=== PATIENT | female | born 1940 | race Caucasian/White ===

== ENCOUNTER 2020-08-01 11:48 | Emergency (ER) | payer MEDICARE, BC, SELFPAY ==
[2020-08-01 11:55] VITALS: BP 129/40; PULSE 99; RESP 18; TEMP 36.6; O2SAT 98
--- NOTE | 2020-08-01 12:07 | ED.GENADUL_ITS ---
Discharge Plan Disposition Patient Disposition: HOME Condition: Good Discharge Details Clinical Impression: Arthritis of knee, Effusion into joint Primary Care Provider: None,None ED Provider: Adalgisa Guevara Home Meds and New Rx's Prescriptions: Continued metformin 500 mg Tablet 500 mg PO BID RF: 0 Lantus U-100 Insulin 100 unit/mL Solution 20 unit SUBCUT BID RF: 0 lisinopril 20 mg Tablet 20 mg PO DAILY RF: 0 potassium 99 mg Tablet 99 mg PO DAILY RF: 0 pantoprazole 40 mg Tablet,Delayed Release (Dr/Ec) 40 mg PO DAILY RF: 0 aspirin 81 mg Tablet 81 mg PO DAILY RF: 0 pravastatin 20 mg Tablet 20 mg PO QHS RF: 0 hydrochlorothiazide 25 mg Tablet 25 mg PO DAILY RF: 0 insulin lispro [Humalog U-100 Insulin] 100 unit/mL Solution 15 unit SUBCUT TID RF: 0 hydroxychloroquine 200 mg Tablet 200 mg PO DAILY RF: 0 coenzyme Q10 [CoQ-10] 100 mg Capsule 100 mg PO BID RF: 0 omega-3 fatty acids Capsule 1,000 mg PO DAILY RF: 0 Calcium 600 + D(3) 600 mg calcium- 200 unit Capsule 1 cap PO DAILY RF: 0 vitamin A-vitamin D3 5,000-400 unit Capsule PO DAILY RF: 0 cholecalciferol (vitamin D3) [Vitamin D3] 50 mcg (2,000 unit) Tablet 50 mcg PO DAILY RF: 0 Probiotic 3 billion cell Capsule 3,000 mmu cells PO DAILY RF: 0 Trulicity 0.75 mg/0.5 mL Pen Injector 0.75 mg SUBCUT QWEEK RF: 0 Histablock 1,080 mg PO BID RF: 0 Intestinal Sooth & Build RF: 0 Discharge Instructions Instructions: Arthritis (ED) Additional Instructions: Your exam is reassuring here today. I did not see any evidence to suggest an infection. Likely this is from your driving for extended period of time your knee being bent position. As we discussed, knee can be drained but because of your recent injection, we are unable to inject you again with steroids. Please continue with compression as this does sound to be reducing the swelling. Encourage rest, ice, elevation. You may take Tylenol and/or ibuprofen as needed for discomfort. Please follow the directions on the label. Please follow-up with orthopedics when she returns home for reevaluation and discuss continued care. If you develop increased swelling, fever/chills, redness or other new/worsening symptom please seek care urgently once again. Discharge Data Discharge Date/Time-TO BE ENTERED AT DEPARTURE: 08/01/20 12:30 Medical Decision Making Patient is a pleasant 80 year old female presenting today with c/c of left knee pain. She has known OA for which she received steroid injections. She last received on 2 months ago, is scheduled for another in August. Is discussing TKA with her orthopedist. Reports she has increase in her pain and swelling after drivinng [place]. Denies calf pain. No N/T. Denies SOB, CP, fevers/chill. No trauma. On exam, she appears comfortable and nontoxic. She has limited ROM of knee. Small effusion. No erythema or warmth. She does not appear septic. 2+ distal pulses. No deformity noted. No evidence of DVT on exam. She and I discussed that this is likely associated with OA and exacerbation of her pain and arthritic swelling. Discussed xr, she would like ot hold off. She and I discussed aspiration. However, she has noted improvement already with compression with STELLA wrap. We discussed risks/benefits and patient would like ot hold off at this time. She would like to cntinue with NSAID, Tylenol and compression with plan to f/u with her orthopedic surgeon when she returns home. Return precautions discussed. New stella, that fits better, will be sent home with patient. All of her questions and concerns were addressed, she is in agreement with this plan. HPI General Mode of arrival: ambulatory . Date/Time Provider Initiated Documentation: 08/01/20 11:49 . Limitations to Documentation: no limitations . Information obtained by: patient and RN notes reviewed . History of Present Illness 80 year old F presents to the emergency department with the chief complaint of left knee pain, described as moderate and similar to prior episodes (reports hx of OA, states it feels the same), with intensity rated at 7. Quality is described as aching, and is localized to the left and lower extremity. Patient reports no radiation. Patient started experiencing this day(s) and it has been constant. Medication improves symptom(s), and other things that improve symptom(s), (compression) No exacerbating factors reported . Patient notes no other symptoms.; denies fever/chills, rash, shortness of breath and weakness. Patient did receive the following treatments prior to arrival, NSAID Related Data Home Medications Medication Instructions Recorded Confirmed Calcium 600 + D(3) 1 cap PO DAILY 08/01/20 08/01/20 Histablock 1,080 mg PO BID 08/01/20 08/01/20 Intestinal Sooth & Build 08/01/20 Lantus U-100 Insulin 20 unit SUBCUT BID 08/01/20 08/01/20 Probiotic 3,000 mmu cells PO DAILY 08/01/20 08/01/20 Trulicity 0.75 mg SUBCUT QWEEK 08/01/20 08/01/20 aspirin 81 mg PO DAILY 08/01/20 08/01/20 cholecalciferol (vitamin D3) 50 mcg PO DAILY 08/01/20 08/01/20 [Vitamin D3] coenzyme Q10 [CoQ-10] 100 mg PO BID 08/01/20 08/01/20 hydrochlorothiazide 25 mg PO DAILY 08/01/20 08/01/20 hydroxychloroquine 200 mg PO DAILY 08/01/20 08/01/20 insulin lispro [Humalog U-100 15 unit SUBCUT TID 08/01/20 08/01/20 Insulin] lisinopril 20 mg PO DAILY 08/01/20 08/01/20 metformin 500 mg PO BID 08/01/20 08/01/20 omega-3 fatty acids 1,000 mg PO DAILY 08/01/20 08/01/20 pantoprazole 40 mg PO DAILY 08/01/20 08/01/20 potassium 99 mg PO DAILY 08/01/20 08/01/20 pravastatin 20 mg PO QHS 08/01/20 08/01/20 vitamin A-vitamin D3 cap PO DAILY 08/01/20 Allergies Allergy/AdvReac Type Severity Reaction Status Date / Time latex Allergy Other (See Unverified 08/01/20 12:00 Comment) morphine Allergy Nausea Unverified 08/01/20 12:00 Sulfa (Sulfonamide Allergy Hives Unverified 08/01/20 12:00 Antibiotics) tramadol Allergy Nausea Unverified 08/01/20 12:00 clarithromycin [From Biaxin] AdvReac Nausea Unverified 08/01/20 12:00 codeine AdvReac Nausea Unverified 08/01/20 12:00 General Stated Complaint: Orthopedic MERRITT: 3 Review of Systems Constitutional Constitutional: Reports as per HPI, Denies chills, Denies fever(s), Denies headache(s) and Denies weakness ENT Ears, Nose, Mouth, and Throat: Denies headache(s) Cardiovascular Cardiovascular: Reports as per HPI Respiratory Respiratory: Reports as per HPI and Denies cough Musculoskeletal Musculoskeletal: Reports as per HPI and Denies tingling Integumentary/Breasts Skin/Breast: Reports as per HPI, Denies rash and Denies wounds Neurologic Neurologic: Reports as per HPI, Denies headache(s), Denies tingling, Denies paresthesias and Denies weakness [facility] Social History Smoking/Tobacco Use Status: Never Smoking risk assessment performed?: Yes Alcohol Intake: never Substance use type: does not use Exam Const General: cooperative, healthy appearing, comfortable, no acute distress, well developed and well groomed Nutritional Appearance: average body habitus and well nourished Orientation: alert and awake Resp Effort & Inspection: normal respiratory effort, able to speak in complete sentences and no respiratory distress Cardio Rate: regular rate Rhythm: regular rhythm Skin General skin exam: no rashes or lesions noted Lesions: no lesions Rashes: no rashes Trauma: no lacerations or abrasions Neuro General: patient alert and patient awake Cognition: normal cognition Speech: speech normal Gait: normal gait Motor: muscle tone normal throughout Sensory Exam: no sensory deficits noted Extrem Left lower extremity: normal to inspection, normal capillary refill, hip/thigh Details: normal to inspection and normal ROM; no swelling, knee Details: normal to inspection, tenderness (diffuse discomfort, worse over medial joint line), swelling (small joint effusion) and knee ligament exam normal; ROM abnormal (full extension, flexion to 90*), no ecchymosis, no crepitus, no deformity and no unusual warmth, lower leg Details: normal to inspection and no edema; no tenderness and no palpable cords, ankle Details: normal to inspection; no tenderness and no swelling and foot Details: normal capillary refill and vascular exam Details: dorsalis pedis pulse present; abnormal ROM and no edema Psych Appearance: grossly normal and well kempt Mental Status: mental status grossly normal Speech and Movement: speech and movement normal Course Vital Signs Vital signs: Vital Signs Temperature 36.6 C 08/01/20 11:55 Pulse 99 H 08/01/20 11:55 Respiratory Rate 18 08/01/20 11:55 Blood Pressure 129/40 L 08/01/20 11:55 Pulse Oximetry 98 08/01/20 11:55 Temperature 36.6 C 08/01/20 11:55 Temperature Source Skin 08/01/20 11:55 Pulse 99 H 08/01/20 11:55 Respiratory Rate 18 08/01/20 11:55 Blood Pressure 129/40 L 08/01/20 11:55 Blood Pressure Position Sitting 08/01/20 11:55 Pulse Oximetry 98 08/01/20 11:55 Oxygen Delivery Method Room Air 08/01/20 11:55 Oxygen Flow Rate 0 08/01/20 11:55 Pain Level 8 08/01/20 11:55
--- OUTSIDE RECORDS SUMMARY | 2020-08-01 12:15 | XMS_ITS | Encounter Summary ---
:1940 Author Organization [facility] Address One [facility], [address] [place] [address] Care Team Providers Name Role Phone PrasadDonaldo garcia Benjamin VILA Primary Care Provider Reason for Visit Reason Comments Medication Refill Encounter Details Date Type Department Care Team Description 06/27/2020 Refill [facility] Jeanne Gonzalez DO Gastritis without CENTER [address] [facility] bleeding, unspecified [address] [place], [place] chronicity, unspecified [address] [address] gastritis type [place], [place] [phone] [phone] Social History Tobacco Use Types Packs/Day Years Used Date Never Assessed Sex Assigned at Date Recorded Not on file documented as of this encounter Miscellaneous Notes Telephone Encounter - Dave Mcginnis - 06/29/2020 8:11 AM EDT GAUTAM 08/14/19 documented in this encounter Plan of Treatment Not on filedocumented as of this encounter Visit Diagnoses Diagnosis Gastritis without bleeding, unspecified chronicity, unspecified gastritis type documented in this encounter
--- OUTSIDE RECORDS SUMMARY | 2020-08-01 12:15 | XMS_ITS | Encounter Summary ---
:1940 Author Organization [facility] Address One [facility], [address] [place] [address] Care Team Providers Name Role Phone Donaldo Steward DO Primary Care Provider Reason for Visit Reason Comments Follow-up follow up endoscopy Encounter Details Date Type Department Care Team Description 08/14/2019 Telemedicine [facility] [place] Jeanne Gonzalez, [facility] DO bleeding, unspecified [address], [address] [place], [place] [address] type (Primary Dx) [phone] Social History Tobacco Use Types Packs/Day Years Used Date Never Assessed Sex Assigned at Date Recorded Not on file COVID-19 Exposure Response Date Recorded In the last month, have you been in contact with No / Unsure 08/14/2019 3:00 PM EDT someone who was confirmed or suspected to have Coronavirus / COVID-19? documented as of this encounter Progress Notes Jeanne Gonzalez DO - 08/14/2019 3:00 PM EDT Gastroenterology Consult Note Date of Consult: 08/14/2019 Patient's Primary Care Physician: Donaldo Steward DO Physician Requesting Consult: Donaldo Steward DO [address] [facility] [address] [place] [address] Reason for Consultation: gerd/gastritis HPI [facility] - TeleMedicine Note - Introduction Esther Morales is being seen today for a visit via telehealth technology. Esther Morales provided verbal consent to [facility] staff prior to proceeding with this telehealth encounter. This visit was completed using (Choose one): Live Voice The patient's identity was confirmed by Name and Date of . The patient reported the following physical address during the telehealth visit: home. In the event visit is disconnected, the patient telephone contact: listed in Epic Additional persons present during telehealth visit: No Extenuating circumstances for telemedicine visit: COVID19 pandemic Patient verbally consented to participate in a Virtual Check-In visit today and understands that they may or may not be required to share in the cost of this service. All standard copays, coinsurance & deductibles apply unless otherwise specified due to temporary provisions (COVID19 pandemic). Thepatient was told that if at any point they or the provider feel the video visit is in not adequate they can opt for scheduling a face to face visit. Verbal consent for this telehealth visit was obtained after treatment methods and limitations of telehealth were discussed with the patient. Verbal consent was also obtained to disclose the telehealth medical record to their primary care physician. In the event the connection was lost during an audio/video visit, the appointment should resume withphone (audio) only. Technical quality of visit: good. Total duration of TeleMedicine Visit including preparation, patient interaction, counselin (min) Esther Morales is a 79 y.o. female who is being evaluated for gerd, gastritis f/u. She had egd as a cocase with CRS dr. Yang for longstanding gerd, anemia. She had been on pantoprazole 40mg at bedtime daily. She was found to have a colon cancer on colonoscopy for which she will be unergoing surgery. She was also noted to have HH, schatkis ring non obstructing and gastritis. We spoke today about ugi results and her current medication dosing. She says she feels heartburn despite taking once daily ppi (she takes it at night however) Review of Systems Gastrointestinal: Positive for heartburn. Physical Exam: TeleHealth Visit Type: Phone Only: Patient was in no acute distress. Alert, answering questions appropriately. No audible increased work of breathing. Objective Vitals: There is no height or weight on file to calculate BMI. Physical Exam No Known Allergies Current Outpatient Medications: ??? PANTOprazole (PROTONIX) 40 MG EC tablet, Take 1 tablet (40 mg total) by mouth daily., Disp: 90 tablet, Rfl: 3 Recent Labs and Tests CBC CMP INR LIPASE Abdominal Imaging Test within 1 month Histories No past medical history on file. No past surgical history on file. Social History Tobacco Use ??? Smoking status: Not on file Substance Use Topics ??? Alcohol use: Not on file ??? Drug use: Not on file GI Procedural History Assessment & Plan Assessment/Plan 1. Gastritis without bleeding, unspecified chronicity, unspecified gastritis type - PANTOprazole (PROTONIX) 40 MG EC tablet; Take 1 tablet (40 mg total) by mouth daily. Dispense: 90tablet; Refill: 3 She will increase to bid ppi and she was instructed to take it before both breakfast and dinner. Shewill f/u as needed. Orders Placed This Encounter ??? PANTOprazole (PROTONIX) 40 MG EC tablet Sign: Jeanne Gonzalez DO 08/14/2019 3:09 PM documented in this encounter Plan of Treatment Not on filedocumented as of this encounter Visit Diagnoses Diagnosis Gastritis without bleeding, unspecified chronicity, unspecified gastritis type - Primary documented in this encounter
--- OUTSIDE RECORDS SUMMARY | 2020-08-01 12:15 | XMS_ITS | Encounter Summary ---
:1940 Author Organization [facility] Address One [facility], [address] [place] [address] Care Team Providers Name Role Phone SholaDonaldo almendarez Primary Care Provider Encounter Details Date Type Department Care Team Description 08/07/2019 Scanned Document [facility] Provider, [facility] [address] [facility] [address] [place] [address] Social History Tobacco Use Types Packs/Day Years Used Date Never Assessed Sex Assigned at Date Recorded Not on file COVID-19 Exposure Response Date Recorded In the last month, have you been in contact with No / Unsure 08/05/2019 11:44 AM EDT someone who was confirmed or suspected to have Coronavirus / COVID-19? documented as of this encounter Plan of Treatment Not on filedocumented as of this encounter Procedures Procedure Name Priority Date/Time Associated Diagnosis Comme nts PATHOLOGY REPORT 08/07/2019 1:39 PM Resu lts for this EDT procedure are i n the results section. documented in this encounter Results (REPORT) PATHOLOGY REPORT (08/07/2019 1:39 PM EDT) Specimen Narrative Performed At This result has an attachment that is no t available. Ordered by an unspecified provider. documented in this encounter Visit Diagnoses Not on filedocumented in this encounter
--- OUTSIDE RECORDS SUMMARY | 2020-08-01 12:15 | XMS_ITS | Clinical Summary ---
:1940 Author Organization [facility] Address One [facility], [address] [place] [address] Care Team Providers Name Role Phone PrasadDonaldo garcia Benjamin VILA Primary Care Provider Allergies No Known Active Allergies Medications Medication Sig Dispensed Refills Start Date End Date Status PANTOprazole (PROTONIX) TAKE ONE TABLET 90 tablet 3 06/29/2020 Active 40 MG EC BY MOUTH EVERY tabletIndications: DAY Gastritis without bleeding, unspecified chronicity, unspecified gastritis type Encounters Date Type Specialty Care Team Description 06/27/2020 Refill Gastroenterology Jeanne Gonzalez DO Gas tritis without bleeding, unspecified chr onicity, unspecified gas tritis type from Last 3 Months Social History Tobacco Use Types Packs/Day Years Used Date Never Assessed Sex Assigned at Date Recorded Not on file Plan of Treatment Health Maintenance Due Date Last Done Comments Creatinine with GFR 07/09/1949 Foot Exam 07/09/1949 Hemoglobin A1C 07/09/1949 Lipid Panel 07/09/1949 Microalbumin Urine 07/09/1949 Ophthalmology Exam 07/09/1949 COVID-19 Vaccine (1) 1952 Pneumococcal Vaccine Series Age 65+ Low/Medium Risk (1 5 of 2 - PCV-13 (Prevnar)) Influenza Vaccine 09/27/2020 Insurance Payer Benefit Plan / Subscriber ID Effective Dates Phone Addre ss Type Group MEDICARE MEDICARE PART A & [id number] 2004-Present [address] [place] [address] BLUE CROSS BLUE CROSS-[id number] 2019-Present [address] [place] [address] Advance Directives Documents on File Type Date Recorded Patient Lead Systems Developer Explanati on Advance Directive-Scan
--- OUTSIDE RECORDS SUMMARY | 2020-08-01 12:15 | XMS_ITS | Encounter Summary ---
:1940 Author Organization [facility] Address One [facility], [address] [place] [address] Care Team Providers Name Role Phone Donaldo Steward DO Primary Care Provider Encounter Details Date Type Department Care Team Description 08/14/2019 Travel Social History Tobacco Use Types Packs/Day Years [...] filedocumented as of this encounter Visit Diagnoses Not on filedocumented in this encounter
--- OUTSIDE RECORDS SUMMARY | 2020-08-01 12:15 | XMS_ITS | Encounter Summary ---
:1940 Author Organization [facility] Address One [facility], [address] [place] [address] Care Team Providers Name Role Phone Donaldo Steward DO Primary Care Provider Encounter Details Date Type Department Care Team Description 08/13/2019 Telephone [facility] Jeanne Gonzalez, DO [address] [address] [address] [facility] [phone] [place] [address] Social History Tobacco Use Types Packs/Day Years Used Date Never Assessed Sex Assigned at Date Recorded Not on file COVID-19 Exposure Response Date Recorded In the last month, have you been in contact with No / Unsure 08/05/2019 11:44 AM EDT someone who was confirmed or suspected to have Coronavirus / COVID-19? documented as of this encounter Miscellaneous Notes Telephone Encounter - Salvador Lima MA - 08/13/2019 1:43 PM EDT Patient returned call and is aware of 4 om visit on in office. elephone Encounter - Salvador Lima MA - 08/13/2019 11:31 AM EDT Left msg to call back Booked for 08/14 at 4 pm in office elephone Encounter - Salvador Lima MA - 08/13/2019 10:04 AM EDT Would just have to be a phone call as patient does not have cell phone only home # Telephone Encounter - Salvador Lima MA - 08/13/2019 9:31 AM EDT pls advise. elephone Encounter - Ayesha Harvey - 08/13/2019 9:20 AM EDT Pt had procedure last week and would like a cb to go over any results from that procedure. Her best cb number is [phone] signed by Ayesha Harvey at 08/13/2019 9:21 AM EDTdocumented in this encounter Plan of Treatment Not on filedocumented as of this encounter Visit Diagnoses Not on filedocumented in this encounter
--- OUTSIDE RECORDS SUMMARY | 2020-08-01 12:15 | XMS_ITS | Encounter Summary ---
:[address] [facility] Address One [facility], [address] [place] [address] Care Team Providers Name Role Phone oDnaldo Steward DO Primary Care Provider Encounter Details Date Type Department Care Team Description 08/05/2019 Travel Social History Tobacco Use Types Packs/Day [...]
--- OUTSIDE RECORDS SUMMARY | 2020-08-01 12:15 | XMS_ITS | Encounter Summary ---
:1940 Author Organization [facility] Address One [facility], [address] [place] [address] Care Team Providers Name Role Phone Donaldo Steward DO Primary Care Provider Encounter Details Date Type Department Care Team Description 04/22/2019 Scanned Document [facility] Jeanne Gonzalez, DO [address] [address] [place], [place] [phone] [phone] Social History Tobacco Use Types Packs/Day Years Used Date Never Assessed Sex Assigned at Date Recorded Not on file documented as of this encounter Plan of Treatment Not on filedocumented as of this encounter Visit Diagnoses Not on filedocumented in this encounter
--- OUTSIDE RECORDS SUMMARY | 2020-08-01 12:16 | XMS_ITS | Encounter Summary ---
:1940 Author Organization [employer] [facility] Address [address] [place] [address] Care Team Providers Name Role Phone Benjamin Steward Primary Care Provider Reason for Visit Reason Comments Office Visit Encounter Details Date Type Department Care Team Description 11/01/2019 Office Visit Colon and Rectal Hamzah Orourke Colitis with rectal [facility] MD bleeding (Primary Dx) [place] [address] [place] [address] [address] [place] [phone] Social History Tobacco Use Types Packs/Day Years Used Date Former Smoker Cigarettes 6 02/27/1957 - 0 02/27/1961 Smokeless Tobacco: Never Used Alcohol Use Standard Drinks/Week Comments No 0 (1 standard drink = 0.6 oz pure alcoho l) rare Alcohol Habits Answer Date Recorded How often do you have a drink containing alcohol? Never 08/29/2019 How many drinks containing alcohol do you have on a typical Not asked day when you are drinking? How often do you have six or more drinks on one occasion? No t asked Sex Assigned at Date Recorded Female 08/26/2019 11:42 AM EDT Job Start Date Occupation Industry Not on file Not on file Not on file COVID-19 Exposure Response Date Recorded In the last month, have you been in contact with No / Unsure 11/01/2019 10:54 AM EDT someone who was confirmed or suspected to have Coronavirus / COVID-19? documented as of this encounter Last Filed Vital Signs Vital Sign Reading Time Taken Comments Blood Pressure - - Pulse - - Temperature - - Respiratory Rate - - Oxygen Saturation - - Inhaled Oxygen Concentration - - Weight 68 kg (150 lb) 11/01/2019 11:11 AM EDT Height 154.9 cm (5' 1) 11/01/2019 11:11 AM EDT Body Mass Index 28.34 11/01/2019 11:11 AM EDT documented in this encounter Functional Status Functional Status Response Date of Assessment Pt deaf or have serious difficulty hearing? No 09/04/2019 Pt blind or have difficulty seeing, even with glasses? No 09/04/2019 documented as of this encounter Progress Notes Hamzah Orourke MD - 11/01/2019 11:00 AM EDT Chief Complaint: Chief Complaint Patient presents with ??? Office Visit HPI: Patient is here today as a consultation request from Donaldo Steward DO. Patient is being seen for follow-up after recent admission for colitis again at the left side of the colon. At that time she remembers not drinking a significant amount of water again and having slightly small amount of darker urine. She had no change to medications. She had no previous bouts of nausea vomiting or severe diarrhea leading up to the attack. She has mild abdominal pain also small amount of mucus and blood in the stool. This is now completely resolved. She is back to having daily or twice daily bowel movements with no blood in the stool or darkness. There is no further mucus. She is having no cramping abdo marcelina pain currently. She feels otherwise well. She is due to see gastroenterology as well for another opinion regarding her episodes of colitis.. Past Medical History: Diagnosis Date ??? Acid reflux ??? Acute myocardial infarction (HCC) ??? Adenomatous polyp of colon ??? Arthritis ??? Cataract ??? Colon cancer (HCC) ??? Diabetes mellitus (HCC) ??? Diabetes mellitus, type II (HCC) ??? Heart murmur ??? Hypercholesteremia ??? Hypertension ??? Spinal stenosis ??? Ulcerative colitis (HCC) Past Surgical History: Procedure Laterality Date ??? BACK SURGERY 2012 ??? CATARACT EXTRACTION, BILATERAL 2003 ??? COLONOSCOPY ??? COLONOSCOPY N/A 09/04/2019 Procedure: C02 COLONOSCOPY WITH TATOO; Surgeon: Hamzah Orourke MD; Location: [facility] MAIN OPERATING ROOM; Service: Colorectal; Laterality: N/A; ??? CORONARY ANGIOPLASTY WITH STENT PLACEMENT 2003 ??? DILATION AND CURETTAGE OF UTERUS ??? HYSTERECTOMY 1980s Heavy periods. ??? LAPAROSCOPIC RIGHT COLON RESECTION N/A 09/04/2019 Procedure: RIGHT LAPAROSCOPIC HAND ASSISTED HEMICOLECTOMY, lysis of adhesions; Surgeon: Hamzah Orourke MD; Location: [facility] MAIN OPERATING ROOM; Service: Colorectal; Laterality: N/A; ??? UPPER GASTROINTESTINAL ENDOSCOPY ??? WISDOM TOOTH EXTRACTION 2016 x1 Current Outpatient Medications Medication Sig Dispense Refill ??? amoxicillin-clavulanate (AUGMENTIN) 875-125 MG per tablet Take 1 tablet by mouth 2 (two) times aday. 8 tablet 0 ??? aspirin EC 81 MG tablet Take 81 mg by mouth daily. ??? Calcium Carb-Cholecalciferol (CALCIUM+D3 PO) Take by mouth. ??? Cholecalciferol (VITAMIN D-3 PO) 2,000 Units daily. Vitamin D3 TABS Refills: 0 Active ??? Coenzyme Q10 (COQ10 PO) Take by mouth 2 (two) times a day. ??? HUMALOG KWIKPEN 100 UNIT/ML injection 15 Units 3 (three) times a day. ??? hydroCHLOROthiazide (HYDRODIURIL) tablet 25 mg Take 25 mg by mouth daily. ??? hydroxychloroquine (PLAQUENIL) 200 MG tablet Take 1 tablet (200 mg total) by mouth every night at bedtime as needed. 180 tablet 2 ??? LANTUS SOLOSTAR 100 UNIT/ML injection INJECT 25 UNITS UNDER THE SKIN AT BEDTIME ??? lisinopril (PRINIVIL,ZESTRIL) tablet 20 mg ??? metFORMIN (GLUCOPHAGE-XR) ER 24 hr tablet 500 mg 2 (two) times a day. ??? Multiple Minerals-Vitamins (DOLOMITE PLUS VITAMINS A AND D PO) Take by mouth daily. ??? [place]-3 Fatty Acids (OMEGA 3 PO) Take by mouth. ??? oxyCODONE (ROXICODONE) 5 MG immediate release tablet Take 1 tablet (5 mg total) by mouth every 6(six) hours as needed. 15 tablet 0 ??? pantoprazole (PROTONIX) 40 MG tablet 2 (two) times a day. ??? Potassium 99 MG TABS Take by mouth daily. ??? pravastatin (PRAVACHOL) tablet 20 mg every night at bedtime. ??? Probiotic Product (PROBIOTIC DAILY PO) Take by mouth daily. ??? TRULICITY 0.75 MG/0.5ML SOPN INJECT ONCE A WEEK 1 ??? UNABLE TO FIND 2 (two) times a day. HISTA BLOCK: 2 TABS BID ??? UNABLE TO FIND 2 (two) times a day. INTESTINAL SMOOTH AND BUILD: 2 TABS BID ??? metoclopramide (REGLAN) tablet 5 mg Take 1 tablet (5 mg total) by mouth 2 (two) times a day before breakfast and dinner. 60 tablet 2 No current facility-administered medications for this visit. Patient Active Problem List Diagnosis SNOMED CT(R) Date Noted ??? Colon cancer (HCC) MALIGNANT TUMOR OF COLON 09/04/2019 ??? Chronic pain of both shoulders SHOULDER PAIN 11/27/2018 ??? Iliotibial band syndrome of right side ILIOTIBIAL BAND FRICTION SYNDROME OF RIGHT KNEE 10/19/2018 ??? Other osteoporosis without current pathological fracture OSTEOPOROSIS 05/24/2018 ??? Breast tenderness in female BREAST TENDERNESS 04/06/2018 ??? Ischemic colitis (HCC) ISCHEMIC COLITIS 05/19/2016 ??? 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 Heart disease Mother ??? Diabetes Father ??? Colon cancer Brother 70 ??? No Sig Med Hx Sister ??? Cancer Brother lung ??? No Sig Med Hx Brother ??? No Sig Med Hx Sister ??? Breast cancer Neg Hx ??? Ovarian cancer Neg Hx ??? Uterine cancer Neg Hx Social History Socioeconomic History ??? Marital status: Spouse name: Not on file ??? Number of children: Not on file ??? Years of education: Not on file ??? Highest education level: Not on file Occupational History ??? Not on file Social Needs ??? Financial resource strain: Not on file ??? Food insecurity: Worry: Not on file Inability: Not on file ??? Transportation needs: Medical: Not on file Non-medical: Not on file Tobacco Use ??? Smoking status: Former Smoker Years: 6.00 Types: Cigarettes Start date: 02/27/1957 Last attempt to quit: 02/27/1961 Years since quittin.7 ??? Smokeless tobacco: Never Used Substance and Sexual Activity ??? Alcohol use: No Frequency: Never Comment: rare ??? Drug use: No ??? Sexual activity: No control/protection: Surgical Comment: passed 3y ago. HYST 1979. Lifestyle ??? Physical activity: Days per week: Not on file Minutes per session: Not on file ??? Stress: Not on file Relationships ??? Social connections: Talks on phone: Not on file Gets together: Not on file Attends moravian service: Not on file Active member of club or organization: Not on file Attends meetings of clubs or organizations: Not on file Relationship status: Not on file ??? Intimate partner violence: Fear of current or ex partner: Not on file Emotionally abused: Not on file Physically abused: Not on file Forced sexual activity: Not on file Other Topics Concern ??? Not on file Social History Narrative ??? Not on file Allergies Allergen Reactions ??? Acetazolamide Other (See Comments) Dry mouth ??? Clarithromycin ??? Codeine Nausea And Vomiting ??? Morphine ??? Morphine And Related Nausea And Vomiting ??? Sulfa Antibiotics ??? Sulphadimidine [Sulfamethazine] Hives ??? Tramadol Nausea And Vomiting ??? Latex Rash Review of Systems A focused ROS was completed and was negative unless otherwise noted above. Vital Signs: Vitals: 11/01/19 1111 Weight: 68 kg (150 lb) Height: 5' 1 (1.549 m) Body mass index is 28.34 kg/m??. Body surface area is 1.71 meters squared. Vitals reviewed. Constitutional: She is well-developed and well-nourished Abdomen: Normal appearance. Soft. There is no tenderness. Well-healed incisions no palpable mass no guarding or rebound no hernia. Assessment: ICD-10-CM SNOMED CT(R) 1. Colitis with rectal bleeding K52.9 COLITIS K62.5 A total of 22 minutes was spent with the patient today with more than 50% of the time on counseling / education and coordination of care. Plan: Patient continues to have repeat bouts of colitis. This is been worked up in the past with previousstool studies which have been negative a colonoscopy which revealed an incidental polyp containing cancer which subsequently led to right hemicolectomy performed by me and the patient has done well butunfortunately has recurrence at the splenic flexure and descending colon area of colitis. Based on her constellation of symptoms and history this is likely due to ischemic colitis again. Recommended continued aggressive hydration if possible and she can follow-up with GI regarding further work-up but I explained that I am unclear of the exact source for cause for continued colitis as colonoscopy was otherwise unremarkable as well. She will follow-up again with any recurrent abdominal pain nausea vomiting sweats chills or fevers or rectal bleeding. Encouraged follow-up with GI as well regarding a second opinion. Hamzah Orourke MD documented in this encounter Plan of Treatment Not on filedocumented as of this encounter Visit Diagnoses Diagnosis Colitis with rectal bleeding - Primary documented in this encounter Care Teams Braille Teacher Relationship Specialty Start Date End Date Donaldo Steward DO PCP - General Family Medicine 05/17/[address] [place] [id number] documented as of this encounter
--- OUTSIDE RECORDS SUMMARY | 2020-08-01 12:16 | XMS_ITS | Encounter Summary ---
:1940 Author Organization [employer] [facility] Address [address] [place] [address] Care Team Providers Name Role Phone Benjamin Steward DO Primary Care Provider Encounter Details Date Type Department Care Team Description 04/03/2020 Travel Social History Tobacco Use Types Packs/Day [...] been in contact with No / Unsure 04/03/2020 9:49 AM EST someone who was confirmed or suspected to have Coronavirus / COVID-19? documented as of this encounter Functional Status Functional Status Response Date of Assessment Pt deaf or have serious difficulty hearing? No 09/04/2019 Pt blind or have difficulty seeing, even with glasses? No 09/04/2019 documented as of this encounter Plan of Treatment Not on filedocumented as of this encounter Visit Diagnoses Not on filedocumented in this encounter Care Teams Instructor Product Inspection Relationship Specialty Start Date End Date Donaldo Steward DO PCP - General Family Medicine 05/17/[address] [place] [address] [address] [place] [address] documented as of this encounter
--- OUTSIDE RECORDS SUMMARY | 2020-08-01 12:16 | XMS_ITS | Encounter Summary ---
:1940 Author Organization [facility] Address [address] [place] [address] Care Team Providers Name Role Phone SholaBenjamin almendarez Primary Care Provider Reason for Visit Auth/Cert Inpatient Observation or Outpatient Surgery Specialty Diagnoses / Procedures Referred By Contact Refer red To Contact Diagnoses Colon cancer (HCC) Colon cancer (HCC) [C18.9] [facility] Main Or 3-1 Procedures TX COLONOSCOPY FLX DX W/COLLJ SPEC WHEN PFRMD TX LAP,SURG,COLECTOMY,W/REMVL TERM ILEUM C02 COLONOSCOPY WITH TATOO RIGHT LAPAROSCOPIC HAND ASSISTED HEMICOLECTOMY [address] [place] [address] Referral ID Status Reason Start Date Expiration Date Visits Requ ested Visits Authorized [id number] 1 1 Encounter Details Date Type Department Care Team Description 09/04/2019 Anesthesia Event SF OR Main Surgery Temitope Gee MD [address] [place] [address] [place] [address] [place] [address] Bibiana Austin MD [address] [place] [address] [place] [address] [place] [address] Anesthesia Record Procedure Summary Procedure Name Responsible Anesthesia Start Anesthesia Stop Anesthesiologist Time Time C02 COLONOSCOPY WITH Temitope Gee MD 07/08/20 0823 07/0 10/16 1431 TATOO (N/A Anus) Events Date Time Event Comment 09/04/2019 0706 0823 An Start 0823 An Start Data Patient assessed in OR Patient information reviewed, plan r emains the same. First set of vitals are pr einduction. 0824 Vital Signs Assessment 0831 An Induction 0835 An Intubation 0841 Quick Note Time out 0845 Quick Note Baseline clearsi te values: Co 4.4 Sv 52 Svr 1415 Svv 8 0850 Block Start 0856 Block Stop 0857 Anesthesia Ready 0858 Quick Note Colonoscopy star t 0931 Quick Note Colonoscopy done 0959 Quick Note Surgical incisio n 1005 Quick Note Clearsite not fu nctioning 1018 Quick Note Istat venous gl ucose 193 H/h 29/9.9 Ica 1.06 Na 139 K 3.1 1114 Quick Note Reverse t-chelsey p er surgeon's request, verified with OR staff th at pt is strapped in. 1150 Quick Note Surgeon requesti ng complete neuromuscular relaxation 1359 An Emergence 1405 An Extubation 1413 an stop data 1430 Handoff I reviewed the p atient's vital signs with the receiving nurse and completed my report and handoff. 1431 An Stop Name Total lidocaine 20mg/ml (5 ml syringe) 120 mg propofol (DIPRIVAN) (bolus) 200mg/20mL 150 mg rocuronium (ZEMURON) IV syringe 50 mg/5 mL SYRINGE 120 mg dexamethasone (DECADRON) injection 4 mg/mL 4 mg ondansetron 2 mg/mL 4 mg phenylephrine (BRISA-SYNEPHRINE) 400 mcg/10 mL NS syring e (40 mcg/mL) 160 mcg ePHEDrine 50mg/ml 5 mg sugammadex sodium (BRIDion) 200 mg/2 ml 200 mg orphenadrine (NORFLEX) 30 mg/ml 30 mg dexmedetomidine (PRECEDEX) IV infusion 400 mcg/100 mL in NS 121.97 mcg esmolol (BREVIBLOC) bolus 50 mg cefTRIAXone (ROCEPHIN) 1 g 2 g metroNIDAZOLE (FLAGYL) IVPB 500 mg (premix) 500 mg lactated ringers infusion 1,400 mL Agents Name O2 Air Sevoflurane Blood No blood administrations on file. Lines, Drains, and Airways Type Details Placement Removal Incision 09/04/19; 1355; 09/04/19 1355 by Abdomen; Anterior; Whit Leonard RN Superior Incision 09/04/19; 1355; 09/04/19 1355 by Abdomen; Anterior; Whit Leonard RN inferior Incision 09/04/19; 1355; 09/04/19 1355 by Abdomen; Right; Whit Leonard RN superior Incision 09/04/19; 1355; 09/04/19 1355 by Abdomen; Right; Whit Leonard RN inferior Peripheral IV 09/04/19; 0715; Start; 09/04/19 0715 by 09/07/19 1340 by 20 G; Left; Rosemary, Alina Adams RN Aligat a, Renee M, RN Forearm; Chloraprep; None; Transparent; Tolerated well ETT 09/04/19; 0835; 7; 09/04/19 0835 by 09/04/19 140 5 by Cuffed; Single Lumen; Cleo Daniels RN Donnell , Arleth R, 1; Easy; Yes; Mac 3; SENIOR ASSISTANT MANAGER II; Cricoid Pressure; No; No; No Peripheral IV 09/04/19; 0838; 18 G; 09/04/19 0838 by 09/07/19 1340 by Left; Forearm; Cleo Daniels RN Aligata, Rene e M, RN Chlorhexidine; None Urethral Catheter 09/04/19; 0910; 09/04/19 0910 by 09/05/19 1039 by Indwelling; 16 Fr.; Whit Leonard RN Graae, Celine, RN Clear; Yellow; Per order documented in this encounter Social History Tobacco Use Types Packs/Day Years [...] file Not on file Not on file documented as of this encounter OR Notes Anesthesia Postprocedure Evaluation - Bibiana Austin MD - 09/04/2019 5:06 PM EDT Post anesthetic care is complete. The patient may be released per ASPAN standards. No apparent anesthetic complications are noted. As a part of normal post anesthetic care the following were addressed: respiratory and cardiac function, mental status, body temperature, pain, nausea and vomiting, hydration. Her height is 5' 1.5 (1.562 m) and weight is 72.6 kg (160 lb). Her oral temperature is 36.7 ??C. Her blood pressure is 125/68 and her pulse is 71. Her respiration is 14 and oxygen saturation is 94%. nesthesia Procedure Notes - Syd Gautam DO - 09/04/2019 9:02 AM EDTAssociated Order(s): TAP Block PROCEDURE NAME: TAP Block Delivery method: single shot Patient Location: OR Start time: 09/04/2019 8:42 AM End time: 09/04/2019 8:57 AM Reason for block: at surgeon's request, pain management and post-operative pain/analgesia Level of consciousness: sedated with meaningful contact Staffing: Anesthesiologist: Hiram De La Fuente MD Resident: Syd Gautam DO Performed by: resident/PATTERN VAULT CLERK Time out: Correct patient: correct patient Correct site or side: site and side verified Correct procedure: correct procedure Correct patient position: patient position confirmed Patient position: supine Prep: chlorhexidine Technique: ultrasound guided and ultrasound printed/placed in chart Needle and Peripheral Catheter: Needle type: short-bevel Needle gauge: 22 G Needle length: 3.5 in Injectate Dose 1 Route: Saphenous Medications 1: bupivacaine 0.25% With/without epi 1: with epinephrine Injectate 1 total: 30 Injectate Dose 2 Route: Sciatic. Medications 2: bupivacaine 0.25% With/without epi 2: with epinephrine Injectate 2 total: 30 Narrative: 3 no blood aspirated no pain on injection test dose negative Resistance on injection: Normal Events: none, easy, well tolerated Success: full eval pending nesthesia Preprocedure Evaluation - Jimena Montano MD - 09/03/2019 5:49 PM EDT History: This patient is a 79 y.o. year-old female who presents for Procedure(s): C02 COLONOSCOPY WITH TATOO RIGHT LAPAROSCOPIC HAND ASSISTED HEMICOLECTOMY with a preliminary surgical diagnosis of Colon cancer(HCC) [C18.9]. History Patient Active Problem List Diagnosis SNOMED CT(R) ??? 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 Ischemic colitis (HCC) ISCHEMIC COLITIS ??? Breast tenderness in female BREAST TENDERNESS ??? Other osteoporosis without current pathological fracture OSTEOPOROSIS ??? 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 Chronic pain of both shoulders SHOULDER PAIN Past Medical History: Diagnosis Date ??? Acid [...] BACK SURGERY 2012 ??? CATARACT EXTRACTION, BILATERAL 2004 ??? COLONOSCOPY ??? CORONARY ANGIOPLASTY WITH STENT PLACEMENT 2003 ??? DILATION AND CURETTAGE OF UTERUS ??? HYSTERECTOMY 1980s Heavy periods. ??? UPPER GASTROINTESTINAL ENDOSCOPY ??? WISDOM TOOTH EXTRACTION 2016 x1 Social History Substance and Sexual Activity Alcohol Use No ??? Frequency: Never Comment: rare Social History Tobacco Use Smoking Status Former Smoker ??? Years: 6.00 ??? Types: Cigarettes ??? Start date: 02/27/1957 ??? Last attempt to quit: 02/27/1961 ??? Years since quittin.5 Smokeless Tobacco Never Used Allergies Allergen Reactions ??? Acetazolamide Other (See Comments) Dry mouth ??? Clarithromycin ??? Codeine Nausea And Vomiting ??? Morphine ??? Morphine And Related Nausea And Vomiting ??? Sulfa Antibiotics ??? Sulphadimidine [Sulfamethazine] Hives ??? Tramadol Nausea And Vomiting ??? Latex Rash History: Anesthesia ROS/Medical History History of Anesthetic Complications: No anesthesia complications history and 2004 stent. Stable since. Followed by Dr Anton Cardiovascular: Cardiovascular: EKG reviewed. Echocardiogram Reviewed: normal EF (+) hypertension. CAD, hyperlipidemia past [place], cardiac stents (diagonal 2003). Exercise tolerance: unable to assess Stress test 20 nl Pulmonary: Pulmonary : (+) sleep apnea: negative pulmonary ROS Neurological/Psychological: Neuro/Psych: negative neuro/psych ROS GI/Hepatic/Renal: GI/Hepatic/Renal: (+) GERD: PUD Endocrine/Other: Endocrine/other: (+) diabetes arthritis Anesthesia Physical Exam Airway Mallampati: II TM distance: >3 FB Neck ROM: Full Sleep apnea Cardiovascular Rhythm: regular Rate: Normal Dental Dental findings: dentition intact Pulmonary clear to auscultation Physical Exam Other Findings Anesthesia Plan Patient has an ASA score of 3. Anesthesia Plan Anesthesia Plan: general and TAP Informed Consent Anesthetic plan and risks were discussed with patient. Anesthesia Plan Other Findings 2 wide bore IV documented in this encounter Miscellaneous Notes Post-anesthetic Transfer of Care - Arleth Taylor APRN - 09/04/2019 2:30 PM EDT Patient: Esther Morales Procedure(s): C02 COLONOSCOPY WITH TATOO RIGHT LAPAROSCOPIC HAND ASSISTED HEMICOLECTOMY, lysis of adhesions Anesthesia type: General, Regional Patient location: PACU Post op vital signs: stable Level of consciousness: sedated and unresponsive Post-anesthesia pain: adequate analgesia Airway patency: patent Respiratory: unassisted, face mask, oral airway Cardiovascular: stable and blood pressure at baseline Hydration: euvolemic Nausea and/or vomiting addressed. Anesthetic complications: no documented in this encounter Plan of Treatment Not on filedocumented as of this encounter Procedures Procedure Name Priority Date/Time Associated Diagnosis Comme nts TAP BLOCK Routine 09/04/2019 9:02 AM Results for this EDT procedure are i n the results section . documented in this encounter Results TAP Block (09/04/2019 9:02 AM EDT) Narrative Syd Gautam DO - 09/04/2019 9:02 AM EDT Syd Gautam DO ? 09/04/2019 ??9:04 AM PROCEDURE NAME: ?? TAP Block Delivery method: single shot Patient Location: OR Start time: 09/04/2019 8:42 AM End time: 09/04/2019 8:57 AM Reason for block: at surgeon's request, pain management and post-operative pain/analgesia Level of consciousness: sedated with halina ningful contact Staffing: Anesthesiologist: Hiram De La Fuente MD Resident: Syd Guatam DO Performed by: resident/PATTERN VAULT CLERK Time out: Correct patient: correct patient Correct site or side: site and side veri fied Correct procedure: correct procedure Correct patient position: patient positi on confirmed Patient position: supine Prep: chlorhexidine Technique: ultrasound guided and ultraso und printed/placed in chart Needle and Peripheral Catheter: Needle type: short-bevel Needle gauge: 22 G Needle length: 3.5 in Injectate Dose 1 Route: Saphenous Medications 1: bupivacaine 0.25% With/without epi 1: with epinephrine Injectate 1 total: 30 Injectate Dose 2 Route: Sciatic. Medications 2: bupivacaine 0.25% With/without epi 2: with epinephrine Injectate 2 total: 30 Narrative: 3 no blood aspirated no pain on injection test dose negative Resistance on injection: Normal Events: none, easy, well tolerated Success: full eval pending Procedure Note Syd Gautam DO - 09/04/2019 9:02 AM EDT PROCEDURE NAME: TAP Block Delivery method: single shot Patient Location: OR Start time: 09/04/2019 8:42 AM End time: 09/04/2019 8:57 AM Reason for block: at surgeon's request, pain management and post-operative pain/analgesia Level of consciousness: sedated with halina ningful contact Staffing: Anesthesiologist: Hiram De La Fuente MD Resident: Syd Gautam DO Performed by: resident/PATTERN VAULT CLERK Time out: Correct patient: correct patient Correct site or side: site and side veri fied Correct procedure: correct procedure Correct patient position: patient positi on confirmed Patient position: supine Prep: chlorhexidine Technique: ultrasound guided and ultraso und printed/placed in chart Needle and Peripheral Catheter: Needle type: short-bevel Needle gauge: 22 G Needle length: 3.5 in Injectate Dose 1 Route: Saphenous Medications 1: bupivacaine 0.25% With/without epi 1: with epinephrine Injectate 1 total: 30 Injectate Dose 2 Route: Sciatic. Medications 2: bupivacaine 0.25% With/without epi 2: with epinephrine Injectate 2 total: 30 Narrative: 3 no blood aspirated no pain on injection test dose negative Resistance on injection: Normal Events: none, easy, well tolerated Success: full eval pending documented in this encounter Visit Diagnoses Not on filedocumented in this encounter Administered Medications Inactive Administered Medications - up to 3 most recent administrations Medication Order MAR Action Action Date Dose Rate Site cefTRIAXone (ROCEPHIN) injection Given 09/04/2019 9:53 AM EDT 2 g Intravenous, As needed, Starting on Mon09/04/19 at 0953, Anesthesia Intra-op dexamethasone (DECADRON) injection Given 09/04/2019 8:52 AM EDT 4 mg As needed, Starting on Mon09/04/19 at 0852, Anesthesia Intra-op dexmedetomidine Rate/Dose Change 09/04/2019 8:49 0.3 mcg/kg/hr 5.4 m L/hr (PRECEDEX) IV infusion AM EDT 400 mcg/100 mL in NS Intravenous, Continuous PRN, Starting on Mon09/04/19 at 0825, Anesthesia Intra-op New Bag 09/04/2019 8:25 AM EDT 0.6 mcg/kg/hr 10.9 mL/hr ePHEDrine injection Given 09/04/2019 11:18 AM EDT 5 mg Intravenous, As needed, Starting on Mon09/04/19 at 1118, Anesthesia Intra-op Esmolol HCl (BREVIBLOC) injection Given 09/04/2019 8:35 AM EDT 20 mg Intravenous, As needed, Starting on Mon09/04/19 at 0833, Anesthesia Intra-op Given 09/04/2019 8:33 AM EDT 30 mg lactated ringers infusion New Bag 09/04/2019 12:01 PM EDT Intravenous, Continuous PRN, Starting on Mon09/04/19 at 0823, Anesthesia Intra-op New Bag 09/04/2019 8:23 AM EDT lidocaine (Cardiac) (XYLOCAINE) 100 MG/5ML Given 09/04/2019 1:5 4 PM EDT 60 mg injection Intravenous, As needed, Starting on Mon09/04/19 at 0832, Anesthesia Intra-op Given 09/04/2019 8:32 AM EDT 60 mg metroNIDAZOLE (FLAGYL) IVPB Given 09/04/2019 9:54 AM EDT 500 mg Administer over 60 Minutes, As needed, Starting on Mon09/04/19 at 0954, Anesthesia Intra-op ondansetron (ZOFRAN) injection Given 09/04/2019 1:11 PM EDT 4 mg Intravenous, As needed, Starting on Mon09/04/19 at 1311, Anesthesia Intra-op orphenadrine (NORFLEX) injection Given 09/04/2019 10:59 AM EDT 30 mg Intravenous, As needed, Starting on Mon09/04/19 at 1059, Anesthesia Intra-op phenylephrine (BRISA-SYNEPHRINE) 0.4 mg/10 mL Given 09/2019 10:41 AM EDT 40 mcg syringe Intravenous, As needed, Starting on Mon09/04/19 at 0857, Anesthesia Intra-op Given 09/04/2019 10:37 AM EDT 40 mcg Given 09/04/2019 9:52 AM EDT 40 mcg propofol (DIPRIVAN) injection Given 09/04/2019 8:34 AM EDT 50 mg Intravenous, As needed, Starting on Mon09/04/19 at 0832, Anesthesia Intra-op Given 09/04/2019 8:32 AM EDT 100 mg rocuronium (ZEMURON) IV syringe Given 09/04/2019 1:26 PM EDT 20 mg Intravenous, As needed, Starting on Mon09/04/19 at 0833, Anesthesia Intra-op Given 09/04/2019 11:50 AM EDT 20 mg Given 09/04/2019 11:45 AM EDT 10 mg Sugammadex Sodium (BRIDION) injection Given 09/04/2019 1:54 PM EDT 200 mg Intravenous, As needed, Starting on Mon09/04/19 at 1354, Anesthesia Intra-op documented in this encounter Care Teams Human Relations Teacher Relationship Specialty Start Date End Date Donaldo Steward DO PCP - General Family Medicine 05/17/[address] [place] [address] [address] [place] [address] documented as of this encounter
--- OUTSIDE RECORDS SUMMARY | 2020-08-01 12:16 | XMS_ITS | Encounter Summary ---
:1940 Author Organization [facility] Address [address] [place] [address] Care Team Providers Name Role Phone SholaBenjamin almendarez Primary Care Provider Reason for Visit Auth/Cert Inpatient Observation or Outpatient Surgery Specialty Diagnoses / Procedures Referred By Contact Refer red To Contact Diagnoses Colon cancer (HCC) Colon cancer (HCC) [C18.9] [facility] Main Or 3-1 Procedures MT COLONOSCOPY FLX DX W/COLLJ SPEC WHEN PFRMD MT LAP,SURG,COLECTOMY,W/REMVL TERM ILEUM C02 COLONOSCOPY WITH TATOO RIGHT LAPAROSCOPIC HAND ASSISTED HEMICOLECTOMY [address] [place] [address] Referral ID Status Reason Start Date Expiration Date Visits Requ ested Visits Authorized [id number] 1 1 Encounter Details Date Type Department Care Team Description 09/04/2019 Surgery [facility] OR Main Surgery Hamzah Orourke, C02 COLONOSCOPY WITH [address] [place] [address] [phone] [place] [place], [place] [address] 05 (Wo rk) Surgery Details Date/Time Status Location OR Service Patient Case Class Case Tr auma Class Type Case? 09/04/19 8:15 Posted [facility] MAIN Main OR Colorectal Surgery Elective AM OPERATING 12: Admit ROOM Robot Panel 1 Procedure LRB Anes Op Region Wound Class Commen ts C02 COLONOSCOPY WITH TATOO N/A General Anus Clean Con taminated RIGHT LAPAROSCOPIC HAND ASSISTED N/A General Abdomen Lele an Contaminated HEMICOLECTOMY, lysis of adhesions Surgeon Surgeon Role Service Panel Hamzah Orourke MD Primary Colorectal 1 Special Needs NEED ENDO NURSELITHOTOMYGENERAL AND TAP Social History Tobacco Use Types Packs/Day Years [...] on file documented as of this encounter Last Filed Vital Signs Vital Sign Reading Time Taken Comments Blood Pressure 173/77 09/04/2019 7:15 AM EDT Pulse 79 09/04/2019 7:15 AM EDT Temperature 37.1 ??C (98.7 ??F) 09/04/2019 7:15 AM EDT Respiratory Rate 17 09/04/2019 7:15 AM EDT Oxygen Saturation 97% 09/04/2019 7:15 AM EDT Inhaled Oxygen Concentration - - Weight 72.6 kg (160 lb) 09/04/2019 7:15 AM EDT Height 156.2 cm (5' 1.5) 09/04/2019 7:15 AM EDT Body Mass Index 29.74 09/04/2019 7:15 AM EDT documented in this encounter Functional Status Functional Status Response Date of Assessment Pt deaf or have serious difficulty hearing? No 09/04/2019 Pt blind or have difficulty seeing, even with glasses? No 09/04/2019 documented as of this encounter Discharge Summaries Sid Fatima PA-C - 09/07/2019 11:38 AM EDT DISCHARGE SUMMARY Date of Admission: 09/04/2019 Length of Stay: 3 Admission Diagnosis: Colon cancer (HCC) [C18.9] Discharge Diagnosis: Same Procedures: Colonoscopy, laparoscopic hand-assisted right hemicolectomy, and lysis of adhesions (09/03, Dr. Orourke) TAP block Consults: AIMS History of Present Illness: As copied forward from operative note by Dr. Orourke: Patient is an 79-year-old female, who was undergoing a colonoscopy after findings of ischemic colitis. She had a very difficult colonoscopy in order to reach the ileocecal valve. This was due to angulation and fixationof the sigmoid and descending colon, polyp was removed. 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 This area was not tattooed, as it appeared to be a normal polyp. Because of these findings, it was discussed with the patient and the family of partial hemicolectomy involving this area to ensure complete removal of the cancer and to ensure no spread to the lymph nodes. Other options including doing nothing, a repeat colonoscopy withattempt to removal of remaining polyps were discussed; however, I explained this will be against thenormal standard of care for cancer in a continuous spread to the lymph nodes if this was pursued. Many risks of the procedure were highlighted to the patient including bleeding, infection, heart attack, stroke, blood clots, pneumonia, pulmonary embolism, , injury to other structures, colon, small bowel, ureter, spleen; need for further surgical therapy, prolonged intubation, recurrence of cancer, no findings of carcinoma on final pathology, as there is a chance that all of the cancer was stillremoved with the polypectomy; amongst other risks up until including , anastomotic leak, need for return to the operating room for an ostomy. The patient and family desired surgical therapy. Please see office notes for full details. Past medical history : Past Medical History: Diagnosis Date ??? Acid reflux ??? Acute myocardial infarction (HCC) ??? Adenomatous polyp of colon ??? Arthritis ??? Cataract ??? Colon cancer (HCC) ??? Diabetes mellitus (HCC) ??? Diabetes mellitus, type II (HCC) ??? Heart murmur ??? Hypercholesteremia ??? Hypertension ??? Spinal stenosis ??? Ulcerative colitis (HCC) Past surgical history: Past Surgical History: Procedure Laterality Date ??? BACK SURGERY 2012 ??? CATARACT EXTRACTION, BILATERAL 2003 ??? COLONOSCOPY ??? COLONOSCOPY N/A 09/04/2019 Procedure: C02 COLONOSCOPY WITH TATOO; Surgeon: Hamzah Orourke MD; Location: [facility] MAIN OPERATING ROOM; Service: Colorectal; Laterality: N/A; ??? CORONARY ANGIOPLASTY WITH STENT PLACEMENT 2003 ??? DILATION AND CURETTAGE OF UTERUS ??? HYSTERECTOMY 1980s Heavy periods. ??? LAPAROSCOPIC RIGHT COLON RESECTION N/A 09/04/2019 Procedure: RIGHT LAPAROSCOPIC HAND ASSISTED HEMICOLECTOMY, lysis of adhesions; Surgeon: Hamzah Orourke MD; Location: [facility] MAIN OPERATING ROOM; Service: Colorectal; Laterality: N/A; ??? UPPER GASTROINTESTINAL ENDOSCOPY ??? WISDOM TOOTH EXTRACTION 2016 x1 Medication History: Medications Prior to Admission Medication Sig Dispense Refill Last Dose ??? aspirin EC 81 MG tablet Take 81 mg by mouth daily. Past Week at Unknown time ??? Calcium Carb-Cholecalciferol (CALCIUM+D3 PO) Take by mouth. Past Week at Unknown time ??? Cholecalciferol (VITAMIN D-3 PO) 2,000 Units daily. Vitamin D3 TABS Refills: 0 Active Past Week at Unknown time ??? Coenzyme Q10 (COQ10 PO) Take by mouth 2 (two) times a day. Past Week at Unknown time ??? HUMALOG KWIKPEN 100 UNIT/ML injection 15 Units 3 (three) times a day. 09/03/2019 at Unknown time ??? hydroCHLOROthiazide (HYDRODIURIL) tablet 25 mg Take 25 mg by mouth daily. Taking ??? hydroxychloroquine (PLAQUENIL) 200 MG tablet Take 1 tablet (200 mg total) by mouth every night at bedtime as needed. 180 tablet 2 Taking ??? LANTUS SOLOSTAR 100 UNIT/ML injection INJECT 25 UNITS UNDER THE SKIN AT BEDTIME 09/04/2019 at 0530 ??? lisinopril (PRINIVIL,ZESTRIL) tablet 20 mg 09/03/2019 at 0900 ??? metFORMIN (GLUCOPHAGE-XR) ER 24 hr tablet 500 mg 2 (two) times a day. 09/03/2019 at 1800 ??? metroNIDAZOLE (FLAGYL) 500 MG tablet Take 1 tablet (500 mg total) by mouth See admin instructions. Take 1 tab PO at 1pm, 2pm and 8pm on day prior to surgery 3 tablet 0 09/03/2019 at 2000 ??? Multiple Minerals-Vitamins (DOLOMITE PLUS VITAMINS A AND D PO) Take by mouth daily. Past Week at Unknown time ??? neomycin (MYCIFRADIN) 500 MG tablet Take 1 tablet (500 mg total) by mouth See admin instructions. Take 2 tabs PO at 1pm, 2pm and 8pm on day prior to surgery 6 tablet 0 09/03/2019 at 2000 ??? [place]-3 Fatty Acids (OMEGA 3 PO) Take by mouth. Past Week at Unknown time ??? pantoprazole (PROTONIX) 40 MG tablet 2 (two) times a day. 09/04/2019 at 0530 ??? Potassium 99 MG TABS Take by mouth daily. 09/03/2019 at 0900 ??? pravastatin (PRAVACHOL) tablet 20 mg every night at bedtime. 09/03/2019 at 1600 ??? Probiotic Product (PROBIOTIC DAILY PO) Take by mouth daily. 09/03/2019 at 2100 ??? TRULICITY 0.75 MG/0.5ML SOPN INJECT ONCE A WEEK 1 Taking ??? UNABLE TO FIND 2 (two) times a day. HISTA BLOCK: 2 TABS BID 08/29/2019 at Unknown time ??? UNABLE TO FIND 2 (two) times a day. INTESTINAL SMOOTH AND BUILD: 2 TABS BID 08/29/2019 at Unknown time Allergies: Allergies Allergen Reactions ??? Acetazolamide Other (See Comments) Dry mouth ??? Clarithromycin ??? Codeine Nausea And Vomiting ??? Morphine ??? Morphine And Related Nausea And Vomiting ??? Sulfa Antibiotics ??? Sulphadimidine [Sulfamethazine] Hives ??? Tramadol Nausea And Vomiting ??? Latex Rash Social history: Social History Socioeconomic History ??? Marital status: [...] Last attempt to quit: 02/27/1961 Years since quittin.5 ??? Smokeless tobacco: Never Used Substance and [...] file Gets together: Not on file Attends islam service: Not on file Active member of [...] Social History Narrative ??? Not on file Family history: Family History Problem Relation Age of Onset ??? Heart disease Mother ??? Diabetes Father ??? Colon cancer Brother 70 ??? No Sig Med Hx Sister ??? Cancer Brother lung ??? No Sig Med Hx Brother ??? No Sig Med Hx Sister ??? Breast cancer Neg Hx ??? Ovarian cancer Neg Hx ??? Uterine cancer Neg Hx Imaging: No results found. Hospital Course: Patient presented to [facility] on 7/8 for the elective procedures as stated above. She tolerated them well and there were no immediate complications noted. She was extubated and transferred to the PACU and then to the surgical floor in stable condition. She was on ERAS protocol. She was given a clear liquid diet that evening. On POD#1 she was advanced to a regular diet. Her labs were checked and electrolytes were repleted as needed. Her villarreal was removed and she voided spontaneously. Her pain was well-controlled on oral medications. She was evaluated by PT and OT who recommended home with services. She was was seen by [facility] for assistance with management of medical co-morbidities. She developed a low grade temperature on POD 1 which resolved on its own and she showed no signs of infection. The following day she remained afebrile and she began to have bowel function. On 09/06 she was deemed safe and appropriate for discharge to home. Her pain was well-controlled, she had return of bowel function, she was tolerating a regular diet, she was out of bed without issue, and she was voiding appropriately. All questions were answered and instructions were provided. Problem List: Patient Active Problem List Diagnosis SNOMED CT(R) ??? 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 Ischemic colitis (HCC) ISCHEMIC COLITIS ??? Breast tenderness in female BREAST TENDERNESS ??? Other osteoporosis without current pathological fracture OSTEOPOROSIS ??? 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 Chronic pain of both shoulders SHOULDER PAIN ??? Colon cancer (HCC) MALIGNANT TUMOR OF COLON Discharge Medications: Medication List START taking these medications enoxaparin 40 MG/0.4ML Soln Commonly known as: LOVENOX Inject 0.4 mL (40 mg total) under the skin daily for 27 days. Start taking on: 09/08/2019 oxyCODONE 5 MG immediate release tablet Commonly known as: ROXICODONE Take 1 tablet (5 mg total) by mouth every 4 (four) hours as needed. CONTINUE taking these medications aspirin EC 81 MG tablet CALCIUM+D3 PO COQ10 PO DOLOMITE PLUS VITAMINS A AND D PO HumaLOG KWIKPEN 100 UNIT/ML Sopn Generic drug: Insulin Lispro (1 Unit Dial) hydroCHLOROthiazide 25 MG tablet Commonly known as: HYDRODIURIL hydroxychloroquine 200 MG tablet Commonly known as: PLAQUENIL Take 1 tablet (200 mg total) by mouth every night at bedtime as needed. LANTUS SOLOSTAR 100 UNIT/ML injection Generic drug: insulin glargine lisinopril 20 MG tablet Commonly known as: PRINIVIL,ZESTRIL metFORMIN 500 MG ER 24 hr tablet Commonly known as: GLUCOPHATE-XR OMEGA 3 PO pantoprazole 40 MG tablet Commonly known as: PROTONIX Potassium 99 MG Tabs pravastatin 20 MG tablet Commonly known as: PRAVACHOL PROBIOTIC DAILY PO TRULICITY 0.75 MG/0.5ML Sopn Generic drug: Dulaglutide UNABLE TO FIND UNABLE TO FIND VITAMIN D-3 PO STOP taking these medications metroNIDAZOLE 500 MG tablet Commonly known as: FLAGYL neomycin 500 MG tablet Commonly known as: MYCIFRADIN Where to Get Your Medications These medications were sent to [id number] [place], [place] - [address] [facility] [address] [facility] [id number] ?? enoxaparin 40 MG/0.4ML Soln ?? oxyCODONE 5 MG immediate release tablet Discharge Plan: Patient will be discharged to home with rx for pain medication Lovenox for 30 days from date of surgery Patient will follow up with Dr. Orourke in 7-10 days. Patient will follow up with PCP in 2-4 weeks. This DC took less than 30 minutes to prepare. This Summary was prepared by: Nilam Mckeon PA-C And updated on the day of DC by: documented in this encounter Discharge Instructions Nilam Cuellar PA-C - 09/05/2019 [facility] [phone] [place] [address] [address], [address] MD Nasreen NICOLE MD Steven Brown, MD ROBERT LEWIS, MD DANIEL MULLINS, MD ANDREW RAISSIS, MD RACHEL SCOTT, DO [email or web address] What to Expect (in the uncomplicated surgical recovery) The average stay in the hospital is four to seven days after surgery. At the time of discharge, onecan expect to be in pain and require medication to control it. One will be eating, but small amounts. Weight loss of ten pounds is the average. One should be walking, but slowly. For the first weekat home, one should not be alone for extended periods. Need for extra nursing services or rehabilitation stays are usually determined at the time of discharge through social media content specialist at the hospital. Pain Medication The pain medication should be taken as directed on the prescription bottle. Pain medication should only be taken as needed unless otherwise directed. Pain medication in pill form may take up to 40 minutes to start working after they are swallowed. One should not wait until the pain is at a maximum before taking pain medications. Many pain medications may contain Tylenol (acetaminophen). Additional Tylenol should not be taken.Motrin/Ibuprofen may be taken at doses up to 600 mg every eight hours as needed with food. This medication can be used with the prescription pain medication or instead of it. Most narcotic pain medications cannot be called in to the pharmacy. Watch the number of pills that you have and call us well before (2-3 days) you are due to run out. We give out the appropriate prescriptions at the time of discharge from the hospital. Diet The usual diet at discharge is a regular diet. For the first two weeks after surgery until bowel swelling resolves you may not feel up to eating large meals. Frequent small meals are better tolerated than large ones. It is important to drink enough fluids to keep one???s self hydrated. Be advised that any foods that made you gassy or uncomfortable before surgery may bother you even more until you are fully healed. Trust your gut. Wound Care The wounds usually require little care. It is all right to shower once you are home. The wound may be covered or left uncovered during the shower. The water should just run on the incision gently. Gentle wiping with soap is all that is recommended. Dab dry afterward. If the wound has some drainage, a dry dressing can be applied to protect your clothes. No ointments or lotions should be put on the healing incision unless otherwise instructed. Baths or swimming are usually not allowed for about 3-4 weeks from surgery. Bowel Regimen It is often difficult to move your bowels after abdominal surgery. Pain and narcotic pain medications are constipating. Abdominal surgery with or without resection can alter bowel function and predictability. Colace (sodium docuate) can be taken to keep the stools soft. It may be taken two to three times perday. It must be taken with 6-8 glasses of liquid throughout the day. Fiber supplements are avoided for the first two weeks until any bowel swelling has resolved. Gentle stimulant laxatives (milk of magnesia, dulcolax, senna) may be required but should be used only if directed by the physician. Activity and Driving No driving or working until you are off of narcotic pain medication and moving comfortably without pain medication. This is usually 3-4 weeks after surgery. The average time out of work for abdominal surgery is six weeks. You may return to work when you feel you are able. Patients are usually tired, weak and easily fatigued for at least six weeks. Naps are required. Avoid sleeping so much during the day that you have more difficulty sleeping at night. Night time sleep is often interrupted and difficult for the first few weeks. Walking is encouraged. Going outdoors is fine, as long as one does not slip or fall. Stairs are fine as long as one goes slowly and does not do them more than a few times per day. One should avoid lifting more than 10-15 pounds (a gallon of milk) for six weeks. This is done to allow full healing at the muscle level and to decrease the chance of forming a hernia. Likewise, one should avoid straining, stretching, pulling, or other strenuous exercise for six weeks. Avoid sexual activity for six weeks for the same reasons. Coughing and deep breathing are still encouraged to help prevent pneumonia. Travel is often discouraged for six weeks from surgery. Notify Your Doctor Notify our office if you develop fever (>101 degrees F), swelling, or increasing pain. These can be signs of rare infection or drainage from the incision. Notify our office if you are not able to move your bowels within 2-3 days of getting home. Notify usif you stop passing gas, if your abdomen becomes more distended, if you develop nausea or vomiting, or if you are unable to eat or drink enough to hydrate yourself. Notify our office if you start passing blood. It is normal to pass small clots or streaks of blood.Spotting on the paper is also expected. If you have bloody bowel movements, do not hesitate to call. Follow-Up Please call our office to schedule a follow-up appointment: [place]: [phone] [place]: [phone] [place]: [phone] documented in this encounter Medications at Time of Discharge Medication Sig Dispensed Refills Start Date End Date aspirin EC 81 MG tablet Take 81 mg by 0 mouth daily. Calcium Take by mouth. 0 Carb-Cholecalciferol (CALCIUM+D3 PO) Cholecalciferol (VITAMIN 2,000 Units 0 D-3 PO) daily. Vitamin D3 TABS Refills: 0 Active Coenzyme Q10 (COQ10 PO) Take by mouth 2 0 (two) times a day. HUMALOG KWIKPEN 100 UNIT/ML 15 Units 3 0 06/19/19 16 injection (three) times a day. hydroCHLOROthiazide Take 25 mg by 0 (HYDRODIURIL) tablet 25 mg mouth daily. LANTUS SOLOSTAR 100 UNIT/ML INJECT 25 UNITS 0 12/2019 injection UNDER THE SKIN AT BEDTIME lisinopril 0 06/01/2015 (PRINIVIL,ZESTRIL) tablet 20 mg metFORMIN (GLUCOPHAGE-XR) 2 (two) times a 0 04/01 ER 24 hr tablet 500 mg day. Multiple Minerals-Vitamins Take by mouth 0 (DOLOMITE PLUS VITAMINS A daily. AND D PO) [place]-3 Fatty Acids (OMEGA Take by mouth. 0 3 PO) pantoprazole (PROTONIX) 40 2 (two) times a 0 10/28 MG tablet day. Potassium 99 MG TABS Take by mouth 0 daily. pravastatin (PRAVACHOL) every night at 0 04/17/19 16 tablet 20 mg bedtime. Probiotic Product Take by mouth 0 (PROBIOTIC DAILY PO) daily. UNABLE TO FIND 2 (two) times a 0 day. HISTA BLOCK: 2 TABS BID UNABLE TO FIND 2 (two) times a 0 day. INTESTINAL SMOOTH AND BUILD: 2 TABS BID hydroxychloroquine Take 1 tablet 180 tablet 2 06/21/2019 (PLAQUENIL) 200 MG tablet (200 mg total) by mouth every night at bedtime as needed. TRULICITY 0.75 MG/0.5ML INJECT ONCE A 1 9 12/20/2019 SOPN WEEK documented as of this encounter Progress Notes Norma Claire RN - 09/07/2019 1:53 PM EDT Pt was discharged home with services. AVS was reviewed and pt had no questions. Pt intends to follow up with providers. IV was discontinued. Pt was transported via wheelchair to private car. Norma Claire RN Mojgan Yee EDT - 09/07/2019 12:33 PM EDT Patient was sitting out of bed appears to be in good spirit. Pt stated that she had breakfast and walk to the bathroom by herself and that makes her happy. Paint Mixer Machine provided a listening presence and prayed a silent prayer for pt who expressed gratitude for visit. Yessenia Grier MD - 09/07/2019 11:53 AM EDT Images from the original note were not included. I have reviewed the PA/resident documentation and I have discussed this patient's care with the team(including PA and/or resident staff). I have personally seen and examined the patient at the bedsidetoday. I agree with the physical exam with the following exceptions/additions: ?? Pt reports passing gas and stool Denies nausea/vomiting Denies chest pain/shortness of breath Voiding without issue CRP subthreshold REports good knowledge of home insulin regimen Alert and oriented x 3 Non-toxic appearing Abdomen soft; wound c/d/i - no significant distension Calves soft ?? I agree with the diagnosis of: ?? POD#3 s/p ?? We will proceed with the plan of: ?? DC today Reviewed monitoring her blood sugar at home Reviewed signs and symptoms to monitor at home She feels comfortable with lovenox I called and d/w son and daughter that she is ready to dc today Son will be in today to go over dc instructions with nursing - nursing updated about this as well ?? Yessenia Young MD, FACS [facility] C: [phone] O: [phone] Aleja Villegas PA-C - 09/07/2019 10:36 AM EDT AIMS Progress Note Length of Stay: 3 Active Hospital Problems Diagnosis ??? Colon cancer (HCC) SUBJECTIVE: Doing well today, asking when she can go home. Had a bowel movement last night. No abdominal pain currently. Appetite is just okay. Constitutional: feels well CVS: denies chest pain, shortness of breath, edema RS: Denies cough, no sputum production GI: No nausea or vomiting, appetite is fair Neuro: Denies any headache, no dizziness Skin: No rashes OBJECTIVE: Vitals: I&O Last 24 hours: Vitals: 09/07/19 0700 BP: 147/71 Pulse: 76 Resp: 25 Temp: 98 ??F (36.7 ??C) TempSrc: Oral SpO2: 92% Weight: Height: Intake/Output Summary (Last 24 hours) at 09/07/2019 1036 Last data filed at 09/06/2019 1644 Gross per 24 hour Intake ??? Output 500 ml Net -500 ml Physical Exam: Gen : Appears comfortable and alert. Sitting up in chair. HEENT : No carotid bruits. No thyromegaly. JVP not elevated CVS : Regular rhythm. Normal S1 S2. No murmurs. No gallop. Resp : Normal air entry. No dullness. No crackles or wheeze. Abdo : Soft. Minimal appropriate barbara-incisional tenderness. No obvious masses. Skin : No rashes. No edema. Vasc : Warm peripheries. Normal pulses in extremities. Neuro : Normal mentation. No focal abnormalities. Ext: No deformity, normal range of motion Labs: Lab Results Component Value Date CREATININE 0.9 09/07/2019 CREATININE 0.8 09/06/2019 BUN 13 09/07/2019 BUN 12 09/06/2019 NA 137 09/07/2019 NA 139 09/06/2019 K 3.8 09/07/2019 K 3.7 09/06/2019 CL 104 09/07/2019 CL 107 09/06/2019 CO2 26 09/07/2019 CO2 25 09/06/2019 GLUCRANDOM 134 09/07/2019 GLUCRANDOM 145 09/06/2019 PHOS 3.1 09/05/2019 CALCIUM 8.3 (L) 09/07/2019 EGFR >60.0 09/07/2019 Lab Results Component Value Date HEMOGLOBIN 10.5 (L) 09/07/2019 HEMOGLOBIN 10.7 (L) 09/05/2019 HEMATOCRIT 31.2 (L) 09/07/2019 WBC 5.1 09/07/2019 PLTCOUNT 186 09/07/2019 No results found for: PTH, IRON, SATURATION MEDS: Scheduled Meds: ??? acetaminophen 650 mg Oral Q6H ??? alvimopan 12 mg Oral 2 times per day ??? aspirin EC 81 mg Oral Daily ??? enoxaparin 40 mg Subcutaneous Daily ??? hydroCHLOROthiazide 25 mg Oral Daily ??? insulin glargine 25 Units Subcutaneous QHS ??? insulin lispro 1-6 Units Subcutaneous TID AC ??? insulin lispro 15 Units Subcutaneous TID with meals ??? lisinopril 20 mg Oral Daily ??? pantoprazole 40 mg Oral BID ??? pravastatin 20 mg Oral QPM Continuous Infusions: PRN Meds:.dextrose OR dextrose OR dextrose OR dextrose OR glucagon (human recombinant), dimenhyDRINATE, oxyCODONE, oxyCODONE, prochlorperazine Imaging: No new tests ordered. ASSESSMENT / PLAN: Assessment: This is a pleasant 79-year-old female with a past medical history of type 2 diabetes on insulin, CAD, HI, hypertension, hyperlipidemia, GERD, gout, ulcerative colitis not on immunosuppressive therapy, who was found to have am adenocarcinoma on colonoscopy and is now status post planned right hemicolectomy on 09/03. She is doing well post-op. ?? Problem List / Recommendations: Fever: Febrile to 101 on the evening of 09/04, not associated with any specific symptoms, no fever since then. Would hold off on work-up for now but will re- evaluate if any new symptoms or fevers develop. ?? S/P s/p LHA right hemicolectomy and SOLO on 09/03 due to adenocarcinoma: Management per surgical team. Appears to be doing well post-op. Has had return of bowel function. ?? Hypomagnesemia: Can be expected in the post-op setting. This has resolved with replacement. ?? Type 2 Diabetes Mellitus with long-term use of insulin: Continue with her home dose of Lantus 25 units and [id number] units with meals, sugars appear well controlled. She can resume her Metformin and Tresiba at discharge unless PO intake is poor, discussed with patient. ?? History of ulcerative colitis: No active symptoms, denies bloody BMs prior to admission, not on any chronic medical therapy. ?? CAD with history of HI s/p stenting, Hypertension, Hyperlipidemia: No anginal symptoms. Continue aspirin and statin. Continue her home medications lisinopril and HCTZ. ?? GERD: Continue PPI ?? Patient is on hydroxychloroquine as an outpatient for leg cramping which I confirmed with her instrument/control technician's office in [place] (Dr. Huggins), Okay to continue holding this medication for now. She can follow up with her PCP about this. ?? Discussed with Dr. Kiser. Aleja Tirado PA-C Available on [place] Text 8a-4p [facility] Consult Service 11:20 AM 09/07/2019 Associated attestation - Breana Carrero MD - 09/07/2019 3:25 PM EDT I have examined the patient and reviewed the history, physical, assessment and plan, and I am in agreement.. We have discussed the patient's management and plan. A[facility]S ATTENDING ATTESSTATION Patient seen and examined personally. Chart, labs, vitals, investigations, reviewed personally, discussedon date of service. Agree with documentation above. Hamzah Orourke MD - 09/07/2019 9:18 AM EDT Patient seen last night at 530 pm Doing well No nausea Eating well-about 50% Did stairs Passing gas and had small bowel movement No fever Feels strong Abdomen: Incisions clean/dry/intact, appropriate tenderness incision sites nondistended Regular diet Ambulate Likely discharge tomorrow Aleja Villegas PA-C - 09/06/2019 12:27 PM EDT AIMS Progress Note Length of Stay: 2 Active Hospital Problems Diagnosis ??? Colon cancer (HCC) SUBJECTIVE: Had a fever last night but denies any associated symptoms. Overall feels very well today. Constitutional: feels well CVS: denies chest pain, shortness of breath, edema RS: Denies cough, no sputum production GI: No nausea or vomiting, appetite is fair Neuro: Denies any headache, no dizziness Skin: No rashes OBJECTIVE: Vitals: I&O Last 24 hours: Vitals: 09/06/19 1210 BP: 118/89 Pulse: 87 Resp: 20 Temp: 98.4 ??F (36.9 ??C) TempSrc: Oral SpO2: 95% Weight: Height: Intake/Output Summary (Last 24 hours) at 09/06/2019 1227 Last data filed at 09/06/2019 0817 Gross per 24 hour Intake 420 ml Output 1600 ml Net -1180 ml Physical Exam: Gen : Appears comfortable and alert. Sitting up in chair. HEENT : No carotid bruits. No thyromegaly. JVP not elevated CVS : Regular rhythm. Normal S1 S2. No murmurs. No gallop. Resp : Normal air entry. No dullness. No crackles or wheeze. Abdo : Soft. Minimal appropriate barbara-incisional tenderness. No obvious masses. Skin : No rashes. No edema. Vasc : Warm peripheries. Normal pulses in extremities. Neuro : Normal mentation. No focal abnormalities. Ext: No deformity, normal range of motion Labs: Lab Results Component Value Date CREATININE 0.8 09/06/2019 CREATININE 1.0 09/04/2019 BUN 12 09/06/2019 BUN 16 09/04/2019 NA 139 09/06/2019 NA 137 09/04/2019 K 3.7 09/06/2019 K 3.8 09/04/2019 CL 107 09/06/2019 CL 100 09/04/2019 CO2 25 09/06/2019 CO2 24 09/04/2019 GLUCRANDOM 145 09/06/2019 PHOS 3.1 09/05/2019 CALCIUM 8.3 (L) 09/06/2019 EGFR >60.0 09/06/2019 Lab Results Component Value Date HEMOGLOBIN 10.7 (L) 09/05/2019 HEMATOCRIT 31.7 (L) 09/05/2019 WBC 5.9 09/05/2019 PLTCOUNT 181 09/05/2019 No results found for: PTH, IRON, SATURATION MEDS: Scheduled Meds: ??? acetaminophen 650 mg Oral Q6H ??? alvimopan 12 mg Oral 2 times per day ??? aspirin EC 81 mg Oral Daily ??? enoxaparin 40 mg Subcutaneous Daily ??? gabapentin 200 mg Oral TID ??? hydroCHLOROthiazide 25 mg Oral Daily ??? insulin glargine 25 Units Subcutaneous QHS ??? insulin lispro 1-6 Units Subcutaneous TID AC ??? insulin lispro 7 Units Subcutaneous TID with meals ??? lisinopril 20 mg Oral Daily ??? pantoprazole 40 mg Oral BID ??? pravastatin 20 mg Oral QPM Continuous Infusions: PRN Meds:.dextrose OR dextrose OR dextrose OR dextrose OR glucagon (human recombinant), dimenhyDRINATE, ondansetron, oxyCODONE, oxyCODONE, prochlorperazine Imaging: No new tests ordered. ASSESSMENT / PLAN: Assessment: This is a pleasant 79-year-old female with a past medical history of type 2 diabetes on insulin, CAD, HI, hypertension, hyperlipidemia, GERD, gout, ulcerative colitis not on immunosuppressive therapy, who was found to have am adenocarcinoma on colonoscopy and is now status post planned right hemicolectomy on 09/03. She is doing well post-op. ?? Problem List / Recommendations: Fever: Febrile to 101 last night, not associated with any specific symptoms, would hold off on work-up for now but will re-evaluate if any new symptoms or fevers develop. ?? S/P s/p LHA right hemicolectomy and SOLO on 09/03 due to adenocarcinoma: Management per surgical team. Appears to be doing well post-op. Ambulation encouraged to encourage return of bowel function, passing gas but no BM. ?? Hypomagnesemia: Can be expected in the post-op setting. This has resolved with replacement. ?? Type 2 Diabetes Mellitus with long-term use of insulin: Check hemoglobin A1C with morning labs. Continue with her home dose of Lantus 25 units. Her PO intake has improved so would increase her lispro back to her home dose of 15 units with meals. She can resume her Metformin and Tresiba at discharge. ?? History of ulcerative colitis: No active symptoms, denies bloody BMs prior to admission, not on any chronic medical therapy. ?? CAD with history of HI s/p stenting, Hypertension, Hyperlipidemia: No anginal symptoms. Continue aspirin and statin. BP variable, 110s-170s, likely elevated in the setting of pain. Continue her home medications lisinopril and HCTZ. ?? GERD: Continue PPI ?? Patient is on hydroxychloroquine as an outpatient for leg cramping which I confirmed with her instrument/control technician's office in [place] (Dr. Huggins), Okay to continue holding this medication for now. She can follow up with her PCP about this. ?? Discussed with Dr. Carranza. Aleja Tirado PA-C Available on [place] Text 8a-4p AIMS Consult Service 12:27 PM 09/06/2019 Associated attestation - Ingrid aCrranza MD - 09/06/2019 10:22 PM EDT I have examined the patient and reviewed the history, physical, assessment and plan, and I am in agreement. With DELGADO Moe Pt is doing very well today No specific complaints Tolerating po Can resume meds as outlined above.. We have discussed the patient's management and plan. Ingrid Carranza M.D [employer] Service Advisor physician [facility] Hospitalist Service Amrit West MD - 09/06/2019 12:09 PM EDT Colorectal Surgery Attending Note The patient was seen and examined at the bedside today with the surgical PA. The patient's care was discussed and reviewed with the resident and/or PA team. I agree with the physical exam findings, assessment, and plan. Doing well. IS, 1250 ml. Low grade fever. Exam: Sitting in chair. Feels fine. Ate today. A/P: Await return of bowel function. Continue IS. Monitor for new fevers. Amrit West MD [facility] Amrit Emery DO - 09/06/2019 7:37 AM EDT COLORECTAL SURGERY PROGRESS NOTE SUBJECTIVE: No acute events overnight. Temperature to 101 last evening. Is not yet passing flatus or having BMs.States she has some abdominal soreness, mainly in the RUQ. Is using her IS and voiding spontaneously. Slept well overnight. OBJECTIVE: BP 136/68 (BP Location: Right arm, Patient Position: Lying) Pulse 90 Temp 97.9 ??F (36.6 ??C) (Oral) Resp 20 Ht 5' 1.5 (1.562 m) Wt 72.6 kg (160 lb) LMP 02/27/1979 (Approximate) SpO2 96% BMI 29.74 kg/m?? I&Os: UO: I/O last 3 completed shifts: In: 420 [P.O.:420] Out: 1000 [Urine:1000] No intake/output data recorded. Diet: Orders Placed This Encounter Procedures ??? Regular Diet Patient on Nutrition Management Protocol? Yes; Assist Standing Status: Standing Number of Occurrences: 1 Order Specific Question: Patient on Nutrition Management Protocol? Answer: Yes Order Specific Question: Patient's ability to participate in At Your Request (AYR) Room Service: Answer: Assist IVF: LABS: Lab Results Component Value Date WBC 5.9 09/05/2019 RBC 3.35 (L) 09/05/2019 HEMATOCRIT 31.7 (L) 09/05/2019 HEMOGLOBIN 10.7 (L) 09/05/2019 MCV 94.4 09/05/2019 MCH 32.0 09/05/2019 MCHC 33.9 09/05/2019 RDW 13.4 09/05/2019 PLTCOUNT 181 09/05/2019 MPV 9.0 09/05/2019 NEUTROPHILS 73.6 09/05/2019 LYMPHOCYTES 14.2 (L) 09/05/2019 EOSINOPHILS 0.1 09/05/2019 BASOPHILS 0.3 09/05/2019 NEUTROPHABSO 4.4 09/05/2019 LYMPHOCYABSO 0.8 (L) 09/05/2019 MONOCYTABSOL 0.7 09/05/2019 EOSINOPHIABS 0.0 09/05/2019 BASOPHILSABS 0.0 09/05/2019 Lab Results Component Value Date BUN 16 09/04/2019 CALCIUM 8.5 09/04/2019 CO2 24 09/04/2019 CL 100 09/04/2019 CREATININE 1.0 09/04/2019 K 3.8 09/04/2019 NA 137 09/04/2019 EXAMINATION: General: No acute distress Resp: Normal respirations Cards: Regular rate and rhythm Abdo: Soft, minimally tender, non-distended, incisions c/d/i without with glue in place. Barbara-incisional ecchymosis present, improving. ASSESSMENT/PLAN: This is a 79 y.o. female who is POD 2 s/p right lap hand assisted hemicolectomy. - Continue on ERAS pathway -Diet: regular -Await return of bowel function - OOB/IS as tolerated -F/u AM labs -- Ac Emery, DO General Surgery, PGY-2 Team Pager: Colorectal Surgery Hamzah Orourke MD - 09/05/2019 10:22 PM EDT Patient seen and examined No nausea, no vomiting [place] like she did pass some flatus Mild bloating Ambulated with physical therapy Did not feel fever but noted temp 101 Abdomen: Incisions clean/dry/intact, no erythema, mild appropriate tenderness to palpation, no guarding --cbc --regular diet --eras --if continued fever will undergo urinalysis, chest xray, further fever workup. Federico White PT - 09/05/2019 10:55 AM EDT PHYSICAL THERAPY EVALUATION [address] [address] Past Medical History: Diagnosis Date ??? Acid [...] WITH TATOO; Surgeon: Hamzah Orourke MD; Location: [facility] MAIN OPERATING ROOM; Service: Colorectal; Laterality: N/A; ??? CORONARY ANGIOPLASTY WITH STENT PLACEMENT 2003 ??? DILATION AND CURETTAGE OF UTERUS ??? HYSTERECTOMY 1980s Heavy periods. ??? LAPAROSCOPIC RIGHT COLON RESECTION N/A 09/04/2019 Procedure: RIGHT LAPAROSCOPIC HAND ASSISTED HEMICOLECTOMY, lysis of adhesions; Surgeon: Hamzah Orourke MD; Location: [facility] MAIN OPERATING ROOM; Service: Colorectal; Laterality: N/A; ??? UPPER GASTROINTESTINAL ENDOSCOPY ??? WISDOM TOOTH EXTRACTION 2016 x1 09/05/19 1055 Summary and Impressions PT Impressions INITIAL PT EVALUATION: Adm with Colon CA. POD 2 s/p right lap hand assisted hemicolectomy. Pt presents with increased abdominal pain & mild functional impairments (see assessment below). Today, pt amb 250' with RW and CGA. Pt refused to try stairs this date due to feeling anxious. Anticipate d/c as per interdisciplinary team. Con't with skilled PT & rw amb with nsg during hosp stay. Assessment Decreased activity tolerance;Decreased ambulation;Decreased stair management;Decreased balance;Decreased mobility;Decreased endurance;Decreased transfers;Decrease coordination;Decreased cognition Prognosis Good AM PAC Basic Mobility 18 BC Plan Treatment/Interventions Functional transfer training;Gait training;Bed mobility training;Stair training;LE strengthening/ROM;Neuromuscular Re- education;Patient/family training;Equipment eval/education;Compensatory technique education;Continued evaluation;Endurance training PT Frequency 5x/wk In House Mobility/Safety Recommendations Slipper Socks/shoes;Chair alarm;Bed alarm;OOB for all meals;Safe to ambulate with nursing and assistive device PT Last Visit PT Received On 09/05/19 Patient seen- type of documentation: Evaluation Additional Individuals Present for Session Surgical mask, gloves Patient/Family History Referring Diagnosis Colon CA History of Present Illness Reported 79 y/o adm 09/03 for planned CO2 colonoscopy with tattoo placement, laparoscopic lysis of adhesion converted to hand-assist, right hemicolectomy. Precautions LUE Weight Bearing Status Full RUE Weight Bearing Status Full LLE Weight Bearing Status Full RLE Weight Bearing Status Full Safety Devices Applied at End of Therapy Call Guerrero;Chair Alarm;Chair locked Other Precautions LDA's;Telemetry/Monitors Patient Understanding of Precautions Good Home Living Additional Comments Pt lives alone in a single level home with 4 MARCOS and B rails. Prior Function Comments Pt amb independently in the community with no AD and still drives. Pain Assessment Pain Assessment 0-10 0-10 Verbal Pain Scale Verbal Pain Score 7 Acceptable to Patient No Patient's Stated Pain Goal No pain Pain Type Surgical pain Pain Intervention(s) Repositioned Sensation Light Touch No apparent deficits Localization No apparent deficits RLE Assessment RLE Assessment WFL LLE Assessment LLE Assessment WFL Bed Mobility Supine to Sit Minimal Assist (VIA log roll) Cueing Required Cueing for hand placement;Cueing for sequencing;Cueing for equipment provided;VerbalCueing;Tactile Cueing Transfers Transfer Equipment Used Rolling walker Sit to Stand Minimal Assist Stand to Sit Contact Guard Bed to Chair Contact Guard Cueing required Cueing for hand placement;Cueing for sequencing;Cueing for equipment provided;Tactile Cueing;Verbal Cueing Functional Mobility Gait Assistance Contact Guard Assist Gait Pattern Decreased Inna;Decreased Step Length Gait Pattern Comments slow steady gait with RW. Pt had forward flexed posture due to abdominal pain. Distance Ambulated (in feet) 250 Assistive Device Walker, front-wheeled Coordination/Posture Postural Assessment Forward head Lower Extremity: Gross Motor WFL Head and Neck Control: Gross Motor WFL Trunk Control: Gross Motor WFL Balance Sitting - Static Good;Supported Sitting - Dynamic Good;Supported Standing - Static Good;Supported Standing - Dynamic Fair;Good;Supported Cognition Arousal/Alertness WFL Orientation Level Alert & Oriented X 4 Perception Inattention/Neglect Appears intact Initiation Appears intact Motor Planning Appears intact Perseveration Not present Left Right Discrimination Normal Body Awareness Normal Observed Behaviors Social Interaction Anxious;Pleasant;Cooperative Therapy Interventions Provided Other (comment) Pt & RN consented to eval. Educ pt re: PT POC & recs - pt in agreement. Left pt in NAD, lines intact, CB in reach. Updated RN after eval. CURRENT GOALS: 1. Supine to/from sit indep. 09/05/2019, Federico White, PT 2. Sit to/from stand with mod indep using LRAD. 09/05/2019, Federico White PT 3. Amb 400' with mod indep using LRAD. 09/05/2019, Federico White, PT 4. Up/down 4 stairs with mod indep using one rail, +/- cane. 09/05/2019, Federico White PT PREVIOUS GOALS: Federico White PT Flower Tanner, OT - 09/05/2019 9:36 AM EDT OCCUPATIONAL THERAPY INITIAL EVALUATION [facility] [address] [place] [address] Past Medical History: Diagnosis Date ??? Acid [...] WITH TATOO; Surgeon: Hamzah Orourke MD; Location: [facility] MAIN OPERATING ROOM; Service: Colorectal; Laterality: N/A; ??? CORONARY ANGIOPLASTY WITH STENT PLACEMENT 2003 ??? DILATION AND CURETTAGE OF UTERUS ??? HYSTERECTOMY 1980s Heavy periods. ??? LAPAROSCOPIC RIGHT COLON RESECTION N/A 09/04/2019 Procedure: RIGHT LAPAROSCOPIC HAND ASSISTED HEMICOLECTOMY, lysis of adhesions; Surgeon: Hamzah Orourke MD; Location: [facility] MAIN OPERATING ROOM; Service: Colorectal; Laterality: N/A; ??? UPPER GASTROINTESTINAL ENDOSCOPY ??? WISDOM TOOTH EXTRACTION 2016 x1 09/05/19 0936 Summary and Impressions OT Impressions 09/05/19: OT Evaluation: 79 yo female adm 09/03 s/p C02 COLONOSCOPY WITH TATOO, RIGHT LAPAROSCOPIC HAND ASSISTED HEMICOLECTOMY, lysis of adhesions 2/2 colon ca POD#1 Patient assisted tothe EOB with Min A >R HOB 45, stood and transferred to the bedside chair with CG/Min A. Patient washing up and grooming UB with set up only. VSS. OT to continue to follow patient 5x wk Flower Drown MS, OTR/L OT Assessment Decreased activity tolerance;Decreased ADL Status;Decreased balance;Decreased functional transfers;Decreased functional mobility Assessment Comments Reported cherelle CENTENO tele BP 136/71 (93) HR 85 after transfer out of the bed Prognosis Good Therapy Diagnosis colon CA AM PAC Daily Activity 16BC OT Plan OT Treatment/Interventions Bed Mobility;ADL retraining;Safety training;Therapeutic Activity OT Frequency 5x/wk In House Mobility/Safety Recommendations Slipper Socks/shoes;OOB for all meals Discharge Equipment Recommended No Equipment needed OT Last Visit OT Received On 09/05/19 Patient seen- type of documentation: Evaluation Additional Individuals Present for Session surgical mask, gloves Patient/Family History History of Present Illness Reported 79 yo female adm 09/03 Now s/p C02 COLONOSCOPY WITH TATOO, RIGHT LAPAROSCOPIC HAND ASSISTED HEMICOLECTOMY, lysis of adhesions 2/2 colon ca Social History Reported supportive children living nearby Precautions LUE Weight Bearing Status Full RUE Weight Bearing Status Full LLE Weight Bearing Status Full RLE Weight Bearing Status Full Safety Devices Applied at End of Therapy Call Guerrero;Chair locked Other Precautions LDA's;Telemetry/Monitors Patient Understanding of Precautions Good Comments avoid bending and twisting Home Living Type of Home House Home Layout One level Bathroom Shower/Tub Tub/shower unit Bathroom Toilet Raised Bathroom Equipment Shower chair;Commode;Toilet raiser;Grab bars in shower Home Equipment Waiter/Waitress Buffet;Sock aid;Long-handled shoehorn;Hospital bed Prior Function Lives With Alone Receives Help From Family;Friend(s) Bed Mobility Modified [place] Toilet/Commode Transfers Independent Tub/Shower Transfers Modified [place] Household Ambulation Assistive Device None ADL Assistance Independent Homemaking Assistance Independent Glasses/Contacts Glasses;Currently at hospital;Wears all the time Baseline Communication Fully independent Hearing WFL Miscellaneous Function Driving Independently ADL Grooming Grooming- Where Assessed Chair Grooming Deficit Wash/dry face;Wash/dry hands Grooming Assistance Supervision ADL Bathing Bathing- Where Assessed Chair Bathing Deficit Abdomen;Left arm;Right arm;Chest Bathing Assistance Supervision ADL LE Dressing LE Dressing Assistance Maximal Pain Assessment Pain Assessment 0-10 0-10 Verbal Pain Scale Verbal Pain Score 7 Acceptable to Patient No Patient's Stated Pain Goal No pain Pain Type Surgical pain Pain Location Abdomen Pain Descriptors Burning;Aching Pain Frequency Constant/Continuous RUE Assessment RUE Assessment WFL LUE Assessment LUE Assessment WFL Bed Mobility Rolling Head of bed raised;Min assist to right (direction) Cueing Required Cueing for sequencing;Cueing for hand placement;Cueing for safety Transfers Transfer Equipment Used Rolling walker Sit to Stand Minimal Assist;Contact Guard Stand to Sit Contact Guard Bed to Chair Contact Guard;Minimal Assist Balance Sitting - Static Good Standing - Static Good;Supported Vision-Basic Assessment Current Vision Wears glasses all the time Cognitive Arousal/Alertness WFL Orientation Level Oriented X4 Functional Memory Short Term Recall Recall Daily Events WFL Command Following Follows all commands appropriately Perception Motor Planning Appears intact Mental Function / Holistic Reasoning Safety/Judgement WFL Observed Behaviors Social Interaction Anxious;Cooperative Therapy Interventions Provided Therapeutic Activities to Improve Function transferred out of the bed with Min A/CG Self Care/Home Management Patient has a hip kit at home 2/2 previous back issues and is familiar with its' use Cognitive Skills intact Other (comment) Cont 5x wk Current goals (established on evaluation 09/05/2019 by Flower Tanner OT) Patient will perform functional transfers for ADLs with modified independence - 09/05/2019, Flower Tanner OT Patient will perform UB ADLs with modified independence. - 09/05/2019, Flower Tanner OT Patient will perform LB ADLs with modified independence - 09/05/2019, Flower Tanner OT Patient will ambulate to bathroom with modified independence - 09/05/2019, Flower Tanner OT Patient will toilet self with modified independence - 09/05/2019, MATTHEW Regan OT Vickie Nguyễn DO - 09/05/2019 8:08 AM EDT I have reviewed the PA/resident documentation and I have discussed this patient's care with the team. I have personally seen and examined the patient. I agree with the physical exam with the following exceptions/additions: Patient and seen examined. Doing well - no complaints this AM. Denies fevers, chills, SOB, CP, nausea or vomiting. Afebrile, VSS General - NAD Abdomen - soft ND with incisional tenderness only. All incisions clean with some ecchymosis. I agree with the diagnosis of: POD#1 s/p LHA right hemicolectomy and SOLO We will proceed with the plan of: MARK Weber DO [facility] (c) [phone] Amrit Mcfarland DO - 09/05/2019 7:14 AM EDT COLORECTAL SURGERY PROGRESS NOTE SUBJECTIVE: No acute events overnight. States she passed some flatus overnight. Denies nausea, vomiting, worsening abdominal pain. Slept well. Has not yet ambulated much. OBJECTIVE: BP 111/59 (BP Location: Right arm, Patient Position: Lying) Pulse 79 Temp 98.6 ??F (37 ??C) (Oral) Resp 19 Ht 5' 1.5 (1.562 m) Wt 72.6 kg (160 lb) LMP 02/27/1979 (Approximate) SpO2 96% BMI 29.74 kg/m?? I&Os: UO: I/O last 3 completed shifts: In: 1950 [I.V.:1950] Out: 782 [Urine:747; Blood:35] No intake/output data recorded. Diet: Orders Placed This Encounter Procedures ??? Regular Diet Patient on Nutrition Management Protocol? Yes; Assist Standing Status: Standing Number of Occurrences: 1 Order Specific Question: Patient on Nutrition Management Protocol? Answer: Yes Order Specific Question: Patient's ability to participate in At Your Request (AYR) Room Service: Answer: Assist IVF: LABS: No results found for: WBC, RBC, HEMATOCRIT, HEMOGLOBIN, MCV, MCH, MCHC, RDW, PLTCOUNT, MPV, NEUTROPHILS, LYMPHOCYTES, MONOCYTES, EOSINOPHILS, BASOPHILS, NEUTROPHABSO, LYMPHOCYABSO, MONOCYTABSOL, EOSINOPHIABS, BASOPHILSABS, HCT, HGB Lab Results Component Value Date BUN 16 09/04/2019 CALCIUM 8.5 09/04/2019 CO2 24 09/04/2019 CL 100 09/04/2019 CREATININE 1.0 09/04/2019 K 3.8 09/04/2019 NA 137 09/04/2019 EXAMINATION: General: No acute distress Resp: Normal respirations Cards: Regular rate and rhythm Abdo: Soft, minimally tender, non-distended, incisions c/d/i without with glue in place. Barbara-incisional ecchymosis present. ASSESSMENT/PLAN: This is a 79 y.o. female who is POD 1 s/p right lap hand assisted hemicolectomy. - Continue on ERAS pathway -Diet: regular - [place] out - OOB/IS as tolerated -F/u AM labs -- Ac Emery DO General Surgery, PGY-2 Team Pager: Colorectal Surgery Amrit Delarosa RN - 09/05/2019 5:48 AM EDT S/p surgical condition good . Pian well managed with dilaudid and tylenol . Surgical sites clean anddry . VSS. No acute changes Corazon Parker RN - 09/04/2019 6:59 PM EDT Late charting due to patient care. Patient admitted to [facility] from PACU in stable condition. Patient oriented to room and call guerrero. Skin check completed by this nurse and TF, see flowsheet. Patient placed on tele. Patient alert and oriented x4. Call guerrero in reach, bed in low and locked position. [facility] Corazon Olsen RN Cayla Carrizales PA-C - 09/04/2019 6:35 PM EDT Colorectal Surgery Post Op Check Procedure: Colonoscopy, lap hand assisted right hemicolectomy, lysis of adhesions S: Patient seen on the floor s/p the above procedure. Her daughter is in the room visiting. She admits to mild incisional pain. She has been taking Oxycodone with relief. She has taken a few sips of clears without nausea and vomiting. Admits to decreased appetite. No bowel function yet. Has not ambulated or been out of bed. O: BP 128/74 (BP Location: Right arm, Patient Position: Lying) Pulse 78 Temp 97.7 ??F (36.5 ??C) (Oral) Resp 17 Ht 5' 1.5 (1.562 m) Wt 72.6 kg (160 lb) LMP 02/27/1979 (Approximate) SpO2 96% BMI 29.74 kg/m?? Intake: Clear liquid diet Output: Urine: 147 / 200 / NR EBL: 35 General: resting comfortably, in no acute distress, alert and oriented Lungs: breathing is unlabored Abdomen: obese, soft, non-distended, appropriately tender to palpation at the incision sites, incisions are clean, dry, and intact, scattered bruising throughout her abdomen. Villarreal in place with 15 cc clear yellow urine in bag A/P: 79 y.o. female POD #0 s/p colonoscopy, LHA right hemicolectomy, and lysis of adhesions for colon cancer. She is hemodynamically stable and doing well in the early postop period. -Clear liquid diet as tolerated -Continue LR @ 50 -Monitor urine output -Pain control regimen PRN -Appropriate home meds resumed, aspirin to start tomorrow morning -Labs tomorrow AM -AIMS consult -Heparin SC for VTE prophylaxis for hypercoagulability secondary to postop state Cayla Trujillo PA-C Colorectal Surgery [phone] (pager) documented in this encounter H&P Notes Hamzah Orourke MD - 09/04/2019 8:17 AM EDT Patient seen and examined Agree with previous history and physical with no changes Will proceed with hand assisted hemicolectomy, possible co2 colonoscopy. A thorough discussion was had with the patient regarding the risks and benefits of the procedure including but not limited to: bleeding which could require a transfusion in 2% of cases; infections including superficial wound or deeper infections of the urinary tract, lungs or other body parts; anastomotic complications such as leak, bleeding or stricture with a potential need for a colostomy or ileostomy for management; injury to surrounding structures including nerves, blood vessels, ureters, bladder, spleen, bowel or other abdominal organs potentially requiring repair or removal and the possibility that lesions or injuries may not be noticed during the procedure; urinary dysfunction; sexual dysfunction; wound complications including hernia; a inability to complete laparoscopically requiring conversion to an open operation; DVT and PE; medical complications such as heart attack and stroke; and related to the procedure or complications related to the procedure, amongst others. Alternatives to the procedure were also reviewed. Office based informed consent was signed today. A thorough discussion was had with the patient regarding the risks and benefits of the procedure including but not limited to: perforation which could require surgery, bleeding which could require another procedure or blood transfusion, missed lesions, reaction to preparation medications or sedatives used during the procedure. Alternatives were reviewed. Office based informed consent was signed today. documented in this encounter Consult Notes Aleja Tirado PA-C - 09/05/2019 9:54 AM EDTAssociated Order(s): CONSULT: HOSPITALISTS, AIMS General Consult Note Consult: Hospitalists, AIMS Consult performed by: Aleja Tirado PA-C Consult ordered by: Nilam Mckeon PA-C Requested by: Dr. Orourke Admitting MD: Hamzah Orourke MD PCP: Donaldo Steward DO Code Status: Full Code History of Present Illness: Patient is a 79 y.o. female with a past medical history of type 2 diabetes on insulin, CAD, HI, hypertension, hyperlipidemia, GERD, gout, ulcerative colitis not on immunosuppressive therapy, who was found to have am adenocarcinoma on colonoscopy and is now status post planned right hemicolectomy on 09/03. AIMS has been consulted for management of the aforementioned medical problems. Patient's chart reviewed. Patient's past medical history and medications reviewed with her. Prior to patient's admission she denies any significant bowel symptoms, she was not having any diarrhea or bloody bowel movements. This adenocarcinoma was found on a routine colonoscopy and she was admitted for planned surgery for resection of this malignancy. She states that she is on hydroxychloroquine for leg cramping, she is not aware of any definitive diagnosis such as rheumatoid arthritis, she believes that she does not this. I attempted to clarify this with her instrument/control technician but was unable to speak directly to anyone in the office. From a cardiopulmonary standpoint she was doing well prior to admission and currently, no chest pain, orthopnea, dyspnea, dyspnea on exertion, cough. She has been passing gas but no BM yet. She has been out of bed to a chair, and will be walking withPT today. She does currently have some abdominal cramping, described as gas pain, mostly in her upper abdomen. Otherwise she mostly has incisional pain with movement but this is tolerable. Past Medical History: Past Surgical History: Past Medical History: Diagnosis Date ??? Acid [...] WITH TATOO; Surgeon: Hamzah Orourke MD; Location: [facility] MAIN OPERATING ROOM; Service: Colorectal; Laterality: N/A; ??? CORONARY ANGIOPLASTY WITH STENT PLACEMENT 2003 ??? DILATION AND CURETTAGE OF UTERUS ??? HYSTERECTOMY 1980s Heavy periods. ??? LAPAROSCOPIC RIGHT COLON RESECTION N/A 09/04/2019 Procedure: RIGHT LAPAROSCOPIC HAND ASSISTED HEMICOLECTOMY, lysis of adhesions; Surgeon: Hamzah Orourke MD; Location: [facility] MAIN OPERATING ROOM; Service: Colorectal; Laterality: N/A; ??? UPPER GASTROINTESTINAL ENDOSCOPY ??? WISDOM TOOTH EXTRACTION 2016 x1 Family / Social History: Family History Problem Relation Age of Onset [...] Last attempt to quit: 02/27/1961 Years since quittin.5 ??? Smokeless tobacco: Never Used Substance and [...] file Gets together: Not on file Attends islam service: Not on file Active member of [...] Social History Narrative ??? Not on file Allergies: Allergies Allergen Reactions ??? Acetazolamide Other (See Comments) Dry mouth ??? Clarithromycin ??? Codeine Nausea And Vomiting ??? Morphine ??? Morphine And Related Nausea And Vomiting ??? Sulfa Antibiotics ??? Sulphadimidine [Sulfamethazine] Hives ??? Tramadol Nausea And Vomiting ??? Latex Rash Scheduled Medications: ??? acetaminophen 650 mg Oral Q6H ??? alvimopan 12 mg Oral 2 times per day ??? aspirin EC 81 mg Oral Daily ??? gabapentin 200 mg Oral TID ??? heparin (porcine) 5,000 Units Subcutaneous Q8H MARJORIE ??? hydroCHLOROthiazide 25 mg Oral Daily ??? insulin glargine 25 Units Subcutaneous QHS ??? insulin lispro 1-6 Units Subcutaneous TID AC ??? insulin lispro 15 Units Subcutaneous TID with meals ??? lisinopril 20 mg Oral Daily ??? magnesium sulfate 1g/100 mL D5W premix IVPB 1 g Intravenous Q2H ??? pantoprazole 40 mg Oral BID ??? pravastatin 20 mg Oral QPM Review of Systems: Review of Systems Constitutional: Negative for appetite change, chills, fatigue, fever and unexpected weight change. HENT: Negative for congestion and trouble swallowing. Eyes: Negative for photophobia and visual disturbance. Respiratory: Negative for cough, chest tightness and shortness of breath. Cardiovascular: Negative for chest pain, palpitations and leg swelling. Gastrointestinal: Positive for abdominal pain. Negative for diarrhea, nausea and vomiting. Endocrine: Negative for polydipsia, polyphagia and polyuria. Musculoskeletal: Positive for arthralgias. Negative for gait problem and joint swelling. Skin: Positive for wound (surgical incisions). Negative for color change and rash. Neurological: Negative for dizziness, syncope, weakness, light-headedness and numbness. Hematological: Negative for adenopathy. Does not bruise/bleed easily. Psychiatric/Behavioral: Negative for confusion and sleep disturbance. Vitals: Vitals: 09/05/19 0739 BP: 130/66 Pulse: 70 Resp: 16 Temp: 97.9 ??F (36.6 ??C) TempSrc: Oral SpO2: 96% Weight: Height: Physical Exam: Physical Exam Constitutional: She is oriented to person, place, and time. She appears well- developed and well-nourished. She is cooperative. No distress. HENT: Head: Normocephalic and atraumatic. Head is without abrasion. Right Ear: External ear normal. No drainage. Left Ear: External ear normal. No drainage. Nose: Nose normal. No mucosal edema, rhinorrhea or sinus tenderness. No epistaxis. Right sinus exhibits no maxillary sinus tenderness and no frontal sinus tenderness. Left sinus exhibits no maxillary sinus tenderness and no frontal sinus tenderness. Mouth/Throat: Uvula is midline, oropharynx is clear and moist and mucous membranes are normal. Eyes: Conjunctivae, EOM and lids are normal. Pupils are equal, round, and reactive to light. No scleral icterus. Neck: Trachea normal, normal range of motion, full passive range of motion without pain and phonation normal. Neck supple. No JVD present. No neck rigidity. Cardiovascular: Normal rate, regular rhythm, normal heart sounds and normal pulses. No murmur heard. No peripheral edema. Pulmonary/Chest: Effort normal and breath sounds normal. No accessory muscle usage. No respiratory distress. Abdominal: Soft. Bowel sounds are normal. She exhibits no distension and no mass. There is tenderness (minimal barbara-incisional). There is no rigidity, no rebound and no guarding. Surgical incisions appear to be healing normally. Scattered ecchymosis Musculoskeletal: Normal range of motion. Lymphadenopathy: She has no cervical adenopathy. Neurological: She is alert and oriented to person, place, and time. She has normal strength. No cranial nerve deficit or sensory deficit. Skin: Skin is warm, dry and intact. No rash noted. She is not diaphoretic. Psychiatric: She has a normal mood and affect. Her speech is normal and behavior is normal. Cognition and memory are normal. Nursing note and vitals reviewed. Labs: Lab Results Component Value Date NA 137 09/04/2019 K 3.8 09/04/2019 BUN 16 09/04/2019 CREATININE 1.0 09/04/2019 CL 100 09/04/2019 WBC 5.9 09/05/2019 HEMATOCRIT 31.7 (L) 09/05/2019 HEMOGLOBIN 10.7 (L) 09/05/2019 PLTCOUNT 181 09/05/2019 MG 1.3 (L) 09/05/2019 PHOS 3.1 09/05/2019 CALCIUM 8.5 09/04/2019 Imaging: No clinically significant issues. Other Studies: N/A Problem List: Active Hospital Problems Diagnosis ??? Colon cancer (HCC) Impression: Assessment: This is a pleasant 79-year-old female with a past medical history of type 2 diabetes on insulin, CAD, HI, hypertension, hyperlipidemia, GERD, gout, ulcerative colitis not on immunosuppressive therapy, who was found to have am adenocarcinoma on colonoscopy and is now status post planned right hemicolectomy on 09/03. She is doing well post-op. Problem List / Recommendations: S/P s/p LHA right hemicolectomy and SOLO on 09/03 due to adenocarcinoma: Management per surgical team. Appears to be doing well post-op. Ambulation encouraged to encourage return of bowel function, passing gas but no BM. Hypomagnesemia: Can be expected in the post-op setting. This has been replaced appropriately. Type 2 Diabetes Mellitus with long-term use of insulin: Check hemoglobin A1C with morning labs. She was resumed on her Lantus last night with reduction in finger stick glucose today. Until PO intake had returned to normal would reduce her mealtime lispro to 7 units AC and continue low dose correctional scale. She can resume her Metformin and Tresiba at discharge. History of ulcerative colitis: No active symptoms, denies bloody BMs prior to admission, not on any chronic medical therapy. CAD with history of HI s/p stenting, Hypertension, Hyperlipidemia: No anginal symptoms. Continue aspirin and statin. BP variable, 100s-170s, likely elevated in the setting of pain. Continue her home medications lisinopril and HCTZ. Would stop IV fluids as she is tolerating PO. GERD: Continue PPI Patient is on hydroxychloroquine as an outpatient for unclear reasons. Patient states that this is for leg cramping . She sees a instrument/control technician in [place] Dr. Huggins, I attempted to call him today to determine reason for this medication but was unable to speak to any staff in the office. I will call again tomorrow. Okay to continue holding this medication for now. Would remove Villarreal as patient is able to ambulate. Discussed with Dr. Carranza. WILLIE JrarettC Available on [employer] Text 8a-4p AIMS Consult Service 09/05/2019 1:50 PM Associated attestation - Ingrid Carranza MD - 09/05/2019 9:53 PM EDT I have examined the patient and reviewed the history, physical, assessment and plan, and I am in agreement.with DELGADO Moe. Pt is doing well except for mild abdominal discomfort She is otherwise stable from the post op setting. She has no leg cramps, hold hydroxychloroquine for now Sugars are stable on current dose of lantus which can continue.' We have discussed the patient's management and plan. Thank you for consulting us in the care of this patient. Please do not hesitate to contact me with any questions or concerns. Ingrid Carranza M.D, [facility] AIMS strategic planning consultant physician documented in this encounter Nursing Notes Whit Leonard RN - 09/04/2019 11:59 AM EDT Unable to assess skin at this time, procedure still in progress. Pt placed in reverse trendelenburg.Will assess skin when procedure over. Whit Leonard RN documented in this encounter OR Notes Brief Op Note - Nilam Mckeon PA-C - 09/04/2019 2:47 PM EDT C02 COLONOSCOPY WITH TATOO, RIGHT LAPAROSCOPIC HAND ASSISTED HEMICOLECTOMY, lysis of adhesions Procedure Note Patient Name: Esther Pulido Date of Performed Surgery: 09/04/2019 Scheduled Surgery Time: 814 Preoperative Diagnosis: Colon cancer (HCC) [C18.9] Postoperative Diagnosis: Post-Op Diagnosis Codes: * Colon cancer (HCC) [C18.9] Procedure(s): Procedure(s) (LRB): C02 COLONOSCOPY WITH TATOO (N/A) RIGHT LAPAROSCOPIC HAND ASSISTED HEMICOLECTOMY, lysis of adhesions (N/A) Anesthesia Type: Regional, General Surgeon(s): Surgeon(s): Hamzah Orourke MD Animal Geneticist(s): Physician Animal Geneticist: Nilam Mckeon PA-C Wound Class: Clean Contaminated Estimated Blood Loss: 35 mL Specimens: ID Type Source Tests Collected by Time A : Right Colon Tissue Tissue (specify) SURGICAL PATHOLOGY Hamzah Orourke MD 09/04/2019 1256 Implants: * No implants in log * Intentionally Retained Items Active Intentionally Retained Items None Drains: Patient Lines/Drains/Airways Status Active Drain / Nasogastric/Orogastric Tube / Urethral Catheter Name: Placement date: Placement time: Site: Days: Urethral Catheter Indwelling 16 Fr. 09/04/19 0910 Indwelling less than 1 Findings: Intra-abdominal adhesions. As seen in operative note. Complications: none Disposition of Patient:: Stable to PACU Operative Report to be Dictated by: Dr. Sharad Mckeon Date: 09/04/2019 Time: 2:47 PM p Note - Hamzah Orourke MD - 09/04/2019 12:00 AM EDT Date of Procedure/Exam: 09/04/2019 PREOPERATIVE DIAGNOSIS: Cancerous tubulovillous adenoma with adenocarcinoma. POSTOPERATIVE DIAGNOSIS: Cancerous tubulovillous adenoma with adenocarcinoma. PROCEDURE: CO2 colonoscopy with tattoo placement, laparoscopic lysis of adhesion converted to hand-assist, right hemicolectomy. ANESTHESIA TYPE: General with TAP block. PRIMARY SURGEON: Hamzah Orourke M.D. SAND HAULER: DELGADO. WOUND CLASSIFICATION: Clean contaminated. ESTIMATED BLOOD LOSS: 30 mL. SPECIMENS: Right colon. IMPLANTS: None. INTENTIONALLY RETAINED ITEMS: None. DRAINS: An 18-[place] Villarreal catheter. FINDINGS: Patient had an extensive scar tissue involving omentum and some small bowel. There was also significant scar tissue involving the omentum and multiple portions of the ascending colon and transverse colon. COMPLICATIONS: None. DISPOSITION OF PATIENT: Stable to PACU, then to floor. PREOPERATIVE INDICATIONS: Patient is an 79-year-old female, who was undergoing a colonoscopy after findings of ischemic colitis. She had a very difficult colonoscopy in order to reach the ileocecal valve. This was due to angulation and fixation of the sigmoid and descending colon, a polyp was removed likely in close proximity to the cecum. 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 This area was not tattooed, as it appeared to be a normal precancerous polyp. Because of these findings, it was discussed with the patient and the family of partial hemicolectomy involving this area to ensure complete removal of the cancer and to ensure no spread to the lymphnodes. Other options including doing nothing, a repeat colonoscopy with attempt to removal of remaining polyps were discussed; however, I explained this will be against the normal standard of care forcancer as it may continue to spread to the lymph nodes if this was pursued. Many risks of the procedure were highlighted to the patient including bleeding, infection, heart attack, stroke, blood clots, pneumonia, pulmonary embolism, , injury to other structures, colon, small bowel, ureter, spleen; need for further surgical therapy, prolonged intubation, recurrence of cancer, no findings of carcinoma on final pathology, as there is a chance that all of the cancer was still removed with the polypectomy; amongst other risks up until including , anastomotic leak, need for return to the operating room for an ostomy. The patient and family desired surgical therapy. Please see office notes for full details. DESCRIPTION OF PROCEDURE: Patient was seen in the preoperative area, all further questions were answered. She was marked for surgery, surgeon, date and time via her abdomen. Venodynes were in place. She received 2 g of Rocephin and 500 mg of Flagyl within 30 minutes of the incision time. Heparin 5000 units subcutaneous wasgiven within 30 minutes of the incision time as well. Patient was brought to the operating room theater. General endotracheal intubation was pursued. After this was done, a TAP block was performed.Villarreal catheter was then inserted. Left arm was tucked. Patient was then placed in frog leg position for a CO2 colonoscopy. The pediatric colonoscope was then brought to the field. Using only water i nsufflation, we were able to get to 20 or 30 cm where there was acute angulation and multiple diverticulum noted. Using some slight abdominal pressure as well and torquing the scope pulling back, we were able to reach beyond this point after approximately 15 to 20 minutes of effort with no pushing orpressure of the colonscope. After this, we were able to slowly and steadily make our way all the way to the ileocecal valve. Directly next to the ileocecal valve, there was an area of puckering of what appeared to be previously removed polyp, it was slightly ulcerated. This appeared to be similar to the previous findings on the last colonoscopy. This area was tattooed. This did appear to be in the ascending colon. Again, minimal CO2 was used. We were able to remove the CO2 colonoscope. Excess water and CO2 were removed. The patient's abdomen was then prepped and draped in normal sterile fashion after she was placed in lithotomy position with left arm tucked. We ensured there was no unduetension on her pressure points. A #15 blade scalpel was then used to make an incision of about 2 cmabout 4 cm below the xiphoid space. This was done with a #15 blade scalpel. Subcutaneous tissue was divided with electrocautery. Two S retractors were used to expose the anterior rectus fascia. Theanterior rectus fascia was grasped with 2 Kochers and then divided in the midline with a #15 blade scalpel. Two S retractors were used to expose the peritoneal layer, which was further elevated with 2Schnidts and divided with a #15 blade scalpel. It seems like we were very close to the falciform ligament. S retractor was placed. We were able to find some scar tissue and I did identify a clear path of entry into the abdomen. The 12 mm balloon Jasen port was then inserted and placed. We then achieved pneumoperitoneum on low flow. Patient tolerated this well. This switched to high flow. Immediately, we found omentum adherent all across the abdominal wall all the way into the pelvis. Therewere adhesions extending all the way down to the lateral sidewall as well. These appeared to be allomentum. There was an area clear of scar tissue in the right lower quadrant and therefore, 2 laparoscopic ports were placed to attempt to remove the scar tissue from the midline laparoscopically for placement of the hand port. There was also omentum adherent to the abdominal wall in the midline fromthe patient's previous hysterectomy; however, the omental adhesion was extended well up into the upper abdomen and also adherent to the lateral sidewall. There was omentum attached to the abdominal wall over the previous infraumbilical hysterectomy incision. Under direct visualization, two 5 mm ports were placed in the right mid and lower abdomen. Using laparoscopic Javy and laparoscopic scissors, we were able to find a clear area between the omental adhesions to the abdominal wall. These were taken down sharply. We also used gentle sweeping action. There was no actual small bowel tethered to this area. We were found that the adhesions were extended up to the left upper quadrant as well, omental adhesions all the way adherent to the lateral abdominal wall. Eventually, the adhesions were able to be taken down off the midline, so hand port could be placed. We have to ensure that therewould be enough room for a hand port. We made an incision with a #15 blade scalpel in the supraumbilical and going to the right of the umbilicus and extending down approximately 2 cm below the umbilicus in the midline. This was carried down with electrocautery to the anterior rectus fascia. The anterior rectus fascia was divided with pneumoperitoneum, peritoneum was also divided directly in the midline. The hand was then placed intraabdominally to protect the abdominal viscera. We were able to take down some continued omental adhesions that were extending out laterally for placement of the hand port under direct visualization. There was a very small amount of bleeding from the edge of the omentum, which was controlled with electrocautery. We were now able to place our hand port. The patient's cecum was actually located in the right upper quadrant. There were extensive omental adhesions b etween the omentum and the falciform ligament. We began the procedure by identifying the stomach. We ensured the NG tube was in correct position, which it was. There were some additional omental adhesions taken off the abdominal wall. We are now able to find some mobility of the omentum. The omentum was tethering from the transverse colon to the cecum all the way down to the right lower quadrantinto the pelvis. The omentum was divided off the right lower quadrant from the abdominal wall, ensuring there was good blood supply. There were also omental adhesions between the ascending colon and transverse colon causing slight kinking. This was taken down with the blunt tip LigaSure device in the clear correct plane. We are now able to divide the omental attachments from the transverse colon. We were able to enter the lesser sac towards the stomach. We now were able to continue to lyse theadhesions and identify the duodenum. We are well away from the duodenum in this process and continued to divide the attachments toward the ascending colon. We identified Gerota's fascia. We were able to dissect the attachments well away from Gerota's fascia. We were also able to identify the ileocecal valve and terminal ileum. We continued to mobilize this completely. We were able to eventuallyidentify the right branch of the middle colic vessels. We were able to elevate the bare area with the LigaSure device near the duodenum and the right branch of the middle colic vessels. This was thenskeletonized and divided with 3 firings both proximal of LigaSure device and 2 distal and divided inbetween the LigaSure device, taking care we were well away from the duodenum. We continued to open u p the mesentery all the way up to the ileocolic pedicle. The ileocolic pedicle was identified and divided with multiple firings of LigaSure device, 3 in the proximal end and 2 distal on the end and divided between. We now found we had appropriate mobility of the colon. We then extracorporealized the specimen. We ensured we were in correct orientation. We had to divide some of the adhesions between the small bowel and the sidewall laparoscopically prior to removal. We then examined the small bowel and ran the entire small bowel to ensure there was no injury and there was not. The transverse colon was still kinked upon itself with the omental attachments to the ascending colon. This was divided further with the LigaSure device and electrocautery. We now found our cut edge of the divided edge of the mesentery of the colon and the small bowel edge. Prior with the omental adhesions, we spent at least 1 hour of lysing the adhesions laparoscopically. We then created a window between the small bowel and its mesentery more than 5 cm proximal to the ileocecal valve at the cut edge of the mesentery where there was still remaining palpable pulse that would supply the small bowel from the anastomosis. Anastomotic tray was employed. Blue towels were placed around the hand port. LUIS 75-mm stapler was then placed through this window, held for 30 seconds of compression and then fired. An Allis clamp was placed in the antimesenteric corner for the anastomosis. We then turned our attention tothe transverse colon. There was an area where there was a palpable pulse from the middle colic was identified at the end of the divided mesentery. We then created a window between the colon and its mesentery at this location. There was extensive amount of fat around the colon and omentum wrapped around the colon, which was taken down with electrocautery. Once we created a window, we were able to insert the LUIS 75-mm stapler blue load, was held for 30 seconds of compression in an antimesenteric fashion and the mesentery of the colon was divided. We then removed the specimen and oriented the small bowel and ensured it was not twisted along with the transverse colon. The antimesenteric corner was held with Allis clamps and curved Isaac was used to open the antimesenteric border and in each end of the LUIS 75-mm stapler blue load cartridge was then inserted, placed completely antimesenteric, held for 30 seconds of compression and then fired. We then examined the anastomosis and found it was intact and completely antimesenteric with no active bleeding. We then staggered the LUIS 75 staple lineand closed the common enterotomy defect with multiple Allis clamps, 4 were placed below the divided serosal edge and TA 60 stapler was then employed and placed below the divided serosal edge, held for 30 seconds of compression and then fired. A curved Isaac scissor was then used to divide the staple line. We then examined the anastomosis. It was open for more than 2 fingerbreadths across the LUIS sta ple line common channel. There was no significant active bleeding. A 3-0 Vicryl suture was then placed in the proximal edge of the anastomosis with a crotch stitch through the serosa to take tension off the anastomosis. This was then palpated under warm water bath with tension across each staple line and we found no bubbling as a rudimentary leak test. 0 Vicryl was then placed over this. We thenexamined the small bowel again and ran the small bowel and found no injury again. We then went backlaparoscopically and examined to ensure there was no bleeding. There was a small amount of bleedingfrom an omental attachment of the left lateral abdominal wall in the right lower quadrant, which wascontrolled with electrocautery. We also examined the divided mesentery of the ileocolic pedicle, divided right branch of the middle colic, and there was no bleeding. We then irrigated the abdominal cavity with a liter of normal saline. Excess CO2 was removed. We then closed the Jasen port with 0 Vicryl suture on a UR-6 closing the fascia, it was palpated from above and below through the hand port and found to be completely intact. The hand port incision was then closed with two #1 PDS suturesto close the fascia. The subcutaneous tissue was irrigated, 4-0 Monocryl sutures were then used to close the hand port incision, the Jasen port incision and two 5-mm ports followed by Dermabond. Patient tolerated the procedure well, was extubated and brought to the PACU in stable condition. All sponge counts and instrument counts were correct times 2. Hamzah Orourke M.D. ATTENDING: HAMZAH OROURKE A: 09/04/2019 D: TREMAINE/PAGE: [id number] / DID: [id number] CSN: [id number] TT: 09/04/2019 23:24:38 / vn Dictator: Hamzah Orourke M.D. documented in this encounter Miscellaneous Notes Plan of Care - Corazon Olsen RN - 09/06/2019 4:51 PM EDT Problem: Acute Pain: Goal: Pain level will decrease Outcome: Progressing Patient medicated per MAR with good result. Patient educated to notify nurse of pain. WCTM Problem: Risk to Fall: Goal: Will remain free from falls Outcome: Progressing Patient remains free from falls. Call guerrero in reach, bed in low and locked position. WCTM Problem: Infection Risk: Goal: Will remain free from infection Outcome: Progressing Patient remains free from infection. Afebrile. WCTM Problem: Progressive Mobility Impairment: Goal: Patient will engage in activities of daily living with identified levels of assist to promote pre-hospital level of independence Current goals (established on evaluation 09/05/2019 by Flower Tanner OT) Patient will perform functional transfers for ADLs with modified independence - 09/05/2019, Flower Tanner OT Patient will perform UB ADLs with modified independence. - 09/05/2019, Flower Tanner OT Patient will perform LB ADLs with modified independence - 09/05/2019, Flower Tanner OT Patient will ambulate to bathroom with modified independence - 09/05/2019, Flower Tanner OT Patient will toilet self with modified independence - 09/05/2019, Flower Tanner OT Outcome: Progressing Patient standby assist OOB. WCTM lan of Care - Federico White PT - 09/06/2019 1:38 PM EDT Problem: Physical Mobility Impairment: Goal: Ability to ambulate will improve CURRENT GOALS: 1. Supine to/from sit indep. 09/05/2019, Federico White, PT 2. Sit to/from stand with mod indep using LRAD. 09/05/2019, Federico White, PT 3. Amb 400' with mod indep using LRAD. 09/05/2019, Federico White, PT 4. Up/down 4 stairs with mod indep using one rail, +/- cane. 09/05/2019, Federico White, PT PREVIOUS GOALS: Outcome: Resolved Date Met: 09/06/19 09/06/19 4411 Summary and Impressions PT Impressions DAILY PT NOTE: Pt was seen for treatment. POD 3 s/p right lap hand assisted hemicolectomy. Pt demonstrates steady gait with RW & navigated stairs without loss of balance. Anticipate d/c as per interdisciplinary team. No further skilled acute care PT needs identified. Rec pt amb in humphries with RW & nsg during hosp stay. Assessment Comments Reported Pt denied any dizziness during mobiity. Prognosis Good AM PAC Basic Mobility 23 BC Plan Treatment/Interventions Functional transfer training;Gait training;Bed mobility training;Stair training;LE strengthening/ROM;Neuromuscular Re- education;Patient/family training;Equipment eval/education;Compensatory technique education;Continued evaluation;Endurance training Progress Goals Met In House Mobility/Safety Recommendations Slipper Socks/shoes;Chair alarm;Bed alarm;OOB for all meals;Safe to ambulate with nursing and assistive device PT Last Visit PT Received On 09/06/19 Patient seen- type of documentation: Daily Note Additional Individuals Present for Session Surgical mask, gloves Patient/Family History Referring Diagnosis colon CA Precautions LUE Weight Bearing Status Full RUE Weight Bearing Status Full LLE Weight Bearing Status Full RLE Weight Bearing Status Full Safety Devices Applied at End of Therapy Call Guerrero;Bed Alarm;Bed at lowest position Other Precautions Telemetry/Monitors Patient Understanding of Precautions Excellent Pain Assessment Pain Assessment No/denies pain Bed Mobility Sit to Supine Independent Transfers Transfer Equipment Used Rolling walker Sit to Stand Modified [place] Stand to Sit Modified [place] Functional Mobility Gait Assistance Modified [place] Gait Pattern Decreased Inna Gait Pattern Comments Slow steady gait Distance Ambulated (in feet) 400 Assistive Device Walker, front-wheeled Number of Stairs (3) Stair Management Assistance Modified [place] Stair Management Technique Two rails;Backwards;Alternating pattern Coordination/Posture Lower Extremity: Gross Motor WFL Head and Neck Control: Gross Motor WFL Trunk Control: Gross Motor WFL Balance Sitting - Static Good Sitting - Dynamic Good Standing - Static Good;Supported Standing - Dynamic Good;Supported Cognition Arousal/Alertness WFL Perception Inattention/Neglect Appears intact Initiation Appears intact Motor Planning Appears intact Perseveration Not present Left Right Discrimination Normal Body Awareness Normal Observed Behaviors Social Interaction Anxious;Pleasant Therapy Interventions Provided Therapeutic Activities to Improve Function Bed mobility & transfer training as above Gait Training As above Other (comment) Chart reviewed. Pt & RN consented to tx. Reviewed PT d/c plan - pt in agreement. Left pt , in NAD, CB in hand. Updated RN after tx. Federico White, PT lan of Radha Jimenez RN - 09/06/2019 6:01 AM EDT Problem: Acute Pain: Goal: Pain level will decrease Outcome: Not Progressing C/o abdominal pain, on scheduled tylenol. Patient slept most of the night. Will continue to monitor. Problem: Risk to Fall: Goal: Will remain free from falls Outcome: Progressing Safety maintained. Assist of one with a walker when OOB. Call guerrero within reach. Problem: Infection Risk: Goal: Will remain free from infection Outcome: Progressing Temp trending down, now 97.9. VSS. Surgical incisions CDI x 4. Will continue to monitor. lan of Corazon Knox RN - 09/05/2019 6:52 PM EDT Problem: Acute Pain: Goal: Pain level will decrease Outcome: Progressing Patient medicated per MAR with good result. Patient educated to notify nurse of pain. WCTM Problem: Risk to Fall: Goal: Will remain free from falls Outcome: Progressing Patient remains free from falls. Call guerrero in reach bed in low and locked position. Standby assist OOB with walker Problem: Infection Risk: Goal: Will remain free from infection Outcome: Progressing Patient remains free from s/s of infection. Afebrile. WCTM Problem: Physical Mobility Impairment: Goal: Ability to ambulate will improve CURRENT GOALS: 1. Supine to/from sit indep. 09/05/2019, Federico White, PT 2. Sit to/from stand with mod indep using LRAD. 09/05/2019, Federico White, PT 3. Amb 400' with mod indep using LRAD. 09/05/2019, Federico White, PT 4. Up/down 4 stairs with mod indep using one rail, +/- cane. 09/05/2019, Federico White, PT PREVIOUS GOALS: Outcome: Progressing Patient standby assist OOB with walker re- Procedure Instructions - Kira Romero RN - 08/29/2019 11:43 AM EDT Current Medications - Follow these instructions in preparation for your surgery Medication Sig Extra Info ??? aspirin EC 81 MG tablet Take 81 mg by mouth daily. Do NOT take day of surgery ??? Calcium Carb-Cholecalciferol (CALCIUM+D3 PO) Take by mouth. Do NOT take day of surgery ??? Cholecalciferol (VITAMIN D-3 PO) 2,000 Units daily. Vitamin D3 TABS Refills: 0 Active Do NOT take day of surgery ??? Coenzyme Q10 (COQ10 PO) Take by mouth 2 (two) times a day. Do NOT take day of surgery ??? HUMALOG KWIKPEN 100 UNIT/ML injection 15 Units 3 (three) times a day. Do NOT take day of surgery ??? hydroCHLOROthiazide (HYDRODIURIL) tablet 25 mg Take 25 mg by mouth daily. Do NOT take day of surgery ??? hydroxychloroquine (PLAQUENIL) 200 MG tablet Take 1 tablet (200 mg total) by mouth every night at bedtime as needed. Do NOT take day of surgery ??? LANTUS SOLOSTAR 100 UNIT/ML injection INJECT 25 UNITS UNDER THE SKIN AT BEDTIME Take 1/2 dose the evening prior to surgery ??? lisinopril (PRINIVIL,ZESTRIL) tablet 20 mg Do NOT take day of surgery ??? metFORMIN (GLUCOPHAGE-XR) ER 24 hr tablet 500 mg 2 (two) times a day. Do NOT take day of surgery ??? Multiple Minerals-Vitamins (DOLOMITE PLUS VITAMINS A AND D PO) Take by mouth daily. Do NOT take day of surgery ??? [place]-3 Fatty Acids (OMEGA 3 PO) Take by mouth. Do NOT take day of surgery ??? pantoprazole (PROTONIX) 40 MG tablet 2 (two) times a day. Take day of procedure/surgery as directed with a sip of water ??? Potassium 99 MG TABS Take by mouth daily. Do NOT take day of surgery ??? pravastatin (PRAVACHOL) tablet 20 mg every night at bedtime. Do NOT take day of surgery ??? Probiotic Product (PROBIOTIC DAILY PO) Take by mouth daily. Do NOT take day of surgery ??? TRULICITY 0.75 MG/0.5ML SOPN INJECT ONCE A WEEK Do NOT take day of surgery ??? UNABLE TO FIND 2 (two) times a day. HISTA BLOCK: 2 TABS BID Do NOT take day of surgery ??? UNABLE TO FIND 2 (two) times a day. INTESTINAL SMOOTH AND BUILD: 2 TABS BID Do NOT take day of surgery documented in this encounter Plan of Treatment Not on filedocumented as of this encounter Procedures Procedure Name Priority Date/Time Associated Comments Diagnosis CBC WITHOUT DIFFERENTIAL Routine 09/07/2019 8:15 Results for this AM EDT procedure are i n the results section. BASIC METABOLIC Routine 09/07/2019 8:15 Results for this PANEL-RANDOM AM EDT procedure are i n the results section. MAGNESIUM Routine 09/07/2019 8:15 Results for this AM EDT procedure are i n the results section. C-REACTIVE PROTEIN Routine 09/07/2019 8:15 Resul ts for this AM EDT procedure are i n the results section. GLUCOSE, POCT Routine 09/07/2019 8:13 Results fo r this AM EDT procedure are i n the results section. GLUCOSE, POCT Routine 09/06/2019 9:04 Results fo r this PM EDT procedure are i n the results section. GLUCOSE, POCT Routine 09/06/2019 5:52 Results fo r this PM EDT procedure are i n the results section. GLUCOSE, POCT Routine 09/06/2019 12:02 Results fo r this PM EDT procedure are i n the results section. GLUCOSE, POCT Routine 09/06/2019 7:48 Results fo r this AM EDT procedure are i n the results section. BASIC METABOLIC Routine 09/06/2019 7:36 Results for this PANEL-RANDOM AM EDT procedure are i n the results section. MAGNESIUM Routine 09/06/2019 7:36 Results for this AM EDT procedure are i n the results section. GLYCOHEMOGLOBIN A1C Routine 09/06/2019 7:35 Resu lts for this AM EDT procedure are i n the results section. GLUCOSE, POCT Routine 09/05/2019 11:23 Results fo r this PM EDT procedure are i n the results section. GLUCOSE, POCT Routine 09/05/2019 4:06 Results fo r this PM EDT procedure are i n the results section. GLUCOSE, POCT Routine 09/05/2019 12:04 Results fo r this PM EDT procedure are i n the results section. GLUCOSE, POCT Routine 09/05/2019 7:42 Results fo r this AM EDT procedure are i n the results section. CBC W/AUTO DIFFERENTIAL Routine 09/05/2019 7:35 Results for this AM EDT procedure are i n the results section. MAGNESIUM Routine 09/05/2019 7:35 Results for this AM EDT procedure are i n the results section. PHOSPHORUS Routine 09/05/2019 7:35 Results for this AM EDT procedure are i n the results section. GLUCOSE, POCT Routine 09/04/2019 9:39 Results fo r this PM EDT procedure are i n the results section. BASIC METABOLIC Routine 09/04/2019 7:59 Results for this PANEL-FASTING PM EDT procedure are in the results section. GLUCOSE, POCT Routine 09/04/2019 4:59 Results fo r this PM EDT procedure are i n the results section. GLUCOSE, POCT Routine 09/04/2019 2:24 Results fo r this PM EDT procedure are i n the results section. SURGICAL PATHOLOGY Routine 09/04/2019 12:56 Colon cancer (HCC) Results for this PM EDT procedure are i n the results section. ABG/CHEM/H&H (ISTAT) Routine 09/04/2019 10:17 Res ults for this AM EDT procedure are i n the results section. LAPAROSCOPY RESECTION 09/04/2019 8:09 Colon cancer (H CC) COLON RIGHT HAND AM EDT ASSISTED Special Needs NEED ENDO NURSELITHOTOMYGENE RAL AND TAP COLONOSCOPY 09/04/2019 8:09 AM EDT Colon cancer (HCC ) Special Needs NEED ENDO NURSELITHOTOMYGENE RAL AND TAP GASTROINTESTINAL PROVATION 09/04/2019 7:52 AM EDT GLUCOSE, POCT Routine 09/04/2019 7:38 AM EDT Res ults for this procedure are i n the results section . ABO/RH RECHECK (PATIENT) Routine 09/04/2019 7:20 AM EDT Results for this procedure are i n the results section . TYPE AND SCREEN Routine 09/04/2019 7:15 AM EDT R esults for this procedure are i n the results section . documented in this encounter Results C-Reactive Protein (09/07/2019 8:15 AM EDT) [facility] C Reactive 14.6 (H) <0.9 mg/dL COLLABORATIVE Protein Comment: LABORATORY SERVICES [place] [address] Jonathon Valle Jr, MD Director CLIA [id number] ??CL 0623 Specimen Performing Organization Address [facility] Phon e Number [facility] [address] [place] [address] SERVICES (CLIA #[id number]) (CL-0623) CBC Without Differential (09/07/2019 8:15 AM EDT) [facility] WBC 5.1 4.0 - 10.5 COLLABORATIVE K/uL LABORATORY SERVICES RBC 3.24 (L) 4.2 - 5.4 M/uL [facility] LABORATORY SERVICES Hemoglobin 10.5 (L) 12.5 - 16.0 COLLABORATIVE g/dL LABORATORY SERVICES Hematocrit 31.2 (L) 37 - 47 % [facility] LABORATORY SERVICES MCV 96.3 78 - 100 fL [facility] LAB[facility]ATORY SERVICES MCH 32.4 25 - 33 pg [facility] LABORATORY SERVICES MCHC 33.6 32 - 36 g/dL [facility] LABORATORY SERVICES RDW 13.7 12.1 - 16.2 % [facility] LABORAT[facility] SERVICES Platelets 186 150 - 450 K/uL [facility] LABORATORY SERVICES MPV 8.5 7.4 - 11.4 fL COLLABORATIVE Comment: LABORATORY SERVICES [place] [address] Jonathon Valle Jr, MD Director CLIA [id number] ??CL 0623 Specimen Performing Organization Address [facility] Phon e Number [facility] [address] [place] [address] SERVICES (CLIA #[id number]) (CL-0623) Magnesium (09/07/2019 8:15 AM EDT) [facility] Magnesium 1.9 1.7 - 2.8 COLLABORATIVE Comment: mg/dL LABORATORY SERVICES Performed at [address] [address] Jonathon Valle Jr, MD Director CLIA [id number] ??CL 0623 Specimen Performing Organization Address [facility] Phon e Number [facility] [address] [place] [phone] SERVICES (CLIA #[id number]) (CL-0623) Basic Metabolic Panel-Random (09/07/2019 8:15 AM EDT) BUN 13 7 - 17 mg/dL [facility] LABORATORY SERVICES Creatinine, Blood 0.9 0.5 - 1.0 COLLABORATIVE mg/dL LABORATORY SERVICES Glomerular >60.0Comment: MDRD >60.0 COLLABORATIVE Filtration Rate, in mL/min/1.73 sq LABORATORY SERVICES Estimated meters. For Americans, multiply by 1.21. Sodium 137 135 - 145 COLLABORATIVE mmol/L LABORATORY SERVICES Potassium 3.8 3.5 - 5.1 COLLABORATIVE mmol/L LABORATORY SERVICES Chloride 104 98 - 107 COLLABORATIVE mmol/L LABORATORY SERVICES Carbon dioxide 26 24 - 32 COLLABORATIVE mmol/L LABORATORY SERVICES Glucose, Random 134 70 - 199 COLLABORATIVE mg/dL LABORATORY SERVICES Calcium 8.3 (L) 8.4 - 10.2 COLLABORATIVE Comment: mg/dL LABORATORY SERVICES Performed at [address] [address] Jonathon Valle Jr, MD Director CLIA [id number] ??CL 0623 Specimen Performing Organization Address [facility] Phon e Number [facility] [address] [place] [address] SERVICES (CLIA #[id number]) (CL-0623) Glucose, Poct (09/07/2019 8:13 AM EDT) Glucose, POCT 137Comment: 70 - 199 COLLABORATIVE Fasting Reference mg/dL LABORATORY SERVICES Range: 70-99 mg/dL Specimen Performing Organization Address City/[facility] Phon e Number [facility] [address] [place] [address] SERVICES (CLIA #[id number]) (CL-0623) Glucose, Poct (09/06/2019 9:04 PM EDT) Glucose, POCT 188Comment: 70 - 199 COLLABORATIVE Fasting Reference mg/dL LABORATORY SERVICES Range: 70-99 mg/dL Specimen Performing Organization Address [facility] Phon e Number [facility] [address] [place] [phone] SERVICES (CLIA #[id number]) (CL-0623) Glucose, Poct (09/06/2019 5:52 PM EDT) Glucose, POCT 134Comment: 70 - 199 COLLABORATIVE Fasting Reference mg/dL LABORATORY SERVICES Range: 70-99 mg/dL Specimen Performing Organization Address [facility] Phon e Number [facility] [address] [place] [phone] SERVICES (CLIA #[id number]) (CL-0623) Glucose, Poct (09/06/2019 12:02 PM EDT) Glucose, POCT 192Comment: 70 - 199 COLLABORATIVE Fasting Reference mg/dL LABORATORY SERVICES Range: 70-99 mg/dL Specimen Performing Organization Address [facility] Phon e Number [facility] [address] [place] [phone] SERVICES (CLIA #[id number]) (CL-0623) Glucose, Poct (09/06/2019 7:48 AM EDT) Glucose, POCT 142Comment: 70 - 199 COLLABORATIVE Fasting Reference mg/dL LABORATORY SERVICES Range: 70-99 mg/dL Specimen Performing Organization Address [facility] e Number [facility] [address] [place] [phone] SERVICES (CLIA #[id number]) (CL-0623) Basic Metabolic Panel-Random (09/06/2019 7:36 AM EDT) BUN 12 7 - 17 mg/dL [facility] LABORATORY SERVICES Creatinine, Blood 0.8 0.5 - 1.0 COLLABORATIVE mg/dL LABORATORY SERVICES Glomerular >60.0Comment: MDRD >60.0 COLLABORATIVE Filtration Rate, in mL/min/1.73 sq LABORATORY SERVICES Estimated meters. For Americans, multiply by 1.21. Sodium 139 135 - 145 COLLABORATIVE mmol/L LABORATORY SERVICES Potassium 3.7 3.5 - 5.1 COLLABORATIVE mmol/L LABORATORY SERVICES Chloride 107 98 - 107 COLLABORATIVE mmol/L LABORATORY SERVICES Carbon dioxide 25 24 - 32 COLLABORATIVE mmol/L LABORATORY SERVICES Glucose, Random 145 70 - 199 COLLABORATIVE mg/dL LABORATORY SERVICES Calcium 8.3 (L) 8.4 - 10.2 COLLABORATIVE Comment: mg/dL LABORATORY SERVICES Performed at [address] [address] Jonathon Valle Jr, MD Director KAREN [id number] ??CL 0623 Specimen Performing Organization Address [facility] Phon e Number [facility] [address] [place] [address] SERVICES (CLIA #[id number]) (CL-0623) Magnesium (09/06/2019 7:36 AM EDT) Magnesium 1.9 1.7 - 2.8 COLLABORATIVE Comment: mg/dL LABORATORY SERVICES Performed at [address] [address] Jonathon Valle Jr, MD Director KAREN [id number] ??CL 0623 Specimen Performing Organization Address [facility] Phon e Number [facility] [address] [place] [address] SERVICES (CLIA #[id number]) (CL-0623) Glycohemoglobin A1C (09/06/2019 7:35 AM EDT) Hemoglobin A1C 6.5 (H) <5.7 % COLLABORATIVE Comment: LABORATORY SERVICES <<NOTE>> The [place] [employer] guidelines indicate that an individual is at increased risk for diabetes when Hemo globin A1C levels are 5.7-6.4% or fasting glucose is 100-125 mg/d L, and considered diabetic when Hemoglobin A1C is greater vivien n or equal to 6.5% or fasting glucose is greater than or equal to 12 6 mg/dL. Performed at [address] [address] Jonathon Valle Jr, MD Director NICKIA [id number] ??CL 0623 Specimen Performing Organization Address [facility] Phon e Number [facility] [address] [place] [address] SERVICES (CLIA #[id number]) (CL-0623) Glucose, Poct (09/05/2019 11:23 PM EDT) Glucose, POCT 168Comment: 70 - 199 [facility] Fasting Reference mg/dL LABORATORY SERVICES Range: 70-99 mg/dL Specimen Performing Organization Address City/[facility]/ZIP [facility] Phon e Number [facility] [address] [place] [phone] SERVICES (CLIA #[id number]) (CL-0623) Glucose, Poct (09/05/2019 4:06 PM EDT) Glucose, POCT 145Comment: 70 - 199 [facility] Fasting Reference mg/dL LABORATORY SERVICES Range: 70-99 mg/dL Specimen Performing Organization Address [facility] Phon e Number [facility] [address] [place] [address] SERVICES (CLIA #[id number]) (CL-0623) Glucose, Poct (09/05/2019 12:04 PM EDT) Glucose, POCT 154Comment: 70 - 199 [facility] Fasting Reference mg/dL LABORATORY SERVICES Range: 70-99 mg/dL Specimen Performing Organization Address [facility] Phon e Number [facility] [address] [place] [address] SERVICES (CLIA #[id number]) (CL-0623) Glucose, Poct (09/05/2019 7:42 AM EDT) Glucose, POCT 108Comment: 70 - 199 [facility] Fasting Reference mg/dL LABORATORY SERVICES Range: 70-99 mg/dL Specimen Performing Organization Address City/[facility] Phon e Number [facility] [address] [place] [phone] SERVICES (CLIA #[id number]) (CL-0623) Phosphorus (09/05/2019 7:35 AM EDT) Phosphorus 3.1 2.5 - 4.5 [facility] Comment: mg/dL LABORATORY SERVICES Performed at [address] [address] Jonathon Valle Jr, MD Director CLIA [id number] ??CL 0623 Specimen Performing Organization Address City/State/ZIP Code Phon e Number [facility] [address] [place] [address] SERVICES (CLIA #[id number]) (CL-0623) Magnesium (09/05/2019 7:35 AM EDT) Pathologist [facility] Magnesium 1.3 (L) 1.7 - 2.8 [facility] Comment: mg/dL LABORATORY SERVICES Performed at [facility] [address] [place] [address] Jonathon Valle Jr, MD Director [facility] [id number] ??CL 0623 Specimen Performing Organization Address [facility] Phon e Number [facility] [address] [place] [address] SERVICES (CLIA #[id number]) (CL-0623) CBC W/Auto Differential (09/05/2019 7:35 AM EDT) [facility] WBC 5.9 4.0 - 10.5 [facility] K/uL LABORATORY SERVICES RBC 3.35 (L) 4.2 - 5.4 [facility] M/uL LABORATORY SERVICES Hemoglobin 10.7 (L) 12.5 - 16.0 [facility] g/dL LABORATORY SERVICES Hematocrit 31.7 (L) 37 - 47 % [facility] MCV 94.4 78 - 100 fL [facility] MCH 32.0 25 - 33 pg [facility] MCHC 33.9 32 - 36 g/dL [facility] RDW 13.4 12.1 - 16.2 [facility] % LABORATORY SERVICES Platelets 181 150 - 450 [facility] K/uL LABORATORY SERVICES MPV 9.0 7.4 - 11.4 [facility] fL LABORATORY SERVICES Differential Type AUTOMATED [facility] Neutrophils 73.6 44 - 74 % [facility] Lymphocytes 14.2 (L) 20 - 48 % [facility] Monocytes 11.8 2 - 12 % [facility] Eosinophils 0.1 0 - 6 % [facility] Basophils 0.3 0 - 2 % [facility] SERVICES Neutrophils, 4.4 1.8 - 7.8 [facility] Absolute K/uL LABORATORY SERVICES Lymphocytes 0.8 (L) 1.0 - 3.2 [facility] Absolute K/uL LABORATORY SERVICES Monocytes Absolute 0.7 0.0 - 0.8 [facility] K/uL LABORATORY SERVICES Eosinophils, 0.0 0.0 - 0.5 [facility] Absolute K/uL LABORATORY SERVICES Basophils Absolute 0.0 0.0 - 0.2 [facility]ATIVE Comment: K/uL LABORATORY SERVICES Performed at [facility] [address] [place] [address] Jonathon Valle Jr, MD Director CLIA [id number] ??CL 0623 Specimen Performing Organization Address [facility] Phon e Number [facility] [address] [place] [address] SERVICES (CLIA #[id number]) (CL-0623) Glucose, Poct (09/04/2019 9:39 PM EDT) [facility] Glucose, POCT 207 (H)Comment: 70 - 199 [facility] Fasting Reference mg/dL LABORATORY SERVICES Range: 70-99 mg/dL Specimen Performing Organization Address [facility] Phon e Number [facility] [address] [place] [phone] SERVICES (CLIA #[id number]) (CL-0623) Basic Metabolic Panel-Fasting (09/04/2019 7:59 PM EDT) [facility] BUN 16 7 - 17 mg/dL [facility] Creatinine, Blood 1.0 0.5 - 1.0 [facility] mg/dL LABORATORY SERVICES Glomerular 53.4 (L)Comment: >60.0 [facility] Filtration Rate, MDRD in LABORATORY SERVICES Estimated mL/min/1.73 sq meters. For Americans, multiply by 1.21. Sodium 137 135 - 145 [facility] mmol/L LABORATORY SERVICES Potassium 3.8 3.5 - 5.1 [facility] mmol/L LABORATORY SERVICES Chloride 100 98 - 107 [facility] mmol/L LABORATORY SERVICES Carbon dioxide 24 24 - 32 [facility] mmol/L LABORATORY SERVICES Glucose, Fasting 230 (H) 70 - 99 [facility] mg/dL LABORATORY SERVICES Calcium 8.5 8.4 - 10.2 [facility]ATIVE Comment: mg/dL LABORATORY SERVICES Performed at [address] [address] Jonathon Valle Jr, MD Director NICKIA [id number] ??CL 0623 Specimen Performing Organization Address [facility] Phon e Number [facility] [address] [place] [phone] SERVICES (CLIA #[id number]) (CL-0623) Glucose, Poct (09/04/2019 4:59 PM EDT) Glucose, POCT 234 (H)Comment: 70 - 199 [facility] Fasting Reference mg/dL LABORATORY SERVICES Range: 70-99 mg/dL Specimen Performing Organization Address City/[facility] Phon e Number [facility] [address] [place] [address] SERVICES (CLIA #[id number]) (CL-0623) Glucose, Poct (09/04/2019 2:24 PM EDT) Glucose, POCT 236 (H)Comment: 70 - 199 [facility] Fasting Reference mg/dL LABORATORY SERVICES Range: 70-99 mg/dL Specimen Performing Organization Address 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 Unremarkable appendix and terminal ileum. Small separate tubular adenoma. Sixteen lymph nodes are negative for malignancy (0/16) . Resection margin are negative for malignancy or dyspla aashish. Details seen synoptic form below. NOTE: ??There is a focus yumiko wing cribriform formation with mild cytologic atypia and adenomatous changes, consistent with focal high gr inez dysplasia/intramucosal carcinoma, based on which the lesion is staged as pTis. The focus of intramucosal adenocarcinoma is 0.3 cm in greatest dimension in a sessile serrated adenoma (1.2 cm). No submucosal invas ion is seen. Selected slides of this case have been reviewed at the Departmental Consensus Conference on 09/06/2019. CAP Synoptic Tumor Template - Colon and Rectum 1. ??Specimen: Right colon, terminal ileum, appendix ? 2. ??Procedure: Resection ? 3. ??Tumor Site: Right colon ? - Tumor Location (note: below applicable only to rectal primaries): NA ? 4. ??Tumor Size: Intramucosal carcinoma, 0.3 cm ? 5. ??Macroscopic Tumor Perforation: Not identified ? 6. ??Macroscopic Intactness of Mesorectum: N/A ? 7. ??Histologic Type: Intramucosal carcinoma/in-situ c arcinoma/high grade dysplasia ? 8. ??Histologic Grade: N/A ? 9. ??Microscopic Tumor Extension: N/A ?? 10. Margins: ?? - Proximal Margin: 7.5 cm ?? - Distal Margin: ?8.5 cm ? - Mesenteric margin: 6.9 cm ? - Other Margins: N/A 11. Status of Non-invasive Tumor at Margins: No dyspla aashish ? 12. Treatment Effect: No known treatment history ? 13. Lymph-Vascular Invasion: Not identified ? 14. Perineural Invasion: N/A ? 15. Tumor Deposits (discontinuous extramural extension ): ??N/A ? 16. Tumor budding: N/A 17. Lymph nodes involved: 0/16 ?? 18. Type of Polyp in Which Invasive Carcinoma Arose: T ubular adenoma 19. Additional pathologic findings: Separate small tub ular adenoma 20. Ancillary studies: See previous biopsy (outside SF H) 21: Best tumor block for future studies: 1D AJCC 8th Ed. at least Anatomic Stage: ??pTis, pN0 Source: 1: Colon resection for tumor Macroscopic Description 1. ??Specimen: Segment of terminal ileum, right colon and separate detached fragment of possible omentum. 2. ??Procedure: Right hemicolectomy. 3. ??Received: In formalin labeled right colon. 4. ??Orientation/Margin designation: The specimen can be oriented by the terminal ileum. 5. ??Specimen inking: The specimen is in ked as follows: Black proximal margin, blue distal margin, green radial ?margin. 6. ??Completeness of mesorectal envelope: Not applicab le. 7. ??Measurement of attached mesentery/mesocolon/perir ectal tissue: The mesocolon measures up to 7cm ?maximally. 8. ??Measurements of bowel: The terminal ileum measure s 2.5cm in length and 2.2cm in maximal diameter. The ?cecum with attached ap pendix and proximal ascending colon [id number] in length with a diameter that ?ranges from 4.2cm at t he cecum to 3.7cm at the distal margin of resection. 9. ??Serosal findings: The serosa is mendoza-hilliard with min imal fibrous adhesions and there is an area of black tattoo dye ?in the area of the distal cecum. 10: ??Gross perforation: No ?11. ??Mucosal findings : Contiguous with the area of tattoo dye there is a 1.2 x 0.8 x 0.7cm lobulated mendoza granular polypoid mass . The colonic mucosa shows two additional small sessile polyps measur ing 0.1 and 0.3cm in greatest dimension which are located in the cecal pouch a nd distal cecum, 4cm proximal and 3.4cm distal to the main lesion, former and latter , respectively. The remaining small bowel and colonic mucosa is mendoza, fine and granular with the usual folds. The luminal circumference of the small ligia wel measures 2.5cm and its wall measures 0.6cm in thickness. The luminal circ umference of the colon measures 8.5cm at the cecum and 6.5cm at the distal margin of resection and its wall averages 0.6cm in thickness. 12. ??Distance of mucosal lesion/mass to margins: The polypoid mass is located 7.5cm from the proximal margin of resection, 8.5cm fro m the distal margin of resection and 6.9cm from the radial margin. 13. ??Additional findings: The appendix measures 3.2cm in length and 0.4cm in maximal diameter. On sectioning it ?displays a pin-point ??lumen and wall kaushik uring 0.2cm maximally. In the mesoappendix, there is a 0.2cm ?in diameter possible mendoza-yellow cystic structure (cassette 1J). ??The additional fragment of fine lobular ? adipose tissue which is grossly consistent with omentum measures 17 x 8.5 x 1.3cm. On sectioning it is homogeneous without m asses or nodules. ?? 14. ??Lymph node(s): Within the mesocolonic adipose tissue, there are multiple, mendoza-hilliard lymph nodes ranging from 0.1cm to 0.6cm in gr eatest dimension. 15: ??Information Systems Supervisor blocks submitted in 21 cassettes labeled 1A-1U as follows: ?? 1A: Proximal margin, perpendicular sections, two p ieces. ?? 1B: Distal margin, perpendicular sections, two pie john. ?? 1C: Radial margin, en face, one piece. ?? 1D-1H: Lesion including area of adjacent tattoo, entirely submitted, serosa inked red, multiple pieces per ? cassette. ?? 1I: Colon, additional sessile polyps, two pieces. ?? 1J: Appendix tip bivalve d, cross sectioned and possible cystic structure in the mesoappendix, multiple pieces. ?? 1K-1L: Finely lobulated adipose tiss ue within container grossly consistent with omentum, two pieces per ? cassette. ?? 1M: Seven probable whole lymph nodes, seven pieces . ?? 1N: Probable lymph nodes. ?? 1O: Probable lymph nodes. ?? 1P: Probable lymph nodes. ?? 1Q: Probable lymph nodes. ?? 1R: Probable lymph nodes. ?? 1S: Probable lymph nodes. ?? 1T-1U: Information Systems Supervisor mesocolonic ad ipose tissue, two pieces per cassette. ?? GE:dja 09/06/19 Electronically Signed Out Rita Roland MD Test Performed by: [address] ??[id number] Jonathon Valle Jr., M.D., ASTER, Director Specimen Tissue - Tissue (specify) Performing Organization Address City/State/ZIP Code Phon e Number [facility] [address] [place] [phone] SERVICES (CLIA #[id number]) (CL-4976) ABG/CHEM/H&H (ISTAT) (09/04/2019 10:17 AM EDT) Sodium (ISTAT) 139 135 - 145 [facility] mEq/L LABORATORY SERVICES Potassium (ISTAT) 3.1 (L) 3.5 - 5.1 [facility] mEq/L LABORATORY SERVICES Ionized Calcium 1.06 (L) 1.19 - 1.35 [facility] (ISTAT) mmol/L LABORATORY SERVICES Glucose, [place] 193 70 - 199 [facility] (ISTAT) mg/dL LABORATORY SERVICES Hemoglobin (ISTAT) 9.9 (L) 12.5 - 16.0 [facility] g/dL LABORATORY SERVICES Hematocrit (ISTAT) 29.0 (L) 37 - 47 % [facility] HCO3 (ISTAT) 20.7 (L) 22.0 - 26.0 [facility] mmol/L LABORATORY SERVICES Base Deficit 3 (H) 0 - 2 mmol/L [facility] (ISTAT) LABORATORY SERVICES O2 Saturation 94 (L) 95 - 98 % [facility] (ISTAT) LABORATORY SERVICES %FIO2 (ISTAT) 50 % [facility] ABG Site (ISTAT) VENOUS [facility] Corrected Temp 95.0 F [facility]LLAB[facility]ATIVE (ISTAT) Comment: LABORATORY SERVICES <<NOTE>> THE FOLLOWING RESULTS ARE CORRECTED TO THE PATIENT TEM PERATURE: Corrected pH 7.516 (H) 7.350 - [facility]LL[facility]ORATIVE (ISTAT) 7.450 LABORATORY SERVICES Corrected pCO2 25.2 (L) 35.0 - 45.0 [facility] (ISTAT) mmHg LABORATORY SERVICES Corrected pO2 56 (L) 80 - 105 [facility] (ISTAT) mmHg LABORATORY SERVICES Remark (ISTAT) ISTAT [facility] LAB[facility] SERVICES Specimen Performing Organization Address City/[facility] Phon e Number [facility] [address] [place] [address] SERVICES (CLIA #[id number]) (CL-0623) Glucose, Poct (09/04/2019 7:38 AM EDT) Glucose, POCT 238 (H)Comment: 70 - 199 [facility] Fasting Reference mg/dL LABORATORY SERVICES Range: 70-99 mg/dL Specimen Performing Organization Address [facility] Phon e Number [facility] [address] [place] [address] SERVICES (CLIA #[id number]) (CL-0623) ABO/Rh Recheck (Patient) (09/04/2019 7:20 AM EDT) ABO/Rh Recheck [facility] (Patient) LABORATORY SERVICES ABO/Rh B POSITIVE [facility] Bb Comment Chart Testing performed COLLABORATIVE at [facility], [address] [place] [address], Jonathon Valle Jr., MD Director, KAREN [id number] Specimen Performing Organization Address City/[facility] Phon e Number [facility] [address] [place] [address] SERVICES (CLIA #[id number]) (CL-0623) Type and screen (09/04/2019 7:15 AM EDT) Type And Screen [facility] SERVICES ABO/Rh B POSITIVE [facility] SERVICES Antibody Screen NEGATIVE [facility] SERVICES Bb Comment Chart Testing performed COLLABORATIVE at [facility], [address] [place] [address], Jonathon Valle Jr., MD Director, CLIA [id number] No history of previous ABO/Rh. Pt needs a repeat ABO/Rh spec drawn, prior to transfusion. Specimen Blood - Blood Performing Organization Address [facility] Phon e Number [facility] [address] [place] [address] SERVICES (CLIA #[id number]) (CL-0623) documented in this encounter Visit Diagnoses Diagnosis Malignant neoplasm of ascending colon (H CC) - Primary Malignant neoplasm of ascending colon Colon cancer (HCC) Malignant neoplasm of colon, unspecified site Colon cancer (HCC) Malignant neoplasm of colon, unspecified site documented in this encounter Admitting Diagnoses Diagnosis Colon cancer (HCC) Malignant neoplasm of colon, unspecified site documented in this encounter Administered Medications Inactive Administered Medications - up to 3 most recent administrations Medication Order MAR Action Action Date Dose Rate Site acetaminophen (TYLENOL) tablet Given 09/07/2019 10:44 AM EDT 650 mg 650 mg 650 mg, Oral, Every 6 hours, First dose on Mon09/04/19 at 1730 Given 09/07/2019 6:14 AM EDT 650 mg Given 09/07/2019 12:27 AM EDT 650 mg aspirin EC tablet 81 mg Given 09/07/2019 10:44 AM EDT 81 mg 81 mg, Oral, Daily, First dose on [place] 09/05/19 at 0900 Given 09/06/2019 8:09 AM EDT 81 mg Given 09/05/2019 8:28 AM EDT 81 mg dextrose (D10W) 10% bolus 125 mL 125 mL, Intravenous, Administer over 10 Minutes, at 750 mL/hr, As needed, low blood sugar, Starting on Mon09/04/19 at 1457, H ypoglycemia defined as FSG<70mg/dl. Use for responsive patients WITH IV access AND unable to tolerate PO Contact the provider Re-check FSG in 15 minutes and Follow hypoglycemia protocol --Nursing: Add and document on Hypoglycemia Flowsheet dextrose (D10W) 10% bolus 250 mL 250 mL, Intravenous, Administer over 10 Minutes, at 1, 500 mL/hr, As needed, low blood sugar, Starting on Mon09/04/19 at 1 457, Hypoglycemia defined as FSG<70mg/dl. Use for UNresponsive patients WITH IV a ccess Contact the provider Re-check FSG in 15 minutes and Follow hypoglycemia protocol --Nursing: Add and document on Hypoglycemia Flowsheet dextrose 50 % injection 25 mL, Intravenous, As needed, low blood sugar, Starti ng on Mon09/04/19 at 1457, Hypoglycemia defined as FSG<70mg/dl. Use for responsive patients WITH IV access AND unable to tolerate PO Contact the provider Re-chec k FSG in 15 minutes and Follow hypoglycemia protocol --Nursing: Add and document on Hypoglycemia Flowsheet dextrose 50 % injection 50 mL, Intravenous, As needed, low blood sugar, Starti ng on Mon09/04/19 at 1457, Hypoglycemia defined as FSG<70mg/dl. Use for UNresponsive patients WITH IV access Contact the provider Re-check FSG in 15 minutes and Follow hypoglycemia protocol --Nursing: Add and document on Hypoglycemia Flowsheet enoxaparin (LOVENOX) syringe 40 mg Given 09/07/2019 10:43 AM EDT 40 mg 40 mg, Subcutaneous, Every 24 hours scheduled (Daily), First dose on Mon09/06/19 at 0900, Administer in abdomen (at least 2 inches from navel) Given 09/06/2019 8:10 AM EDT 40 mg glucagon (human recombinant) injection 1 mg 1 mg, Intramuscular, As needed, low bloo d sugar, Starting on Mon09/04/19 at 1457, Hypoglycemia defined as FSG<70mg/dl. Use for patients WITHOUT IV access AND unable to tolerate PO Contact the provid er Re-check FSG in 15 minutes and Follow hypoglycemia protocol --Nursing: Add and document on H ypoglycemia Flowsheet Reconstitute with 1 mL sterile water for injection or normal saline. hydroCHLOROthiazide (HYDRODIURIL) tablet 25 Given 09/07/2019 10:44 AM EDT 25 mg mg 25 mg, Oral, Daily, First dose on Mon09/05/19 at 0930, Hold for systolic less than 110 Given 09/06/2019 8:08 AM EDT 25 mg insulin glargine (LANTUS) injection 25 Given 09/06/2019 9:43 PM EDT 25 Units Units 25 Units, Subcutaneous, Every Night at Bedtime, First dose on Mon09/04/19 at 2200 Given 09/05/2019 9:33 PM EDT 25 Units Given 09/04/2019 10:33 PM EDT 25 Units insulin lispro (HumaLOG) injection 1-6 U nits Given 09/06/2019 2 Units 1-6 Units, Subcutaneous, 3 times daily before meals, 12:19 PM EDT First dose on Mon09/04/19 at 1630, LOW CORRECTIONAL DOSE (Elderly or insulin sensitive patient or insulin TDD is less than 43 units ) Blood Glucose Dose in Units BG 140-179 Give 1 unit BG 180-219 Give 2 units BG 220-259 Give 3 units BG 260-299 Give 4 units BG 300-339 Give 5 units BG Greater than 340 Give 6 units and call MD Given 09/06/2019 8:07 AM EDT 1 Units Given 09/05/2019 5:02 PM EDT 1 Units insulin lispro (HumaLOG) injection 15 Un its 15 Units, Subcutaneous, 3 times daily with meals, Firs t dose (after last modification) on Mon09/06/19 at 1700 lisinopril (PRINIVIL,ZESTRIL) tablet 20 mg Given 09/07/2019 10:44 AM EDT 20 mg 20 mg, Oral, Daily, First dose on Mon09/05/19 at 0930, Hold for systolic less than 110 Given 09/06/2019 8:09 AM EDT 20 mg Given 09/05/2019 10:28 AM EDT 20 mg oxyCODONE (ROXICODONE) 5 MG immediate release Given 10:43 AM EDT 10 mg tablet 10 mg 10 mg, Oral, Every 4 hours PRN, severe pain (7-10), Starting on Mon09/04/19 at 1728 Given 09/07/2019 12:27 AM EDT 10 mg Given 09/06/2019 8:24 PM EDT 10 mg oxyCODONE (ROXICODONE) 5 MG immediate release Given 2:38 PM EDT 5 mg tablet 5 mg 5 mg, Oral, Every 4 hours PRN, moderate pain (4-6), Starting on Mon09/04/19 at 1728 Given 09/04/2019 6:15 PM EDT 5 mg pantoprazole (PROTONIX) 40 MG EC tablet 40 mg Given 09/07/2019 10:45 AM EDT 40 mg 40 mg, Oral, 2 times daily, First dose on Mon09/04/19 at 1800, Please select an indication: GERD, Is this a home medication or a new start? Home Medication Given 09/06/2019 6:04 PM EDT 40 mg Given 09/06/2019 8:09 AM EDT 40 mg pravastatin (PRAVACHOL) tablet 20 mg Given 09/06/2019 6:04 PM EDT 20 mg 20 mg, Oral, Every Evening, First dose on Mon09/04/19 at 1800 Given 09/05/2019 5:01 PM EDT 20 mg Given 09/04/2019 6:15 PM EDT 20 mg documented in this encounter Active and Recently Administered Medications Times are shown in EDT. Scheduled Medication Order 09/05/2019 09/06/2019 09/07/2019 acetaminophen (TYLENOL) tablet 650 mg 0521 (Given - Pr ovider: Amrit Simons RN)1027 (Given - Provider: Corazon Olsen RN)1700 (Given - Provider: Corazon Olsen RN)213 (Given - Provider: Amrit Simons RN) 0528 (Given - Provider: Radha Phipps RN)103 (Given - Provider: Corazon Olsen RN)1804 (Given - Provider: Corazon Olsen RN) 0027 (Given - Provider: Kris Carty, RN) 0614 (Given - Provider: Kris Carty, RN)104 (Given - Provider: Norma Claire RN) 650 mg, Oral, Every 6 hours, First dose on Mon09/04/19 at 1730 alvimopan (ENTEREG) capsule 12 mg (CANCELED) 0829 (Giv en - Provider: Corazon Olsen RN)213 (Given - Provider: Amrit Simons RN) 08 (Given - Provider: Corazon Olsen RN)2023 (Given - Provider: Kris Carty RN) 104 (Given - Provider: Norma Claire RN) 12 mg, Oral, Every 12 hours scheduled (2 times per day), First dose on Mon09/05/19 at 0900, For 14 doses, Hold for cardiac disease or history of narcotic usage. Indicated for patients until bowel function returns. aspirin EC tablet 81 mg 0828 (Given - Provider: Corazon Olsen RN) 08 (Given - Provider: Corazon Olsen RN) 104 (Given - Provider: Norma Claire RN) 81 mg, Oral, Daily, First dose on Mon09/05/19 at 0900 enoxaparin (LOVENOX) syringe 40 mg 08 (Given - Provider: Corazon Olsen RN) 104 (Given - Provider: Norma Claire RN) 40 mg, Subcutaneous, Every 24 hours sche duled (Daily), First dose on Mon09/06/19 at 0900, Administer in abdomen (at least 2 inches from navel) gabapentin (NEURONTIN) capsule 200 mg () 08 ( Given - Provider: Corazon Olsen RN)1453 (Given - Provider: Corazon Olsen RN)2132 (Given - Provider: Amrit Simons RN) 0810 (Given - Provider: Corazon Olsen RN )1600 (Not Given - Provider: Corazon Olsen RN - Reason: Patient/family refused) 200 mg, Oral, 3 times daily, First dose on Mon09/04/19 at 2100, F or 6 doses heparin (porcine) injection 5,000 Units (COMPLETED) 05 21 (Given - Provider: Amrit Simons RN)1453 (Given - Provider: Corazon Olsen RN)2133 (Given - Provider: Amrit Simons RN) 5,000 Units, Subcutaneous, Every 8 hours scheduled, First dose on Mon09/04/19 at 2200, For 4 doses, If CrCL less than 30 use subcut Heparin Indicated for patients with epidural hydroCHLOROthiazide (HYDRODIURIL) tablet 25 mg 1029 (N ot Given - Provider: Corazon Olsen RN - Reason: Patient/family refused) 0808 (Given - Provider: Corazon Olsen RN) 1044 (Given - Provider: Norma Claire RN) 25 mg, Oral, Daily, First dose on 11/16 at 0930, Hold for systolic less than 110 insulin glargine (LANTUS) injection 25 Units 2132 (Giv en - Provider: Amrit Simons RN) 214 (Given - Provider: Kris Carty RN) 25 Units, Subcutaneous, Every Night at B edtime, First dose on Mon09/04/19 at 2200 insulin lispro (HumaLOG) injection 1-6 Units 0746 (Not Given - Provider: Corazon Olsen RN - Reason: Order parameters not met)1222 (Given - Provider: Corazon Olsen RN)1702 (Given - Provider: Corazon Olsen RN) 0807 (Given - Provider: Corazon Olsen RN)1219 (Given - Provider: Corazon Olsen RN)1630 (Not Given - Provider: Corazon Olsen RN - Reason: Order parameters not met) 0730 (Not Given - Provider: Norma Claire RN - Reason: Order parameters not met)1130 (Due) 1-6 Units, Subcutaneous, 3 times daily b efore meals, First dose on Mon09/04/19 at 1630, LOW CORRECTIONAL DOSE (Elderly or insulin sensitive patient or insulin TDD is less than 43 units ) Blood Glucose Dose in Units BG 140-179 Give 1 unit BG 180-219 Give 2 units BG 220-259 Give 3 units BG 260-299 Give 4 units BG 300-339 Give 5 units BG Greater than 340 Give 6 units and call insulin lispro (HumaLOG) injection 15 Units (CANCELED) 0800 (Not Given - Provider: Corazon Olsen RN - Reason: Patient/family refused - Comment: hold per white surgery)1222 (Given - Provider: Corazon Olsen RN) 15 Units, Subcutaneous, 3 times daily wi th meals, First dose on Mon09/04/19 at 1700 insulin lispro (HumaLOG) injection 15 Units 1700 (Not Given - Provider: Corazon Olsen RN - Reason: Order parameters not met - Comment: hold per MD Rider) 0800 (Not Given - Provider: Norma Claire RN - Reason: Order parameters not met)1200 (Due) 15 Units, Subcutaneous, 3 times daily wi th meals, First dose (after last modification) on Mon09/06/19 at 1700 insulin lispro (HumaLOG) injection 7 Units (COMPLETED) 0829 (Given - Provider: Corazon Olsen RN) 7 Units, Subcutaneous, Once, [place] 09/05/19 at 0815, For 1 dose insulin lispro (HumaLOG) injection 7 Units (CANCELED) 1702 (Given - Provider: Corazon Olsen RN) 0807 (Given - Provider: Corazon Olsen RN )1220 (Given - Provider: Corazon Olsen RN) 7 Units, Subcutaneous, 3 times daily wit h meals, First dose (after last modification) on Mon09/05/19 at 1700 lisinopril (PRINIVIL,ZESTRIL) tablet 20 mg 1028 (Given - Provider: Corazon Olsen RN) 0809 (Given - Provider: Corazon Olsen RN) 1044 (Given - Provider: Norma Claire RN) 20 mg, Oral, Daily, First dose on 11/16 at 0930, Hold for systolic less than 110 magnesium sulfate 1g/100 mL D5W premix IVPB (COMPLETED ) 1029 (New Bag - Provider: Corazon Olsen RN)1237 (New Bag - Provider: Corazon Olsen RN)1418 (New Bag - Provider: Corazon Olsen RN)1556 (New Bag - Provider: Corazon Olsen RN) 1 g, Intravenous, Administer over 60 Min utes, Every 2 hours, First dose on Mon09/05/19 at 0930, For 4 doses, at 100 mL/hr pantoprazole (PROTONIX) 40 MG EC tablet 40 mg 0829 (Gi nidia - Provider: Corazon Olsen RN)1701 (Given - Provider: Corazon Olsen RN) 0809 (Given - Provider: Corazon Olsen RN)1804 (Given - Provider: Corazon Olsen RN) 1045 (Given - Provider: Norma Claire RN) 40 mg, Oral, 2 times daily, First dose o n Mon09/04/19 at 1800, Please select an indication: GERD, Is this a home medication or a new start? Home Medication potassium chloride ER (K-DUR,KLOR-CON) tablet 40 mEq (COMPLE JOSH) 1031 (Given - Provider: Corazon Olsen RN) 40 mEq, Oral, Once, Mon09/06/19 at 0845, For 1 dose, Do not crush or chew tablet. To make a liquid dissolution from a tablet: 1) Place the whole tablet(s) in approximately ?? cup of water (4 fluid oun john). 2) Allow approximately 2 minutes for the tablet(s) to disintegrate. 3) Stir for about half a minute after the tablet(s) has disintegrated. 4) Swirl the suspension and administer the entire cont ents of the cup immediately. 5) Add ano ther 1 fluid ounce of water, swirl, and administer immediately. pravastatin (PRAVACHOL) tablet 20 mg 1701 (Given - Provider: Corazon Olsen, RN) 1804 (Given - Provider: Corazon Olsen, RN) 20 mg, Oral, Every Evening, First dose on Mon09/04/19 at 1800 PRN Medication Order 09/05/2019 09/06/2019 09/07/2019 dextrose (D10W) 10% bolus 125 mL(Linked Group 1) 125 mL, Intravenous, Administer over 10 Minutes, at 750 mL/hr, As needed, low blood sugar, Starting on Mon09/04/19 at 1457, Hypoglycemia defined as FSG<70mg/dl. Use for responsive patients WITH IV a ccess AND unable to tolerate PO Contact the provider Re-check FSG in 15 minutes and Follow hypoglycemia protocol --Nursing: Add and document on Hypoglycemia Flowsheet dextrose (D10W) 10% bolus 250 mL(Linked Group 1) 250 mL, Intravenous, Administer over 10 Minutes, at 1,500 mL/hr, As needed, low blood sugar, Starting on Mon09/04/19 at 1457, Hypoglycemia defined as FSG<70mg/dl. Use for UNresponsive patients WITH IV access Contact the provider Re-check FSG in 15 minutes and Follow hypoglycemia protocol --Nursing: Add and document on Hypoglycemia Flowsheet dextrose 50 % injection(Linked Group 1) 25 mL, Intravenous, As needed, low blood sugar, Starting on Mon09/04/19 at 1457, Hypoglycemia defined as FSG<70mg/dl. Use for responsive patients WITH IV access AND unable to tolerate PO Contact the provider Re-check FSG in 15 minutes and Follow hypoglycemia protocol --Nursing: Add and document on Hypoglycemia Flowsheet dextrose 50 % injection(Linked Group 1) 50 mL, Intravenous, As needed, low blood sugar, Starting on Mon09/04/19 at 1457, Hypoglycemia defined as FSG<70mg/dl. Use for UNresponsive patients WITH IV access Contact the provider Re-check FSG i n 15 minutes and Follow hypoglycemia pro tocol --Nursing: Add and document on Hypoglycemia Flowsheet dimenhyDRINATE (DRAMAMINE) injection 25 mg 25 mg, Intravenous, Every 6 hours PRN, n ausea, Nausea, vomiting, Starting on Mon09/04/19 at 1728, For 2 doses, May give in addition to scheduled zofran INTRAMUSCULAR: No dilution required INTRAVENOUS: M jena dilute each 50 mg in 10 mL normal saline and push over 2 min utes. glucagon (human recombinant) injection 1 mg(Linked Group 1) 1 mg, Intramuscular, As needed, low bloo d sugar, Starting on Mon09/04/19 at 1457, Hypoglycemia defined as FSG<70mg/dl. Use for patients WITHOUT IV access AND unable to tolerate PO Contact the provid er Re-check FSG in 15 minutes and Follow hypoglycemia protocol --Nursing: Add and document on Hypoglycemia Flowsheet Reconstitute with 1 mL sterile water for injection or normal saline. HYDROmorphone (DILAUDID) injection 0.5 mg (COMPLETED) 401 (Given - Provider: Amrit Simons, AIXA) 0.5 mg, Intravenous, Every 2 hours PRN, severe pain (7-10), Starting Mon09/04/19 at 1728, For 2 doses, IV Push Administer over 2-5 minutes For breakthrough for severe pain (7-10) if PO oxycodone ineffective. Administer IV push over 2-3 minutes. oxyCODONE (ROXICODONE) 5 MG immediate release tablet 1 0 mg 0828 (Given - Provider: Corazon Olsen RN) 0630 (Given - Provider: Radha lovell RN)1031 (Given - Provider: Corazon Olsen RN)1455 (Given - Provider: Corazon Olsen RN)2024 (Given - Provider: Kris Carty, AIXA) 0027 (Given - Provider: Kris Carty, AIXA)1043 (Given - Provider: Norma Claire RN) 10 mg, Oral, Every 4 hours PRN, severe p ain (7-10), Starting on Mon09/04/19 at 1728 oxyCODONE (ROXICODONE) 5 MG immediate release tablet 5 mg 1438 (Given - Provider: Corazon Olsen RN) 5 mg, Oral, Every 4 hours PRN, moderate pain (4-6), Starting on Mon09/04/19 at 1728 prochlorperazine (COMPAZINE) tablet 5 mg 5 mg, Oral, Every 6 hours PRN, nausea, v omiting, Starting on Mon09/04/19 at 1728, Administer 3rd as needed for nausea and vomiting if zofran, dramamine, and phenergan are ineffective. Linked Groups Order Group 1: dextrose (D10W) 10% bolus 125 mLJump to med 125 mL, Intravenous, Administer over 10 Minutes, at 750 mL/hr, As needed, low blood sugar, Starting on Mon09/04/19 at 1457
Hypoglycemia defined as FSG<70mg/dl. Use for responsiv e patients WITH IV access AND unable to tolerate PO Contact the provider Re-check FSG in 15 minutes and Follow hypoglycemia protocol --Nursing: Add and document on Hypoglycemia Flowsheet
Or dextrose 50 % injectionJump to med 25 mL, Intravenous, As needed, low blood sugar, Starting on Mon09/04/19 at 1457
Hypoglycemia defined as FSG<70mg/dl. Use for responsive patients WITH IV access AND unable to tolerate PO Contact the provider Re-check FSG in 15 minutes and Follow hypoglycemia protocol --Nursing: Add and document on Hypoglycemia Flowsheet
Or dextrose (D10W) 10% bolus 250 mLJump to med 250 mL, Intravenous, Administer over 10 Minutes, at 1,500 mL/hr, As needed, low blood sugar, Starting on Mon09/04/19 at 1457
Hypoglycemia defined as FSG<70mg/dl. Use for UNrespo nsive patients WITH IV access Contact the provider Re- check FSG in 15 minutes and Follow hypoglycemia protocol --Nursing: Add and document on Hypoglycemia Flowsheet
Or dextrose 50 % injectionJump to med 50 mL, Intravenous, As needed, low blood sugar, Starting on Mon09/04/19 at 1457
Hypoglycemia defined as FSG<70mg/dl. Use for UNresponsive patients WITH IV acce ss Contact the provider Re-ch shama FSG in 15 minutes and Follow hypoglycemia protocol --Nursing: Add and document on Hypoglycemia Flowsheet
Or glucagon (human recombinant) injection 1 mgJump to med 1 mg, Intramuscular, As needed, low bloo d sugar, Starting on Mon09/04/19 at 1457
Hypoglycemia defined as FSG<70mg/dl. Use for patients WITHOUT &nb sp;IV access AND unable to tolerate PO&n bsp;Contact the provider Re-check FSG in 15 minutes and Follow hypoglycemia protocol --Nursing: Add and document on Hypoglycemia Flowsheet&a mp;nbsp;Reconstitute with 1 mL sterile w ater for injection or normal saline.
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
--- OUTSIDE RECORDS SUMMARY | 2020-08-01 12:16 | XMS_ITS | Encounter Summary ---
:1940 Author Organization [facility]ly [facility] Address [address] [facility], [address] [place] [address] Care Team Providers Name Role Phone Donaldo Steward DO Primary Care Provider Reason for Referral (Routine) Status Reason Specialty Diagnoses / Procedures Referred By Almita mcelroyact Referred To Contact Closed Diagnoses Gastric ulcer, unspecified chronicity, unspecified whether gastric ulcer hemorrhage or perforation present Jeanne Gonzalez, Procedures EGD DO [address] [place] [phone] Phone: Encounter Details Date Type Department Care Team Description 04/22/2019 Orders Only [facility] Jeanne Gonzalez, Nazia carl ulcer, [facility] DO unspecified [address], [address] [place], [place] [address] gastric ulcer [id number] hemorrhage or [phone] perforati on present (Primary Dx) Social History Tobacco Use Types Packs/Day Years Used Date Never Assessed Sex Assigned at Date Recorded Not on file documented as of this encounter Plan of Treatment Scheduled Orders Name Type Priority Associated Diagnoses Order S chedule EGD Procedures Routine Gastric ulcer, unspecified E xpected: 05/21/2019, chronicity, unspecified whet her Expires: 04/22/2020 gastric ulcer hemorrhage or perforation present documented as of this encounter Visit Diagnoses Diagnosis Gastric ulcer, unspecified chronicity, u nspecified whether gastric ulcer hemorrhage or perforation present - Primary documented in this encounter
--- OUTSIDE RECORDS SUMMARY | 2020-08-01 12:16 | XMS_ITS | Encounter Summary ---
:1940 Author Organization [facility] Address [address] [place] [address] Care Team Providers Name Role Phone Bin Benjamin Primary Care Provider Reason for Referral Preauthorization (Routine) - Pending Review Specialty Diagnoses / Procedures Referred By Contact Refer red To Contact Diagnoses Breast cancer screening by mammogram Janet Mathew MD Procedures Mammogram Screening Digital with CAD [address] [place] [address] [place] [address] Referral ID Status Reason Start Date Expiration Date Visits V isits Requested Authorized [id number] Pending 11/28/2019 11/27/2020 1 1 Review Reason for Visit Reason Comments Gynecologic Exam aov Encounter Details Date Type Department Care Team Description 11/28/2019 Office Visit OBVERONA Mathew Women's annual routine gynec ological examination (Primary Dx); [address] [place] [address] Janet Alexander MD Yeast infection; [address] Breast [place] [address] [facility] [address] [place] [address] Social History Tobacco Use Types Packs/Day Years [...] been in contact with No / Unsure 11/28/2019 1:39 PM EDT someone who was confirmed or suspected to have Coronavirus / COVID-19? documented as of this encounter Last Filed Vital Signs Vital Sign Reading Time Taken Comments Blood Pressure 110/74 11/28/2019 1:49 PM EDT Pulse - - Temperature - - Respiratory Rate - - Oxygen Saturation - - Inhaled Oxygen Concentration - - Weight 70.8 kg (156 lb) 11/28/2019 1:49 PM EDT Height 154.9 cm (5' 1) 11/28/2019 1:49 PM EDT Body Mass Index 29.48 11/28/2019 1:49 PM EDT documented in this encounter Functional Status Functional Status Response Date of Assessment Pt deaf or have serious difficulty hearing? No 09/04/2019 Pt blind or have difficulty seeing, even with glasses? No 09/04/2019 documented as of this encounter Progress Notes Janet Mathew MD - 11/28/2019 2:00 PM EDT Annual Visit Chief Complaint Patient presents with ??? Gynecologic Exam aov Esther Morales is a 79 y.o. who presents for annual exam with no complaints PCP: Donaldo Steward, DO Gynecologic History Health Maintenance Summary Osteoporosis Screening (DEXA Scan) Overdue 07/09/2004 Patient's last menstrual period was 02/27/1979 (approximate)., post menopausal with no PMB, pt had hysterectomy for heavy and painful periods. Contraception: post menopausal, sexually active no, sexual partners none History of STIs: no History of abnormal paps: no; Last Pap: 2011, HPV vaccine no Last Mammogram: 2019, ordered today History of DEXA scan: 2008, has on ordered by Dr. Suman Huggins, pt to go Menopausal symptoms: no History of HRT use: no Incontinence: no Colonoscopy: 2019, s/p colon resection for cancerous polyp per pt 09/04/2019 Exercising Habits: goes for walks Nutrition/vitamins: yes - multiple vitamins/supplements Feels safe at home: yes - lives with 2 cats and 1 dog Depression Screening: no si/sx Seatbelt Use: yes - always Obstetric History OB History Para Term AB Living 2 2 2 0 0 2 SAB TAB Ectopic Molar Multiple Live Births 0 0 0 0 # Outcome Date GA Lbr Tristan/2nd Weight Sex Delivery Anes PTL Lv 2 Term Vag-Spont 1 Term Vag-Spont History: Past Medical History: Diagnosis Date ??? [...] WITH TATOO; Surgeon: Hamzah Orourke MD; Location: [facility] MAIN OPERATING ROOM; Service: Colorectal; Laterality: N/A; ??? CORONARY ANGIOPLASTY WITH STENT PLACEMENT 2003 ??? DILATION AND CURETTAGE OF UTERUS ??? HYSTERECTOMY 1980s Heavy periods. ??? LAPAROSCOPIC RIGHT COLON RESECTION N/A 09/04/2019 Procedure: RIGHT LAPAROSCOPIC HAND ASSISTED HEMICOLECTOMY, lysis of adhesions; Surgeon: Hamzah Orourke MD; Location: [facility] MAIN OPERATING ROOM; Service: Colorectal; Laterality: N/A; ??? UPPER GASTROINTESTINAL ENDOSCOPY ??? WISDOM TOOTH EXTRACTION 2016 x1 Family History Problem Relation Age of Onset ??? Heart disease Mother ??? Diabetes Father ??? Colon cancer Brother 70 ??? No Sig Med Hx Sister ??? Cancer Brother lung ??? No Sig Med Hx Brother ??? No Sig Med Hx Sister ??? Breast cancer Neg Hx ??? Ovarian cancer Neg Hx ??? Uterine cancer Neg Hx Allergies: Allergies Allergen Reactions ??? Acetazolamide Other (See Comments) Dry mouth ??? Clarithromycin ??? Codeine Nausea And Vomiting ??? Morphine ??? Morphine And Related Nausea And Vomiting ??? Sulfa Antibiotics ??? Sulphadimidine [Sulfamethazine] Hives ??? Tramadol Nausea And Vomiting ??? Latex Rash Current Meds: Current Outpatient Medications Medication Sig Dispense Refill [...] mg 2 (two) times a day. ??? metoclopramide (REGLAN) tablet 5 mg Take 1 tablet (5 mg total) by mouth 2 (two) times a day before breakfast and dinner. 60 tablet 2 ??? Multiple Minerals-Vitamins (DOLOMITE PLUS VITAMINS A AND D PO) Take by mouth daily. ??? [place]-3 Fatty Acids (OMEGA 3 PO) Take by [...] INTESTINAL SMOOTH AND BUILD: 2 TABS BID No current facility-administered medications for this visit. Social History Occupational History ??? Not on file Tobacco Use ??? Smoking status: Former Smoker Years: 6.00 Types: Cigarettes Start date: 02/27/1957 Last attempt to quit: 02/27/1961 Years since quittin.7 ??? Smokeless tobacco: Never Used Substance and Sexual Activity ??? Alcohol use: No Frequency: Never Comment: rare ??? Drug use: No ??? Sexual activity: No control/protection: Surgical Comment: passed 3y ago. HYST 1979. Review of Systems neg Physical Exam - Vitals: 11/28/19 1349 BP: 110/74 Weight: 70.8 kg (156 lb) Height: 5' 1 (1.549 m) Body mass index is 29.48 kg/m??. BMI Screening: patient's BMI was abnormal. Follow up plan includes: weight monitoring . Wt Readings from Last 1 Encounters: 11/01/19 68 kg (150 lb) Physical Exam Constitutional: She is oriented to person, place, and time. She appears well- developed and well-nourished. No distress. HENT: Head: Normocephalic and atraumatic. Neck: Normal range of motion. Neck supple. No JVD present. No tracheal deviation present. No thyromegaly present. Cardiovascular: Normal rate and regular rhythm. Murmur heard. Pulmonary/Chest: Effort normal and breath sounds normal. No respiratory distress. Abdominal: Soft. Bowel sounds are normal. She exhibits no distension and no mass. There is no tenderness. There is no rebound and no guarding. Incisions well healed from recent laparoscopic bowl resection Genitourinary: Genitourinary Comments: Breast Exam: normally appearing breasts and nipples bilaterally. No masses, lesions, or skin changes noted. No nipple discharge. External genitalia significant for some hypopigmentation and atrophy. Normal urethral meatus, no lesions or prolapse. Normal urethra with no masses or tenderness, normal bladder with no masses, tenderness or fullness. Normal vaginal epithelium without masses or lesions just atrophy. No abnormal dischar ge. Bimanual exam reveals normally palpating normal vaginal mucosa on palpation, no adnexal fullness, nodularity or masses appreciated bilaterally with no tenderness on palpation. Pt s/p hysterectomy. Anus/Perineum appear normal with no lesions, masses, or skin changes. Rectal Exam: pt declined Musculoskeletal: Normal range of motion. Lymphadenopathy: She has no cervical adenopathy. Neurological: She is alert and oriented to person, place, and time. Skin: Skin is warm and dry. No rash noted. She is not diaphoretic. No erythema. No pallor. Psychiatric: She has a normal mood and affect. Her behavior is normal. Judgment and thought content normal. Vitals reviewed. Assessment/Plan: 79 y.o. here for annual exam with no complaints - Mammogram ordered, desired by patient - Bone density scan previously ordered, pt aware - Pt requests diflucan as she states she gets yeast infections after exams, she is to take if she starts having symptoms. - RTC in 2 years for annual or prn for issues . Age appropriate screening/counseling was provided Orders: Orders Placed This Encounter Procedures ??? 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
--- OUTSIDE RECORDS SUMMARY | 2020-08-01 12:16 | XMS_ITS | Encounter Summary ---
:1940 Author Organization [employer] [facility] Address [address] [place] [address] Care Team Providers Name Role Phone SholaBenjamin almendarez Primary Care Provider Reason for Visit Auth/Cert Inpatient Observation or Outpatient Surgery Specialty Diagnoses / Procedures Referred By Contact Refer red To Contact Diagnoses Colon cancer (HCC) Colon cancer (HCC) [C18.9] [facility] Main Or 3-1 Procedures OH COLONOSCOPY FLX DX W/COLLJ SPEC WHEN PFRMD OH LAP,SURG,COLECTOMY,W/REMVL TERM ILEUM C02 COLONOSCOPY WITH TATOO RIGHT LAPAROSCOPIC HAND ASSISTED HEMICOLECTOMY [address] [place] [address] Referral ID Status Reason Start Date Expiration Date Visits Requ ested Visits Authorized [id number] 1 1 Encounter Details Date Type Department Care Team Description 09/04/2019 - Hospital Encounter [facility] Unit [id number] M/S Hamzah Orourke Malignant neoplasm of ascend ing colon (HCC) (Primary Dx); 09/07/[address] [place] [address] ST Zen MD Colon cancer ([place]CC) [place] [address] [phone] [address] [place] [address] Social History Tobacco Use Types Packs/Day Years [...] Sign Reading Time Taken Comments Blood Pressure 137/66 09/07/2019 10:43 AM EDT Pulse 76 09/07/2019 7:00 AM EDT Temperature 36.7 ??C (98 ??F) 09/07/2019 7:00 AM EDT Respiratory Rate 25 09/07/2019 7:00 AM EDT Oxygen Saturation 92% 09/07/2019 7:00 AM EDT Inhaled Oxygen Concentration - - [...] WITH TATOO; Surgeon: Hamzah Orourke MD; Location: [facility] MAIN OPERATING ROOM; Service: Colorectal; Laterality: N/A; ??? CORONARY ANGIOPLASTY WITH STENT PLACEMENT 2003 ??? DILATION AND CURETTAGE OF UTERUS ??? HYSTERECTOMY 1980s Heavy periods. ??? LAPAROSCOPIC RIGHT COLON RESECTION N/A 09/04/2019 Procedure: RIGHT LAPAROSCOPIC HAND ASSISTED HEMICOLECTOMY, lysis of adhesions; Surgeon: Hamzah Orourke MD; Location: [facility] MAIN OPERATING ROOM; Service: Colorectal; Laterality: N/A; [...] 6 tablet 0 09/03/2019 at 2000 ??? Richmond-3 Fatty Acids (OMEGA 3 PO) Take by [...] file Gets together: Not on file Attends worship service: Not on file Active member of [...] results found. Hospital Course: Patient presented to [facility] on 09/03 for the elective procedures as stated above. [...] with services. She was was seen by [facility] for assistance with management of medical co-morbidities. [...] sent to [id number] [place], [place] - [address] [facility] [address] [facility] [address] ?? enoxaparin 40 MG/0.4ML Soln ?? oxyCODONE [...] - 09/05/2019 [facility] [phone] [place] [address] [address], [address] MD Nasreen NICOLE MD Steven Brown, MD ROBERT LEWIS, MD DANIEL MULLINS, MD ANDREW RAISSIS, MD SUMAYA WEBER, DO [email or web address] What to Expect (in the [...] the time of discharge through social media specialist at the hospital. Pain Medication The [...] our office to schedule a follow-up appointment: [place]: [phone] [place]: [phone] [place]: [phone] documented in this encounter Medications at Time [...] PLUS VITAMINS A daily. AND D PO) Richmond-3 Fatty Acids (OMEGA Take by mouth. 0 [...] by herself and that makes her happy. Tenderizer Tender provided a listening presence and prayed a [...] MD, FACS [facility] C: [phone] O: [phone] Aleja Villegas PA-C - 09/07/2019 10:36 AM [...] of type 2 diabetes on insulin, CAD, NJ, hypertension, hyperlipidemia, GERD, gout, ulcerative colitis not [...] home dose of Lantus 25 units and dninps90 units with meals, sugars appear well controlled. She can resume her Metformin and Tresiba at discharge unless PO intake is poor, discussed with patient. ?? History of ulcerative colitis: No active symptoms, denies bloody BMs prior to admission, not on any chronic medical therapy. ?? CAD with history of NJ s/p stenting, Hypertension, Hyperlipidemia: No anginal symptoms. Continue aspirin and statin. Continue her home medications lisinopril and HCTZ. ?? GERD: Continue PPI ?? Patient is on hydroxychloroquine as an outpatient for leg cramping which I confirmed with her incident response consultant's office in [place] (Dr. Huggins), Okay to continue holding this medication for now. She can follow up with her PCP about this. ?? Discussed with Dr. Kiser. Aleja Tirado PA-C Available on [employer] Text 8a-4p [facility] Consult Service 11:20 AM [...] of type 2 diabetes on insulin, CAD, NJ, hypertension, hyperlipidemia, GERD, gout, ulcerative colitis not [...] medical therapy. ?? CAD with history of NJ s/p stenting, Hypertension, Hyperlipidemia: No anginal symptoms. Continue aspirin and statin. BP variable, 110s-170s, likely elevated in the setting of pain. Continue her home medications lisinopril and HCTZ. ?? GERD: Continue PPI ?? Patient is on hydroxychloroquine as an outpatient for leg cramping which I confirmed with her incident response consultant's office in [place] (Dr. Huggins), Okay to continue holding this medication for now. She can follow up with her PCP about this. ?? Discussed with Dr. Carranza. Aleja Tirado PA-C Available on [employer] Text 8a-4p [facility] Consult Service 12:27 PM 09/06/2019 Associated attestation - Ingrid Carranza MD - 09/06/2019 10:22 PM EDT I have examined the patient and reviewed the history, physical, assessment and plan, and I am in agreement. With DELGADO Moe Pt is doing very well today No specific complaints Tolerating po Can resume meds as outlined above.. We have discussed the patient's management and plan. Ingrid Carranza M.D Buying Agent physician [facility] Amrit West MD - 09/06/2019 12:09 [...] West MD [facility] Amrit Emery DO - 09/06/2019 7:37 AM [...] seen and examined No nausea, no vomiting Fleming like she did pass some flatus Mild bloating Ambulated with physical therapy Did not feel fever but noted temp 101 Abdomen: Incisions clean/dry/intact, no erythema, mild appropriate tenderness to palpation, no guarding --cbc --regular diet --eras --if continued fever will undergo urinalysis, chest xray, further fever workup. Federico White, PT - 09/05/2019 10:55 AM EDT PHYSICAL THERAPY EVALUATION [address] [place] [address] Past Medical History: Diagnosis Date ??? Acid [...] WITH TATOO; Surgeon: Hamzah Orourke MD; Location: [facility] MAIN OPERATING ROOM; Service: Colorectal; Laterality: N/A; ??? CORONARY ANGIOPLASTY WITH STENT PLACEMENT 2003 ??? DILATION AND CURETTAGE OF UTERUS ??? HYSTERECTOMY 1980s Heavy periods. ??? LAPAROSCOPIC RIGHT COLON RESECTION N/A 09/04/2019 Procedure: RIGHT LAPAROSCOPIC HAND ASSISTED HEMICOLECTOMY, lysis of adhesions; Surgeon: Hamzah Orourke MD; Location: [facility] MAIN OPERATING ROOM; Service: Colorectal; Laterality: N/A; [...] cane. 09/05/2019, Federico White, PT PREVIOUS GOALS: Federico White PT Flower Tanner OT - 09/05/2019 9:36 AM EDT OCCUPATIONAL THERAPY INITIAL EVALUATION [address] [place] [address] Past Medical History: Diagnosis Date ??? Acid [...] 09/04/2019 Procedure: C02 COLONOSCOPY WITH TATOO; Surgeon: Hazmah Orourke MD; Location: [facility] MAIN OPERATING ROOM; Service: Colorectal; Laterality: N/A; ??? CORONARY ANGIOPLASTY WITH STENT PLACEMENT 2003 ??? DILATION AND CURETTAGE OF UTERUS ??? HYSTERECTOMY 1980s Heavy periods. ??? LAPAROSCOPIC RIGHT COLON RESECTION N/A 09/04/2019 Procedure: RIGHT LAPAROSCOPIC HAND ASSISTED HEMICOLECTOMY, lysis of adhesions; Surgeon: Hamzah Orourke MD; Location: [facility] MAIN OPERATING ROOM; Service: Colorectal; Laterality: N/A; [...] continue to follow patient 5x wk Flower Tanner MS, OTR/L OT Assessment Decreased activity tolerance;Decreased ADL Status;Decreased balance;Decreased functional transfers;Decreased functional mobility Assessment Comments Reported cherelle CENTENO, tele BP 136/71 (93) HR 85 after [...] Present Illness Reported 79 yo female adm 78 Now s/p C02 COLONOSCOPY WITH TATOO, RIGHT [...] chair;Commode;Toilet raiser;Grab bars in shower Home Equipment Community Associate;Sock aid;Long-handled shoehorn;Hospital bed Prior Function Lives With Alone Receives Help From Family;Friend(s) Bed Mobility Modified Louisa Toilet/Commode Transfers Independent Tub/Shower Transfers Modified Louisa Household Ambulation Assistive Device None ADL Assistance [...] modified independence - 09/05/2019, MATTHEW Regan OT Sumaya Nguyễn DO - 09/05/2019 8:08 AM EDT [...] Weber DO [facility] (c) [phone] Amrit Mcfarland DO - 09/05/2019 7:14 AM [...] due to patient care. Patient admitted to -7 from PACU in stable condition. Patient oriented to room and call guerrero. Skin check completed by this nurse and TF, see flowsheet. Patient placed on tele. Patient alert and oriented x4. Call guerrero in reach, bed in low and locked position. [facility] Corazon Olsen RN Cayla Carrizales PA-C [...] postop state Cayla Trujillo PA-C Colorectal Surgery [phone] (pager) documented in this encounter H&P Notes [...] of type 2 diabetes on insulin, CAD, NJ, hypertension, hyperlipidemia, GERD, gout, ulcerative colitis not [...] I attempted to clarify this with her incident response consultant but was unable to speak directly to [...] WITH TATOO; Surgeon: Hamzah Orourke MD; Location: [facility] MAIN OPERATING ROOM; Service: Colorectal; Laterality: N/A; ??? CORONARY ANGIOPLASTY WITH STENT PLACEMENT 2003 ??? DILATION AND CURETTAGE OF UTERUS ??? HYSTERECTOMY 1980s Heavy periods. ??? LAPAROSCOPIC RIGHT COLON RESECTION N/A 09/04/2019 Procedure: RIGHT LAPAROSCOPIC HAND ASSISTED HEMICOLECTOMY, lysis of adhesions; Surgeon: Hamzah Orourke MD; Location: [facility] MAIN OPERATING ROOM; Service: Colorectal; Laterality: N/A; ??? UPPER GASTROINTESTINAL ENDOSCOPY ??? WISDOM TOOTH EXTRACTION 2015 x1 Family / Social History: Family History [...] file Gets together: Not on file Attends worship service: Not on file Active member of [...] of type 2 diabetes on insulin, CAD, NJ, hypertension, hyperlipidemia, GERD, gout, ulcerative colitis not [...] chronic medical therapy. CAD with history of NJ s/p stenting, Hypertension, Hyperlipidemia: No anginal symptoms. Continue aspirin and statin. BP variable, 100s-170s, likely elevated in the setting of pain. Continue her home medications lisinopril and HCTZ. Would stop IV fluids as she is tolerating PO. GERD: Continue PPI Patient is on hydroxychloroquine as an outpatient for unclear reasons. Patient states that this is for leg cramping . She sees a incident response consultant in [place] Dr. Joseluis, I attempted to call him today to determine reason for this medication but was unable to speak to any staff in the office. I will call again tomorrow. Okay to continue holding this medication for now. Would remove Villarreal as patient is able to ambulate. Discussed with Dr. Carranza. Aleja Tirado PA-C Available on [employer] Text 8a-4p [facility] Consult Service 09/05/2019 1:50 [...] any questions or concerns. Ingrid Carranza M.D, [facility] marine engineering consultant physician documented in this encounter Nursing [...] Regional, General Surgeon(s): Surgeon(s): Hamzah Orourke MD Cane Flume Watchman(s): Physician Cane Flume Watchman: Nilam Mckeon PA-C Wound Class: Clean Contaminated [...] TAP block. PRIMARY SURGEON: Hamzah Orourke M.D. RUBBER GOODS CUTTER FINISHER: DELGADO. WOUND CLASSIFICATION: Clean contaminated. ESTIMATED BLOOD LOSS: 30 mL. SPECIMENS: Right colon. IMPLANTS: None. INTENTIONALLY RETAINED ITEMS: None. DRAINS: An 18-Japanese Villarreal catheter. FINDINGS: Patient had an extensive [...] M.D. ATTENDING: HAMZAH OROURKE A: 09/04/2019 D: DURAN: [id number] / DID: [id number] CSN: [id number] TT: 09/04/2019 23:24:38 / vn Dictator: Hamzah [...] Progressing Patient remains free from infection. Afebrile. WC Problem: Progressive Mobility Impairment: Goal: Patient will [...] OT Outcome: Progressing Patient standby assist OOB. TM lan of Care - Federico White PT [...] one rail, +/- cane. 09/05/2019, Federico White, JOS PREVIOUS GOALS: Outcome: Resolved Date Met: 09/06/19 09/06/19 3719 Summary and Impressions PT Impressions DAILY PT [...] Used Rolling walker Sit to Stand Modified Louisa Stand to Sit Modified Louisa Functional Mobility Gait Assistance Modified Louisa Gait Pattern Decreased Inna Gait Pattern Comments Slow steady gait Distance Ambulated (in feet) 400 Assistive Device Walker, front-wheeled Number of Stairs (3) Stair Management Assistance Modified Louisa Stair Management Technique Two rails;Backwards;Alternating pattern Coordination/Posture [...] in hand. Updated RN after tx. Federico White PT lan of Darrel - Radha Phipps RN - 09/06/2019 6:01 AM EDT Problem: [...] 4. Will continue to monitor. lan of Care - Corazon Olsen RN - 09/05/2019 6:52 PM EDT Problem: [...] Do NOT take day of surgery ??? Richmond-3 Fatty Acids (OMEGA 3 PO) Take by [...] Results C-Reactive Protein (09/07/2019 8:15 AM EDT) C Reactive 14.6 (H) <0.9 mg/dL COLLABORATIVE Protein Comment: LABORATORY SERVICES Performed at [address] [address] Jonathon Valle Jr, MD Director CLIA [id number] ??CL 0623 Specimen Performing Organization Address [facility] Phon e Number [facility] [address] [place] [address] SERVICES (CLIA #[id number]) (CL-0623) CBC Without Differential (09/07/2019 8:15 AM EDT) WBC 5.1 4.0 - 10.5 COLLABORATIVE K/uL [...] fL COLLABORATIVE Comment: LABORATORY SERVICES [place] [address] Jonathon Valle Jr, MD Director CLIA [id number] ??CL 0623 Specimen Performing Organization Address [facility] Phon e Number COLL[facility]ATIVE LABORATORY [address] [place] [address] SERVICES (CLIA #[id number]) (CL-0623) Magnesium (09/07/2019 8:15 AM EDT) Magnesium 1.9 1.7 - 2.8 COLLABORATIVE Comment: mg/dL LABORATORY SERVICES Performed at [address] [address] Jonathon Valle Jr, MD Director NICKIA [id number] ??CL 0623 Specimen Performing Organization Address [facility] Phon e Number [facility] [address] [place] [address] SERVICES (CLIA #[id number]) (CL-0623) Basic Metabolic Panel-Random (09/07/2019 8:15 AM [...] COLLABORATIVE Comment: mg/dL LABORATORY SERVICES [place] [address] Jonathon Valle Jr, MD Director CLIA [id number] ??CL 0623 Specimen Performing Organization Address [facility] Phon e Number [facility] [address] [place] [address] SERVICES (CLIA #[id number]) (CL-0623) Glucose, Poct (09/07/2019 8:13 AM EDT) Glucose, POCT 137Comment: 70 - 199 COLLABORATIVE Fasting Reference mg/dL LABORATORY SERVICES Range: 70-99 mg/dL Specimen Performing Organization Address City/[facility] Phon e Number [facility] [address] [place] [address] SERVICES (CLIA #[id number]) (CL-0623) Glucose, Poct (09/06/2019 9:04 PM EDT) Glucose, POCT 188Comment: 70 - 199 COLLABORATIVE Fasting Reference mg/dL LABORATORY SERVICES Range: 70-99 mg/dL Specimen Performing Organization Address [facility] Phon e Number [facility] [address] [place] [address] SERVICES (CLIA #[id number]) (CL-0623) Glucose, Poct (09/06/2019 5:52 PM EDT) Glucose, POCT 134Comment: 70 - 199 COLLABORATIVE Fasting Reference mg/dL LABORATORY SERVICES Range: 70-99 mg/dL Specimen Performing Organization Address City/[facility] Phon e Number [facility] [address] [place] [address] SERVICES (CLIA #[id number]) (CL-0623) Glucose, Poct (09/06/2019 12:02 PM EDT) Pathologist [facility] Glucose, POCT 192Comment: 70 - 199 COLLABORATIVE Fasting Reference mg/dL LABORATORY SERVICES Range: 70-99 mg/dL Specimen Performing Organization Address City/[facility] Phon e Number [facility] [address] [place] [address] SERVICES (CLIA #[id number]) (CL-0623) Glucose, Poct (09/06/2019 7:48 AM EDT) Pathologist [facility] Glucose, POCT 142Comment: 70 - 199 COLLABORATIVE Fasting Reference mg/dL LABORATORY SERVICES Range: 70-99 mg/dL Specimen Performing Organization Address [facility] Phon e Number [facility] [address] [place] [address] SERVICES (CLIA #[id number]) (CL-0623) Basic Metabolic Panel-Random (09/06/2019 7:36 AM EDT) [facility] BUN 12 7 - 17 mg/dL COLLABORATIVE [...] COLLABORATIVE Comment: mg/dL LABORATORY SERVICES Performed at [address] [address] Jonathon Valle Jr, MD Director CLIA [id number] ??CL 0623 Specimen Performing Organization Address [facility] Phon e Number COLLABORATIVE LABORATORY [address] [place] [address] SERVICES (CLIA #[id number]) (CL-0623) Magnesium (09/06/2019 7:36 AM EDT) Magnesium 1.9 1.7 - 2.8 COLLABORATIVE Comment: mg/dL LABORATORY SERVICES Performed at [address] [address] Jonathon Valle Jr, MD Director CLIA [id number] ??CL 0623 Specimen Performing Organization Address [facility] Phon e Number [facility] [address] [place] [address] SERVICES (CLIA #[id number]) (CL-0623) Glycohemoglobin A1C (09/06/2019 7:35 AM EDT) Hemoglobin A1C 6.5 (H) <5.7 % COLLABORATIVE Comment: LABORATORY SERVICES <<NOTE>> The [place] [employer] guidelines indicate that an individual is at increased risk for diabetes when Hemo globin A1C levels are 5.7-6.4% or fasting glucose is 100-125 mg/d L, and considered diabetic when Hemoglobin A1C is greater vivien n or equal to 6.5% or fasting glucose is greater than or equal to 12 6 mg/dL. [place] [address] Jonathon Valle Jr, MD Director KAREN [id number] ??CL 0623 Specimen Performing Organization Address [facility] Phon e Number [facility] LABORATORY [address] [place] [address] SERVICES (CLIA #[id number]) (CL-0623) Glucose, Poct (09/05/2019 11:23 PM EDT) Glucose, POCT 168Comment: 70 - 199 COLLABORATIVE Fasting Reference mg/dL LABORATORY SERVICES Range: 70-99 mg/dL Specimen Performing Organization Address [facility] Phon e Number [facility] [address] [place] [address] SERVICES (CLIA #[id number]) (CL-0623) Glucose, Poct (09/05/2019 4:06 PM EDT) Glucose, POCT 145Comment: 70 - 199 COLLABORATIVE Fasting Reference mg/dL LABORATORY SERVICES Range: 70-99 mg/dL Specimen Performing Organization Address City/[facility] Phon e Number [facility] [address] [place] [address] SERVICES (CLIA #[id number]) (CL-0623) Glucose, Poct (09/05/2019 12:04 PM EDT) Glucose, POCT 154Comment: 70 - 199 COLLABORATIVE Fasting Reference mg/dL LABORATORY SERVICES Range: 70-99 mg/dL Specimen Performing Organization Address [facility] Phon e Number [facility] [address] [place] [address] SERVICES (CLIA #[id number]) (CL-0623) Glucose, Poct (09/05/2019 7:42 AM EDT) Glucose, POCT 108Comment: 70 - 199 COLLABORATIVE Fasting Reference mg/dL LABORATORY SERVICES Range: 70-99 mg/dL Specimen Performing Organization Address City/[facility] Phon e Number [facility] [address] [place] [address] [phone] SERVICES (CLIA #[id number]) (CL-0623) Phosphorus (09/05/2019 7:35 AM EDT) Pathologist [facility] Phosphorus 3.1 2.5 - 4.5 COLLABORATIVE Comment: mg/dL LABORATORY SERVICES Performed at [address] [address] Jonathon Valle Jr, MD Director CLIA [id number] ??CL 0623 Specimen Performing Organization Address [facility] Phon e Number [facility] [address] [place] [address] SERVICES (CLIA #[id number]) (CL-0623) Magnesium (09/05/2019 7:35 AM EDT) Magnesium 1.3 (L) 1.7 - 2.8 COLLABORATIVE Comment: mg/dL LABORATORY SERVICES Performed at [address] [address] Jonathon Valle Jr, MD Director IA [id number] ??CL 0623 Specimen Performing Organization Address City/[facility]/ZIP Code Phon e Number COLLABORATIVE LABORATORY [address] [place] [address] SERVICES (CLIA #[id number]) (CL-0623) CBC W/Auto Differential (09/05/2019 7:35 AM EDT) WBC 5.9 4.0 - 10.5 COLLABORATIVE K/uL [...] COLLABORATIVE Comment: K/uL LABORATORY SERVICES Performed at [address] [address] Jonathon Valle Jr, MD Director CLIA [id number] ??CL 0623 Specimen Performing Organization Address [facility]/ZIP [facility] Phon e Number COLLABORATIVE LABORATORY [address] [place] [address] SERVICES (CLIA #[id number]) (CL-0623) Glucose, Poct (09/04/2019 9:39 PM EDT) [facility] Glucose, POCT 207 (H)Comment: 70 - 199 COLLABORATIVE Fasting Reference mg/dL LABORATORY SERVICES Range: 70-99 mg/dL Specimen Performing Organization Address City/[facility] Phon e Number [facility] [address] [place] [address] SERVICES (CLIA #[id number]) (CL-0623) Basic Metabolic Panel-Fasting (09/04/2019 7:59 PM EDT) [facility] BUN 16 7 - 17 mg/dL COLLABORATIVE [...] COLLABORATIVE Comment: mg/dL LABORATORY SERVICES Performed at [address] [address] Jonathon Valel Jr, MD Director CLIA [id number] ??CL 0623 Specimen Performing Organization Address [facility] Phon e Number [facility] [address] [place] [address] SERVICES (CLIA #[id number]) (CL-0623) Glucose, Poct (09/04/2019 4:59 PM EDT) [facility] Glucose, POCT 234 (H)Comment: 70 - 199 COLLABORATIVE Fasting Reference mg/dL LABORATORY SERVICES Range: 70-99 mg/dL Specimen Performing Organization Address [facility] Phon e Number [facility] [address] [place] [address] SERVICES (CLIA #[id number]) (CL-0623) Glucose, Poct (09/04/2019 2:24 PM EDT) Glucose, POCT 236 (H)Comment: 70 - 199 [facility] Fasting Reference mg/dL LABORATORY SERVICES Range: 70-99 mg/dL Specimen Performing Organization Address City/State/ZIP Code Phon e Number [facility] LABORATORY [address] [place] [address] SERVICES (CLIA #[id number]) (CL-0623) Surgical Pathology (09/04/2019 12:56 PM EDT) Pathologist [facility] Pathology Report Patient Name: ESTHER PULIDO ABORATIVE Comment: LABORATORY SERVICES MR#: [id number] Collected Date: 09/04/2019 Reported Date: 09/06/2019 Specimen #[id number] Final Diagnosis Right colon, resection: Intramucosal adenocarcinoma/focal [...] attached ap pendix and proximal ascending colon [id number] in length with a diameter that ?ranges [...] to 0.6cm in gr eatest dimension. 15: ??Dietetic Technician blocks submitted in 21 cassettes labeled 1A-1U [...] ?? 1S: Probable lymph nodes. ?? 1T-1U: Dietetic Technician mesocolonic ad ipose tissue, two pieces per cassette. ?? GE:dja 09/06/19 Electronically Signed Out Rita Roland MD Test Performed by: [address] ??[id number] Jonathon Valle Jr., M.D., FCAP, Director Specimen Tissue - Tissue (specify) Performing Organization Address City/State/ZIP Code Phon e Number [facility] LABORATORY [address] [place] [id number] SERVICES (CLIA #[id number]) (CL-0623) ABG/CHEM/H&H (ISTAT) (09/04/2019 10:17 AM EDT) Sodium (ISTAT) 139 135 - 145 [facility] mEq/L LABORATORY SERVICES Potassium (ISTAT) 3.1 (L) 3.5 - 5.1 [facility] mEq/L LABORATORY SERVICES Ionized Calcium 1.06 (L) 1.19 - 1.35 [facility]LLAB[facility]ATIVE (ISTAT) mmol/L LABORATORY SERVICES Glucose, [place] 193 70 - 199 [facility] (ISTAT) mg/dL LABORATORY SERVICES Hemoglobin (ISTAT) 9.9 (L) 12.5 - 16.0 [facility] g/dL LABORATORY SERVICES Hematocrit (ISTAT) 29.0 (L) 37 - 47 % [facility] LABORATORY SERVICES HCO3 (ISTAT) 20.7 (L) 22.0 - 26.0 [facility] mmol/L LABORATORY SERVICES Base Deficit 3 (H) [...] COLLABORATIVE LABORATORY SERVICES Specimen Performing Organization Address [facility] Phon e Number [facility] LABORATORY [address] [place] [address] SERVICES (CLIA #[id number]) (CL-0623) Glucose, Poct (09/04/2019 7:38 AM EDT) Glucose, POCT 238 (H)Comment: 70 - 199 [facility] Fasting Reference mg/dL LABORATORY SERVICES Range: 70-99 mg/dL Specimen Performing Organization Address [facility] Phon e Number [facility] LABORATORY [address] [place] [address] SERVICES (CLIA #[id number]) (CL-0623) ABO/Rh Recheck (Patient) (09/04/2019 7:20 AM EDT) ABO/Rh Recheck COLLABORATIVE (Patient) LABORATORY SERVICES ABO/Rh B POSITIVE [facility] LABORATORY SERVICES Bb Comment Chart Testing performed COLLABORATIVE at [facility], [address] [place] [id number], Jonathon Valle Jr., MD Director, CLIA [id number] Specimen Performing Organization Address City/[facility]/ZIP [facility] Phon e Number [facility] LABORATORY [address] [place] [address] SERVICES (CLIA #[id number]) (CL-0623) Type and screen (09/04/2019 7:15 AM EDT) Type And Screen COLLABORATIVE LABORATORY SERVICES ABO/Rh B POSITIVE [facility] LABORATORY SERVICES Antibody Screen NEGATIVE [facility] LABORATORY SERVICES Bb Comment Chart Testing performed COLLABORATIVE at [facility], [address] [place] [address], Jonathon Valle Jr., MD Director, CLIA [id number] No history of previous ABO/Rh. Pt needs a repeat ABO/Rh spec drawn, prior to transfusion. Specimen Blood - Blood Performing Organization Address [facility] Phon e Number [facility] LABORATORY [address] [place] [address] SERVICES (CLIA #[id number]) (CL-0623) documented in this encounter Visit Diagnoses [...] Dose Rate Site acetaminophen (TYLENOL) tablet Given 09/04/2019 7:44 AM EDT 650 mg 650 mg 650 mg, Oral, Once, On Mon09/04/19 at 0700, For 1 dose, Pre-op acetaminophen (TYLENOL) tablet 650 mg Given 09/07/2019 10:44 AM EDT 650 mg 650 mg, Oral, Every 6 hours, First dose on Mon09/04/19 at 1730 Given 09/07/2019 6:14 AM EDT 650 mg Given 09/07/2019 12:27 AM EDT 650 mg alvimopan (ENTEREG) capsule 12 mg Given 09/04/2019 7:44 AM EDT 12 mg 12 mg, Oral, Once, On Mon09/04/19 at 0700, For 1 dose, Pre-op alvimopan (ENTEREG) capsule 12 mg Given 09/07/2019 10:44 AM EDT 12 mg 12 mg, Oral, Every 12 hours scheduled (2 times per day), First dose on [place] 09/05/19 at 0900, For 14 doses, Hold for cardiac disease or history of narcotic usage. Indicated for patients until bowel function returns. Given 09/06/2019 8:24 PM EDT 12 mg Given 09/06/2019 8:09 AM EDT 12 mg aspirin EC tablet 81 mg Given [...] Given 09/06/2019 8:10 AM EDT 40 mg gabapentin (NEURONTIN) capsule 200 mg Given 09/04/2019 7:44 AM EDT 200 mg 200 mg, Oral, Once, On Mon09/04/19 at 0700, For 1 dose, Pre-op, If CrCl greater than 30 gabapentin (NEURONTIN) capsule 200 mg Given 09/06/2019 8:10 AM EDT 200 mg 200 mg, Oral, 3 times daily, First dose on Mon09/04/19 at 2100, For 6 doses Given 09/05/2019 9:32 PM EDT 200 mg Given 09/05/2019 2:53 PM EDT 200 mg glucagon (human recombinant) injection 1 mg [...] sterile water for injection or normal saline. heparin (porcine) Given 09/04/2019 8:05 AM 5,000 Units Abdominal Tissue injection 5,000 Units EDT 5,000 Units, Subcutaneous, Once, On Mon09/04/19 at 0700, For 1 dose, Pre-op heparin (porcine) injection 5,000 Units Given 09/05/2019 9:33 PM EDT 5,000 Units 5,000 Units, Subcutaneous, Every 8 hours scheduled, First dose on Mon09/04/19 at 2200, For 4 doses, If CrCL less than 30 use subcut Heparin Indicated for patients with epidural Given 09/05/2019 2:53 PM EDT 5,000 Units Given 09/05/2019 5:21 AM EDT 5,000 Units hydroCHLOROthiazide (HYDRODIURIL) tablet 25 Given 09/07/2019 10:44 AM EDT 25 mg mg 25 mg, Oral, Daily, First dose on Mon09/05/19 at 0930, Hold for systolic less than 110 Given 09/06/2019 8:08 AM EDT 25 mg HYDROmorphone (DILAUDID) injection 0.5 m g Given 09/04/2019 3:18 PM EDT 0.5 mg 0.5 mg, Intravenous, Every 15 min PRN, severe pain (7-10), Starting on Mon09/04/19 at 1353, PACU/Phase 1, FOR PACU USE ONLY. If unable to take by mouth. Do not exceed 2 mg. Administer IV push over 2-3 minutes. Given 09/04/2019 2:27 PM EDT 0.5 mg HYDROmorphone (DILAUDID) injection 0.5 m g Given 09/05/2019 4:02 AM EDT 0.5 mg 0.5 mg, Intravenous, Every 2 hours PRN, severe pain (7-10), Starting on Mon09/04/19 at 1728, For 2 doses, IV Push Administer over 2-5 minutes For breakthrough for severe pain (7-10) if PO oxycodone ineffective. Administer IV push over 2-3 minutes. Given 09/04/2019 9:17 PM EDT 0.5 mg insulin glargine (LANTUS) injection 25 Given [...] 1 Units insulin lispro (HumaLOG) injection 15 Given 09/05/2019 12:22 PM EDT 15 Units Units 15 Units, Subcutaneous, 3 times daily with meals, First dose on Mon09/04/19 at 1700 insulin lispro (HumaLOG) injection 15 Un its 15 Units, Subcutaneous, 3 times daily with meals, Firs t dose (after last modification) on Mon09/06/19 at 1700 insulin lispro (HumaLOG) injection 7 Uni ts Given 09/05/2019 8:29 AM EDT 7 Units 7 Units, Subcutaneous, Once, On Mon09/05/19 at 0815, For 1 dose insulin lispro (HumaLOG) injection 7 Uni ts Given 09/06/2019 12:20 PM EDT 7 Units 7 Units, Subcutaneous, 3 times daily with meals, First dose (after last modification) on Mon09/05/19 at 1700 Given 09/06/2019 8:07 AM EDT 7 Units Given 09/05/2019 5:02 PM EDT 7 Units insulin regular (HumuLIN R,NovoLIN R) 100 Given 09/04/2019 6:16 PM EDT 7 Units UNIT/ML injection 7 Units 7 Units, Subcutaneous, Once, On Mon09/04/19 at 1745, For 1 dose lactated ringers infusion New Bag 09/04/2019 3:30 PM EDT 50 mL/hr 50 mL/hr 50 mL/hr, Intravenous, Continuous, Starting on Mon09/04/19 at 1515 lisinopril (PRINIVIL,ZESTRIL) tablet 20 mg Given 09/07/2019 10:44 AM EDT 20 mg 20 mg, Oral, Daily, First dose on Mon09/05/19 at 0930, Hold for systolic less than 110 Given 09/06/2019 8:09 AM EDT 20 mg Given 09/05/2019 10:28 AM EDT 20 mg magnesium sulfate 1g/100 mL D5W New Bag 09/05/2019 3:56 PM EDT 1 g 100 mL/hr premix IVPB 1 g, Intravenous, Administer over 60 Minutes, Every 2 hours, First dose on [place] 09/05/19 at 0930, For 4 doses, at 100 mL/hr New Bag 09/05/2019 2:18 PM EDT 1 g 100 mL/hr New Bag 09/05/2019 12:37 PM EDT 1 g 100 mL/hr oxyCODONE (ROXICODONE) 5 MG immediate release Given [...] Given 09/06/2019 8:09 AM EDT 40 mg potassium chloride ER (K-DUR,KLOR-CON) Given 09/06/2019 10:31 AM EDT 40 mEq tablet 40 mEq 40 mEq, Oral, Once, On Mon09/06/19 at 0845, For 1 dose, Do not crush or chew tablet. To make a liquid dissolution from a tablet: 1) Place the whole tablet(s) in approximately ?? cup of water (4 fluid ounces). 2) Allow approximately 2 minutes for the tablet(s) to disintegrate. 3) Stir for about half a minute after the tablet(s) has disintegrated. 4) Swirl the suspension and administer the entire contents of the cup immediately. 5) Add another 1 fluid ounce of water, swirl, and administer immediately. pravastatin (PRAVACHOL) tablet 20 mg Given 09/06/2019 [...] Olsen RN)1700 (Given - Provider: Corazon Olsen RN)2132 (Given - Provider: Amrit Simons RN) 0528 (Given - Provider: Radha Phipps RN)1031 (Given - Provider: Coraozn Olsen RN)1804 (Given - Provider: Corazon Olsen RN) 0027 (Given - Provider: Kris Carty, AIXA) 0614 (Given - Provider: Kris Carty, AIXA)1044 (Given - Provider: Norma Claire, AIXA) 650 mg, Oral, Every 6 hours, First dose on Mon09/04/19 at 1730 alvimopan (ENTEREG) capsule 12 mg (CANCELED) 0829 (Giv en - Provider: Corazon Olsen RN)213 (Given - Provider: Amrit Simons RN) 0809 (Given - Provider: Corazon Olsen RN)202 (Given - Provider: Kris Carty, AIXA) 1044 (Given - Provider: Norma Claire RN) 12 mg, Oral, Every 12 hours scheduled (2 times per day), First dose on Mon09/05/19 at 0900, For 14 doses, Hold for cardiac disease or history of narcotic usage. Indicated for patients until bowel function returns. aspirin EC tablet 81 mg 0828 (Given - Provider: Corazon Olsen RN) 0809 (Given - Provider: Corazon Olsen RN) 1044 (Given - Provider: Norma Claire, AIXA) 81 mg, Oral, Daily, First dose on Mon09/05/19 at 0900 enoxaparin (LOVENOX) syringe 40 mg 0810 (Given - Provider: Corazon Olsen RN) 1043 (Given - Provider: Norma Claire, AIXA) 40 mg, Subcutaneous, Every 24 hours sche duled (Daily), First dose on Mon09/06/19 at 0900, Administer in abdomen (at least 2 inches from navel) gabapentin (NEURONTIN) capsule 200 mg () 0828 ( Given - Provider: Corazon Olsen RN)1453 (Given - Provider: Corazon Olsen, AIXA)213 (Given - Provider: Amrit Simons, AIXA) 08 (Given - Provider: Corazon Olsen RN )1600 (Not Given - Provider: Corazon Olsen RN - Reason: Patient/family refused) 200 mg, Oral, 3 times daily, First dose on Mon09/04/19 at 2100, F or 6 doses heparin (porcine) injection 5,000 Units (COMPLETED) 05 (Given - Provider: Amrit Simons, AIXA)145 (Given - Provider: Corazon Olsen RN)2132 (Given - Provider: Amrit Simons RN) 5,000 Units, Subcutaneous, Every 8 hours scheduled, First dose on Mon09/04/19 at 2200, For 4 doses, If CrCL less than 30 use subcut Heparin Indicated for patients with epidural hydroCHLOROthiazide (HYDRODIURIL) tablet 25 mg 1029 (N ot Given - Provider: Corazon Olsen RN - Reason: Patient/family refused) 08 (Given - Provider: Corazon Olsen RN) 104 (Given - Provider: Norma Claire, AIXA) 25 mg, Oral, Daily, First dose on 11/16 at 0930, Hold for systolic less than 110 insulin glargine (LANTUS) injection 25 Units 2132 (Giv en - Provider: Amrit Simons RN) 2142 (Given - Provider: Kris Carty RN) 25 [...] Corazon Olsen RN) 7 Units, Subcutaneous, Once, Mon09/05/19 at 0815, For 1 dose insulin lispro [...] 2 times daily, First dose o n 09/04/19 at 1800, Please select an indication: GERD, Is this a home medication or a new start? Home Medication potassium chloride ER (K-DUR,KLOR-CON) tablet 40 mEq (COMPLE JOSH) 1031 (Given - Provider: Corazon Olsen, AIXA) 40 mEq, Oral, Once, Mon09/06/19 at 0845, [...] mg 1701 (Given - Provider: Corazon Olsen, AIXA) 1804 (Given - Provider: Corazon Olsen RN) 20 mg, Oral, Every Evening, First [...] zofran INTRAMUSCULAR: No dilution required INTRAVENOUS: M ust dilute each 50 mg in 10 mL [...] mg (COMPLETED) 401 (Given - Provider: Amrit Simons RN) 0.5 mg, Intravenous, Every 2 hours PRN, [...] Olsen RN)1455 (Given - Provider: Corazon Olsen RN)2023 (Given - Provider: Kris Carty, RN) 0027 (Given - Provider: Kris Carty, RN)1043 (Given - Provider: Norma Claire RN) 10 mg, Oral, Every 4 hours PRN, severe p ain (7-10), Starting on Mon09/04/19 at 1728 oxyCODONE (ROXICODONE) 5 MG immediate release tablet 5 mg 1438 (Given - Provider: Corazon Olsen, AIXA) 5 mg, Oral, Every 4 hours PRN, [...] saline.
documented in this encounter Care Teams Manager Roofing Relationship Specialty Start Date End Date Donaldo Steward DO PCP - General Family Medicine 05/17/[address] [place] [id number] documented as of this encounter
--- OUTSIDE RECORDS SUMMARY | 2020-08-01 12:16 | XMS_ITS | Encounter Summary ---
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
--- OUTSIDE RECORDS SUMMARY | 2020-08-01 12:16 | XMS_ITS | Encounter Summary ---
:1940 Author Organization [employer] [facility] Address [address] [place] [address] Care Team Providers Name Role Phone Prasadjose Benjamin Primary Care Provider Reason for Referral Preauthorization (Routine) - Pending Review Specialty Diagnoses / Procedures Referred By Contact Refer red To Contact Diagnoses Encounter for ongoing osteoporosis therapy, bisphosphonates Gwendolyn Smith APRN Procedures Bone Density Study [facility] José Antonio Malik [facility] [place], [place] [address] Referral ID Status Reason Start Date Expiration Date Visits V isits Requested Authorized [id number] Pending 12/20/2019 12/19/2020 1 1 Review Reason for Visit Reason Comments gout, osteoporosis follow-up Encounter Details Date Type Department Care Team Description 12/20/2019 Follow-Up RHEUMATOLOGY Gwendolyn Smith APRN Chronic pain of both shoulders (Primary Dx); [facility] [place] [address] José Antonio Malik Encounter for ongoing osteoporosis thera py, bisphosphonates; [address] [place] [address] Rheumatology High risk medication use [place], [place] [facility] [place] [id number] [place] [id number] (Wo rk) Social History Tobacco Use Types Packs/Day Years [...] been in contact with No / Unsure 12/20/2019 10:54 AM EDT someone who was confirmed or suspected to have Coronavirus / COVID-19? documented as of this encounter Last Filed Vital Signs Vital Sign Reading Time Taken Comments Blood Pressure 142/75 12/20/2019 10:58 AM EDT Pulse 80 12/20/2019 10:58 AM EDT Temperature - - Respiratory Rate - - Oxygen Saturation - - Inhaled Oxygen Concentration - - Weight 73 kg (161 lb) 12/20/2019 10:58 AM EDT Height 154.9 cm (5' 1) 12/20/2019 10:58 AM EDT Body Mass Index 30.42 12/20/2019 10:58 AM EDT documented in this encounter Functional Status Functional Status Response Date of Assessment Pt deaf or have serious difficulty hearing? No 09/04/2019 Pt blind or have difficulty seeing, even with glasses? No 09/04/2019 documented as of this encounter Patient Instructions Patient InstructionsSara Lee MA - 12/20/2019 11:00 AM EDT Please obtain new bone density scan. documented in this encounter Progress Notes Gwendolyn Smith APRN - 12/20/2019 11:00 AM EDT Images from the original note were not included. [address] [place] [id number] Esther Pedersen Andrew 1940 Chief Complaint Follow up for osteoporosis, gout, leg cramps Currently taking 5mg Reclast IV (07/18/18), 200mg HCQ 1 PO Qhs, 0.6mg Colchicine PO PRN for flares, PCP: Dr. Steward Subjective: History of Present Illness Esther Morales is a 79 y.o. yr old female who returns for follow up of Right shoulder pain, osteoporosis, gout, leg cramps. Patient reports she is taking 200mg HCQ PO QD. She denies side effects from the medication. She reports the HCQ helps with her cramps. She notes doing PT exercises for the shoulders. The shoulder pain is currently well managed. She denies having any gout flare since her last visit. She denies any falls or fractures. Continued with calcium and vitamin d supplements. She notes on September 03 she had 6-8 in of colon removed due to colon cancer. Reports the surgery went well. She will follow up with surgeon in February. Review of Symptoms (negative except as noted; positive findings in bold) GENERAL: fatigue, night sweats, unexplained weight gain or loss. SKIN: hair loss, hives, Jaundice, rash, skin color changes or ulcers HEENT not present-blurred vision, double vision, dry eyes, vision loss, eye redness eye pain, ringing of the ears, loss of smell, nose bleed, bleeding gums, loss of taste, difficulty chewing, dry mouth, mouth sores, sore throat NECK: swollen glands, neck pain RESPIRATORY- not present- cough, coughing up blood, shortness of breath, disrupted sleep from respiratory symptoms, wheezing CARDIOVASCULAR: irregular heartbeat, swelling in the extremities GASTROINTESTINAL: black tarry stool, blood in stool, constipation, diarrhea, heartburn, nausea, vomiting blood MUSCULOSKELETAL: joint pain, joint stiffness, joint swelling, muscle weakness NEUROLOGICAL: dizziness, fainting, headache, loss of consciousness, memory changes, numbness, tingling, weakness PSYCHIATRIC: trouble sleeping, sadness, excessive worrying HEMATOLOGY: frequent infections, bleeding tendencies, anemia, blood transfusions. Objective: Vitals: Vitals: 12/20/19 1058 BP: 142/75 Pulse: 80 Weight: 73 kg (161 lb) Height: 5' 1 (1.549 m) Body mass index is 30.42 kg/m??. BMI Screening: patient's BMI was abnormal. Follow up plan includes: weight monitoring . BMI ranging between 25-29.9: overweight Allergies: Allergies Allergen Reactions ??? Acetazolamide Other (See Comments) Dry mouth ??? Clarithromycin ??? Codeine Nausea And Vomiting ??? Morphine ??? Morphine And Related Nausea And Vomiting ??? Sulfa Antibiotics ??? Sulphadimidine [Sulfamethazine] Hives ??? Tramadol Nausea And Vomiting ??? Latex Rash Past Medical Hx: Past Medical History: Diagnosis Date ??? Acid reflux ??? Acute myocardial infarction (HCC) ??? Adenomatous polyp of colon ??? Arthritis ??? Cataract ??? Colon cancer (HCC) ??? Diabetes mellitus (HCC) ??? Diabetes mellitus, type II (HCC) ??? Heart murmur ??? Hypercholesteremia ??? Hypertension ??? Spinal stenosis ??? Ulcerative colitis (HCC) Past Social History: Past Surgical History: Procedure Laterality Date ??? BACK SURGERY 2012 ??? CATARACT EXTRACTION, BILATERAL 2003 ??? COLONOSCOPY ??? COLONOSCOPY N/A 09/04/2019 Procedure: C02 COLONOSCOPY WITH TATOO; Surgeon: Hamzah Orourke MD; Location: [facility] MAIN OPERATING ROOM; Service: Colorectal; Laterality: N/A; ??? CORONARY ANGIOPLASTY WITH STENT PLACEMENT 2003 ??? DILATION AND CURETTAGE OF UTERUS ??? HYSTERECTOMY 1980s Heavy periods. ??? LAPAROSCOPIC RIGHT COLON RESECTION N/A 09/04/2019 Procedure: RIGHT LAPAROSCOPIC HAND ASSISTED HEMICOLECTOMY, lysis of adhesions; Surgeon: Hamzah Orourke MD; Location: [facility] MAIN OPERATING ROOM; Service: Colorectal; Laterality: N/A; ??? UPPER GASTROINTESTINAL ENDOSCOPY ??? WISDOM TOOTH EXTRACTION 2015 x1 Problems: Patient Active Problem List Diagnosis SNOMED CT(R) [...] Colon cancer (HCC) MALIGNANT TUMOR OF COLON Medications: Current Outpatient Medications: ??? aspirin EC 81 MG tablet, Take 81 mg by mouth daily., Disp: , Rfl: ??? Calcium Carb-Cholecalciferol (CALCIUM+D3 PO), Take by mouth., Disp: , Rfl: ??? Cholecalciferol (VITAMIN D-3 PO), 2,000 Units daily. Vitamin D3 TABS Refills: 0 Active, Disp:, Rfl: ??? Coenzyme Q10 (COQ10 PO), Take by mouth 2 (two) times a day. , Disp: , Rfl: ??? HUMALOG KWIKPEN 100 UNIT/ML injection, 15 Units 3 (three) times a day. , Disp: , Rfl: ??? hydroCHLOROthiazide (HYDRODIURIL) tablet 25 mg, Take 25 mg by mouth daily., Disp: , Rfl: ??? hydroxychloroquine (PLAQUENIL) 200 MG tablet, Take 1 tablet (200 mg total) by mouth every nightat bedtime as needed., Disp: 180 tablet, Rfl: 2 ??? LANTUS SOLOSTAR 100 UNIT/ML injection, INJECT 25 UNITS UNDER THE SKIN AT BEDTIME, Disp: , Rfl: ??? lisinopril (PRINIVIL,ZESTRIL) tablet 20 mg, , Disp: , Rfl: ??? metFORMIN (GLUCOPHAGE-XR) ER 24 hr tablet 500 mg, 2 (two) times a day. , Disp: , Rfl: ??? Multiple Minerals-Vitamins (DOLOMITE PLUS VITAMINS A AND D PO), Take by mouth daily., Disp: , Rfl: ??? [place]-3 Fatty Acids (OMEGA 3 PO), Take by mouth., Disp: , Rfl: ??? pantoprazole (PROTONIX) 40 MG tablet, 2 (two) times a day. , Disp: , Rfl: ??? Potassium 99 MG TABS, Take by mouth daily., Disp: , Rfl: ??? pravastatin (PRAVACHOL) tablet 20 mg, every night at bedtime. , Disp: , Rfl: ??? Probiotic Product (PROBIOTIC DAILY PO), Take by mouth daily., Disp: , Rfl: ??? UNABLE TO FIND, 2 (two) times a day. HISTA BLOCK: 2 TABS BID, Disp: , Rfl: ??? UNABLE TO FIND, 2 (two) times a day. INTESTINAL SMOOTH AND BUILD: 2 TABS BID, Disp: , Rfl: Family Hx: Family History Problem Relation Age of Onset ??? Heart disease Mother ??? Diabetes Father ??? Colon cancer Brother 70 ??? No Sig Med Hx Sister ??? Cancer Brother lung ??? No Sig Med Hx Brother ??? No Sig Med Hx Sister ??? Breast cancer Neg Hx ??? Ovarian cancer Neg Hx ??? Uterine cancer Neg Hx Immunizations: There is no immunization history on file for this patient. No Data Recorded Physical Exam (wnl except as noted; abnormal findings in bold) GENERAL: Patient is cooperative and age appropriate appearing, appears chronologic age, friendly in no apparent distress. AOx3 Head: Normocephalic, no lesions. EYES: PERRLA, EOM intact, conjunctiva clear, fundi grossly normal. OROPHARYNX: mucosa was moist without lesions, no erythema, soft and hard palate were normal. THROAT: Clear, no exudates, normal tonsillar tissue. NECK: Supple, no masses, no thyromegaly, no bruits. CHEST: Lungs clear, no rales, no rhonchi, no wheezes. HEART: RRR, no murmurs, rubs, gallops. ABDOMEN: Soft, no tenderness, no masses, BS normal. SKIN: Normal, no rashes. NEURO: no focal findings. CERVICAL SPINE- FROM (active and passive), normal strength, no tenderness. THORACIC SPINE-FROM (active and passive), normal strength, no tenderness. LUMBAR SPINE -FROM (active and passive), normal strength, no tenderness. SACROILIAC JOINT-FROM (active and passive), normal strength, no tenderness. UPPER EXTREMITY: SHOULDERS: right DROM 90 active passive limited by pain abduction; (130 right passive), normal strength, Right glenohumeral tenderness and tendonitis over biceps insertion, + Morton, + internal rotation and elevation, - drop sign, no swelling. ELBOWS: FROM (active and passive), normal strength, no tenderness, no warmth, no swelling, no synovitis WRISTS: FROM (active and passive), normal strength, no warmth, no tenderness, no swelling, no synovitis MCP: FROM (active and passive), normal strength, no tenderness, no warmth, no swelling, no synovitis, no osteophytes. PIP: FROM (active and passive), normal strength, no tenderness, no warmth, no swelling, no synovitis, no osteophytes. DIP: FROM (active and passive), normal strength, no tenderness, no warmth, no swelling, no synovitis, no osteophytes. CMC: FROM (active and passive), normal strength, no tenderness, no warmth, no swelling, no synovitis, no osteophytes. LOWER EXTREMITY: HIPS: FROM (active and passive), normal strength, no tenderness. KNEES: FROM (active and passive), normal strength, no warmth, no tenderness, no swelling, no synovitis. ANKLES: FROM (active and passive), normal strength, no tenderness, no warmth, no swelling, no synovitis. FEET: FROM (active and passive), normal strength, no tenderness, no swelling. TOES: FROM (active and passive), normal strength, no tenderness, no swelling, no synovitis. DEXA 04/16/18: Lumbar Spine BMD 1.005 g/cm2, T Score -0.1, 16.5% decrease compared to 1999 Left Hip BMD 0.563, T Score -2.6; 28.3% decrease in density compared to prior X-Ray Right Shoulder on 10/22/18 FINDINGS: there is advanced narrowing of the right AC joint with undersurface spurring. there is minor spurring along the undersurface of the acromion. there is moderate narrowing of the glenohumeral joint space with sclerotic change in the inferior aspect of the bony glenoid. No evidence for erosive change or fracture, dislocation or destructive process. IMPRESSION: Degenerative changes noted Labs 10/17/19 Magnesium normal BMP: BUN 20 (17), Cl 108 (107), CO2 20 (24), glucose 108 (99), otherwise normal CBC: RBC 3.33 (4.2), HGB 11 (12.5) HCT 30.8 (37), otherwise normal Labs 10/18/19 BMP: Cl 108 (107), CO2 23 (24), otherwise normal Assessment 79 y.o. woman with history of diabetes, leg cramping and hand OA, which is improved on HCQ and currently doing well She also has a leg length discrepancy improved with lift, and spinal stenosis. She has had one red hot swollen right index finger lasting about a week in August 2018, a gout flare in January 2018 resolved with colchicine. Her right shoulder pain was improved with injection from ortho and PT. --Anemia ;s/p Colon surgery for cancer in Aug 2019 - 60 to 8 ft with lymph nodes --Xray describes degenerative changes consistent with OA. - Appears to be a component of rotator cuff tendiopathy as well as osteoarthritis. --Gout is well managed on Allopurinol --Osteoporosis status post started Reclast after recent DEXA done on 04/16/18 showed T Score -2.6 at the Left Hip Plan: Esther was seen today for right shoulder pain, gout, osteoporosis and leg cramps. Diagnoses and all orders for this visit: Chronic pain of both shoulders/OA:Improved with injection through Ortho. She continuse physical therapy exercises at home for rotator cuff tendinopathy and impingement. Other osteoporosis without current pathological fracture: Obtain repeat DEXA and schedule for next Relcast infusion. Patient instructed to continue vitamin D and calcium citrate supplementation. She is encouraged to get out on a regular basis and have a regular exercise regiment with low impact weight bearing exercises. Patient also encouraged to have a calcium rich diet. We discussed the side effects of bisphosphonate treatment which include, but are not limited to, osteonecrosis of the jaw, arthralgias, and rash. Patient will be careful not to avoid deep dental work three months prior and following treatment. Leg Cramps: Much improved on HCQ. Patient will continue 200mg HCQ PO QHS. We discussed the risks and benefits of hydroxychloroquine which include, but are not limited to, photosensitivity, tinnitus, nausea, leukopenia or retinal deposition. Patient was instructed to notify their eye care transition mgr of hydroxychloroquine use and obtain yearly eye checks. According to [employer]:Risk of Toxicity: The risk of toxicity is dependent on daily dose and duration of use. At recommended doses, the risk of toxicity up to 5 years is under 1% and up to 10 years is under 2%, but it rises to almost 20% after 20 years. However, even after 20 years, a patient without toxicity has only a 4% risk of convertingin the subsequent year. Gout: Had flare in January 2018 with potential additional self resolving flair in August of this year. Her risk factors include her use of a baby aspirin and HCTZ. If HCTZ could be switched to another medication for BP management this would likely limit number of flares. Will use colchicine rescue ratna needed for future flares. We discussed the potential side effects of colcrys which include, but are not limited to, diarrhea,marrow suppression, or rash. F/U: 6 month PCP: Dr. Donaldo Steward OPHTHALMOLOGY: Henrry Lanier Please note a scribe has recorded this visit. Physician has reviewed for medical accuracy documented in this encounter Plan of Treatment Scheduled Orders Name Type Priority Associated Diagnoses Order S chedule Bone Density Study Imaging Routine Encounter for ongoing 1 Occurrences osteoporosis therapy, starti ng 12/20/2019 bisphosphonates until 2021 CBC W/Auto Lab Routine High risk medication use 1 O ccurrences Differential starting 2019 until 1 documented as of this encounter Visit Diagnoses Diagnosis Chronic pain of both shoulders - Primary Encounter for ongoing osteoporosis thera py, bisphosphonates High risk medication use documented in this encounter Care Teams Records Section Supervisor Relationship Specialty Start Date End Date Donaldo Steward DO PCP - General Family Medicine 05/17/[address] [place] [id number] documented as of this encounter
--- OUTSIDE RECORDS SUMMARY | 2020-08-01 12:16 | XMS_ITS | Encounter Summary ---
:1940 Author Organization [facility] Address [address] [place] [id number] Care Team Providers Name Role Phone Prasadjose Benjamin Primary Care Provider Reason for Visit Auth/Cert Inpatient Observation or Outpatient Surgery Specialty Diagnoses / Procedures Referred By Contact Refer red To Contact Diagnoses Abdominal pain [facility] Cv Surg Card [address]- [address] [place] [id number] Referral ID Status Reason Start Date Expiration Date Visits Requ ested Visits Authorized [id number] 1 1 Encounter Details Date Type Department Care Team Description 10/16/2019 - Hospital Encounter Surgical Cardiology Vickie Weber, 10/18/[address] [place] [address] [place] [address] [place] [address] Colon & Rectal Surg [facility] [place], [place] [address] (Wo rk) Social History Tobacco Use Types [...] Sign Reading Time Taken Comments Blood Pressure 154/64 10/18/2019 11:08 AM EDT Pulse 73 10/18/2019 11:08 AM EDT Temperature 36.7 ??C (98.1 ??F) 10/18/2019 11:08 AM EDT Respiratory Rate 20 10/18/2019 11:08 AM EDT Oxygen Saturation 96% 10/18/2019 11:08 AM EDT Inhaled Oxygen Concentration - - Weight 71.4 kg (157 lb 8 oz) 10/16/2019 11:15 PM EDT Height 154.9 cm (5' 1) 10/16/2019 11:15 PM EDT Body Mass Index 29.76 10/16/2019 11:15 PM EDT documented in this encounter Functional Status Functional Status Response Date of Assessment Pt deaf or have serious difficulty hearing? No 09/04/2019 Pt blind or have difficulty seeing, even with glasses? No 09/04/2019 documented as of this encounter Discharge Summaries Zulay Rider PA-C - 10/18/2019 10:47 AM EDT DISCHARGE SUMMARY Date of Admission: 10/16/2019 Length of Stay: 2 Admission Diagnosis: Abdominal pain [R10.9] Discharge Diagnosis: colitis Procedures: none Consults: none History of Present Illness: As copied forward from H&P: Patient is a 79 y.o. female with PMH significant for ulcerative colitis, and s/p right hemicolectomy with extensive SOLO for colon cancer on 09/04/[address] 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 ??Negative lymph nodes x16. She has called the office a couple of times in the post op period for additional pain medication. Seen by Dr. Orourke on 09/18/19 for follow up and was doing well at that time and reported only taking Tylenol prn. Patient called the office today with report of significant abdominal cramping and was advised to go to the emergency department. The patient went to [facility]. At [facility] she reportedly had a CAT scan that showed descending colitis and inflammation around her anastomosis. Her white blood cell count was 11.8, lactic acid 2.6, creatinine 1.1. She was transferred to [facility]. The cramps come in waves and have been continuous all afternoon and evening. She says the cramps are reminiscent of previous bouts of colitis. She denies passing any blood with these stools. She reports about 5 small, hard stools at home after cramping started and one dark loosediarrheal stool when she got to [facility]. She reports one episode of chills while sittingon the toilet and one brief episode of nausea. Past medical history : Past Medical History: [...] 09/04/2019 Procedure: C02 COLONOSCOPY WITH TATOO; Surgeon: Hmazah Orourke MD; Location: [facility] MAIN OPERATING ROOM; Service: Colorectal; Laterality: N/A; ??? CORONARY ANGIOPLASTY WITH STENT PLACEMENT 2003 ??? DILATION AND CURETTAGE OF UTERUS ??? HYSTERECTOMY 1980s Heavy periods. ??? LAPAROSCOPIC RIGHT COLON RESECTION N/A 09/04/2019 Procedure: RIGHT LAPAROSCOPIC HAND ASSISTED HEMICOLECTOMY, lysis of adhesions; Surgeon: Hamzah Orourke MD; Location: [facility] MAIN OPERATING ROOM; Service: Colorectal; Laterality: N/A; ??? UPPER GASTROINTESTINAL ENDOSCOPY ??? WISDOM TOOTH EXTRACTION 2016 x1 Medication History: Medications Prior to Admission Medication Sig Dispense Refill Last Dose ??? aspirin EC 81 MG tablet Take 81 mg by mouth daily. Taking ??? Calcium Carb-Cholecalciferol (CALCIUM+D3 PO) Take by mouth. Taking ??? Cholecalciferol (VITAMIN D-3 PO) 2,000 Units daily. Vitamin D3 TABS Refills: 0 Active Taking ??? Coenzyme Q10 (COQ10 PO) Take by mouth 2 (two) times a day. Taking ??? HUMALOG KWIKPEN 100 UNIT/ML injection 15 Units 3 (three) times a day. Taking ??? hydroCHLOROthiazide (HYDRODIURIL) tablet 25 mg Take 25 mg by mouth daily. Taking ??? hydroxychloroquine (PLAQUENIL) 200 MG tablet Take 1 tablet (200 mg total) by mouth every night at bedtime as needed. 180 tablet 2 Taking ??? LANTUS SOLOSTAR 100 UNIT/ML injection INJECT 25 UNITS UNDER THE SKIN AT BEDTIME Taking ??? lisinopril (PRINIVIL,ZESTRIL) tablet 20 mg Taking ??? metFORMIN (GLUCOPHAGE-XR) ER 24 hr tablet 500 mg 2 (two) times a day. Taking ??? Multiple Minerals-Vitamins (DOLOMITE PLUS VITAMINS A AND D PO) Take by mouth daily. Taking ??? [place]-3 Fatty Acids (OMEGA 3 PO) Take by mouth. Taking ??? oxyCODONE (ROXICODONE) 5 MG immediate release tablet Take 1 tablet (5 mg total) by mouth every 6(six) hours as needed. 15 tablet 0 ??? pantoprazole (PROTONIX) 40 MG tablet 2 (two) times a day. Taking ??? Potassium 99 MG TABS Take by mouth daily. Taking ??? pravastatin (PRAVACHOL) tablet 20 mg every night at bedtime. Taking ??? Probiotic Product (PROBIOTIC DAILY PO) Take by mouth daily. Taking ??? TRULICITY 0.75 MG/0.5ML SOPN INJECT ONCE A WEEK 1 Taking ??? UNABLE TO FIND 2 (two) times a day. HISTA BLOCK: 2 TABS BID Taking ??? UNABLE TO FIND 2 (two) times a day. INTESTINAL SMOOTH AND BUILD: 2 TABS BID Taking Allergies: Allergies Allergen Reactions ??? Acetazolamide Other [...] Last attempt to quit: 02/27/1961 Years since quittin.6 ??? Smokeless tobacco: Never Used Substance and [...] file Gets together: Not on file Attends evangelical service: Not on file Active member of [...] Neg Hx Imaging: No results found. Hospital course: The patient was admitted to the colorectal service with colitis. She was made npo and hydrated aggressively d/t an elevated lactate at the OSH. She was started on IV antibiotics. The following day her symptoms had resolved so she was advanced to a clear liquid diet. On 10/17 she was advanced to a low fiber diet which she tolerated without issue. At that time she was having no pain so she was deemed stable for discharge home. Problem List: Patient Active Problem List Diagnosis [...] Medications: Medication List START taking these medications ciprofloxacin 500 MG tablet Commonly known as: CIPRO Take 1 tablet (500 mg total) by mouth 2 (two) times a day for 5 days. metroNIDAZOLE 500 MG tablet Commonly known as: FLAGYL Take 1 tablet (500 mg total) by mouth 3 (three) times a day for 5 days. CONTINUE taking these medications aspirin EC 81 [...] Commonly known as: GLUCOPHATE-XR OMEGA 3 PO oxyCODONE 5 MG immediate release tablet Commonly known as: ROXICODONE Take 1 tablet (5 mg total) by mouth every 6 (six) hours as needed. pantoprazole 40 MG tablet Commonly known as: PROTONIX Potassium 99 MG Tabs pravastatin 20 MG tablet Commonly known as: PRAVACHOL PROBIOTIC DAILY PO TRULICITY 0.75 MG/0.5ML Sopn Generic drug: Dulaglutide UNABLE TO FIND UNABLE TO FIND VITAMIN D-3 PO Where to Get Your Medications These medications were sent to [facility] - [place] [id number] ?? ciprofloxacin 500 MG tablet ?? metroNIDAZOLE 500 MG tablet [facility]: [facility] Patient will follow up with Dr. Orourke in 7-10 days. Patient will follow up with PCP in 2-4 weeks. This DC took < 30 minutes to prepare. This Summary was prepared by: Zulay Rider PA-C documented in this encounter Discharge Instructions Zulay Magaña PA-C - 10/17/2019 Low Residue Diet: Low Residue Diet Guidelines if this diet has been recommended for you: You have been prescribed a low-residue diet. ???Residue?? is the word for parts of food that pass undigested through the bowel. This is what forms stool. Low- residue foods are easily digested and absorbed. They leave the least residue, which results in fewer stools. This type of diet lets your intestines rest and heal. You should continue one this diet for approximately two weeks after your discharge from the hospital. After two weeks you should resume your normal diet slowly. General Guidelines for a Low-Residue Diet In general you can eat most all cooked foods; even vegetables are ok to eat if they are cooked well,but you should AVOID ALL RAW VEGETABLES. OK to eat Breads, pasta, cereal, rice, and other starches: white bread, biscuits, muffins, and rolls; plain crackers; white pasta; white rice; cream of wheat; grits; white pancakes; cornflakes; cooked potatoes without skin. Milk and dairy: milk, smooth yogurt, ice cream, custard, cheese and cottage cheese Fruit: ripe fruits without skins, cooked or canned fruit without skins; applesauce; and fruit juices Vegetables: well-cooked or canned vegetables Meats and proteins: tender, well-cooked meat, including ground meat, poultry, and fish; eggs; tofu; creamy peanut butter Other foods and drinks: jello; puddings; pretzels; plain cookies and cakes; honey, syrup, caffeinated drinks, including tea, coffee &soda Foods to Avoid while your bowel heals: Raw Vegetables Tough, chewy meat with gristle, Beans, including navy, hwang, black, garbanzo, soy, lainez, lentils Spicy foods Alcohol Please note: Once you have healed from your operation, infection or flare, the best diet for healthy bowels is a HIGH FIBER DIET. This includes lots of raw and leafy vegetables and even possibly over the counter fiber supplements like Metamucil. These items should be incorporated into your diet slowly as you recover. documented in this encounter Medications at Time [...] PLUS VITAMINS A daily. AND D PO) [place]-3 Fatty Acids (OMEGA Take by mouth. 0 [...] INTESTINAL SMOOTH AND BUILD: 2 TABS BID ciprofloxacin (CIPRO) 500 Take 1 tablet 10 tablet 0 020 10/21/2019 MG tablet (500 mg total) by mouth 2 (two) times a day for 5 days. hydroxychloroquine Take 1 tablet 180 tablet 2 06/21/2019 (PLAQUENIL) 200 MG tablet (200 mg total) by mouth every night at bedtime as needed. metroNIDAZOLE (FLAGYL) 500 Take 1 tablet 15 tablet 0 201910/21/2019 MG tablet (500 mg total) by mouth 3 (three) times a day for 5 days. oxyCODONE (ROXICODONE) 5 MG Take 1 tablet (5 15 tablet 0 12/20/2019 immediate release tablet mg total) by mouth every 6 (six) hours as needed. TRULICITY 0.75 MG/0.5ML INJECT ONCE A 1 9 12/20/2019 SOPN WEEK documented as of this encounter Progress Notes Hamzah Orourke MD - 10/18/2019 4:03 PM EDT Patient seen and examined. She is doing well. She has passed flatus. She has no abdominal pain. No nausea or vomiting. On exam incisions noted no tenderness. Encouraged adequate hydration as he explains that she had some dark urine prior to this episode and she has repeated bouts of ischemic colitis. Continue antibiotics as an outpatient continue low residue diet. Warned to call with any worsening abdominal pain nausea vomiting sweats chills or fevers. ETHTAiram Diego MD - 10/18/2019 6:20 AM EDT SURGICAL PROGRESS NOTE SUBJECTIVE: No acute events overnight. Patient reports that she feels better this morning. Her pain is well controlled. She is tolerating clear liquids without nausea or vomiting. She endorses flatus and BM. OBJECTIVE: Vitals: 10/17/19 1348 10/17/19 1531 10/17/19 1956 10/17/19 2300 BP: 175/71 158/79 162/66 158/74 BP Location: Right arm Right arm Right arm Patient Position: Lying Lying Lying Pulse: 77 70 65 65 Resp: 20 Temp: 97.9 ??F (36.6 ??C) 98.2 ??F (36.8 ??C) 97.9 ??F (36.6 ??C) TempSrc: Oral Oral Oral SpO2: 96% 93% 98% Weight: Height: I&Os: UO: I/O last 3 completed shifts: In: 1560 [P.O.:860; IV Piggyback:700] Out: 3050 [Urine:3050] I/O this shift: In: - Out: 1000 [Urine:1000] Diet: Orders Placed This Encounter Procedures ??? Clear Liquids Diet Patient on Nutrition Management Protocol? Yes; Full Participation Standing Status: Standing Number of Occurrences: 1 Order Specific Question: Patient on Nutrition Management Protocol? Answer: Yes Order Specific Question: Patient's ability to participate in At Your Request (AYR) Room Service: Answer: Full Participation LABS: Lab Results Component Value Date WBC 4.5 10/17/2019 RBC 3.33 (L) 10/17/2019 HEMATOCRIT 30.8 (L) 10/17/2019 HEMOGLOBIN 11.0 (L) 10/17/2019 MCV 92.6 10/17/2019 MCH 32.9 10/17/2019 MCHC 35.5 10/17/2019 RDW 13.9 10/17/2019 PLTCOUNT 208 10/17/2019 MPV 8.9 10/17/2019 NEUTROPHILS 57.6 10/17/2019 LYMPHOCYTES 32.6 10/17/2019 EOSINOPHILS 0.5 10/17/2019 BASOPHILS 0.4 10/17/2019 NEUTROPHABSO 3.2 10/17/2019 LYMPHOCYABSO 1.8 10/17/2019 MONOCYTABSOL 0.5 10/17/2019 EOSINOPHIABS 0.0 10/17/2019 BASOPHILSABS 0.0 10/17/2019 Lab Results Component Value Date BUN 20 (H) 10/17/2019 CALCIUM 8.5 10/17/2019 CO2 20 (L) 10/17/2019 CL 108 (H) 10/17/2019 CREATININE 0.8 10/17/2019 K 3.9 10/17/2019 NA 139 10/17/2019 EXAMINATION: General: appears comfortable, no acute distress Respiratory: normal work and rate of breathing Abdomen: soft, nondistended, nontender Extremities: no lower extremity tenderness or edema ASSESSMENT/PLAN: 79 y.o. female with history of UC s/p LHA right hemicolectomy 09/04/19, admitted with descending colitis. Since admission, she has remained clinically stable, with improving symptoms and exams - clear liquid diet, advance to regular - DVT ppx/IS/OOB - I/O - pain and nausea control - f/u AM labs, replete PRN - continue antibiotics - dispo planning -- Airam Diego MD PGY2 General Surgery 10/18/2019 6:20 AM Vickie Nguyễn DO - 10/17/2019 6:05 PM EDT CRS Attending Note Patient seen and examined this AM - note delayed due to patient care. I received a phone call from [facility] yesterday stating that she was having increasing abdominalpain and her CT scan showed descending colon colitis with some inflammation around anastomosis. HerWBC was slightly elevated and her lactate was 2.6 thus I had her transferred to [facility]. Her vitals and labs upon arrival were all normal. When I saw her this Am she stated that her pain had completely resolved and she was hungry. She is afebrile and normotensive. General - NAD Abdomen - soft NTND Will advance diet to clears and likely regular and dc tomorrow. Vickie Weber DO Sean Villanueva MD - 10/17/2019 11:44 AM EDT COLORECTAL PROGRESS NOTE Hospital Day: 0 SUBJECTIVE: No acute events. Feels well .denies pain. Wants liquids. Passing some gas, no BM. Denies fevers, chills, chest pain, SOB. ?? OBJECTIVE: Vital Signs: 10/17/19 0819 BP: 161/76 Pulse: 68 Resp: 16 Temp: 98 ??F (36.7 ??C) SpO2: 95% LMP: 02/27/1979 Intake/Output Summary (Last 24 hours) at 10/17/2019 1144 Last data filed at 10/17/2019 1133 Gross per 24 hour Intake 300 ml Output 1250 ml Net -950 ml General: Well developed, well nourished, no apparent distress Neuro: Awake, Alert and oriented x3 HEENT: Normocephalic, atraumatic, EOMI, PERRL Cardiovascular: RRR, no murmurs, no JVD Pulmonary: clear to auscultation bilaterally Abdomen: incision well healed. Old bruising on abd. abd soft, non-distended, non-tender, no guarding, no peritoneal signs Extremities: warm and well perfused, no lower extremity tenderness or edema Skin: dry, intact, no rashes Recent Results (from the past 24 hour(s)) Glucose, Poct Collection Time: 10/16/19 11:52 PM Result Value Ref Range Glucose, POCT 82 70 - 199 mg/dL CBC With Auto Differential Collection Time: 10/17/19 12:00 AM Result Value Ref Range WBC 5.5 4.0 - 10.5 K/uL RBC 3.41 (L) 4.2 - 5.4 M/uL Hemoglobin 11.0 (L) 12.5 - 16.0 g/dL Hematocrit 32.0 (L) 37 - 47 % MCV 93.9 78 - 100 fL MCH 32.3 25 - 33 pg MCHC 34.4 32 - 36 g/dL RDW 13.6 12.1 - 16.2 % Platelets 207 150 - 450 K/uL MPV 8.8 7.4 - 11.4 fL Differential Type AUTOMATED Neutrophils 57.6 44 - 74 % Lymphocytes 32.6 20 - 48 % Monocytes 8.9 2 - 12 % Eosinophils 0.5 0 - 6 % Basophils 0.4 0 - 2 % Neutrophils, Absolute 3.2 1.8 - 7.8 K/uL Lymphocytes Absolute 1.8 1.0 - 3.2 K/uL Monocytes Absolute 0.5 0.0 - 0.8 K/uL Eosinophils, Absolute 0.0 0.0 - 0.5 K/uL Basophils Absolute 0.0 0.0 - 0.2 K/uL Basic Metabolic Panel-Random Collection Time: 10/17/19 12:00 AM Result Value Ref Range BUN 26 (H) 7 - 17 mg/dL Creatinine, Blood 0.8 0.5 - 1.0 mg/dL Glomerular Filtration Rate, Estimated >60.0 >60.0 Sodium 138 135 - 145 mmol/L Potassium 4.0 3.5 - 5.1 mmol/L Chloride 109 (H) 98 - 107 mmol/L Carbon dioxide 20 (L) 24 - 32 mmol/L Glucose, Random 92 70 - 199 mg/dL Calcium 8.3 (L) 8.4 - 10.2 mg/dL Magnesium Collection Time: 10/17/19 12:00 AM Result Value Ref Range Magnesium 1.5 (L) 1.7 - 2.8 mg/dL PT/INR Collection Time: 10/17/19 12:00 AM Result Value Ref Range PT (Prothrombin Time) 11.2 10.5 - 13.3 sec INR 1.0 0.8 - 1.1 Lactic Acid Collection Time: 10/17/19 12:00 AM Result Value Ref Range Lactic Acid 1.7 0.5 - 2.2 mmol/L COVID-19 (STAT) Collection Time: 10/17/19 2:41 AM Result Value Ref Range Source NASOPHARYNGEAL Performing Lab Performed at [facility], [address] [place] [id number] [employer] COVID-19 Not Detected NDET Glucose, Poct Collection Time: 10/17/19 5:51 AM Result Value Ref Range Glucose, POCT 84 70 - 199 mg/dL CBC Without Differential Collection Time: 10/17/19 7:47 AM Result Value Ref Range WBC 4.5 4.0 - 10.5 K/uL RBC 3.33 (L) 4.2 - 5.4 M/uL Hemoglobin 11.0 (L) 12.5 - 16.0 g/dL Hematocrit 30.8 (L) 37 - 47 % MCV 92.6 78 - 100 fL MCH 32.9 25 - 33 pg MCHC 35.5 32 - 36 g/dL RDW 13.9 12.1 - 16.2 % Platelets 208 150 - 450 K/uL MPV 8.9 7.4 - 11.4 fL Basic Metabolic Panel-Fasting (Na, K, Cl, CO2, Gluc, BUN, Crea, GFR, Ivan) Collection Time: 10/17/19 7:47 AM Result Value Ref Range BUN 20 (H) 7 - 17 mg/dL Creatinine, Blood 0.8 0.5 - 1.0 mg/dL Glomerular Filtration Rate, Estimated >60.0 >60.0 Sodium 139 135 - 145 mmol/L Potassium 3.9 3.5 - 5.1 mmol/L Chloride 108 (H) 98 - 107 mmol/L Carbon dioxide 20 (L) 24 - 32 mmol/L Glucose, Fasting 108 (H) 70 - 99 mg/dL Calcium 8.5 8.4 - 10.2 mg/dL Magnesium Collection Time: 10/17/19 7:47 AM Result Value Ref Range Magnesium 2.0 1.7 - 2.8 mg/dL ASSESSMENT / PLAN: Esther Morales is a 79 y.o. female with colitis - clears today - pain control PRN - IV abx - - DVT PPX - OOB - I/Os - dispo planning next 24-48hrs if maintains course Sean Gurrola MD Colorectal Fellow, PGY-6 Priya evans PharmD - 10/17/2019 9:43 AM EDT .I spoke with Esther Morales re: [facility]. Patient opted in - pharmacy set to [facility]. We will plan to fill all discharge prescriptions, so patient may waste picker upon discharge; all remaining refills will be transferred to the patient's home pharmacy. Thank you, Priya Helms PharmD [facility], Transitions of Care Pharmacist Contact via TigerText or ext. [phone] documented in this encounter H&P Notes Judi Olivia PA-C - 10/16/2019 10:25 PM EDT History and Physical Admitting MD: Vickie Weber DO PCP: Donaldo Steward DO Code Status:Full Code HPI: Patient is a 79 y.o. female with PMH significant for ulcerative colitis, and s/p right hemicolectomy with extensive SOLO for colon cancer on 09/04/[address] Orourke. Final pathology of intramucosaladenocarcinoma Tis 0.3 cm. Negative lymph nodes x16. She has called the office a couple of times inthe post op period for additional pain medication. Seen by Dr. Orourke on 09/18/19 for follow up and was doing well at that time and reported only taking Tylenol prn. Patient called the office today with report of significant abdominal cramping and was advised to go to the emergency department. The patient went to [facility]. At [facility] she reportedly had a CAT scan that showed descending colitis and inflammation around her anastomosis. Her white blood cell count was 11.8, lactic acid 2.6, creatinine 1.1. She was transferred to [facility]. The cramps come in waves and have been continuous all afternoon and evening. She says the cramps are reminiscent of previous bouts of colitis. She denies passing any blood with these stools. She reports about 5 small, hard stools at home after cramping started and one dark loose diarrheal stool when she got to [facility]. Shereports one episode of chills while sitting on the toilet and one brief episode of nausea. Past Medical History: Past Surgical History: Past [...] WITH TATOO; Surgeon: Hamzah Orourke MD; Location: [facility] MAIN OPERATING ROOM; Service: Colorectal; Laterality: N/A; ??? CORONARY ANGIOPLASTY WITH STENT PLACEMENT 2003 ??? DILATION AND CURETTAGE OF UTERUS ??? HYSTERECTOMY 1980s Heavy periods. ??? LAPAROSCOPIC RIGHT COLON RESECTION N/A 09/04/2019 Procedure: RIGHT LAPAROSCOPIC HAND ASSISTED HEMICOLECTOMY, lysis of adhesions; Surgeon: Hamzah Orourke MD; Location: [facility] MAIN OPERATING ROOM; Service: Colorectal; Laterality: [...] Last attempt to quit: 02/27/1961 Years since quittin.6 ??? Smokeless tobacco: Never Used Substance and [...] file Gets together: Not on file Attends evangelical service: Not on file Active member of [...] Tramadol Nausea And Vomiting ??? Latex Rash Medications: Current Facility-Administered Medications Medication Dose Route Frequency Provider Last Rate Last Dose ??? cefTRIAXone (ROCEPHIN) injection 1,000 mg 1,000 mg Intravenous Q24H Zulay Rider PA-C ??? dextrose (D10W) 10% bolus 125 mL 125 mL Intravenous PRN Zulay Rider PA-C Or ??? dextrose 50 % injection 25 mL Intravenous PRN Zulay Rider PA-C Or ??? dextrose (D10W) 10% bolus 250 mL 250 mL Intravenous PRN Zulay Rider PA-C Or ??? dextrose 50 % injection 50 mL Intravenous PRN Zulay Rider PA-C Or ??? glucagon (human recombinant) injection 1 mg 1 mg Intramuscular PRN Zulay Rider PA-C ??? enalaprilat (VASOTEC) injection 1.25 mg 1.25 mg Intravenous Q6H Zulay Rider PA-C ??? heparin (porcine) injection 5,000 Units 5,000 Units Subcutaneous Q8H Zulay Rider PA-C ??? HYDROmorphone (DILAUDID) injection 0.5 mg 0.5 mg Intravenous Q3H PRN Zulay Rider PA-C ??? HYDROmorphone (DILAUDID) injection 1 mg 1 mg Intravenous Q3H PRN Zulay Rider PA-C ??? [START ON 10/17/2019] insulin regular (HumuLIN R,NovoLIN R) 100 UNIT/ML injection 2-12 Units 2-12 Units Subcutaneous 4 times per day Zulay Rider PA-C ??? lactated ringers infusion 125 mL/hr Intravenous Continuous Zulay Rider PA-C ??? metroNIDAZOLE (FLAGYL) IVPB 500 mg 500 mg Intravenous Q8H Zulay Rider PA-C ??? ondansetron (ZOFRAN) injection 4 mg 4 mg Intravenous Q6H PRN Zulay Rider PA-C ??? [START ON 10/17/2019] pantoprazole (PROTONIX) injection 40 mg 40 mg Intravenous Daily Zulay Rider PA-C Current Outpatient Medications Medication Sig Dispense Refill ??? aspirin EC 81 MG tablet Take [...] D PO) Take by mouth daily. ??? [place]-3 Fatty Acids (OMEGA 3 PO) Take by [...] INTESTINAL SMOOTH AND BUILD: 2 TABS BID Functional Status: Independent in ADL's: yes Assistive Devices:no Diet: Regular Review of Systems: Constitutional: Positive for chills. Negative for diaphoresis and fevers. Respiratory: Negative for cough and dyspnea. Cardiovascular: Negative for chest pain, irregular heart beat and swelling of lower extremities. Gastrointestinal: Positive for abdominal cramping. Negative for bloating, constipation and vomiting. Vitals: Ht / Wt: There were no vitals filed for this visit. Physical Exam: General: Awake and alert, NAD Lungs: Clear bilaterally Heart: RRR Abdomen: Hypoactive bowel sounds, obese, soft with tenderness in the lower abdomen without any guarding or rebound. Extremities: No edema Neuro: Grossly intact Labs: pending EKG: No results found for this or any previous visit (from the past 75568 hour(s)). Problem List: Patient Active Problem List Diagnosis [...] Colon cancer (HCC) MALIGNANT TUMOR OF COLON Assessment / Plan: 79-year-old female with history of ulcerative colitis now 6 weeks s/p laparoscopic hand-assisted right hemicolectomy with lysis of adhesions for colon cancer, now admitted with a 1 day history of abdominal cramping and a CT scan significant for descending colon colitis. We will admit her and keep her n.p.o. She will be treated with IV Rocephin and Flagyl. Check labs including repeat lactic acid COVID testing Discussed with Dr. Weber for Dr. Orourke. Judi Olivia PA-C Department of Surgery Colorectal Surgery Pager: [phone] documented in this encounter Miscellaneous Notes Plan of Care - Julianna Christensen RN - 10/18/2019 12:13 PM EDT Problem: Acute Pain: Goal: Pain level will decrease Outcome: Progressing Problem: Interprofessional Rounds: Goal: Patient/caregiver collaborates in the IPR process in person or with master steam yacht Outcome: Progressing Problem: Infection Management: Goal: Signs and symptoms of infection will decrease Outcome: Progressing Problem: Body Nutrition Deficit: Goal: Consumption of the prescribed amount of daily calories will improve Outcome: Progressing Goal: Achievement of adequate weight for body size and type will improve Outcome: Progressing Comments: Patient alert and oriented. SR on monitor. Denies SOB on room air. Advanced to low fiber diet. Denies N/V. Had BM today. [place] precautions in place. Awaiting discharge planning. See [facility] for full assessments. Will continue to monitor. Julianna Christensen RN Discharge order placed. Discharge instructions discussed with patient with verbal understanding. IV discontinued per protocol. Prescriptions sent to pharmacy for pick-up upon discharge. Belongings and medications reviewed and paperwork signed. Patient left via hospital transport in no visibile distress. See [facility] for full assessment. Julianna Christensen RN lan of Amairani Taylor RN - 10/17/2019 11:46 PM EDT Problem: Acute Pain: Goal: Pain level will decrease Outcome: Progressing Tylenol added for WORTHY with good effect Problem: Infection Management: Goal: Signs and symptoms of infection will decrease Outcome: Progressing Afebrile, continues on IV abx, advanced to clears, Problem: Body Nutrition Deficit: Goal: Consumption of the prescribed amount of daily calories will improve Outcome: Progressing Tolerating clear liquids Goal: Knowledge of the prescribed therapeutic regimen will improve Outcome: Progressing Comments: SR, VSS on RA, afebrile. Tolerating clears, See [facility] for full asmt and further details, Amairani Becerra RN 10/17/2019 lan of Darrel - Nilam Mckeon PA-C - 10/17/2019 6:02 PM EDT Patient seen this afternoon for PM rounds. Patient had expressed wishes to change her code status toDNR/DNI. I saw her with Yessenia Trevino APRN. Patient states clearly and with sound mind/reasoning that she does not want CPR, does not want to be intubated, and does not want to be on a ventilator if clinical situation warranted the need to. She understands that she is able to change her mind at any time. She understands that this is going to be documented in the medical record. She is comfortable and happy with her decision at this time. Nilam Mckeon PA-C Colorectal Surgery Pager [phone] lan of Leatha Bradshaw, RN - 10/17/2019 2:21 PM EDT Problem: Acute Pain: Goal: Pain level will decrease Outcome: Progressing Pt denies having pain. Comments: NSR on monitor. Pt continues with sbps in the 170s despite getting her scheduled vasotec. Colorectal team aware and 5mg IV lopressor ordered and given. Diet advanced to clears- pt is tolerating it without issues. WCTM. See [facility] for full assessment. Leatha Seguran lan of Michelle Galo, AIXA - 10/17/2019 3:53 AM EDT Problem: Acute Pain: Goal: Pain level will decrease Outcome: Progressing Pt denies any chest , SOB or discomfort Problem: Interprofessional Rounds: Goal: Patient/caregiver collaborates in the IPR process in person or with master steam yacht Outcome: Progressing Discharge plan ongoing Comments: Patient A/OX4, standby assist with ADL's. No c/o of chest pain, SOB or dizziness. Verbalized understanding of plan of care. VSS, NS on telemetry. Discharge planing cont. Safety and fall precautions maintained. Pt continues on LR infusing @ 125ml/hr. COVID swabbed , resulted negative, Mg+ 1.5, 3 gm replacement ordered. Droplet and contact precautions in place. Will cont to monitor per floor protocol. Michelle Reyes, RN documented in this encounter Plan of Treatment Not on filedocumented as of this encounter Procedures Procedure Name Priority Date/Time Associated Comments Diagnosis FELT PAD CUTTER DATA 10/18/2019 3:00 STRIPS PM EDT GLUCOSE, POCT Routine 10/18/2019 11:52 Results fo r this AM EDT procedure are i n the results section. GLUCOSE, POCT Routine 10/18/2019 8:25 Results fo r this AM EDT procedure are i n the results section. BASIC METABOLIC Routine 10/18/2019 7:42 Results for this PANEL-RANDOM AM EDT procedure are i n the results section. FELT PAD CUTTER DATA 10/18/2019 7:10 STRIPS AM EDT GLUCOSE, POCT Routine 10/18/2019 6:07 Results fo r this AM EDT procedure are i n the results section. FELT PAD CUTTER DATA 10/18/2019 12:07 STRIPS AM EDT GLUCOSE, POCT Routine 10/17/2019 10:12 Results fo r this PM EDT procedure are i n the results section. GLUCOSE, POCT Routine 10/17/2019 5:29 Results fo r this PM EDT procedure are i n the results section. FELT PAD CUTTER DATA 10/17/2019 4:02 STRIPS PM EDT GLUCOSE, POCT Routine 10/17/2019 12:01 Results fo r this PM EDT procedure are i n the results section. ECG 12-LEAD Routine 10/17/2019 9:21 Results for this AM EDT procedure are i n the results section. CBC WITHOUT Routine 10/17/2019 7:47 Results for this DIFFERENTIAL AM EDT procedure are i n the results section. BASIC METABOLIC Routine 10/17/2019 7:47 Results for this PANEL-FASTING AM EDT procedure are in the results section. MAGNESIUM Routine 10/17/2019 7:47 Results for this AM EDT procedure are i n the results section. FELT PAD CUTTER DATA 10/17/2019 7:29 STRIPS AM EDT GLUCOSE, POCT Routine 10/17/2019 5:51 Results fo r this AM EDT procedure are i n the results section. COVID-19 (STAT) Routine 10/17/2019 2:41 Results for this INPATIENT/ED AM EDT procedure are i n the results section. PT/INR Routine 10/17/2019 12:00 Results for this AM EDT procedure are i n the results section. CBC W/AUTO Routine 10/17/2019 12:00 Results for this DIFFERENTIAL AM EDT procedure are i n the results section. BASIC METABOLIC Routine 10/17/2019 12:00 Results for this PANEL-RANDOM AM EDT procedure are i n the results section. MAGNESIUM Routine 10/17/2019 12:00 Results for this AM EDT procedure are i n the results section. LACTIC ACID STAT 10/17/2019 12:00 Results for this AM EDT procedure are i n the results section. GLUCOSE, POCT Routine 10/16/2019 11:52 Results fo r this PM EDT procedure are i n the results section. FELT PAD CUTTER DATA 10/16/2019 11:27 STRIPS PM EDT documented in this encounter Results FELT PAD CUTTER DATA STRIPS (10/18/2019 3:00 PM EDT) Specimen Narrative This result has an attachment that is no t available. Glucose, Poct (10/18/2019 11:52 AM EDT) Glucose, POCT 166Comment: 70 - 199 COLLABORATIVE Fasting Reference mg/dL LABORATORY SERVICES Range: 70-99 mg/dL Specimen Performing Organization Address [facility] Phon e Number [facility] LABORATORY [address] [place] [address] SERVICES (CLIA #[id number]) (CL-0623) Glucose, Poct (10/18/2019 8:25 AM EDT) Glucose, POCT 127Comment: 70 - 199 COLLABORATIVE Fasting Reference mg/dL LABORATORY SERVICES Range: 70-99 mg/dL Specimen Performing Organization Address [facility] Phon e Number [facility] [address] [place] [address] SERVICES (CLIA #[id number]) (CL-0623) Basic Metabolic Panel-Random (10/18/2019 7:42 AM EDT) BUN 12 7 - 17 mg/dL [facility] LABORATORY SERVICES Creatinine, Blood 0.8 0.5 - 1.0 COLLABORATIVE mg/dL LABORATORY SERVICES Glomerular >60.0Comment: MDRD >60.0 COLLABORATIVE Filtration Rate, in mL/min/1.73 sq LABORATORY SERVICES Estimated meters. For Americans, multiply by 1.21. Sodium 140 135 - 145 COLLABORATIVE mmol/L LABORATORY SERVICES Potassium 4.0 3.5 - 5.1 COLLABORATIVE mmol/L LABORATORY SERVICES Chloride 108 (H) 98 - 107 COLLABORATIVE mmol/L LABORATORY SERVICES Carbon dioxide 23 (L) 24 - 32 COLLABORATIVE mmol/L LABORATORY SERVICES Glucose, Random 130 70 - 199 COLLABORATIVE mg/dL LABORATORY SERVICES Calcium 8.9 8.4 - 10.2 COLLABORATIVE Comment: mg/dL LABORATORY SERVICES Performed at [address] [address] Jonathon Valle Jr, MD Director CLIA [id number] ??CL 0623 Specimen Performing Organization Address [facility] Phon e Number [facility] [address] [place] [address] SERVICES (CLIA #[id number]) (CL-0623) FELT PAD CUTTER DATA STRIPS (10/18/2019 7:10 AM EDT) Specimen Narrative This result has an attachment that is no t available. Glucose, Poct (10/18/2019 6:07 AM EDT) Glucose, POCT 116Comment: 70 - 199 COLLABORATIVE Fasting Reference mg/dL LABORATORY SERVICES Range: 70-99 mg/dL Specimen Performing Organization Address City/[facility] Phon e Number [facility] [address] [place] [address] SERVICES (CLIA #[id number]) (CL-0623) FELT PAD CUTTER DATA STRIPS (10/18/2019 12:07 AM EDT) Specimen Narrative This result has an attachment that is no t available. Glucose, Poct (10/17/2019 10:12 PM EDT) Glucose, POCT 101Comment: 70 - 199 COLLABORATIVE Fasting Reference mg/dL LABORATORY SERVICES Range: 70-99 mg/dL Specimen Performing Organization Address [facility] Phon e Number [facility] [address] [place] [address] SERVICES (CLIA #[id number]) (CL-0623) Glucose, Poct (10/17/2019 5:29 PM EDT) Glucose, POCT 80Comment: Fasting 70 - 199 COLLABORATIVE Reference Range: mg/dL LABORATORY SERVICES 70-99 mg/dL Specimen Performing Organization Address [facility] Phon e Number [facility] [address] [place] [address] SERVICES (CLIA #[id number]) (CL-0623) FELT PAD CUTTER DATA STRIPS (10/17/2019 4:02 PM EDT) Specimen Narrative This result has an attachment that is no t available. Glucose, Poct (10/17/2019 12:01 PM EDT) Glucose, POCT 91Comment: Fasting 70 - 199 COLLABORATIVE Reference Range: mg/dL LABORATORY SERVICES 70-99 mg/dL Specimen Performing Organization Address [facility] Phon e Number [facility] [address] [place] [address] SERVICES (CLIA #[id number]) (CL-0623) ECG 12 lead (10/17/2019 9:21 AM EDT) Pathologist Sig nature Ventricular Rate ECG/Min 72 BPM GE MUSE Atrial Rate 72 BPM GE MUSE MN-Interval 190 ms GE MUSE QRS-Interval 92 ms GE MUSE QT-Interval 438 ms GE MUSE QTc 479 ms GE MUSE P Hunt 26 degrees GE MUSE R Hunt -23 degrees GE MUSE T Hunt 50 degrees GE MUSE Specimen Narrative GE MUSE - 10/17/2019 9:21 AM EDT Normal sinus rhythm Normal ECG No previous ECGs available Confirmed by Mark Duran ([id number]) on 3:29:22 PM Performing Organization Address City/[facility] Code Phon e Number GE MUSE Magnesium (10/17/2019 7:47 AM EDT) Magnesium 2.0 1.7 - 2.8 COLLABORATIVE Comment: mg/dL LABORATORY SERVICES [place] [address] Jonathon Valle Jr, MD Director [place] [id number] ??CL 0623 Specimen Performing Organization Address City/[facility] Phon e Number [facility] [address] [place] [address] SERVICES (CLIA #[id number]) (CL-0623) Basic Metabolic Panel-Fasting (Na, K, Cl, CO2, Gluc, BUN, Crea, GFR, Ivan) (10/17/2019 7:47 AM EDT) BUN 20 (H) 7 - 17 mg/dL [facility] SERVICES Creatinine, Blood 0.8 0.5 - 1.0 COLLABORATIVE mg/dL LABORATORY SERVICES Glomerular >60.0Comment: MDRD >60.0 COLLABORATIVE Filtration Rate, in mL/min/1.73 sq LABORATORY SERVICES Estimated meters. For Americans, multiply by 1.21. Sodium 139 135 - 145 COLLABORATIVE mmol/L LABORATORY SERVICES Potassium 3.9 3.5 - 5.1 COLLABORATIVE mmol/L LABORATORY SERVICES Chloride 108 (H) 98 - 107 COLLABORATIVE mmol/L LABORATORY SERVICES Carbon dioxide 20 (L) 24 - 32 COLLABORATIVE mmol/L LABORATORY SERVICES Glucose, Fasting 108 (H) 70 - 99 COLLABORATIVE mg/dL LABORATORY SERVICES Calcium 8.5 8.4 - 10.2 COLLABORATIVE Comment: mg/dL LABORATORY SERVICES Performed at [address] [address] Jonathon Valle Jr, MD Director NICKIA [id number] ??CL 0623 Specimen Performing Organization Address [facility] Phon e Number [facility] [address] [place] [address] SERVICES (CLIA #[id number]) (CL-0623) CBC Without Differential (10/17/2019 7:47 AM EDT) Pathologist [facility] WBC 4.5 4.0 - 10.5 COLLABORATIVE K/uL LABORATORY SERVICES RBC 3.33 (L) 4.2 - 5.4 M/uL [facility] LABORATORY SERVICES Hemoglobin 11.0 (L) 12.5 - 16.0 COLLABORATIVE g/dL LABORATORY SERVICES Hematocrit 30.8 (L) 37 - 47 % [facility] LAB[facility] SERVICES MCV 92.6 78 - 100 fL [facility] SERVICES MCH 32.9 25 - 33 pg [facility] LABORATORY SERVICES MCHC 35.5 32 - 36 g/dL [facility] LAB[facility]AT[facility] SERVICES RDW 13.9 12.1 - 16.2 % [facility] LABORATORY SERVICES Platelets 208 150 - 450 K/uL [facility] LABORATORY SERVICES MPV 8.9 7.4 - 11.4 fL COLLABORATIVE Comment: LABORATORY SERVICES Performed at [address] [address] Jonathon Valle Jr, MD Director CLIA [id number] ??CL 0623 Specimen Performing Organization Address [facility] Phon e Number [facility] [address] [place] [address] SERVICES (CLIA #[id number]) (CL-0623) FELT PAD CUTTER DATA STRIPS (10/17/2019 7:29 AM EDT) Specimen Narrative This result has an attachment that is no t available. Glucose, Poct (10/17/2019 5:51 AM EDT) Pathologist [facility] Glucose, POCT 84Comment: Fasting 70 - 199 COLLABORATIVE Reference Range: mg/dL LABORATORY SERVICES 70-99 mg/dL Specimen Performing Organization Address [facility] Phon e Number [facility] [address] [place] [address] SERVICES (CLIA #[id number]) (CL-0623) COVID-19 (STAT) (10/17/2019 2:41 AM EDT) Source NASOPHARYNGEAL [facility] SERVICES Performing Lab Performed at [facility], [facility] [place] [address] Comment: (CLIA [id number] CL-0623) Methodology [employer] [facility] LABORATORY SERVICES SARS CoV-2 RNA Not Detected NDET COLLABORATIVE Comment: LABORATORY SERVICES Testing was performed using the Direct Access Software Respirat ory 2.1 Panel with SARS-CoV-2 test. https://docs.Sawerly/w p-content/uploads/[email or web address]-WO6.7-IRU-Vvuvbqj-Fa ct-Sheet-1.pdf https://www.fda.gov/media/885467/download <<NOTE>> Negative results do not preclude SARS COV-2 test infec tion and should not be used as a sole basis for treatment or other pat ient management decisions. ??Negative results must be combined with cl inical observation, patient history, and epidemiological info rmation. ?? This test has been authorized by FDA under an emergenc y use authorization (EUA). ??This EUA will cease to be effec tive when declared by [facility] that circumstances exist to justify it s termination under section 564 (B) (2) of the Federal Food, Drug, a nd Cosmetic Act (the Act)21 U.S.C. 360bbb-30, ??or when the EUA is rev oked under section 564 (G) of the Act. [place] [address] Jonathon Valle Jr, MD Director KAREN [id number] ??CL 0623 Specimen Performing Organization Address City/State/ZIP Code Phon e Number [facility] [address] [place] [address] SERVICES (CLIA #[id number]) (CL-0623) Lactic Acid (10/17/2019 12:00 AM EDT) Lactic Acid 1.7 0.5 - 2.2 COLLABORATIVE Comment: mmol/L LABORATORY SERVICES Performed at [address] [address] Jonathon Valle Jr, MD Director [place] [id number] ??CL 0623 Specimen Performing Organization Address [facility] Phon e Number [facility] [address] [place] [address] SERVICES (CLIA #[id number]) (CL-0623) PT/INR (10/17/2019 12:00 AM EDT) PT (Prothrombin 11.2 10.5 - 13.3 COLLABORATIVE Time) sec LABORATORY SERVICES INR 1.0 0.8 - 1.1 COLLABORATIVE Comment: LABORATORY SERVICES Standard dose therapy: ??2.0-3.0 High dose therapy: ?2.5-3.5 Ranges may vary depending on clinical indications and protocol. [place] [address] Jonathon Valle Jr, MD Director [place] [id number] ??CL 0623 Specimen Performing Organization Address [facility] Phon e Number [facility] [address] [place], [place] [phone] SERVICES (CLIA #[id number]) (CL-0623) Magnesium (10/17/2019 12:00 AM EDT) Pathologist [facility] Magnesium 1.5 (L) 1.7 - 2.8 COLLABORATIVE Comment: mg/dL LABORATORY SERVICES [place] [address] Jonathon Valle Jr, MD Director [place] [id number] ??CL 0623 Specimen Performing Organization Address [facility] Phon e Number [facility] [address] [place] [address] SERVICES (CLIA #[id number]) (CL-0623) Basic Metabolic Panel-Random (10/17/2019 12:00 AM EDT) BUN 26 (H) 7 - 17 mg/dL [facility] LAB[facility]ATORY SERVICES Creatinine, Blood 0.8 0.5 - 1.0 COLLABORATIVE mg/dL LABORATORY SERVICES Glomerular >60.0Comment: MDRD >60.0 COLLABORATIVE Filtration Rate, in mL/min/1.73 sq LABORATORY SERVICES Estimated meters. For Americans, multiply by 1.21. Sodium 138 135 - 145 COLLABORATIVE mmol/L LABORATORY SERVICES Potassium 4.0 3.5 - 5.1 COLLABORATIVE mmol/L LABORATORY SERVICES Chloride 109 (H) 98 - 107 COLLABORATIVE mmol/L LABORATORY SERVICES Carbon dioxide 20 (L) 24 - 32 COLLABORATIVE mmol/L LABORATORY SERVICES Glucose, Random 92 70 - 199 COLLABORATIVE mg/dL LABORATORY SERVICES Calcium 8.3 (L) 8.4 - 10.2 COLLABORATIVE Comment: mg/dL LABORATORY SERVICES Performed at [address] [address] Jonathon Valle Jr, MD Director [facility] [id number] ??CL 0623 Specimen Performing Organization Address City/State/ZIP Code Phon e Number [facility] [address] [place] [address] SERVICES (CLIA #[id number]) (CL-0623) CBC With Auto Differential (10/17/2019 12:00 AM EDT) WBC 5.5 4.0 - 10.5 COLLABORATIVE K/uL LABORATORY SERVICES RBC 3.41 (L) 4.2 - 5.4 COLLABORATIVE M/uL LABORATORY SERVICES Hemoglobin 11.0 (L) 12.5 - 16.0 COLLABORATIVE g/dL LABORATORY SERVICES Hematocrit 32.0 (L) 37 - 47 % [facility]IVE LABORATORY SERVICES MCV 93.9 78 - 100 fL [facility] LABORATORY SERVICES MCH 32.3 25 - 33 pg CO[facility]AT[facility] LABORATORY SERVICES MCHC 34.4 32 - 36 g/dL [facility] LABORATORY SERVICES RDW 13.6 12.1 - 16.2 COLLABORATIVE % LABORATORY SERVICES Platelets 207 150 - 450 COLLABORATIVE K/uL LABORATORY SERVICES MPV 8.8 7.4 - 11.4 COLLABORATIVE fL LABORATORY SERVICES Differential Type AUTOMATED [facility] LABORATORY SERVICES Neutrophils 57.6 44 - 74 % CO[facility]ATIVE LABORATORY SERVICES Lymphocytes 32.6 20 - 48 % [facility] LABORATORY SERVICES Monocytes 8.9 2 - 12 % [facility]IVE LABORATORY SERVICES Eosinophils 0.5 0 - 6 % [facility]IVE LABORATORY SERVICES Basophils 0.4 0 - 2 % COLL[facility]ATIVE LABORATORY SERVICES Neutrophils, 3.2 1.8 - 7.8 COLLABORATIVE Absolute K/uL LABORATORY SERVICES Lymphocytes 1.8 1.0 - 3.2 COLLABORATIVE Absolute K/uL LABORATORY SERVICES Monocytes Absolute 0.5 0.0 - 0.8 COLLABORATIVE K/uL LABORATORY SERVICES Eosinophils, 0.0 0.0 - 0.5 COLLABORATIVE Absolute K/uL LABORATORY SERVICES Basophils Absolute 0.0 0.0 - 0.2 COLLABORATIVE Comment: K/uL LABORATORY SERVICES Performed at [facility] [address] [place] [address] Jonathon Valle Jr, MD Director KAREN [id number] ??CL 0623 Specimen Performing Organization Address City/[facility] Phon e Number [facility] [address] [place] [address] SERVICES (CLIA #[id number]) (CL-0623) Glucose, Poct (10/16/2019 11:52 PM EDT) [facility] Glucose, POCT 82Comment: Fasting 70 - 199 COLLABORATIVE Reference Range: mg/dL LABORATORY SERVICES 70-99 mg/dL Specimen Performing Organization Address [facility] Phon e Number [facility] [address] [place] [address] SERVICES (CLIA #[id number]) (CL-0623) FELT PAD CUTTER DATA STRIPS (10/16/2019 11:27 PM EDT) Specimen Narrative This result has an attachment that is no t available. documented in this encounter Visit Diagnoses Not on filedocumented in this encounter Administered Medications Inactive Administered Medications - up to 3 most recent administrations Medication Order MAR Action Action Date Dose Rate Site acetaminophen (TYLENOL) tablet Given 10/17/2019 8:35 PM EDT 650 mg 650 mg 650 mg, Oral, Every 6 hours PRN, headaches, Starting on [place] 10/17/19 at 1959 aspirin EC tablet 81 mg Given 10/18/2019 8:47 AM EDT 81 mg 81 mg, Oral, Daily, First dose on Mon10/18/19 at 0900 calcium carbonate (TUMS) chewable tablet 500 Given 11:08 AM EDT 500 mg mg 500 mg, Oral, Every 4 hours PRN, indigestion, heartburn, Starting on [place] 10/17/19 at 0101 Given 10/18/2019 2:04 AM EDT 500 mg Given 10/17/2019 8:27 AM EDT 500 mg cefTRIAXone (ROCEPHIN) injection 1,000 m g Given 10/17/2019 8:35 PM EDT 1,000 mg 1,000 mg, Intravenous, Every 24 hours, First dose on Mon10/16/19 at 2215, If ordered IV then reconstitute with 10 mL sterile water or normal saline and administer IV push over 3 to 5 minutes. Given 10/16/2019 11:51 PM EDT 1,000 mg dextrose (D10W) 10% bolus 125 mL 125 mL, Intravenous, Administer over 10 Minutes, at 750 mL/hr, As needed, low blood sugar, Starting on Mon10/16/19 at 2203, Hypoglycemia defined as FSG<70mg/dl. Use for responsive patients WITH IV access AND unable to tolerate PO Contact the provider Re-check FSG in 15 minutes and Follow hypoglycemia protocol --Nursing: Add and document on Hypoglycemia Flowsheet dextrose (D10W) 10% bolus 250 mL 250 mL, Intravenous, Administer over 10 Minutes, at 1, 500 mL/hr, As needed, low blood sugar, Starting on Mon10/16/19 at 2203, Hypoglycemia defined as FSG<70mg/dl. Use for UNresponsive patients WITH IV a ccess Contact the provider Re-check FSG in 15 minutes and Follow hypoglycemia protocol --Nursing: Add and document on Hypoglycemia Flowsheet dextrose 50 % injection 25 mL, Intravenous, As needed, low blood sugar, Starting on Mon10/16/19 at 2203, Hypoglycemia defined as FSG<70mg/dl. Use for responsive patients WITH IV access AND unable to tolerate PO Contact the provider Re-chec k FSG in 15 minutes and Follow hypoglycemia protocol --Nursing: Add and document on Hypoglycemia Flowsheet dextrose 50 % injection 50 mL, Intravenous, As needed, low blood sugar, Starting on Mon10/16/19 at 2203, Hypoglycemia defined as FSG<70mg/dl. Use for UNresponsive patients WITH IV access Contact the provider Re-check FSG in 15 minutes and Follow hypoglycemia protocol --Nursing: Add and document on Hypoglycemia Flowsheet enalaprilat (VASOTEC) injection 1.25 mg New Bag 10/18/2019 2:05 AM EDT 1.25 mg 1.25 mg, Intravenous, Every 6 hours, First dose on Mon10/16/19 at 2215, Hold for sbp <110 Mix in 10 mls NS and infuse slowly over 5 minutes New Bag 10/17/2019 8:35 PM EDT 1.25 mg New Bag 10/17/2019 12:39 PM EDT 1.25 mg glucagon (human recombinant) injection 1 mg 1 mg, Intramuscular, As needed, low bloo d sugar, Starting on Mon10/16/19 at 2203, Hypoglycemia defined as FSG<70mg/dl. Use for patients WITHOUT IV access AND unable to tolerate PO Contact the provid er Re-check FSG in 15 minutes and Follow hypoglycemia protocol --Nursing: Add and document on H ypoglycemia Flowsheet Reconstitute with 1 mL sterile water for injection or normal saline. heparin (porcine) injection 5,000 Units Given 10/18/2019 12:10 PM EDT 5,000 Units 5,000 Units, Subcutaneous, Every 8 hours, First dose on Mon10/16/19 at 2215, If CrCL less than 30 use subcut Heparin Given 10/18/2019 6:33 AM EDT 5,000 Units Given 10/17/2019 8:35 PM EDT 5,000 Units hydroCHLOROthiazide (HYDRODIURIL) tablet 25 Given 10/18/2019 8:47 AM EDT 25 mg mg 25 mg, Oral, Daily, First dose on Mon10/18/19 at 0900 insulin glargine (LANTUS) injection 10 Given 10/18/2019 8:47 AM EDT 10 Units Units 10 Units, Subcutaneous, Every 12 hours scheduled (2 times per day), First dose on Mon10/17/19 at 0900 Given 10/17/2019 10:15 PM EDT 10 Units insulin lispro (HumaLOG) injection 15 Given 10/18/2019 12:10 PM EDT 15 Units Units 15 Units, Subcutaneous, 3 times daily with meals, First dose on Mon10/18/19 at 0815 Given 10/18/2019 8:47 AM EDT 15 Units insulin regular (HumuLIN R,NovoLIN R) 100 UNIT/ML Given 10/18/19 20 2 Units injection 2-12 Units 12:10 PM EDT 2-12 Units, Subcutaneous, 3 times daily before meals, First dose on Mon10/18/19 at 0815, MEDIUM CORRECTIONAL DOSE Usual starting dose or insulin TDD 43-84 units Blood Glucose Dose in Units BG 140-179 Give 2 units BG 180-219 Give 4 units BG 220-259 Give 6 units BG 260-299 Give 8 units BG 300-339 Give 10 units BG greater than 340 Give 12 and call insulin regular (HumuLIN R,NovoLIN R) 10 0 UNIT/ML injection 2-4 Units 2-4 Units, Subcutaneous, Every Night at Bedtime, First dose on Mon10/18/19 at 2200, MEDIUM CORRECTIONAL DOSE Usual starting dose or insulin TDD 43-84 units Blood Glucose Dose in Units BG 260-299 Give 0 units BG 300-340 Give 2 units BG greater than 340 Give 4 and call lactated ringers infusion New Bag 10/17/2019 12:45 PM EDT 100 mL/hr 100 mL/hr 100 mL/hr, Intravenous, Continuous, Starting on Mon10/16/19 at 2215 New 10/17/2019 5:33 AM EDT 100 mL/hr 100 mL/hr Rate/Dose Change 10/17/2019 4:38 AM EDT 100 mL/hr 100 mL/hr lisinopril (PRINIVIL,ZESTRIL) tablet 20 mg Given 10/18/2019 8:47 AM EDT 20 mg 20 mg, Oral, Daily, First dose on Mon10/18/19 at 0900 magnesium sulfate 1g/100 mL D5W New Bag 10/17/2019 9:52 AM EDT 1 g 100 mL/hr premix IVPB 1 g, Intravenous, Administer over 60 Minutes, Every 2 hours, First dose on Mon10/17/19 at 0600, For 3 doses, at 100 mL/hr 10/17/2019 8:28 AM EDT 1 g 100 mL/hr 10/17/2019 6:48 AM EDT 1 g 100 mL/hr melatonin 3 MG tablet 3 mg Given 10/17/2019 1:10 AM EDT 3 mg 3 mg, Oral, Every Night at Bedtime PRN, sleep, Starting on Mon10/17/19 at 0008 metoprolol tartrate (LOPRESSOR) injectio n 5 mg Given 10/17/2019 1:48 PM EDT 5 mg 5 mg, Intravenous, Once, On Mon10/17/19 at 1215, For 1 dose metroNIDAZOLE (FLAGYL) IVPB 500 mg 10/18/2019 6:33 AM EDT 500 mg 100 mL/hr 500 mg, Intravenous, Administer over 60 Minutes, Every 8 hours, First dose on Mon10/16/19 at 2215 10/17/2019 8:35 PM EDT 500 mg 100 mL/hr 10/17/2019 1:48 PM EDT 500 mg 100 mL/hr ondansetron (ZOFRAN) injection 4 mg 4 mg, Intravenous, Every 6 hours PRN, na usea, vomiting, Starting on Mon10/16/19 at 2159 oxyCODONE (ROXICODONE) 5 MG immediate re lease tablet 5 mg 5 mg, Oral, Every 4 hours PRN, severe pa in (7-10), Starting on Mon10/18/19 at 0801 pantoprazole (PROTONIX) 40 MG EC tablet 40 mg Given 10/18/2019 8:47 AM EDT 40 mg 40 mg, Oral, 2 times daily, First dose on Mon10/18/19 at 0900, Please select an indication: GERD, Is this a home medication or a new start? Home Medication pantoprazole (PROTONIX) injection 40 mg Given 10/17/2019 8:21 AM EDT 40 mg 40 mg, Intravenous, Daily, First dose on Mon10/17/19 at 0900, Please select an indication: GERD, Is this a home medication or a new start? Home Medication documented in this encounter Active and Recently Administered Medications Times are shown in EDT. Scheduled Medication Order 10/16/2019 10/17/2019 10/18/2019 aspirin EC tablet 81 mg 0847 (Gi nidia - Provider: Julianna Christensen, AIXA) 81 mg, Oral, Daily, First dose on Mon10/18/19 at 0900 cefTRIAXone (ROCEPHIN) injection 1,000 mg 235 (Given - Provider: Sarina Burns, AIXA) 2034 (Given - Provider: Amairani Becerra, AIXA) 1,000 mg, Intravenous, Every 24 hours, F irst dose on Mon10/16/19 at 2215, If ordered IV then reconstitute with 10 mL sterile water or normal saline and administer IV push over 3 to 5 minutes. enalaprilat (VASOTEC) injection 1.25 mg (CANCELED) 0226 (New Bag - Provider: Michelle Reyes RN)0821 (New Bag - Provider: Leatha Noe, AIXA)1239 (New Bag - Provider: Leatha Noe, RN)2034 (New Bag - Provider: Amairani Becerra, AIXA) 0205 (New Bag - Provider: Amairani Becerra, AIXA)0730 (Not Given - Provider: Julianna Christensen RN - Reason: Other - Comment: new orders) 1.25 mg, Intravenous, Every 6 hours, Fir st dose on Mon10/16/19 at 2215, Hold for sbp <110 Mix in 10 mls NS and infuse slowly over 5 minutes heparin (porcine) injection 5,000 Units 235 (Given - Provider: Sarina Burns RN) 0530 (Given - Provider: Michelle Reyes RN) 1348 (Given - Provider: Leatha Noe, AIXA)2034 (Given - Provider: Amairani Becerra, AIXA) 0633 (Given - Provider: Amairani Becerra, AIXA)1210 (Given - Provider: Julianna Christensen, AIXA) 5,000 Units, Subcutaneous, Every 8 hours , First dose on Mon10/16/19 at 2215, If CrCL less than 30 use subcut Heparin hydroCHLOROthiazide (HYDRODIURIL) tablet 25 mg 0847 (Given - Provider: Julianna Christensen RN) 25 mg, Oral, Daily, First dose on Mon10/18/19 at 0900 insulin glargine (LANTUS) injection 10 Units 0827 (Not Given - Provider: Leatha Noe RN - Reason: Patient/family refused)2420 (Given - Provider: Amairani Becerra RN) 0847 (Given - Provider: Julianna Christensen RN) 10 Units, Subcutaneous, Every 12 hours s cheduled (2 times per day), First dose on [place] 10/17/19 at 0900 insulin lispro (HumaLOG) injection 15 Units 0847 (Given - Provider: Julianna Christensen RN)1210 (Given - Provider: Julianna Christensen RN)1700 (Due) 15 Units, Subcutaneous, 3 times daily wi th meals, First dose on Mon10/18/19 at 0815 insulin regular (HumuLIN R,NovoLIN R) 100 UNIT/ML injection 2-12 Units 0815 (Not Given - Provider: Julianna Christensen RN - Reason: Order parameters not met - Comment: fs [phone] (Given - Provider: Julianna Christensen RN - Comment: fs [phone] (Due) 2-12 Units, Subcutaneous, 3 times daily before meals, First dose on Mon10/18/19 at 0815, MEDIUM CORRECTIONAL DOSE Usual starting dose or insulin TDD 43-8 4 units Blood Glucose Dose in Units BG 140-179 Give 2 units BG 180-21 9 Give 4 units BG 220 -259 Give 6 units BG 260-299 Give 8 units BG 300-339 Give 10 units BG greater than 340 Give 12 and call MD insulin regular (HumuLIN R,NovoLIN R) 100 UNIT/ML injection 2-4 Units 2-4 Units, Subcutaneous, Every Night at Bedtime, First dose on Mon10/18/19 at 2200, MEDIUM CORRECTIONAL DOSE Usual starting dose or insulin TDD 43-84 u nits Blood Glucose Dose in Units BG 260-299 Give 0 units BG 300-340 Give 2 units BG greater than 340 Give 4 and call lisinopril (PRINIVIL,ZESTRIL) tablet 20 mg 0847 (Given - Provider: Julianna Christensen RN) 20 mg, Oral, Daily, First dose on Mon10/18/19 at 0900 magnesium sulfate 1g/100 mL D5W premix IVPB (COMPLETED) 0648 (New Bag - Provider: Michelle Reyes RN)0828 (New Bag - Provider: Leatha Noe RN)0952 (New Bag - Provider: Leatha Noe RN) 1 g, Intravenous, Administer over 60 Min utes, Every 2 hours, First dose on Mon10/17/19 at 0600, For 3 doses, at 100 mL/hr metoprolol tartrate (LOPRESSOR) injection 5 mg (COMPLETED) 1348 (Given - Provider: Leatha Noe RN) 5 mg, Intravenous, Once, Mon10/17/19 at 1215, For 1 dose metroNIDAZOLE (FLAGYL) IVPB 500 mg 0442 (New Bag - Pro vider: Sarina Burns RN) 0529 (New Bag - Provider: Libertad Lowe)1348 (New Bag - Provider: Leatha Noe RN)203 (New Bag - Provider: Amairani Becerra RN) 0633 (New Bag - Provider: Amairani Becerra RN)1415 (Due) 500 mg, Intravenous, Administer over 60 Minutes, Every 8 hours, First dose on Mon10/16/19 at 2215 pantoprazole (PROTONIX) 40 MG EC tablet 40 mg 0847 (Given - Provider: Julianna Christensen RN)1800 (Due) 40 mg, Oral, 2 times daily, First dose o n Mon10/18/19 at 0900, Please select an indication: GERD, Is this a home medication or a new start? Home Medication pantoprazole (PROTONIX) injection 40 mg 0821 (Given - Provider: Leatha Noe RN) 0900 (Not Given - Provider: Julianna mariee RN - Reason: Other - Comment: po order) 40 mg, Intravenous, Daily, First dose on Mon10/17/19 at 0900, Please select an indication: GERD, Is this a home medication or a new start? Home Medication pravastatin (PRAVACHOL) tablet 20 mg 20 mg, Oral, Every Night at Bedtime, First dose on Mon10/18/19 a t 2200 Continuous Medication Order 10/16/2019 10/17/2019 10/18/2019 lactated ringers infusion (CANCELED) 2343 (New Bag - P rovider: Sarina Burns RN) 0438 (Rate/Dose Change - Provider: Michelle Reyes RN)0533 (New Bag - Provider: Michelle Reyes RN)1245 (New Bag - Provider: Leatha Noe RN) 100 mL/hr, Intravenous, Continuous, Starting on Mon10/16/19 at 2 215 PRN Medication Order 10/16/2019 10/17/2019 10/18/2019 acetaminophen (TYLENOL) tablet 650 mg 20 35 (Given - Provider: Amairani Becerra, AIXA) 650 mg, Oral, Every 6 hours PRN, headaches, Starting on 10/16 at 1959 calcium carbonate (TUMS) chewable tablet 500 mg 0110 (Given - Provider: Hien Guzman RN)0827 (Given - Provider: Leatha Noe RN) 0204 (Given - Provider: Amairani Becerra RN)1108 (Given - Provider: Julianna Christensen RN) 500 mg, Oral, Every 4 hours PRN, indiges tion, heartburn, Starting on Mon10/17/19 at 0101 dextrose (D10W) 10% bolus 125 mL(Linked Group 1) 125 mL, Intravenous, Administer over 10 Minutes, at 750 mL/hr, As needed, low blood sugar, Starting on Mon10/16/19 at 2203, Hypoglycemia defined as FSG<70mg/dl. Use for responsive patients WITH IV access AND unable to tolerate PO Contact the provider Re-check FSG in 15 minutes and Follow hypoglycemia protocol --Nursing: Add and document on Hypoglycemia Flowsheet dextrose (D10W) 10% bolus 250 mL(Linked Group 1) 250 mL, Intravenous, Administer over 10 Minutes, at 1,500 mL/hr, As needed, low blood sugar, Starting on Mon10/16/19 at 2203, Hypoglycemia defined as FSG<70mg/dl. Use for UNresponsive patients WITH IV access Contact the provider Re-chec k FSG in 15 minutes and Follow hypoglycemia protocol --Nursing: Add and document on Hypoglycemia Flowsheet dextrose 50 % injection(Linked Group 1) 25 mL, Intravenous, As needed, low blood sugar, Starting on Mon10/16/19 at 2203, Hypoglycemia defined as FSG<70mg/dl. Use for responsive patients WITH IV access AND unable to tolerate PO Contact the provider Re-check FSG in 15 minutes and Follow hypoglycemia protocol --Nursing: Add and document on Hypoglycemia Flowsheet dextrose 50 % injection(Linked Group 1) 50 mL, Intravenous, As needed, low blood sugar, Starting on Mon10/16/19 at 2203, Hypoglycemia defined as FSG<70mg/dl. Use for UNresponsive patients WITH IV access Contact the provider Re-check FSG in 15 minutes and Follow hypoglycemia pr otocol --Nursing: Add and document on Hypoglycemia Flowsheet glucagon (human recombinant) injection 1 mg(Linked Group 1) 1 mg, Intramuscular, As needed, low bloo d sugar, Starting on Mon10/16/19 at 2203, Hypoglycemia defined as FSG<70mg/dl. Use for patients WITHOUT IV access AND unable to tolerate PO Contact the provi alonso Re-check FSG in 15 minutes and Follo w hypoglycemia protocol --Nursing: Add and document on Hypoglycemia Flowsheet Reconstitute with 1 mL sterile water for injection or normal saline. melatonin 3 MG tablet 3 mg 0110 (Given - Provide r: Hien Guzman RN) 3 mg, Oral, Every Night at Bedtime PRN, sleep, Starting on T 10/17/19 at 0008 ondansetron (ZOFRAN) injection 4 mg 4 mg, Intravenous, Every 6 hours PRN, na usea, vomiting, Starting on Mon10/16/19 at 2159 oxyCODONE (ROXICODONE) 5 MG immediate release tablet 5 mg 5 mg, Oral, Every 4 hours PRN, severe pa in (7-10), Starting on Mon10/18/19 at 0801 Linked Groups Order Group 1: dextrose (D10W) 10% bolus 125 mLJump to med 125 mL, Intravenous, Administer over 10 Minutes, at 750 mL/hr, As needed, low blood sugar, Starting on Mon10/16/19 at 2203
Hypoglycemia defined as FSG<70mg/dl. Use for responsi ve patients WITH IV access AN D unable to tolerate PO Contact the provider Re-check FSG in 15 minutes and Follow hypoglycemia protocol --Nursing: Add and document on Hypoglycemia Flowsheet
Or dextrose 50 % injectionJump to med 25 mL, Intravenous, As needed, low blood sugar, Starting on Mon10/16/19 at 2203
Hypoglycemia defined as FSG<70mg/dl. Use for responsive patients WITH IV acces s AND unable to tolerate PO Contact the provider Re-check FSG in 15 minutes and Follow hypoglycemia protocol --Nursing: Add and document on Hypoglycemia Flowsheet
Or dextrose (D10W) 10% bolus 250 mLJump to med 250 mL, Intravenous, Administer over 10 Minutes, at 1,500 mL/hr, As needed, low blood sugar, Starting on Mon10/16/19 at 2203
Hypoglycemia defined as FSG<70mg/dl. Use for UNresp onsive patients WITH IV acces s Contact the provider Re- check FSG in 15 minutes and Follow hypoglycemia protocol --Nursing: Add and document on Hypoglycemia Flowsheet
Or dextrose 50 % injectionJump to med 50 mL, Intravenous, As needed, low blood sugar, Starting on Mon10/16/19 at 2203
Hypoglycemia defined as FSG<70mg/dl. Use for UNresponsive patients WITH IV acc ess Contact the provider Re-c heck FSG in 15 minutes and Follow hypoglycemia protocol --Nursing: Add and document on Hypoglycemia Flowsheet
Or glucagon (human recombinant) injection 1 mgJump to med 1 mg, Intramuscular, As needed, low bloo d sugar, Starting on Mon10/16/19 at 2203
Hypoglycemia defined as FSG<70mg/dl. Use for patients WITHOUT &n bsp;IV access AND unable to tolerate PO& nbsp;Contact the provider Re-check FSG in 15 minutes and Follow hypoglycemia protocol --Nursing: Add and document on Hypoglycemia Flowsheet& amp;nbsp;Reconstitute with 1 mL sterile water for injection or normal saline.
documented in this encounter Care Teams Industrial Hygiene Manager Relationship Specialty Start Date End Date Donaldo Steward DO PCP - General Family Medicine 05/17/[address] [address] documented as of this encounter
--- OUTSIDE RECORDS SUMMARY | 2020-08-01 12:16 | XMS_ITS | Clinical Summary ---
:1940 Author Organization [facility] Address [address] [place] [address] Care Team Providers Name Role Phone PrasadBenjamin garcia Primary Care Provider Allergies Active Allergy Reactions Severity Noted Date Comments Acetazolamide Other (See Comments) 06/23/2015 Dry mo uth Clarithromycin 05/24/2018 Codeine Nausea And Vomiting 06/23/2015 Latex Rash Low 03/09/2015 Morphine 06/23/2015 Morphine And Related Nausea And Vomiting 03/09/2015 Sulfa Antibiotics 05/24/2018 Sulfamethazine Hives 03/09/2015 Tramadol Nausea And Vomiting 03/09/2015 Medications Medication Sig Dispensed Refills Start Date End Date Status Cholecalciferol (VITAMIN 2,000 Units 0 Active D-3 PO) daily. Vitamin D3 TABS Refills: 0 Active metFORMIN (GLUCOPHAGE-XR) 2 (two) times a 0 04/01/19 16 Active ER 24 hr tablet 500 mg day. pravastatin (PRAVACHOL) every night at 0 04/17/2015 Active tablet 20 mg bedtime. HUMALOG KWIKPEN 100 15 Units 3 0 06/19/2015 Active UNIT/ML injection (three) times a day. lisinopril 0 06/01/2015 Active (PRINIVIL,ZESTRIL) tablet 20 mg aspirin EC 81 MG tablet Take 81 mg by 0 Active mouth daily. Coenzyme Q10 (COQ10 PO) Take by mouth 2 0 Active (two) times a day. [place]-3 Fatty Acids Take by mouth. 0 Active (OMEGA 3 PO) pantoprazole (PROTONIX) 2 (two) times a 0 11/09/2018 Active 40 MG tablet day. LANTUS SOLOSTAR 100 INJECT 25 UNITS 0 05/08/2019 Active UNIT/ML injection UNDER THE SKIN AT BEDTIME Potassium 99 MG TABS Take by mouth 0 Active daily. Multiple Take by mouth 0 Active Minerals-Vitamins daily. (DOLOMITE PLUS VITAMINS A AND D PO) Probiotic Product Take by mouth 0 Active (PROBIOTIC DAILY PO) daily. hydroCHLOROthiazide Take 25 mg by 0 Active (HYDRODIURIL) tablet 25 mouth daily. mg Calcium Take by mouth. 0 Activ e Carb-Cholecalciferol (CALCIUM+D3 PO) UNABLE TO FIND 2 (two) times a 0 Active day. HISTA BLOCK: 2 TABS BID UNABLE TO FIND 2 (two) times a 0 Active day. INTESTINAL SMOOTH AND BUILD: 2 TABS BID hydroxychloroquine Take 1 tablet 90 tablet 2 12/20/2019 Active (PLAQUENIL) 200 MG tablet (200 mg total) by mouth every night at bedtime as needed. colchicine (MITIGARE) 0.6 TAKE 2 CAPSULES 30 capsule 0 021 Active MG capsule BY MOUTH ON DAY ONE WITH ONE CAPSULE BY MOUTH IN HOUR INTERVALS, THEN 2 CAPSULES DAILY FOR ONE DAY THEN TAKE ONE CAPSULE BY MOUTH EVERY DAY FOR 7 DAYS DIRECTED PER RESCUE PLAN Active Problems Problem Noted Date Encounter for ongoing osteoporosis therapy, bisphospho nates 12/29/2019 High risk medication use 12/29/2019 Colon cancer 09/04/2019 Chronic pain of both shoulders 11/27/2018 Iliotibial band syndrome of right side 10/19/2018 Other osteoporosis without current pathological fractu re 05/24/2018 Breast tenderness in female 04/06/2018 Ischemic colitis 05/19/2016 Lichen sclerosus of female genitalia 06/24/2015 Resolved Problems Problem Noted Date Resolved Date Encounter for routine gynecological examination 11/06/2015 04/06/2018 Vaginal itching 06/24/2015 04/06/2018 Family History Medical History Relation Name Comments Colon cancer Brother Cancer Brother lung No Sig Med Hx Brother Diabetes Father Heart disease Mother No Sig Med Hx Sister No Sig Med Hx Sister Breast cancer Neg Hx Ovarian cancer Neg Hx Uterine cancer Neg Hx Relation Name Status Comments Brother Brother Brother Alive Father Mother Sister Alive Sister Alive Social History Tobacco Use Types Packs/Day Years [...] file Not on file Not on file Last Filed Vital Signs Vital Sign Reading Time Taken Comments Blood Pressure 150/68 04/09/2020 11:00 AM EST Pulse 95 04/09/2020 11:00 AM EST Temperature 36.2 ??C (97.2 ??F) 04/09/2020 11:00 AM EST Respiratory Rate 20 04/09/2020 11:00 AM EST Oxygen Saturation 96% 04/09/2020 11:00 AM EST Inhaled Oxygen Concentration - - Weight 71.7 kg (158 lb) 04/09/2020 11:00 AM EST Height 154.9 cm (5' 1) 04/03/2020 10:07 AM EST Body Mass Index 29.85 04/03/2020 10:07 AM EST Plan of Treatment Health Maintenance Due Date Last Done Comments Pneumococcal Vaccine (1 of 07/09/1946 4 - PCV13) COVID-19 Vaccine (1) 1952 DTap / TDap / Td (1 - Tdap) 07/09/1958 Shingrix-Zoster Vaccine (1 07/09/1989 of 2) Fall Risk Assessment 07/09/2004 Osteoporosis Screening 07/09/2004 (DEXA Scan) Depression Screening 11/05/2016 11/06/2015 Influenza Vaccine (Season 10/28/2020 Ended) Preventative Health 11/27/2020 11/28/2019, 11/06/2015 Evaluation BMI Counseling 12/19/2020 12/20/2019, 11/28/2019, 06/21/2019, Additional history exists Hepatitis B Vaccines Aged Out No longer e ligible based on patient 's age to complete this topic Insurance Payer Benefit Plan Subscriber ID Effective Phone Address Typ e / Group Dates MEDICARE MEDICARE A&B [id number] 2004-Prese [place], [place] nt [place] BLUE CROSS 65 [id number] 2019-Prese [phone] [address] Indemnity [address] [employer]ELD [address] [place] [address] Advance Directives For more information, please contact: [phone] Documents on File Type Date Recorded Patient [place] [employer] Explanati on Advance Directive 09/04/2019 12:00 AM advance drec tive Latest Code Status on File Code Status Date Activated Date Inactivated Comments DNR 10/17/2019 6:08 PM 10/19/2019 2:07 AM This code status was ascertained in the following way: discussion with patient . Full Code 10/16/2019 10:02 PM 10/17/2019 6:08 PM This code status was ascertained in the following way: discussion with patient . Full Code 09/04/2019 2:57 PM 09/07/2019 9:27 PM This code s tatus was ascertained in the following way: discussion with patient . Care Teams Marine Engineering Teacher Relationship Specialty Start Date End Date Donaldo Steward DO PCP - General Family Medicine 05/17/16 [address] [facility] [address] [place] [address]
--- OUTSIDE RECORDS SUMMARY | 2020-08-01 12:16 | XMS_ITS | Encounter Summary ---
:1940 Author Organization [facility] Address [address] [place] [address] Care Team Providers Name Role Phone Benjamin Steward DO Primary Care Provider Encounter Details Date Type Department Care Team Description 12/20/2019 Travel Social History Tobacco Use Types Packs/Day [...] on filedocumented in this encounter Care Teams Urgent Care Physician Relationship Specialty Start Date End Date Donaldo Steward DO PCP - General Family Medicine 05/17/[address] [place] [address] [address] [place] [address] documented as of this encounter
--- OUTSIDE RECORDS SUMMARY | 2020-08-01 12:16 | XMS_ITS | Encounter Summary ---
:1940 Author Organization [facility] Address [address] [place] [address] Care Team Providers Name Role Phone Benjamin Steward DO Primary Care Provider Encounter Details Date Type Department Care Team Description 11/28/2019 Travel Social History Tobacco Use Types Packs/Day [...] on filedocumented in this encounter Care Teams Barker Peeler Relationship Specialty Start Date End Date Donaldo Steward DO PCP - General Family Medicine 05/17/[address] [place] [address] [address] [place] [address] documented as of this encounter
--- OUTSIDE RECORDS SUMMARY | 2020-08-01 12:16 | XMS_ITS | Encounter Summary ---
:1940 Author Organization [facility] Address [address] [place] [address] Care Team Providers Name Role Phone Benjamin Steward Primary Care Provider Reason for Visit Reason Comments Post-op Encounter Details Date Type Department Care Team Description 09/18/2019 Office Visit Colon and Rectal Hamzah Orourke Colitis with rectal bleeding (Primary Dx); [facility] MD Malignant neoplasm of colon, unspecified part of colon (HCC) [place] [address] [place] [address] [address] [facility] [id number] [phone] Social History Tobacco Use Types Packs/Day Years [...] Sign Reading Time Taken Comments Blood Pressure 135/71 09/18/2019 12:58 PM EDT Pulse 90 09/18/2019 12:58 PM EDT Temperature 36.1 ??C (97 ??F) 09/18/2019 12:58 PM EDT Respiratory Rate - - Oxygen Saturation - - Inhaled Oxygen Concentration - - Weight 68 kg (150 lb) 09/18/2019 12:58 PM EDT Height 154.9 cm (5' 1) 09/18/2019 12:58 PM EDT Body Mass Index 28.34 09/18/2019 12:58 PM EDT documented in this encounter Functional Status Functional Status Response Date of Assessment Pt deaf or have serious difficulty hearing? No 09/04/2019 Pt blind or have difficulty seeing, even with glasses? No 09/04/2019 documented as of this encounter Progress Notes Hamzah Orourke MD - 09/18/2019 1:00 PM EDT Images from the original note were not included. Chief Complaint: Chief Complaint Patient presents with ??? Post-op HPI: Patient is here today as a consultation request from Donaldo Steward DO. Patient is being seen for follow-up after right hemicolectomy and extensive lysis of adhesion performed September 04, 2019. 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 Negative lymph nodes x16. She is doing well. Sheis starting to increase the amount of food that she is eating. She is accompanied by her daughter Verna. She has no nausea or vomiting. She has no bloating. She has a small amount of incisional painaround the umbilical area. There is no drainage. No sweats chills or fevers. She is having more daily bowel movements. She feels like the stool is no longer slightly dark. She is sleeping throughout the night. She is taking mostly just Tylenol for pain. She has no reflux symptoms. She is voiding well.. Past Medical History: Diagnosis Date ??? Acid [...] Orourke MD; Location: [facility] MAIN OPERATING ROOM; Service: Colorectal; Laterality: N/A; ??? CORONARY ANGIOPLASTY WITH STENT PLACEMENT 2003 ??? DILATION AND CURETTAGE OF UTERUS ??? HYSTERECTOMY 1980s Heavy periods. ??? LAPAROSCOPIC RIGHT COLON RESECTION N/A 09/04/2019 Procedure: RIGHT LAPAROSCOPIC HAND ASSISTED HEMICOLECTOMY, lysis of adhesions; Surgeon: Hamzah Orourke MD; Location: [facility] MAIN OPERATING ROOM; Service: Colorectal; [...] mouth 2 (two) times a day. ??? enoxaparin (LOVENOX) 40 MG/0.4ML SOLN Inject 0.4 mL (40 mg total) under the skin daily for 27 days. 10.8 mL 0 ??? HUMALOG KWIKPEN 100 UNIT/ML injection 15 [...] D PO) Take by mouth daily. ??? [place]-3 Fatty Acids (OMEGA 3 PO) Take by [...] unless otherwise noted above. Vital Signs: Vitals: 09/18/19 1258 BP: 135/71 BP Location: Left arm Patient Position: Sitting Cuff Size: Adult Regular Pulse: 90 Temp: 97 ??F (36.1 ??C) Weight: 68 kg (150 lb) Height: 5' 1 (1.549 m) Body mass index is 28.34 kg/m??. Body surface area is 1.71 meters squared. Vitals reviewed. Constitutional: She is well-developed and well-nourished Assessment: ICD-10-CM SNOMED CT(R) 1. Colitis with rectal bleeding K52.9 COLITIS K62.5 2. Malignant neoplasm of colon, unspecified part of colon (HCC) C18.9 MALIGNANT TUMOR OF COLON A total of 23 minutes was spent with the patient today with more than 50% of the time on counseling / education and coordination of care. Plan: She is doing very well. May increase diet as tolerated. No heavy lifting more than 20 pounds for an additional 3 weeks. Warned to call with any worsening abdominal pain nausea vomiting sweats chillsor fevers. May now take baths and go in the pool if she would like. She is interested in continuing with outpatient physical therapy. Explained that if she would like more outpatient physical therapy needs a referral be happy to do so. She will have a follow-up again in about 3 months. We discussed possibly pursuing repeat colonoscopy in a year but based on age and findings of Tis this may not have to be pursued. Hamzah Orourke MD documented in this encounter Plan of Treatment Not on filedocumented as of this encounter Visit Diagnoses Diagnosis Colitis with rectal bleeding - Primary Malignant neoplasm of colon, unspecified part of colon (HCC) documented in this encounter Care Teams Tan Room Supervisor Relationship Specialty Start Date End Date Donaldo Steward DO PCP - General Family Medicine 05/17/[address] [place] [id number] documented as of this encounter
--- OUTSIDE RECORDS SUMMARY | 2020-08-01 12:16 | XMS_ITS | Encounter Summary ---
:1940 Author Organization [employer] [facility] Address [address] [place] [address] Care Team Providers Name Role Phone Benjamin Steward DO Primary Care Provider Encounter Details Date Type Department Care Team Description 04/03/2020 Office Visit Colon and Rectal Hamzah Orourke [facility] [place] [address] (Primary Dx) [address] [place] [address] [address] [place] [address] [phone] Social History Tobacco Use Types Packs/Day Years [...] - Inhaled Oxygen Concentration - - Weight 69.4 kg (153 lb) 04/03/2020 10:07 AM EST Height 154.9 cm (5' 1) 04/03/2020 10:07 AM EST Body Mass Index 28.91 04/03/2020 10:07 AM EST documented in this encounter Functional Status Functional Status Response Date of Assessment Pt deaf or have serious difficulty hearing? No 09/04/2019 Pt blind or have difficulty seeing, even with glasses? No 09/04/2019 documented as of this encounter Progress Notes Hamzah Orourke MD - 04/03/2020 10:00 AM EST Images from the original note were not included. Chief Complaint: No chief complaint on file. HPI: Patient is here today as a consultation request from Donaldo Steward DO. Patient is being seen for follow-up..Surgery September 03 of right hemicolectomy with final pathology of Tis colon cancer. This was within a polyp. Negative lymph nodes negative margins. She is doing well. She originally had some diarrhea after the surgery which lasted maybe about 4 to 6 weeks which has resolved. She notices no blood in the stool no dark stools no bloating no unintentional weight loss. She is having no abdominal cramping/pain. She does have a history of multiple bouts of ischemic colitis. She explains that she believes her blood pressure is okay she does not feel weak no lightheadedness. She does remember t hat her glucose has dropped a few times in the past and she did feel weak affiliated with this but does not remember any issues with her blood pressure. She is trying to stay hydrated. She also explains that she does have some occasional reflux symptoms which may even be affiliated with her waking up in the middle of the night she is unaware of this is actually what is waking up or not. She continues to take Protonoix. She is questioning if she could take Maalox Past Medical History: Diagnosis Date ??? Acid [...] WITH TATOO; Surgeon: Hamzah Orourke MD; Location: [facility] MAIN OPERATING ROOM; Service: Colorectal; Laterality: N/A; ??? CORONARY ANGIOPLASTY WITH STENT PLACEMENT 2003 ??? DILATION AND CURETTAGE OF UTERUS ??? HYSTERECTOMY 1980s Heavy periods. ??? LAPAROSCOPIC RIGHT COLON RESECTION N/A 09/04/2019 Procedure: RIGHT LAPAROSCOPIC HAND ASSISTED HEMICOLECTOMY, lysis of adhesions; Surgeon: Hamzah Orourke MD; Location: [facility] MAIN OPERATING ROOM; Service: Colorectal; Laterality: N/A; [...] mouth every night at bedtime as needed. 90 tablet 2 ??? LANTUS SOLOSTAR 100 UNIT/ML injection INJECT 25 UNITS UNDER THE SKIN AT BEDTIME ??? lisinopril (PRINIVIL,ZESTRIL) tablet 20 mg ??? metFORMIN (GLUCOPHAGE-XR) ER 24 hr tablet 500 mg 2 (two) times a day. ??? Multiple Minerals-Vitamins (DOLOMITE PLUS VITAMINS A AND D PO) Take by mouth daily. ??? [place]-3 Fatty Acids (OMEGA 3 PO) Take by mouth. ??? pantoprazole (PROTONIX) 40 MG tablet 2 (two) times a day. ??? Potassium 99 MG TABS Take by mouth daily. ??? pravastatin (PRAVACHOL) tablet 20 mg every night at bedtime. ??? Probiotic Product (PROBIOTIC DAILY PO) Take by mouth daily. ??? UNABLE TO FIND 2 (two) times a day. HISTA BLOCK: 2 TABS BID ??? UNABLE TO FIND 2 (two) times a day. INTESTINAL SMOOTH AND BUILD: 2 TABS BID No current facility-administered medications for this visit. Patient Active Problem List Diagnosis SNOMED CT(R) Date Noted ??? Encounter for ongoing osteoporosis therapy, bisphosphonates PATIENT ENCOUNTER STATUS 12/29/2019 ??? High risk medication use TAKING HIGH RISK MEDICATION 12/29/2019 ??? Colon cancer (HCC) MALIGNANT TUMOR OF [...] Last attempt to quit: 02/27/1961 Years since quittin.1 ??? Smokeless tobacco: Never Used Substance and [...] file Gets together: Not on file Attends pentecostal service: Not on file Active member of [...] unless otherwise noted above. Vital Signs: Vitals: 04/03/20 1007 Weight: 69.4 kg (153 lb) Height: 5' 1 (1.549 m) Body mass index is 28.91 kg/m??. Body surface area is 1.73 meters squared. Vitals reviewed. Constitutional: She is well-developed and well-nourished Previous scar with no palpable hernia soft no palpable masses nontender exam Assessment: ICD-10-CM SNOMED CT(R) 1. Malignant neoplasm of ascending colon (HCC) C18.2 MALIGNANT TUMOR OF ASCENDING COLON A total of 27 minutes was spent with the patient today with more than 50% of the time on counseling / education and coordination of care. Plan: Recommended that she keep up with her hydration and to monitor her blood pressure. This will hopefully prevent ischemic colitis as best as possible. Also recommended follow-up with Dr. Gonzalez regarding her reflux symptoms that she is experiencing. Regarding her Tis colon cancer we discussed possibility of performing repeat colonoscopy but technically it may not be indicated especially with her age and she had no other areas of significant abnormality found. She would like to hold off as well. Certainly there will be risks of failure with doing her colonoscopy including dehydration with could be even predisposed to ischemic colitis again and injury to the colon as she had a very difficult colonoscopy. Recommended that she call immediately with any abdominal pain change in bowel habits bloodin the stool or mucus or dark stools. She is agreeable. Other option of virtual colonoscopy was discussed, she would like to hold off as she knows she wouldhave to bowel prep. Understands risks of no repeat screening including missed lesions and delay diagnosis of even possible cancer which may increase chance for mortality in future. Hamzah Orourke MD documented in this encounter Plan of Treatment Not on filedocumented as of this encounter Visit Diagnoses Diagnosis Malignant neoplasm of ascending colon (H CC) - Primary Malignant neoplasm of ascending colon documented in this encounter Care Teams Federal Java Developer Relationship Specialty Start Date End Date Donaldo Steward DO PCP - General Family Medicine 05/17/[address] [place] [id number] documented as of this encounter
--- OUTSIDE RECORDS SUMMARY | 2020-08-01 12:16 | XMS_ITS | Encounter Summary ---
:1939 Author Organization [facility] Address [address] [place] [address] Care Team Providers Name Role Phone PrasadBenjamin garcia Primary Care Provider Reason for Visit Episode Based Medications (Routine) - Pending Review Specialty Diagnoses / Procedures Referred By Contact Refer red To Contact Diagnoses Other osteoporosis without current pathological fracture Suman Huggins MD [facility] Rhe[facility] [address] [facility] Rheumatology [place], [place] [facility] [id number] [place] [phone] Referral ID Status Reason Start Date Expiration Date Visits V isits Requested Authorized [id number] Pending 03/31/2020 03/31/2021 1 1 Review Encounter Details Date Type Department Care Team Description 04/09/2020 Treatment RHEUMATOLOGY Africa Lew RN Other osteoporosis [facility] [place] [facility] [facility] without current [facility] Rheumatology pathological fracture [place], [place] [facility] [place] (Primary Dx) [address] [place] [phone] Social History Tobacco Use Types Packs/Day Years [...] (158 lb) 04/09/2020 11:00 AM EST Height - - Body Mass Index 29.85 04/03/2020 10:07 AM EST documented in this encounter Functional Status Functional Status Response Date of Assessment Pt deaf or have serious difficulty hearing? No 09/04/2019 Pt blind or have difficulty seeing, even with glasses? No 09/04/2019 documented as of this encounter Progress Notes Africa Lew RN - 04/09/2020 11:00 AM EST Vitals: 04/09/20 1100 BP: 150/68 Pulse: 95 Resp: 20 Temp: 97.2 ??F (36.2 ??C) SpO2: 96% Weight: 71.7 kg (158 lb) Pt presents with a DX of M81.00 Osteoporosis, here for a Reclast infusion. Pt states feeling well, VS WNL, Lung sounds and apical pulse assessed, denies recent infection, surgery or anticipated procedure. Patient educated on medication potential side effects and reportable adverse reactions. Patient acknowledges and verbalizes understanding. Peripheral IV inserted in RAC #24 , blood return noted, flushes without resistance. Premedicated pt with Tylenol 1000 mg po before her infusion, Reclast 5 mg / 100 ml NS per order, infused over 30 mns from 1120 to 1150, followed by IV hydration of 250 ml NS over 30 mns from 1150 to 1220. Infusion completed without any infusion reactions, peripheral IV flushed and discontinued, tip intact, pt tolerated well. Creatinine and Calcium WNL . Pt has Follow up appointments and infusion appointments scheduled. Gage Nogueira MD was physically present during this visit and saw the patient in conjunction with Africa Lew RN our infusion nurse. documented in this encounter Plan of Treatment Not on filedocumented as of this encounter Visit Diagnoses Diagnosis Other osteoporosis without current patho logical fracture - Primary documented in this encounter Administered Medications Inactive Administered Medications - up to 3 most recent administrations Medication Order MAR Action Action Date Dose Rate Site zoledronic acid (RECLAST) 5 New Bag 04/09/2020 11:20 AM 5 mg 200 mL/hr Right Arm mg/100 mL IVPB EST 5 mg, Intravenous, Administer over 15 Minutes, Once, On [place] 04/09/20 at 1115, For 1 dose, Administer over no less than 30 minutes. Reproductive/Breast Feeding Risk: Use appropriate precautions for handling and disposal. documented in this encounter Care Teams Chuck Boner Relationship Specialty Start Date End Date Donaldo Steward DO PCP - General Family Medicine 05/17/[address] [place] [address] [address] [place] [address] documented as of this encounter
--- OUTSIDE RECORDS SUMMARY | 2020-08-01 12:17 | XMS_ITS | Encounter Summary ---
:1940 Author Organization [facility] Address [address] [place] [address] Care Team Providers Name Role Phone Benjamin Steward Primary Care Provider Reason for Visit Reason Comments Office Visit Encounter Details Date Type Department Care Team Description 02/14/2018 Office Visit Colon and Rectal OrourkeHamzah Diarrhea , unspecified [facility] Zaldivar MD type (Primary Dx) [place] [address] [place] [address] [address] [place] [phone] Social History Tobacco Use Types Packs/Day Years Used Date Former Smoker Cigarettes 6 02/27/1957 - 0 02/27/1961 Smokeless Tobacco: Never Used Alcohol Use Standard Drinks/Week Comments Yes 0 (1 standard drink = 0.6 oz [...] Sign Reading Time Taken Comments Blood Pressure 120/67 02/14/2018 1:06 PM EST Pulse 88 02/14/2018 1:06 PM EST Temperature - - Respiratory Rate - - Oxygen Saturation - - Inhaled Oxygen Concentration - - Weight 75 kg (165 lb 6.4 oz) 02/14/2018 1:06 PM EST Height 154.9 cm (5' 1) 02/14/2018 1:06 PM EST Body Mass Index 31.25 02/14/2018 1:06 PM EST documented in this encounter Progress Notes Hamzah Orourke MD - 02/14/2018 1:00 PM EST Chief Complaint: Chief Complaint Patient presents with ??? Office Visit HPI: Patient is here today as a consultation request from Donaldo Steward DO. Patient is being seen for follow-up for diarrhea and mucus in the stool. She has at least 2-3 bowel movements per day mostly mucus. This was a change in the last few months. History of ischemic colitis and multiple polyps in the past. Last colonoscopy 2014 2 tubular adenomas.. No Weight loss. No rectal bleeding. Does get abdominal cramps and are somewhat worse. Does not feel related to food. Somewhat poor p.o. intake but unsure if it is related. [facility] Past Medical History: Diagnosis Date ??? Acid reflux ??? Acute myocardial infarction (HCC) ??? Adenomatous polyp of colon ??? Arthritis ??? Diabetes mellitus (HCC) ??? Hypercholesteremia ??? Hypertension ??? Spinal stenosis Past Surgical History: Procedure Laterality Date ??? BACK SURGERY 2012 ??? CATARACT EXTRACTION, BILATERAL 2003 ??? CORONARY ANGIOPLASTY WITH STENT PLACEMENT 2003 ??? HYSTERECTOMY 1980s Heavy periods. ??? WISDOM TOOTH EXTRACTION 2016 x1 Current Outpatient Prescriptions Medication Sig Dispense Refill ??? aspirin EC 81 MG tablet Take 81 mg by mouth daily. ??? ANA CONTOUR NEXT TEST test strip 3 ??? Cholecalciferol (VITAMIN D-3 PO) Vitamin D3 TABS Refills: 0 Active ??? clobetasol (TEMOVATE) 0.05 % cream Apply to affected area daily x 7 days then every other day for 7 days then once a week. 60 g 1 ??? Coenzyme Q10 (COQ10 PO) Take by mouth. ??? Dulaglutide (TRULICITY SC) Inject under the skin. ??? HUMALOG KWIKPEN 100 UNIT/ML injection ??? hydrochlorothiazide (HYDRODIURIL) tablet 25 mg ??? LANTUS 100 UNIT/ML injection 6 ??? lisinopril (PRINIVIL,ZESTRIL) tablet 20 mg ??? metFORMIN (GLUCOPHAGE-XR) ER 24 hr tablet 500 mg ??? nystatin (MYCOSTATIN) cream Apply topically 2 (two) times a day. 30 g 0 ??? [place]-3 Fatty Acids (OMEGA 3 PO) Take by mouth. ??? omeprazole (PRILOSEC) 40 MG capsule ??? pantoprazole (PROTONIX) 40 MG injection Inject 40 mg into the vein daily. ??? pravastatin (PRAVACHOL) tablet 20 mg ??? triamcinolone (KENALOG) 0.1 % cream Apply topically 2 (two) times a day. 30 g 0 ??? VITAMIN A PO Take by mouth. No current facility-administered medications for this visit. Patient Active Problem List Diagnosis SNOMED CT(R) Date Noted ??? Ischemic colitis (HCC) ISCHEMIC COLITIS 05/19/2016 ??? Encounter for routine gynecological examination PATIENT ENCOUNTER STATUS 11/06/2015 ??? Vaginal itching PRURITUS OF VAGINA 06/24/2015 ??? Lichen sclerosus of female genitalia LICHEN [...] ??? Uterine cancer Neg Hx Social History Social History ??? Marital status: Spouse name: N/A ??? Number of children: N/A ??? Years of education: N/A Occupational History ??? Not on file. Social History Main Topics ??? Smoking status: Former Smoker Years: 6.00 Types: Cigarettes Start date: 02/27/1957 Quit date: 02/27/1961 ??? Smokeless tobacco: Never Used ??? Alcohol use Yes Comment: rare ??? Drug use: No ??? Sexual activity: No Comment: passed 3y ago. HYST 1979. Other Topics Concern ??? Not on file Social History Narrative ??? No narrative on file Allergies Allergen Reactions ??? Acetazolamide Other (See Comments) Dry mouth ??? Codeine Nausea And Vomiting ??? Morphine ??? Morphine And Related Nausea And Vomiting ??? Sulphadimidine [Sulfamethazine] Hives ??? Tramadol Nausea And Vomiting ??? Latex Rash Review of Systems A focused ROS was completed and was negative unless otherwise noted above. Vital Signs: Vitals: 02/14/18 1306 BP: 120/67 Pulse: 88 Weight: 75 kg (165 lb 6.4 oz) Height: 5' 1 (1.549 m) Body mass index is 31.25 kg/m??. Body surface area is 1.8 meters squared. Vitals reviewed. Constitutional: She is well-developed and well-nourished Abdomen: Normal appearance. Soft. Anorectal Exam: Performed with patient in Left lateral decubitus position. Anal wink is Intact. Digital rectal exam: Tone was Normal. PROCEDURE: RIGID SIGMDOIDOSCOPY Verbal consent was obtained from the patient. The patient was placed in the left lateral position. The scope was inserted into the anus. The obturator was removed. Insufflation and direct visualization was then used to advance the scope to 10 cm. Findings: stool in rectal vault, no obvious mass, minimally enlarged hemorrhoids, soft. The patient tolerated the procedure well. Assessment: ICD-10-CM SNOMED CT(R) 1. Diarrhea, unspecified type R19.7 DIARRHEA A total of 24 minutes was spent with the patient today with more than 50% of the time on counseling / education and coordination of care. Plan: We will send stool studies along likely is not infectious as somewhat acute on chronic. Will check CBC and chemistry. Do recommend repeat colonoscopy based on history of polyps. Typically colonoscopy is done until age 85. Continue with fiber supplementation and probiotic. She is agreeable to repeat colonoscopy. The patient would like to pursue a colonoscopy. I did discuss what a colonoscopy itself is which is a flexible instrument that allows visualization within the inside of the colon and the mucosa. A bowel prep is given the night before. Instructions for the colonoscopy and bowel prep were given to the patient. Explained need to have a ride to and from the procedure. Also explained the light anesthesia with propofol that will be given by a LARRY OPERATOR or anesthesiologist bedside at all times. Described procedure as 30- 45 minutes with full visualization of the entire colon. I did explain that polyps are usually precancerous lesions and approximately 30%of patients have them which usually can be removed endoscopically. I did explain that removal has been shown to prevent cancer. If polyps are found, I did state a repeat colonoscopy should be done sooner than 10 years, either 3 or 5. I also explained the need for biopsy if any suspicious masses are found. A thorough discussion was had with the patient regarding the risks and benefits of the procedure including but not limited to: perforation which could require surgery, bleeding which could require another procedure or blood transfusion, missed lesions, reaction to preparation medications or sedatives used during the procedure. Alternatives were reviewed. Office based informed consent was signed today. Hamzah Orourke MD documented in this encounter Plan of Treatment Scheduled Orders Name Type Priority Associated Diagnoses Order S chedule CBC With Auto Lab Routine Diarrhea, unspecified 1 Occ urrences Differential type starting 2017 until 9 Basic metabolic panel Lab Routine Diarrhea, unspecifi ed 1 Occurrences type starting 2017 until 9 Stool Culture, Microbiology Routine Diarrhea, unspecified 1 Oc currences Yersinia type starting 2017 until 9 Stool Culture, Vibrio Microbiology Routine Diarrhea, unspecifi ed 1 Occurrences type starting 2017 until 9 Clostridium difficile Microbiology Routine Diarrhea, unspecifi ed 1 Occurrences toxin, PCR type starting 2017 until 9 Fat, Fecal Microbiology Routine Diarrhea, unspecified 1 Occu rrences type starting 2017 until 9 Smear For WBC'S (Only) Microbiology Routine Diarrhea, unspecif ied 1 Occurrences type starting 2017 until 9 Stool Culture, Enteric Microbiology Routine Diarrhea, unspecif ied 1 Occurrences Pathogens type starting 2017 until 9 Colonoscopy GI Routine Diarrhea, unspecified 1 Occu rrences type starting 2017 until 9 documented as of this encounter Visit Diagnoses Diagnosis Diarrhea, unspecified type - Primary documented in this encounter Care Teams Manager Of Hospital Relationship Specialty Start Date End Date Donaldo Steward DO PCP - General Family Medicine 05/17/16 [facility] [address] [place] [address] documented as of this encounter
--- OUTSIDE RECORDS SUMMARY | 2020-08-01 12:17 | XMS_ITS | Encounter Summary ---
:1940 Author Organization [employer] [facility] Address [address] [place] [address] Care Team Providers Name Role Phone Benjamin Steward Primary Care Provider Reason for Visit Reason Comments Right shoulder pain follow-up Gout Osteoporosis Leg cramps Encounter Details Date Type Department Care Team Description 11/16/2018 Follow-Up RHEUMATOLOGY Gwendolyn Smith APRN Iliotibial band syndrome of right side ( Primary Dx); [facility] [place] [facility] [facility] Other osteoporosis without current patho logical fracture; [facility]4 [facility] Rheumatology Chronic pain of both shoulde [place], [place] [facility] [place] [address] [place], [place] [phone] (Wo rk) Social History Tobacco Use Types [...] Sign Reading Time Taken Comments Blood Pressure 130/72 11/16/2018 11:01 AM EDT Pulse 81 11/16/2018 11:01 AM EDT Temperature - - Respiratory Rate - - Oxygen Saturation - - Inhaled Oxygen Concentration - - Weight 71.7 kg (158 lb) 11/16/2018 11:01 AM EDT Height 156.2 cm (5' 1.5) 11/16/2018 11:01 AM EDT Body Mass Index 29.37 11/16/2018 11:01 AM EDT documented in this encounter Patient Instructions Patient InstructionsGwendolyn Smith APRN - 11/16/2018 11:00 AM EDT Gwendolyn [phone] Call the office with Name of Orthopedic Surgeon and we will send the referral for the shoulder Do shoulder exercises at home documented in this encounter Progress Notes Gwendolyn Smith APRN - 11/16/2018 11:00 AM EDT Images from the original note were not included. [address] [place] [id number] Esther Morales 1940 Chief Complaint Follow up for Right shoulder pain, osteoporosis, gout, leg cramps Currently taking 5mg Reclast IV (07/18/18), Colchicine PRN, HCQ 200 mg 1 PO QD PCP: Dr. Steward Subjective: History of Present Illness Esther Morales is a 78 y.o. yr old female who returns for follow up of Right shoulder pain, osteoporosis, gout, leg cramps. Patient reports she is taking Colchicine PRN, HCQ 200 mg 1 PO QD. She denies side effects from the medication. She denies having any gout flares since her last visit. She reports having a cortisone injection in the right subacromial one month ago however it did not provide much relief. She reports going to PT twice a week for the right shoulder but it hasn't made a significant difference yet. She notes her leg cramps are well managed with the HCQ. Review of Symptoms (negative except as noted; [...] tendencies, anemia, blood transfusions. Objective: Vitals: Vitals: 11/16/18 1101 BP: 130/72 Pulse: 81 Weight: 71.7 kg (158 lb) Height: 5' 1.5 (1.562 m) Body mass index is 29.37 kg/m??. BMI Screening: patient's BMI was abnormal. [...] of colon ??? Arthritis ??? Cataract ??? Diabetes mellitus (HCC) ??? Heart murmur ??? Hypercholesteremia ??? Hypertension ??? Spinal stenosis Past Social History: Past Surgical History: Procedure Laterality Date ??? BACK SURGERY 2012 ??? CATARACT EXTRACTION, BILATERAL 2003 ??? CORONARY ANGIOPLASTY WITH STENT PLACEMENT 2003 ??? HYSTERECTOMY 1980s Heavy periods. ??? WISDOM TOOTH EXTRACTION 2016 x1 Problems: Patient Active Problem List Diagnosis SNOMED CT(R) ??? 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 Ischemic colitis (HCC) ISCHEMIC COLITIS ??? Breast tenderness in female BREAST TENDERNESS ??? Other osteoporosis without current pathological fracture OSTEOPOROSIS ??? 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 Chronic pain of both shoulders SHOULDER PAIN Medications: Current Outpatient Prescriptions: ??? aspirin EC 81 MG tablet, Take 81 mg by mouth daily., Disp: , Rfl: ??? ANA CONTOUR NEXT TEST test strip, , Disp: , Rfl: 3 ??? Cholecalciferol (VITAMIN D-3 PO), Vitamin D3 TABS Refills: 0 Active, Disp: , Rfl: ??? clobetasol (TEMOVATE) 0.05 % cream, Apply to affected area daily x 7 days then every other day for 7 days then once a week. (Patient not taking: Reported on 04/06/2018), Disp: 60 g, Rfl: 1 ??? Coenzyme Q10 (COQ10 PO), Take by mouth., Disp: , Rfl: ??? colchicine 0.6 MG tablet, Take 0.6 mg by mouth daily as needed (for gout flares 1 PO Qhr x3, then 1 PO BID x 1 day, then 1 PO QD for seven days)., Disp: , Rfl: ??? Dulaglutide (TRULICITY SC), Inject under the skin., Disp: , Rfl: ??? gabapentin (NEURONTIN) 300 MG capsule, Take 300 mg by mouth., Disp: , Rfl: ??? HUMALOG KWIKPEN 100 UNIT/ML injection, , Disp: , Rfl: ??? hydrochlorothiazide (HYDRODIURIL) tablet 25 mg, , Disp: , Rfl: ??? hydroxychloroquine (PLAQUENIL) 200 MG tablet, Take 1 tablet (200 mg total) by mouth every nightat bedtime as needed., Disp: 30 tablet, Rfl: 3 ??? LANTUS 100 UNIT/ML injection, , Disp: , Rfl: 6 ??? lisinopril (PRINIVIL,ZESTRIL) tablet 20 mg, , Disp: , Rfl: ??? metFORMIN (GLUCOPHAGE-XR) ER 24 hr tablet 500 mg, , Disp: , Rfl: ??? Na Sulfate-K Sulfate-Mg Sulf (SUPREP BOWEL PREP KIT) 17.5-3.13-1.6 GM/177ML SOLN, Take as directed per provider instructions. (Patient not taking: Reported on 04/06/2018), Disp: 1 kit, Rfl: 0 ??? nystatin (MYCOSTATIN) cream, Apply topically 2 (two) times a day. (Patient not taking: Reportedon 04/06/2018), Disp: 30 g, Rfl: 0 ??? nystatin (MYCOSTATIN) cream, Apply topically 2 (two) times a day. Use only for 1 week max (Patient not taking: Reported on 10/19/2018), Disp: 15 g, Rfl: 0 ??? [place]-3 Fatty Acids (OMEGA 3 PO), Take by mouth., Disp: , Rfl: ??? omeprazole (PRILOSEC) 40 MG capsule, , Disp: , Rfl: ??? pantoprazole (PROTONIX) 40 MG injection, Inject 40 mg into the vein daily., Disp: , Rfl: ??? pantoprazole (PROTONIX) 40 MG tablet, , Disp: , Rfl: ??? pravastatin (PRAVACHOL) tablet 20 mg, , Disp: , Rfl: ??? terconazole (TERAZOL 3) 80 MG vaginal suppository, Place 1 suppository (80 mg total) vaginally every night at bedtime. (Patient not taking: Reported on 10/19/2018), Disp: 3 suppository, Rfl: 0 ??? triamcinolone (KENALOG) 0.1 % cream, Apply topically 2 (two) times a day. (Patient not taking: Reported on 10/19/2018), Disp: 30 g, Rfl: 0 ??? triamcinolone (KENALOG) 0.1 % cream, Apply topically 2 (two) times a day. Use only for 1 week max (Patient not taking: Reported on 10/19/2018), Disp: 30 g, Rfl: 0 ??? TRULICITY 0.75 MG/0.5ML SOPN, INJECT ONCE A WEEK, Disp: , Rfl: 1 ??? VITAMIN A PO, Take by mouth., Disp: , Rfl: ??? zoledronic acid (RECLAST) 5 MG/100ML SOLN IVPB, Inject 5 mg into the vein once., Disp: , Rfl: Family Hx: Family History [...] or destructive process. IMPRESSION: Degenerative changes noted Assessment 78 y.o. woman with history of diabetes, leg cramping and hand OA, which is improved on HCQ. She also has a leg length discrepancy improved with lift, and spinal stenosis. She has had one red hot swollen right index finger lasting about a week in August 2018, a gout flare in January 2018 resolved with c olchicine. She continues with right shoulder and right hip pain with significant limitations to range of motion of the right shoulder, and tenderness of the right IT band without trochanteric tenderness or signs of acetabular impingement. There has been some improvement with PT to her shoulder and hip. However, patient should be consistent and also do the exercises at home. Since patient is doing her second round of PT and no significant improvement to right shoulder, she would benefit from a Orthoreferral Xray describes degenerative changes consistent with OA. - Appears to be a component of rotator cuff tendiopathy as well as osteoarthritis. Gout is well managed on Allopurinol Osteoporosis status post starting Reclast after recent DEXA done on 04/16/18 showed T Score -2.6 at the Left Hip, and on review appears her diabetes on insulin for the last 20+ years is risk factor, though she also denies a calcium rich diet. Plan: Esther was seen today for right shoulder pain, gout, osteoporosis and leg cramps. Diagnoses and all orders for this visit: Chronic pain of both shoulders/OA: Incomplete response to subacromial steroid injection at last visit. she will continue physical therapy for rotator cuff tendinopathy and impingement. Send Referral to Ortho. Other osteoporosis without current pathological fracture: Patient instructed to continue vitamin D and calcium citrate supplementation. She is encouraged to get out on a regular basis and have a regular exercise regiment with low impact weight bearing exercises. Patient also encouraged to have a calcium rich diet. Plan for follow up DEXA scan in March 2019. We discussed the side effects of bisphosphonate treatment which include, but are not limited to, osteonecrosis of the jaw, arthralgias, and rash. Patient will be careful not to avoid deep dental work three months prior and following treatment. Gout: Had flare in January 2018 with [...] not limited to, diarrhea,marrow suppression, or rash. Leg Cramps: Much improved on HCQ. Patient will continue 200mg HCQ PO QHS. Would appreciate Dr. Sales input on HCQ use. We discussed the risks and benefits of hydroxychloroquine which include, but are not limited to, photosensitivity, tinnitus, nausea, leukopenia or retinal deposition. Patient was instructed to notify their eye animal care worker of hydroxychloroquine use and obtain yearly eye [...] 4% risk of convertingin the subsequent year. F/U: 1 month PCP: Dr. Donaldo Steward OPHTHALMOLOGY: Henrry Lanier Please note a scribe has recorded this visit. Physician has reviewed for medical accuracy documented in this encounter Plan of Treatment Not on filedocumented as of this encounter Visit Diagnoses Diagnosis Iliotibial band syndrome of right side - Primary Other osteoporosis without current patho logical fracture Chronic pain of both shoulders documented in this encounter Care Teams Immigration Lawyer Relationship Specialty Start Date End Date Donaldo Steward DO PCP - General Family Medicine 05/17/[address] [facility] [address] [place] [address] documented as of this encounter
--- OUTSIDE RECORDS SUMMARY | 2020-08-01 12:17 | XMS_ITS | Encounter Summary ---
:1940 Author Organization [facility] Address [address] [place] [address] Care Team Providers Name Role Phone SholaBenjamin almendarez Primary Care Provider Reason for Visit Episode Based Medications (Routine) - Closed Specialty Diagnoses / Procedures Referred By Contact Refer red To Contact Diagnoses Other osteoporosis without current pathological fracture Gwendolyn Smith APRN [facility] [address] [facility] [place], [place] [address] [place], [place] [address] Referral ID Status Reason Start Date Expiration Date Visits Requ ested Visits Authorized [id number] Closed 06/05/2018 12/02/2018 1 1 Encounter Details Date Type Department Care Team Description 07/18/2018 Treatment RHEUMATOLOGY Suman Huggins MD Other osteoporosis [facility] [place] [facility] [facility] without current [facility] Rheumatology pathological fracture [place], [place] Special[facility] (Primary Dx) [id number] [place] [phone] (Wo rk) Social History Tobacco Use Types [...] Sign Reading Time Taken Comments Blood Pressure 122/64 07/18/2018 12:16 PM EDT Pulse 96 07/18/2018 12:16 PM EDT Temperature - - Respiratory Rate - - Oxygen Saturation - - Inhaled Oxygen Concentration - - Weight - - Height - - Body Mass Index - - documented in this encounter Progress Notes Adeline Brody RN - 07/18/2018 11:30 AM EDT M81.0. Patient comes today for her first Reclast infusion. Teaching done, including potential side effects: flu-like syndrome, fever, bony aches; The need to avoid deep dental work for 3 mo prior and 3mo after Reclast. Pt has renal insufficiency and she especially needs adequate hydration to maintainher renal function. She had only a few sips of water today, so was hydrated with 250cc NS prior: began at 11:55AM and ended at 12:25PM. Zoledronic Acid, 5mg in 100cc NS began at 12:25pm and ended uneventfully at 12:55PM Serum Creat 1.28, Bun, 36, GFR 43 (wnl for Reclast). Sees Dr. Huggins in September. Willobtain urine for calcium and telopeptide in 1-2 months . Bone density due in 04/18. documented in this encounter Plan of Treatment Not on filedocumented as of this encounter Visit Diagnoses Diagnosis Other osteoporosis without current patho logical fracture - Primary documented in this encounter Administered Medications Inactive Administered Medications - up to 3 most recent administrations Medication Order MAR Action Action Date Dose Rate Site sodium chloride 0.9% bolus New Bag 07/18/2018 11:55 AM EDT 250 mL 500 mL/hr (NS) 250 mL 250 mL, Intravenous, at 1,000 mL/hr, Once, On Mon07/18/18 at 1230, For 1 dose, Hydration. zoledronic acid (RECLAST) 5 mg/100 mL IV PB New Bag 07/18/2018 12:25 PM EDT 5 mg 5 mg, Intravenous, Administer over 15 Minutes, Once, On Mon07/18/18 at 1230, For 1 dose, Administer over no less than 30 minutes. Reproductive/Breast Feeding Risk: Use appropriate precautions for handling and disposal. documented in this encounter Care Teams Test Engineering Technician Relationship Specialty Start Date End Date Donaldo Steward DO PCP - General Family Medicine 05/17/[address] [address] documented as of this encounter
--- OUTSIDE RECORDS SUMMARY | 2020-08-01 12:17 | XMS_ITS | Encounter Summary ---
:1940 Author Organization [employer] [facility] Address [address] [place] [address] Care Team Providers Name Role Phone Benjamin Steward Primary Care Provider Reason for Visit Reason Comments Follow-up Encounter Details Date Type Department Care Team Description 06/27/2018 Office Visit Colon and Rectal Hamzah Orourke Colitis with rectal [facility] Zaldivar MD bleeding (Primary Dx) [facility] [address] [place] [address] [address] [facility] [id number] [phone] Social History Tobacco Use Types Packs/Day Years [...] Sign Reading Time Taken Comments Blood Pressure 130/66 06/27/2018 10:43 AM EDT Pulse 78 06/27/2018 10:43 AM EDT Temperature - - Respiratory Rate - - Oxygen Saturation - - Inhaled Oxygen Concentration - - Weight 68 kg (150 lb) 06/27/2018 10:43 AM EDT Height 154.9 cm (5' 1) 06/27/2018 10:43 AM EDT Body Mass Index 28.34 06/27/2018 10:43 AM EDT documented in this encounter Progress Notes Hamzah Orourke MD - 06/27/2018 10:45 AM EDT Chief Complaint: Chief Complaint Patient presents with ??? Follow-up HPI: Patient is here today as a consultation request from Donaldo Steward DO. Patient is being seen for follow-up after recent admission again to [facility] with ischemic colitis. She had some abdominal pain at that time which is now resolved. No blood in the stool or dark stools. She is going back to eating somewhat normal. Her bowel habits are still sporadic but she may have a bowel every day or every other day. No blood or dark stools. No unintentional weight loss. She had a aborted colonoscopy by me in February due to very poor bowel prep. She had a discussion with her PCP and it was recommended not to pursue a repeat colonoscopy. She would not like it done again herself. She has had no changes to her blood pressure medications which may have caused her issue. She remembers not being dehydrated or having a secondary illness which could have caused dehydration.. Past Medical History: Diagnosis Date ??? Acid [...] a week. (Patient not taking: Reported on 04/06/2018) 60 g 1 ??? Coenzyme Q10 (COQ10 PO) Take by mouth. ??? colchicine 0.6 MG tablet Take 0.6 mg by mouth daily as needed (for gout flares 1 PO Qhr x3, then1 PO BID x 1 day, then 1 PO QD for seven days). ??? Dulaglutide (TRULICITY SC) Inject under the skin. ??? gabapentin (NEURONTIN) 300 MG capsule Take 300 mg by mouth. ??? HUMALOG KWIKPEN 100 UNIT/ML injection ??? hydrochlorothiazide (HYDRODIURIL) tablet 25 mg ??? hydroxychloroquine (PLAQUENIL) 200 MG tablet Take 200 mg by mouth 2 (two) times a day. ??? LANTUS 100 UNIT/ML injection 6 ??? lisinopril (PRINIVIL,ZESTRIL) tablet 20 mg ??? metFORMIN (GLUCOPHAGE-XR) ER 24 hr tablet 500 mg ??? Na Sulfate-K Sulfate-Mg Sulf (SUPREP BOWEL PREP KIT) 17.5-3.13-1.6 GM/177ML SOLN Take as directed per provider instructions. (Patient not taking: Reported on 04/06/2018) 1 kit 0 ??? nystatin (MYCOSTATIN) cream Apply topically 2 (two) times a day. (Patient not taking: Reported on 04/06/2018) 30 g 0 ??? nystatin (MYCOSTATIN) cream Apply topically 2 (two) times a day. Use only for 1 week max 15 g 0 ??? [place]-3 Fatty Acids (OMEGA 3 PO) Take by mouth. ??? omeprazole (PRILOSEC) 40 MG capsule ??? pantoprazole (PROTONIX) 40 MG injection Inject 40 mg into the vein daily. ??? pravastatin (PRAVACHOL) tablet 20 mg ??? terconazole (TERAZOL 3) [address] 1 suppository (80 mg total) vaginally every night at bedtime. 3 suppository 0 ??? triamcinolone (KENALOG) 0.1 % cream Apply topically 2 (two) times a day. 30 g 0 ??? triamcinolone (KENALOG) 0.1 % cream Apply topically 2 (two) times a day. Use only for 1 week max30 g 0 ??? VITAMIN A PO Take by mouth. ??? zoledronic acid (RECLAST) 5 MG/100ML SOLN IVPB Inject 5 mg into the vein once. No current facility-administered medications for this visit. Patient Active Problem List Diagnosis SNOMED CT(R) Date Noted ??? Other osteoporosis without current pathological fracture [...] unless otherwise noted above. Vital Signs: Vitals: 06/27/18 1043 BP: 130/66 Pulse: 78 Weight: 68 kg (150 lb) Height: 5' 1 (1.549 m) Body mass index is 28.34 kg/m??. Body surface area is 1.71 meters squared. Vitals reviewed. Constitutional: She is well-developed and well-nourished Assessment: ICD-10-CM SNOMED CT(R) 1. Colitis with rectal bleeding K52.9 COLITIS K62.5 A total of 24 minutes was spent with the patient today with more than 50% of the time on counseling / education and coordination of care. Plan: Patient's last colonoscopy was in 2014 with a good prep and a tubular adenoma approximately 5 mm removed with findings of sigmoid diverticular disease. Currently she has had multiple episodes of what appears to be ischemic colitis not diverticulitis. Because the new cutoff for colonoscopy is age 84 I still did recommend a repeat colonoscopy. However she would not like this done. I explained that there may not be any other good options because a Cologuard would not be covered with her history of polyps and will likely be positive and a virtual colonoscopy would still involve a bowel prep and if positive will still require colonoscopy. She was still not like to pursue a colonoscopy despite the risk of having a polyp mutated into cancer over thenext 10 or so years. Explained however this would be relatively unlikely. Regarding the recurrent colitis I explained that there is no good Prophylactic measures except to ensure adequate hydration and good blood pressure readings. Hamzah Orourke MD documented in this encounter Plan of Treatment Not on filedocumented as of this encounter Visit Diagnoses Diagnosis Colitis with rectal bleeding - Primary documented in this encounter Care Teams Ware Cleaner Relationship Specialty Start Date End Date Donaldo Steward DO PCP - General Family Medicine 05/17/[address] [place] [phone] documented as of this encounter
--- OUTSIDE RECORDS SUMMARY | 2020-08-01 12:17 | XMS_ITS | Encounter Summary ---
:1940 Author Organization [employer] [facility] Address [address] [place] [address] Care Team Providers Name Role Phone Benjamin Steward Primary Care Provider Reason for Referral Preauthorization (Routine) - Closed Specialty Diagnoses / Procedures Referred By Contact Refer red To Contact Diagnoses Breast tenderness in female Franchesca Pink MD Procedures Mammogram Diagnostic Right Digital with CAD [address] [place] [place] [facility] [place], [place] Referral ID Status Reason Start Date Expiration Date Visits Requ ested Visits Authorized [id number] Closed 04/06/2018 10/03/2018 1 1 Reason for Visit Reason Comments Breast Problem Pt here with c/o soreness an d itching of right nipple for a couple of months, uncertain of lumps and bumps, no nipple d/c, no redness. Last mammo 2018 at [facility] normal per pt. Encounter Details Date Type Department Care Team Description 04/06/2018 Office Visit OBGYN - Franchesca Azul MD Nipple pain (Primary Dx); [address] Breast tenderness in female [address] [place] [id number] [place] [phone] Medical [place] [phone] (Wo rk) Social History Tobacco Use Types [...] Sign Reading Time Taken Comments Blood Pressure 122/58 04/06/2018 3:14 PM EST Pulse - - Temperature - - Respiratory Rate - - Oxygen Saturation - - Inhaled Oxygen Concentration - - Weight 75.3 kg (166 lb) 04/06/2018 3:14 PM EST Height 154.9 cm (5' 1) 04/06/2018 3:14 PM EST Body Mass Index 31.37 04/06/2018 3:14 PM EST documented in this encounter Progress Notes Franchesca Pink MD - 04/06/2018 3:15 PM EST Images from the original note were not included. Esther Morales is a 77 y.o.. Chief Complaint Patient presents with ??? Breast Problem Pt here with c/o soreness and itching of right nipple for a couple of months, uncertain of lumpsand bumps, no nipple d/c, no redness. Last mammo 2018 at [facility] normal per pt. HPI 77 year old with right breast tenderness for 2 months. Pt reports having intense itching of theareola as well as feeling tender under the areaola. Pt reports regular breast imaging, reports no issues in 2018. She reports no changes in soaps/detergents. Denies trauma. Denies nipple discharge or rash. Pt without itching on left breast. Allergies: Allergies Allergen Reactions ??? Acetazolamide Other (See Comments) Dry mouth ??? Codeine Nausea And Vomiting ??? Morphine ??? Morphine And Related Nausea And Vomiting ??? Sulphadimidine [Sulfamethazine] Hives ??? Tramadol Nausea And Vomiting ??? Latex Rash Current Meds: Current Outpatient Prescriptions Medication Sig Dispense Refill ??? aspirin EC 81 MG tablet Take 81 mg by mouth daily. ??? Cholecalciferol (VITAMIN D-3 PO) Vitamin D3 TABS Refills: 0 Active ??? Coenzyme Q10 (COQ10 PO) Take by mouth. ??? Dulaglutide (TRULICITY SC) Inject under the skin. ??? HUMALOG KWIKPEN 100 UNIT/ML injection ??? hydrochlorothiazide (HYDRODIURIL) tablet 25 mg ??? LANTUS 100 UNIT/ML injection 6 ??? lisinopril (PRINIVIL,ZESTRIL) tablet 20 mg ??? metFORMIN (GLUCOPHAGE-XR) ER 24 hr tablet 500 mg ??? pantoprazole (PROTONIX) 40 MG injection Inject 40 mg into the vein daily. ??? pravastatin (PRAVACHOL) tablet 20 mg ??? VITAMIN A PO Take by mouth. ??? [employer] CONTOUR NEXT TEST test strip 3 ??? clobetasol (TEMOVATE) 0.05 % cream Apply to affected area daily x 7 days then every other day for 7 days then once a week. (Patient not taking: Reported on 04/06/2018) 60 g 1 ??? Na Sulfate-K Sulfate-Mg Sulf (SUPREP BOWEL [...] 1 week max 15 g 0 ??? [place]-3 Fatty Acids (OMEGA 3 PO) Take by mouth. ??? omeprazole (PRILOSEC) 40 MG capsule ??? triamcinolone (KENALOG) 0.1 % cream Apply topically 2 (two) times a day. 30 g 0 ??? triamcinolone (KENALOG) 0.1 % cream Apply topically 2 (two) times a day. Use only for 1 week max30 g 0 No current facility-administered medications for this visit. Active Problems: Patient Active Problem List Diagnosis SNOMED CT(R) ??? 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 Ischemic colitis (HCC) ISCHEMIC COLITIS ??? Breast tenderness in female BREAST TENDERNESS Vital Signs: Vitals: 04/06/18 1514 BP: 122/58 Weight: 75.3 kg (166 lb) Height: 5' 1 (1.549 m) Body mass index is 31.37 kg/m??. BMI Screening: patient's BMI was abnormal. Follow up plan includes: weight monitoring . History: OB History Para Term AB Living 2 2 2 0 0 2 SAB TAB Ectopic Molar Multiple Live Births 0 0 0 0 Past Medical History: Diagnosis Date ??? Acid [...] periods. ??? WISDOM TOOTH EXTRACTION 2016 x1 Family [...] History Narrative ??? No narrative on file Review of Systems All other systems reviewed and are negative. + breast pain, +breast itch Physical Exam Constitutional: She is oriented to person, place, and time. She appears well- developed and well-nourished. No distress. Pulmonary/Chest: Effort normal. No respiratory distress. Musculoskeletal: Normal range of motion. She exhibits no tenderness. Neurological: She is alert and oriented to person, place, and time. Skin: She is not diaphoretic. Assessment/Plan: Esther was seen today for breast problem. Diagnoses and all orders for this visit: Nipple pain Breast tenderness in female - Mammogram Diagnostic Right Digital with CAD; Future - US Breast Scan Diagnostic Right Limited; Future Other orders - nystatin (MYCOSTATIN) cream; Apply topically 2 (two) times a day. Use only for 1 week max - triamcinolone (KENALOG) 0.1 % cream; Apply topically 2 (two) times a day. Use only for 1 week max For skin irritation will given mycolog cream, will not interfere with breast imaging, will help withsymptoms until studies can be done. Pt aware not to use >7 days. PRN follow up Franchesca Pink MD 04/08/18 documented in this encounter Plan of Treatment Scheduled Orders Name Type Priority Associated Diagnoses Order S chedule Mammogram Diagnostic Imaging Routine Breast tenderness in Expected: 04/06/2018 Right Digital with CAD female (Appr oximate), Expires: 2019 documented as of this encounter Visit Diagnoses Diagnosis Nipple pain - Primary Other sign and symptom in breast Breast tenderness in female documented in this encounter Care Teams Record Center Coordinator Relationship Specialty Start Date End Date Donaldo Steward DO PCP - General Family Medicine 05/17/[address] [place] [id number] documented as of this encounter
--- OUTSIDE RECORDS SUMMARY | 2020-08-01 12:17 | XMS_ITS | Encounter Summary ---
:1940 Author Organization [employer] [facility] Address [address] [place] [address] Care Team Providers Name Role Phone Benjamin Steward Primary Care Provider Encounter Details Date Type Department Care Team Description 09/02/2019 Hospital Encounter Preadmission Testing Pre-op exam [address] [place] [address] Social History Tobacco Use Types Packs/Day Years [...] on file documented as of this encounter Medications at Time of Discharge [...] PLUS VITAMINS A daily. AND D PO) [place]-3 Fatty Acids (OMEGA Take by mouth. 0 [...] INTESTINAL SMOOTH AND BUILD: 2 TABS BID enoxaparin (LOVENOX) 40 Inject 0.4 mL (40 10.8 mL 0 09/0709/07/2019 MG/0.4ML SOLN mg total) under the skin daily for 27 days. hydroxychloroquine Take 1 tablet 180 tablet 2 06/21/2019 (PLAQUENIL) 200 MG tablet (200 mg total) by mouth every night at bedtime as needed. metroNIDAZOLE (FLAGYL) 500 Take 1 tablet 3 tablet 0 201909/07/2019 MG tablet (500 mg total) by mouth See admin instructions. Take 1 tab PO at 1pm, 2pm and 8pm on day prior to surgery neomycin (MYCIFRADIN) 500 Take 1 tablet 6 tablet 0 020 09/07/2019 MG tablet (500 mg total) by mouth See admin instructions. Take 2 tabs PO at 1pm, 2pm and 8pm on day prior to surgery oxyCODONE (ROXICODONE) 5 MG Take 1 tablet (5 15 tablet 0 09/07/2019 immediate release tablet mg total) by mouth every 4 (four) hours as needed. TRULICITY 0.75 MG/0.5ML INJECT ONCE A 1 9 12/20/2019 SOPN WEEK documented as of this encounter Plan of Treatment Not on filedocumented as of this encounter Procedures Procedure Name Priority Date/Time Associated Diagnosis Comme nts COVID-19 STAT 09/02/2019 8:07 AM Pre-op exam Results for this EDT procedure are i n the results section . documented in this encounter Results COVID-19 (09/02/2019 8:07 AM EDT) Source [facility] Performing [facility] [address] [place] [address] CLIA [id number] SARS CoV-2 RNA Not Detected [facility] Comment: LABORATORY SERVICES Performed at [address] [address] Jonathon Valle Jr, MD Director CLIA [id number] ??CL 0623 Specimen Performing Organization Address City/State/ZIP Code Phon e Number [facility] [address] [place] [phone] SERVICES (CLIA #[id number]) ([id number]) documented in this encounter Visit Diagnoses Diagnosis Pre-op exam documented in this encounter Care Teams All Source Analyst Relationship Specialty Start Date End Date Donaldo Steward DO PCP - General Family Medicine 05/17/[address] [place] [address] [address] [place] [address] documented as of this encounter
--- OUTSIDE RECORDS SUMMARY | 2020-08-01 12:17 | XMS_ITS | Encounter Summary ---
:1939 Author Organization [facility] Address [address] [place] [address] Care Team Providers Name Role Phone Benjamin Steward Primary Care Provider Reason for Visit Reason Comments Office Visit pt states she has a yeast in fection under her belly flap she has this in the past and has been treate d with 2 creams Encounter Details Date Type Department Care Team Description 07/26/2019 Audio Visit TOY - Crystal Paz Cutaneous candidiasis [address] Pedersen MD (Primary Dx) [address] [place] [address] [address] [place] [address] (Wo rk) Social History Tobacco Use Types [...] on file documented as of this encounter Progress Notes Crystal Alston MD - 07/26/2019 2:15 PM EDT Esther Morales is a 79 y.o.. Chief Complaint Patient presents with ??? Office Visit pt states she has a yeast infection under her belly flap she has this in the past and has been treated with 2 creams Patient advised not to come to the office due to COVID-19 risk. His/Her health conditions warranted an audio visit that will be submitted to insurance. Patient understands that this visit was in place of an in person visit, understands the risks of communicating online and consents to an audio visit. 79 y/o Audio call for possible yeast in abdominal crease. Pt is diabetic. Has had this before. Notes sugars have not been great lately. Rash is sore and red and itches a bit. Notes sugars are a little off lately. Allergies: Allergies Allergen Reactions ??? Acetazolamide Other [...] Q10 (COQ10 PO) Take by mouth. ??? HUMALOG KWIKPEN 100 UNIT/ML injection ??? hydroxychloroquine (PLAQUENIL) 200 MG tablet Take 1 tablet (200 mg total) by mouth every night at bedtime as needed. 180 tablet 2 ??? LANTUS SOLOSTAR 100 UNIT/ML injection INJECT 25 UNITS UNDER THE SKIN AT BEDTIME ??? lisinopril (PRINIVIL,ZESTRIL) tablet 20 mg ??? metFORMIN (GLUCOPHAGE-XR) ER 24 hr tablet 500 mg ??? [place]-3 Fatty Acids (OMEGA 3 PO) Take by mouth. ??? omeprazole (PRILOSEC) 40 MG capsule ??? pantoprazole (PROTONIX) 40 MG tablet ??? pravastatin (PRAVACHOL) tablet 20 mg ??? TRULICITY 0.75 MG/0.5ML SOPN INJECT ONCE A WEEK 1 ??? VITAMIN A PO Take by mouth. ??? clotrimazole-betamethasone (LOTRISONE) cream Apply to affected area 2 times daily 45 g 1 ??? colchicine (MITIGARE) 0.6 MG capsule Rescue Plan: 1st day take 2 tablets and 1 tablet in an hr intervals, then 2 tables for one day the 1 tablet for 7 days. (Patient not taking: Reported on 07/26/2019) 30 capsule 0 ??? fluconazole (DIFLUCAN) 150 MG tablet Take 1 tablet (150 mg total) by mouth once for 1 dose. Repeat 3 days 2 tablet 2 No current facility-administered medications for [...] Chronic pain of both shoulders SHOULDER PAIN Vital Signs: There were no vitals filed for this visit. There is no height or weight on file to calculate BMI. Not measured- Audio visit History: OB History Para Term AB Living [...] Last attempt to quit: 02/27/1961 Years since quittin.4 ??? Smokeless tobacco: Never Used Substance and Sexual Activity ??? Alcohol use: Yes Comment: rare ??? Drug use: No ??? Sexual activity: No control/protection: Surgical Comment: passed 3y ago. HYST 1979. Lifestyle ??? Physical activity: Days per week: Not on file Minutes per session: Not on file ??? Stress: Not on file Relationships ??? Social connections: Talks on phone: Not on file Gets together: Not on file Attends scientologist service: Not on file Active member of [...] Social History Narrative ??? Not on file Review of Systems Constitutional: Negative for chills and fever. Respiratory: Negative for shortness of breath. Cardiovascular: Negative for chest pain. Gastrointestinal: Negative for abdominal pain, constipation, diarrhea, nausea and vomiting. Genitourinary: Negative for dysuria, vaginal bleeding and vaginal discharge. Skin: Positive for rash (see HPI). Neurological: Negative for dizziness and syncope. Psychiatric/Behavioral: Negative for agitation, behavioral problems and confusion. Physical Exam Audio only Assessment/Plan: Esther was seen today for office visit. Diagnoses and all orders for this visit: Cutaneous candidiasis Other orders - fluconazole (DIFLUCAN) 150 MG tablet; Take 1 tablet (150 mg total) by mouth once for 1 dose. 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 No Follow-up on file. Crystal Alston MD documented in this encounter Plan of Treatment Not on filedocumented as of this encounter Visit Diagnoses Diagnosis Cutaneous candidiasis - Primary documented in this encounter Care Teams Quality Checker Relationship Specialty Start Date End Date Donaldo Steward DO PCP - General Family Medicine 05/17/[address] [place] [id number] documented as of this encounter
--- OUTSIDE RECORDS SUMMARY | 2020-08-01 12:17 | XMS_ITS | Encounter Summary ---
:1940 Author Organization [employer] [facility] Address [address] [place] [address] Care Team Providers Name Role Phone Benjamin Steward Primary Care Provider Reason for Visit Reason Comments Office Visit inside of vagina feels bumpy has some itching no discharge no odor Encounter Details Date Type Department Care Team Description 07/17/2017 Office Visit Uma Vega, Lichen sclerosus of [address] [place] [address] female genitalia [address] [place] [id number] [place] [address] Social History Tobacco Use Types Packs/Day Years Used Date Former Smoker Cigarettes 6 02/27/1957 - 0 02/27/1961 Alcohol Use Standard Drinks/Week Comments Yes 0 [...] Sign Reading Time Taken Comments Blood Pressure 120/78 07/17/2017 1:51 PM EDT Pulse - - Temperature - - Respiratory Rate - - Oxygen Saturation - - Inhaled Oxygen Concentration - - Weight 78 kg (172 lb) 07/17/2017 1:51 PM EDT Height 154.9 cm (5' 1) 07/17/2017 1:51 PM EDT Body Mass Index 32.5 07/17/2017 1:51 PM EDT documented in this encounter Progress Notes Uma Romero, JOYCE - 07/17/2017 1:45 PM EDT Images from the original note were not included. Esther Morales is a 77 y.o. female. Chief Complaint Patient presents with ??? Office Visit inside of vagina feels bumpy has some itching no discharge no odor HPI Pt noticing some bumps on her inner right labia that she states have been mildly itchy at times for the last week or so. Pt denies any vaginal discharge or odors. Pt with hx of LSA. Pt denies using any creams. She is not sexually active. Allergies: Allergies Allergen Reactions ??? Acetazolamide Other (See Comments) Dry mouth ??? Codeine Nausea And Vomiting ??? Morphine ??? Morphine And Related Nausea And Vomiting ??? Sulphadimidine [Sulfamethazine] Hives ??? Tramadol Nausea And Vomiting ??? Latex Rash Current Meds: Current Outpatient Prescriptions: ??? aspirin EC 81 MG tablet, Take 81 mg by mouth daily., Disp: , Rfl: ??? ANA CONTOUR NEXT TEST test strip, , Disp: , Rfl: 3 ??? Cholecalciferol (VITAMIN D-3 PO), Vitamin D3 TABS Refills: 0 Active, Disp: , Rfl: ??? Coenzyme Q10 (COQ10 PO), Take by mouth., Disp: , Rfl: ??? Dulaglutide (TRULICITY SC), Inject under the skin., Disp: , Rfl: ??? HUMALOG KWIKPEN 100 UNIT/ML injection, , Disp: , Rfl: ??? hydrochlorothiazide (HYDRODIURIL) tablet 25 mg, , Disp: , Rfl: ??? LANTUS 100 UNIT/ML injection, , Disp: , Rfl: 6 ??? lisinopril (PRINIVIL,ZESTRIL) tablet 20 mg, , Disp: , Rfl: ??? metFORMIN (GLUCOPHAGE-XR) ER 24 hr tablet 500 mg, , Disp: , Rfl: ??? [place]-3 Fatty Acids (OMEGA 3 PO), Take by mouth., Disp: , Rfl: ??? pantoprazole (PROTONIX) 40 MG injection, Inject 40 mg into the vein daily., Disp: , Rfl: ??? pravastatin (PRAVACHOL) tablet 20 mg, , Disp: , Rfl: ??? VITAMIN A PO, Take by mouth., Disp: , Rfl: ??? clobetasol (TEMOVATE) 0.05 % cream, Apply to affected area daily x 7 days then every other day for 7 days then once a week., Disp: 60 g, Rfl: 1 ??? nystatin (MYCOSTATIN) cream, Apply topically 2 (two) times a day. (Patient not taking: Reportedon 07/17/2017), Disp: 30 g, Rfl: 0 ??? omeprazole (PRILOSEC) 40 MG capsule, , Disp: , Rfl: ??? triamcinolone (KENALOG) 0.1 % cream, Apply topically 2 (two) times a day. (Patient not taking: Reported on 07/17/2017), Disp: 30 g, Rfl: 0 Active Problems: Patient Active Problem List Diagnosis SNOMED CT(R) ??? Vaginal itching PRURITUS OF VAGINA ??? 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 Encounter for routine gynecological examination PATIENT ENCOUNTER STATUS ??? Ischemic colitis (HCC) ISCHEMIC COLITIS History: OB History Para Term AB Living 2 2 2 0 0 2 SAB TAB Ectopic Molar Multiple Live Births 0 0 0 0 # Outcome Date GA Lbr Tristan/2nd Weight Sex Delivery Anes PTL Lv 2 Term Vag-Spont 1 Term Vag-Spont Past Medical History: Diagnosis Date ??? Acid [...] Father ??? Colon cancer Brother 70 ??? Breast cancer Neg Hx ??? Ovarian cancer Neg Hx ??? Uterine cancer Neg Hx ??? No Sig Med Hx Sister ??? Cancer Brother lung ??? No Sig Med Hx Brother ??? No Sig Med Hx Sister Social History Social History ??? Marital status: Spouse name: N/A ??? Number of children: N/A ??? Years of education: N/A Occupational History ??? Not on file. Social History Main Topics ??? Smoking status: Former Smoker Years: 6.00 Types: Cigarettes Start date: 02/27/1957 Quit date: 02/27/1961 ??? Smokeless tobacco: Not on file ??? Alcohol use Yes Comment: rare ??? Drug use: No ??? Sexual activity: No Comment: passed 3y ago. HYST 1979. Other Topics Concern ??? Not on file Social History Narrative ??? No narrative on file Review of Systems Physical Exam Constitutional: She appears well-developed and well-nourished. Genitourinary: There is labial fusion. There is rash on the right labia. There is no tenderness, lesion or injury on the right labia. There is no rash, tenderness, lesion or injury on the left labia. Nursing note and vitals reviewed. Vitals: 07/17/17 1351 BP: 120/78 Weight: 78 kg (172 lb) Height: 5' 1 (1.549 m) Assessment/Plan: Esther was seen today for office visit. 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 -Reviewed with pt symptoms are likely caused by LSA. Pt states she no longer has any clobetasol. Discussed using more frequently and then tapering to just once a week. Pt happy with that plan and will call if symptoms do not improve over a week. -Discussed progression of LSA with pt and what to expect from this chronic condition. Orders: No orders of the defined types were placed in this encounter. Return if symptoms worsen or fail to improve. 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
--- OUTSIDE RECORDS SUMMARY | 2020-08-01 12:17 | XMS_ITS | Encounter Summary ---
:1940 Author Organization [facility] Address [address] [place] [address] Care Team Providers Name Role Phone SholaBenjamin almendarez Primary Care Provider Reason for Referral Preauthorization (Routine) - Closed Specialty Diagnoses / Procedures Referred By Contact Refer red To Contact Diagnoses Other osteoporosis without current pathological fracture Gwendolyn Smith APRN Procedures Bone Density Study [address] [place], [place] [address]sue Malik [facility] [place], [place] [address] Referral ID Status Reason Start Date Expiration Date Visits Requ ested Visits Authorized [id number] Closed 06/21/2019 06/20/2020 1 1 Reason for Visit Reason Comments Gout follow-up Osteoporosis Encounter Details Date Type Department Care Team Description 06/21/2019 Follow-Up RHEUMATOLOGY Gwendolyn Smith APRN Other osteoporosis without current patho logical fracture (Primary Dx); [facility] [place] [address] Chronic pain of both shoulders [address] [facility] [place], [place] [facility] [place] [id number] [place] [address] (Wo rk) Social History Tobacco Use Types [...] Sign Reading Time Taken Comments Blood Pressure 148/79 06/21/2019 10:29 AM EDT Pulse - - Temperature - - Respiratory Rate - - Oxygen Saturation - - Inhaled Oxygen Concentration - - Weight 72.6 kg (160 lb) 06/21/2019 10:29 AM EDT Height 156.2 cm (5' 1.5) 06/21/2019 10:29 AM EDT Body Mass Index 29.74 06/21/2019 10:29 AM EDT documented in this encounter Progress Notes Gwendolyn Smith APRN - 06/21/2019 10:20 AM EDT Images from the original note were not included. [address] [place] [id number] Esther Morales 1940 Chief Complaint Follow up for Right shoulder pain, osteoporosis, gout, leg cramps Currently taking 5mg Reclast IV (07/18/18), Colchicine PRN, HCQ 200 mg 1 PO QD PCP: Dr. Steward Subjective: History of Present Illness ???Patient requested and consented to the telehealth?? Esther Morales is a 78 y.o. yr old female who returns for follow up of Right shoulder pain, osteoporosis, gout, leg cramps. Patient reports she is taking 200mg HCQ PO QD. She denies side effects from the medication. She reports the HCQ helps with her cramps. She reports seeing her eye doctor in August and was told they are doing fine. Right shoulder improved from cortisone injection by Dr. Diaz. She notes doing PT exercises for the shoulders. She denies having any gout flare since her last visit. Review of Symptoms (negative except as noted; [...] tendencies, anemia, blood transfusions. Objective: Vitals: Vitals: 06/21/19 1029 BP: 148/79 Weight: 72.6 kg (160 lb) Height: 5' 1.5 (1.562 m) Body mass index is 29.74 kg/m??. BMI Screening: patient's BMI was abnormal. [...] both shoulders SHOULDER PAIN Medications: Current Outpatient Medications: ??? aspirin EC 81 MG tablet, Take 81 mg by mouth daily., Disp: , Rfl: ??? Cholecalciferol (VITAMIN D-3 PO), Vitamin D3 TABS Refills: 0 Active, Disp: , Rfl: ??? Coenzyme Q10 (COQ10 PO), Take by mouth., Disp: , Rfl: ??? HUMALOG KWIKPEN 100 UNIT/ML injection, , Disp: , Rfl: ??? hydroxychloroquine (PLAQUENIL) 200 MG tablet, Take 200 mg by mouth every night at bedtime as needed., Disp: , Rfl: ??? LANTUS SOLOSTAR 100 UNIT/ML injection, INJECT 25 UNITS UNDER THE SKIN AT BEDTIME, Disp: , Rfl: ??? lisinopril (PRINIVIL,ZESTRIL) tablet 20 mg, , Disp: , Rfl: ??? metFORMIN (GLUCOPHAGE-XR) ER 24 hr tablet 500 mg, , Disp: , Rfl: ??? nystatin (MYCOSTATIN) cream, Apply topically 2 (two) times a day. Use only for 1 week max (Patient not taking: Reported on 10/19/2018), Disp: 15 g, Rfl: 0 ??? [place]-3 Fatty Acids (OMEGA 3 PO), Take by mouth., Disp: , Rfl: ??? omeprazole (PRILOSEC) 40 MG capsule, , Disp: , Rfl: ??? pantoprazole (PROTONIX) 40 MG tablet, , Disp: , Rfl: ??? polyethylene glycol (GOLYTELY) 236 g solution, Take as directed, Disp: 4000 mL, Rfl: 0 ??? pravastatin (PRAVACHOL) tablet 20 mg, , Disp: , Rfl: ??? TRULICITY 0.75 MG/0.5ML SOPN, INJECT ONCE A WEEK, Disp: , Rfl: 1 ??? VITAMIN A PO, Take by mouth., Disp: , Rfl: Family Hx: Family History [...] in January 2018 resolved with c olchicine. Her right shoulder pain was improved with injection from ortho and she continues with PT. Xray describes degenerative changes consistent with OA. - Appears to be a component of rotator cuff tendiopathy as well as osteoarthritis. Gout is well managed on Allopurinol Osteoporosis status post started Reclast after recent DEXA done on 04/16/18 showed T Score -2.6 at the Left Hip Plan: Esther was seen today for right shoulder pain, gout, osteoporosis and leg cramps. Diagnoses and all orders for this visit: Chronic pain of both shoulders/OA:Improved with injection through Ortho. She will continue physicaltherapy for rotator cuff tendinopathy and impingement. Other [...] Patient was instructed to notify their eye customer care team coach of hydroxychloroquine use and obtain yearly eye [...] S chedule Bone Density Study Imaging Routine Other osteoporosis 1 O ccurrences starting without current 06/21/2019 u ntil pathological fracture 2021 documented as of this encounter Visit Diagnoses Diagnosis Other osteoporosis without current patho logical fracture - Primary Chronic pain of both shoulders documented in this encounter Care Teams Video Tape Transferrer Relationship Specialty Start Date End Date Donaldo Steward DO PCP - General Family Medicine 05/17/[address] [place] [address] [address] [place] [address] documented as of this encounter
--- OUTSIDE RECORDS SUMMARY | 2020-08-01 12:17 | XMS_ITS | Encounter Summary ---
:1940 Author Organization [facility] Address [address] [place] [address] Care Team Providers Name Role Phone Benjamin Steward Primary Care Provider Reason for Visit Reason Comments Follow-up Encounter Details Date Type Department Care Team Description 05/18/2016 Office Visit Colon and Rectal Hamzah Orourke Ischemic colitis (HCC) [facility] MD (Primary Dx) [place] [address] [place] [address] [address] [facility] [place] [phone] Social History Tobacco Use Types Packs/Day Years [...] Sign Reading Time Taken Comments Blood Pressure 157/65 05/18/2016 2:13 PM EDT Pulse 81 05/18/2016 2:13 PM EDT Temperature - - Respiratory Rate - - Oxygen Saturation - - Inhaled Oxygen Concentration - - Weight 74.8 kg (165 lb) 05/18/2016 2:13 PM EDT Height 154.9 cm (5' 1) 05/18/2016 2:13 PM EDT Body Mass Index 31.18 05/18/2016 2:13 PM EDT documented in this encounter Progress Notes Hamzah Orourke MD - 05/18/2016 2:32 PM EDT Chief Complaint: Chief Complaint Patient presents with ??? Follow-up HPI: Patient is here today as a consultation request from Donaldo Steward DO. Patient is being seen for follow-up after likely ischemic colitis 04/21 at [facility]. She was discharged a few days later. She completed a ten-day course of antibiotics. She complains of no pain. Her bowel movements are now soft. She has no nausea or vomiting. No weight loss. No dark stools. No further blood in the stool. She had a previous large cecal polyp removed by Dr. Tineo in 2012. In 2014 she had 2 small tubular adenoma was removed. She had previous episodes of ischemic colitis and was seen in the ED and discharged with antibiotics which improved faster than this episode and was less severe in terms of pain and blood per rectum. Past Medical History Diagnosis Date ??? Arthritis ??? Diabetes mellitus (HCC) ??? Hypertension ??? Hypercholesteremia ??? Adenomatous polyp of colon ??? Spinal stenosis ??? Acute myocardial infarction (HCC) ??? Acid reflux Past Surgical History Procedure Laterality Date ??? Coronary angioplasty with stent placement 2003 ??? Back surgery 2012 ??? Cataract extraction, bilateral 2003 ??? Hysterectomy 1980s Heavy periods. ??? [place] tooth extraction 2016 x1 Current Outpatient Prescriptions Medication Sig Dispense Refill ??? aspirin EC 81 MG tablet Take 81 mg by mouth daily. ??? ANA CONTOUR NEXT TEST test strip 3 ??? Cholecalciferol (VITAMIN D-3 PO) Vitamin D3 TABS Refills: 0 Active ??? Coenzyme Q10 (COQ10 PO) Take by mouth. ??? LANTUS 100 UNIT/ML injection 6 ??? lisinopril (PRINIVIL,ZESTRIL) tablet 20 mg ??? metFORMIN (GLUCOPHAGE-XR) ER 24 hr tablet 500 mg ??? [place]-3 Fatty Acids (OMEGA 3 PO) Take by mouth. ??? pravastatin (PRAVACHOL) tablet 20 mg ??? VITAMIN A PO Take by mouth. ??? clobetasol (TEMOVATE) 0.05 % cream Apply to affected area daily x 7 days then every other day for 7 days then once a week. 60 g 1 ??? Dulaglutide (TRULICITY SC) Inject under the skin. ??? HUMALOG KWIKPEN 100 UNIT/ML injection ??? hydrochlorothiazide (HYDRODIURIL) tablet 25 mg ??? nystatin (MYCOSTATIN) cream Apply topically 2 (two) times a day. 30 g 0 ??? omeprazole (PRILOSEC) 40 MG capsule ??? triamcinolone (KENALOG) 0.1 % cream Apply topically 2 (two) times a day. 30 g 0 No current facility-administered medications for [...] Sister Social History Social History ??? Marital Status: Spouse Name: N/A ??? Number of Children: N/A ??? Years of Education: N/A Occupational History ??? Not on file. Social History Main Topics ??? Smoking status: Former Smoker -- 6 years Types: Cigarettes Start date: 02/27/1957 Quit date: 02/27/1961 ??? Smokeless tobacco: Not on file ??? Alcohol Use: Yes Comment: rare ??? Drug Use: No ??? Sexual Activity: No Comment: passed 3y ago. HYST 1979. Other Topics Concern ??? Not on file Social History Narrative Allergies Allergen Reactions ??? Acetazolamide Other (See Comments) Dry mouth ??? Codeine Nausea And Vomiting ??? Morphine ??? Morphine And Related Nausea And Vomiting ??? Sulphadimidine [Sulfamethazine] Hives ??? Tramadol Nausea And Vomiting ??? Latex Rash Review of Systems A focused ROS was completed and was negative unless otherwise noted above. Vital Signs: Filed Vitals: 05/18/16 1413 BP: 157/65 Pulse: 81 Height: 5' 1 (1.549 m) Weight: 74.844 kg (165 lb) Body mass index is 31.19 kg/(m^2). Body surface area is 1.79 meters squared. Vitals reviewed. Constitutional: She is well-developed and well-nourished Assessment: ICD-10-CM SNOMED CT(R) 1. Ischemic colitis (HCC) K55.9 ISCHEMIC COLITIS A total of 25 minutes was spent with the patient today with more than 50% of the time on counseling / education and coordination of care. Plan: We had an extensive discussion about the origin of many different types of colitis including infectious, ischemic, and auto inflammatory. Based on angiographic distribution in close proximity to the splenic flexure along with acute onset and due to her age and complete resolution, I explained this was likely ischemic colitis. I did explain this is typically due to low blood flow to the colon. There are many possibilities of how this could've happened including a brief episode of hypotension or dehydration. I explained that there is nothing that she can possibly do to prevent this from coming back again except ensuring appropriate hydration and ensuring she does not become hypotensive including any symptoms of dizziness or lightheadedness or palpitations I also explained that typically a colonoscopy is done after an acute episode although her last colonoscopy was within the last 2 years. This is done to ensure there is no underlying lesion that is not completely delineated on CAT scan I did explain that she should have one around the age of 79 and this will likely be her last. She isvery hesitant to do so due to the risk as she was told that the risk was significantly up with age for perforation and anesthesia risk. I did still recommend this and she will continue to think about it. She will follow up again on an as-needed basis. Hamzah Orourke MD documented in this encounter Plan of Treatment Not on filedocumented as of this encounter Visit Diagnoses Diagnosis Ischemic colitis (HCC) - Primary documented in this encounter Care Teams Purchasing Associate Relationship Specialty Start Date End Date Donaldo Steward DO PCP - General Family Medicine 05/17/[address] [place] [id number] documented as of this encounter
--- OUTSIDE RECORDS SUMMARY | 2020-08-01 12:17 | XMS_ITS | Encounter Summary ---
:1940 Author Organization [facility] Address [address] [place] [address] Care Team Providers Name Role Phone Benjamin Steward Primary Care Provider Reason for Visit Reason Comments Office Visit Encounter Details Date Type Department Care Team Description 08/29/2019 Audio Visit CRS / Hamzah Lezama Malignant neoplasm of 6 [facility] MD Zen colon, unspecified [address] part of colon (HCC) [place], [place] [address] (Primary Dx) [phone] [facility] [phone] [place] [address] Social History Tobacco Use Types Packs/Day Years [...] - - Weight 72.6 kg (160 lb) 08/29/2019 4:48 PM EDT Height 156.2 cm (5' 1.5) 08/29/2019 4:48 PM EDT Body Mass Index 29.74 08/29/2019 4:48 PM EDT documented in this encounter Progress Notes Hamzah Orourke MD - 08/29/2019 4:30 PM EDT Chief Complaint: Chief Complaint Patient presents with ??? Office Visit HPI: Patient is here today as a consultation request from Donaldo Steward DO. 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 Has a history of multiple admissions to the hospital 2013May and February 2019. This was for likely findings of ischemic colitis as it was in the splenic flexure distal transverse colon and descending colon area. There was some inflammation and thickening. She had an attempted colonoscopy February 2019 with me however the prep was poor and it was aborted around the rectosigmoid area. Previous colonoscopy to that was in [address] Carmen in which a 3 mm polyp was removed from the sigmoid colon. She underwent colonoscopy which was extremely difficult August 06, 2019 with a forementioned findings. There was a very difficult bend at the descending to sigmoid colon that was very difficult to navigate. She was found to have what appeared to be in the ascending colon a polyp that was removed. This polyp was about 1 cm. It was not tattooed as it seemed to be a routine polyp. It was also pedunculated. It was relatively soft and not ulcerated. Unfortunately this involved a sessile 0.3 cm area of invasive carcinoma within a tubulovillous adenoma. Margins deep margin mucosal margin were positive. 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 There was loss of MLH1 and PMS2. She also had evidence of moderate chronic inactive inflammation on upper endoscopy. She was doing well. She has no urgency with bowel movements. Denies any blood in the stool or darkstools. No abdominal cramping. . Past Medical History: Diagnosis Date ??? Acid [...] CATARACT EXTRACTION, BILATERAL 2003 ??? COLONOSCOPY ??? CORONARY ANGIOPLASTY WITH STENT [...] D PO) Take by mouth daily. ??? [place]-3 Fatty Acids (OMEGA 3 PO) Take by mouth. ??? pantoprazole (PROTONIX) 40 MG tablet 2 (two) times a day. ??? Potassium 99 MG TABS Take by mouth daily. ??? pravastatin (PRAVACHOL) tablet 20 mg every night at bedtime. ??? Probiotic Product (PROBIOTIC DAILY PO) Take by mouth daily. ??? TRULICITY 0.75 MG/0.5ML SOPN INJECT ONCE A WEEK 1 ??? metroNIDAZOLE (FLAGYL) 500 MG tablet Take 1 tablet (500 mg total) by mouth See admin instructions. Take 1 tab PO at 1pm, 2pm and 8pm on day prior to surgery 3 tablet 0 ??? neomycin (MYCIFRADIN) 500 MG tablet Take 1 tablet (500 mg total) by mouth See admin instructions. Take 2 tabs PO at 1pm, 2pm and 8pm on day prior to surgery 6 tablet 0 ??? polyethylene glycol (GOLYTELY) 236 g solution Take 240 mL by mouth once for 1 dose. Take as directed 4000 mL 0 ??? UNABLE TO FIND 2 (two) times a day. HISTA BLOCK: 2 TABS BID ??? UNABLE TO FIND 2 (two) times a day. INTESTINAL SMOOTH AND BUILD: 2 TABS BID No current facility-administered medications for this visit. Patient Active Problem List Diagnosis SNOMED CT(R) Date Noted ??? Chronic pain of both shoulders SHOULDER [...] file Gets together: Not on file Attends advent service: Not on file Active member of [...] unless otherwise noted above. Vital Signs: Vitals: 08/29/19 1648 Weight: 72.6 kg (160 lb) Height: 5' 1.5 (1.562 m) Body mass index is 29.74 kg/m??. Body surface area is 1.77 meters squared. Physical Exam Unable to perform exam via audio visit. Assessment: ICD-10-CM SNOMED CT(R) 1. Malignant neoplasm of colon, unspecified part of colon (HCC) C18.9 MALIGNANT TUMOR OF COLON A total of 38 minutes was spent with the patient today with more than 50% of the time on counseling / education and coordination of care. Plan: Had a glory discussion about the possibility of undergoing repeat colonoscopy at the time of the surgical procedure and no significant findings will be found. Explained that because this appeared to be in the ascending colon the ascending colon should still be removed. Explained that with findings of a cancerous polyp if the margins are positive it is recommended to undergo colectomy to ensure complete removal and to prevent spread as typically the cancer will spread to the lymph nodes first. Jessicahas previously undergone CT scan chest abdomen pelvis with no evidence of metastatic disease and to 4 mm nodules in the right lung nonspecific. Due to previous episodes of ischemic colitis and her ageimmediate repeat colonoscopy was not performed as it would likely be amenable to performing this in the operating at the time of the surgical therapy. Explained chance of not performing surgery however this may lead to recurrence of cancer or possible spread of cancer to the lymph nodes and elsewherewhich may certainly lead to metastatic disease over time. She is also aware of the risk for surgeryand she has certainly somewhat higher risk because of multiple episodes of ischemic colitis and her hypertension and diabetes. Using the ACS risk of calculator serious complication rate is approximately 17% versus average risk score of 8%. Also risk of of 2% versus 0.3% average. Anastomotic leak rate of about 1.5%. Certainly this may actually be higher due to previous bouts of ischemic colitis. Explained there is a chance that the final pathology may show no residual cancer but this it would be a positive thing as it would indicate that the cancer has no risk to spread. She is also aware that the recommendation is therefore to undergo colectomy and especially since this is poorly differentiated adenocarcinoma with positive margins and thepolyp was taken out piecemeal as it was done. This polyp was just about over a centimeter despite what it says on the colonoscopy as the measurement indicated on colonoscopy was incorrect as it was done by me and this polyp was at least 1 cm. Alsotruly unclear the exact location but appears to be in the ascending colon as the ileocecal valve wasin the background. Therefore recommended during the surgical procedure repeat colonoscopy and tattoo but explained likelihood of needing to perform a right hemicolectomy. Explained the very low risk to develop an anastomotic leak at which time she will likely have to go back to the operating room for a ostomy which may be permanent. Explained that typically ostomies are not done at the time of theoriginal operation. She does have a higher risk for leak but I do not believe that the patient would require need for an ostomy because she is not an unacceptable high risk for leak. Multiple questions by family and patient were answered. Will use GoLYTELY prep as the patient tolerated this better with better overall cleanout to ensure that I could identify the area and possibly type II it so that she can undergo surgical therapy The polyp to carcinoma sequence was reviewed the patient in detail. I did explain that a colon carcinoma is diagnosed when there is invasion within the wall of the colon with access to lymph nodes surrounding the colon. Eventually the cancer could spread via the lymph nodes?? to the liver. Also explained the possibility of surgical excision with no evidence of metastatic disease. I did explain that this is performed via mobilization of the ascending colon from its attachments.?? Then explained need to take the lymph nodes around the tumor and the blood supply to the cancer, as the bloodsupply and lymph nodes follow eachother.?? I then explained a stapled side to side anastomosis with a stapler of the small intestine to the colon. I explained that lymph nodes are removed by removing the blood vessels to the cancer as the lymph nodes which may harbor cancer cells and spread the disease are within the network of blood supply to the tumor. Also?? explained that chemotherapy is recommended if there is lymph node involvement. I did explain this is found on final pathology approximately one week later. I explained the enhanced recovery after surgery (ERAS) sugical pathway, including a hospital course of approximate 5 days. I did explain a 4-6 weeks full recovery including changes to energy levels, possible need for rehabilitation as well. I did explain a possible change in bowel habits which may be temporary following?? the surgery including an extra bowel movement per day.?? Explained the possibility for an ileus which is when the colon and small intestine may not work properly after surgery causing bloating. Also explained the many complications of surgery listed below including bleeding, infection, heart attack, stroke, blood clots, pneumonia, pulmonary embolism, , injury to other structures including: ureter, spleen, liver, small intestine, and colon; sexual dysfunction and urinary dysfunction, along with risk of anastomotic leak and temproary vs. permanent need for ostomy or further surgery, along with hernia risk.? Patient is willing to sign consent for surgery.Explained the ability to perform a TAP block which is a block in the abdominal wall to help prevent postoperative pain. Also explained a hand-assisted laparoscopic approach with 2 small incisions vs. Apure laparoscopic approach with 4 small incisions and a small incision around the umbilicus that is extended for specimen removal. For hand assisted approach,??I explained one as periumbilical. Also explained a 2 cm subxiphoid incision. Also explained the need for a Gagnon catheter. Also explained therisk of anastomotic leak which may be higher than 1 %. I did state this may require a temporary ostomy and need for going back to the operating room with possible severe sickness possibly including sepsis and if an anastomotic leak occurs. Explained potential for pure laparoscopic approach vs. Hand assist if needed due to scar tissue and finally possibility of open surgery if unable to safely complete surgery in laparoscopic fashion. ? Patient will proceed with surgical therapy.? All questions answered.?? Benefits of procedure including prevention of spread of tumor and increase in overall survival also reviewed. Hamzah Orourke MD documented in this encounter Plan of Treatment Not on filedocumented as of this encounter Visit Diagnoses Diagnosis Malignant neoplasm of colon, unspecified part of colon (HCC) - Primary documented in this encounter Care Teams Senior Net Application Developer Relationship Specialty Start Date End Date Donaldo Steward DO PCP - General Family Medicine 05/17/[address] [place] [id number] documented as of this encounter
--- OUTSIDE RECORDS SUMMARY | 2020-08-01 12:17 | XMS_ITS | Encounter Summary ---
:1940 Author Organization [facility] Address [address] [place] [address] Care Team Providers Name Role Phone Unavailable Primary Care Provider Unavailable Encounter Details Date Type Department Care Team Description 06/24/2015 Hospital Encounter Lab [facility] [address] [phone] [id number] Social History Tobacco Use Types Packs/Day Years Used Date Never Smoker Alcohol Use Standard Drinks/Week Comments Yes 0 (1 standard drink = 0.6 oz pure alcoho l) Alcohol Habits Answer Date Recorded How often [...] Sig Dispensed Refills Start Date End Date Cholecalciferol (VITAMIN D-3 2,000 Units 0 PO) daily. Vitamin D3 TABS Refills: 0 Active HUMALOG KWIKPEN 100 UNIT/ML 15 Units 3 0 06/19/19 16 injection (three) times a day. lisinopril 0 06/01/2015 (PRINIVIL,ZESTRIL) tablet 20 mg metFORMIN (GLUCOPHAGE-XR) ER 2 (two) times a 0 24 hr tablet 500 mg day. pravastatin (PRAVACHOL) every night at 0 04/17/19 16 tablet 20 mg bedtime. ANA CONTOUR NEXT TEST test 3 016 04/09/2019 strip clobetasol (TEMOVATE) 0.05 % Apply to affected 60 g 1 06/24/2015 07/17/2017 creamIndications: Lichen area daily x 7 sclerosus of female days then every genitalia other day for 7 days then once a week. colchicine 0.6 MG tablet 0 05/13/2015 11/06/2015 hydrochlorothiazide 0 06/01/201504/09 (HYDRODIURIL) tablet 25 mg LANTUS 100 UNIT/ML injection 6 016 06/21/2019 nystatin-triamcinolone Apply topically 2 30 g 0 201405/05/2016 (MYCOLOG II) cream (two) times a day. Nystatin-Triamcin olone 153812-7.1 UNIT/GM-% External Cream APPLY SPARINGLY TO AFFECTED AREA(S) TWICE DAILY omeprazole (PRILOSEC) 40 MG 0 04/14/19 16 08/29/2019 capsule topiramate (TOPAMAX) 25 MG 0 6 11/06/2015 tablet documented as of this encounter Plan of Treatment Not on filedocumented as of this encounter Procedures Procedure Name Priority Date/Time Associated Diagnosis Comme nts VAGINITIS DNA PROBE Routine 06/24/2015 6:30 PM Vaginal itchin g Results for this (AFFIRM COLLECT EDT procedure ar e in KIT) the results section. documented in this encounter Results Vaginitis DNA Probe (06/24/2015 6:30 PM EDT) Pathologist Sig nature Trichomonas Vaginalis NEGATIVE NEG [facility] Gardnerella Vaginalis NEGATIVE NEG [facility] Odilia Species DNA NEGATIVE NEG [facility] Specimen Performing Organization Address City/State/ZIP Code Phon e Number [facility] [address] [place] [address] SERVICES (CLIA #[id number]) ([id number]) documented in this encounter Visit Diagnoses Diagnosis Vaginal itching Pruritus of genital organs documented in this encounter
--- OUTSIDE RECORDS SUMMARY | 2020-08-01 12:17 | XMS_ITS | Encounter Summary ---
:1940 Author Organization [facility] Address [address] [place] [address] Care Team Providers Name Role Phone Benjamin Steward Primary Care Provider Reason for Visit Reason Comments Office Visit Encounter Details Date Type Department Care Team Description 04/09/2019 Office Visit Colon and Rectal Hamzah Orourke Colitis with rectal [facility] MD bleeding (Primary Dx) [place] [address] [place] [address] [address] [facility] [place] [phone] Social History Tobacco Use Types Packs/Day Years [...] Reading Time Taken Comments Blood Pressure 148/79 04/09/2019 9:49 AM EST Pulse 81 04/09/2019 9:49 AM EST Temperature - - Respiratory Rate - - Oxygen Saturation - - Inhaled Oxygen Concentration - - Weight 73 kg (161 lb) 04/09/2019 9:49 AM EST Height 156.2 cm (5' 1.5) 04/09/2019 9:49 AM EST Body Mass Index 29.93 04/09/2019 9:49 AM EST documented in this encounter Progress Notes Hamzah Orourke MD - 04/09/2019 9:45 AM EST Chief Complaint: Chief Complaint Patient presents with ??? Office Visit HPI: Patient is here today as a consultation request from Donaldo Steward DO. 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 She was found on CT scan to have inflammationaround the splenic flexure to the sigmoid colon. Her last bout was in May 2018. At that time violaalsgustavo had one bout of emesis that was coffee-ground she explains. She does have a history of reflux and has been taking an antacid daily. She reports no further reflux symptoms. When she does have the attack she does have occasional vomiting but happening after the pain starts. She reports that shedoes not drink enough water and she knows this. No change to medications. No recent sick contacts. No recent diarrheal illnesses. Does not feel dehydrated. Reports drinks maybe 8 ounces of water per day only. Reports that she is not thirsty. Last colonoscopy was attempted about a year ago but was aborted due to poor prep. Previous colonoscopy with Dr. Tineo revealing a polyp. She reports no no abdominal cramping. No blood in the stool. No dark stools. No unintentional weight loss. She is now having daily brown bowel movements. She is eating well.. Past Medical History: Diagnosis Date ??? [...] ??? HUMALOG KWIKPEN 100 UNIT/ML injection ??? LANTUS 100 UNIT/ML injection 6 ??? lisinopril (PRINIVIL,ZESTRIL) tablet 20 mg ??? metFORMIN (GLUCOPHAGE-XR) ER 24 hr tablet 500 mg ??? [place]-3 Fatty Acids (OMEGA 3 PO) Take by mouth. ??? omeprazole (PRILOSEC) 40 MG capsule ??? pantoprazole (PROTONIX) 40 MG tablet ??? pravastatin (PRAVACHOL) tablet 20 mg ??? TRULICITY 0.75 MG/0.5ML SOPN INJECT ONCE A WEEK 1 ??? VITAMIN A PO Take by mouth. ??? nystatin (MYCOSTATIN) cream Apply topically 2 (two) times a day. Use only for 1 week max (Patient not taking: Reported on 10/19/2018) 15 g 0 No current facility-administered medications for [...] file Gets together: Not on file Attends buddhism service: Not on file Active member of [...] unless otherwise noted above. Vital Signs: Vitals: 04/09/19 0949 BP: 148/79 BP Location: Left arm Patient Position: Sitting Cuff Size: Adult Regular Pulse: 81 Weight: 73 kg (161 lb) Height: 5' 1.5 (1.562 m) Body mass index is 29.93 kg/m??. Body surface area is 1.78 meters squared. Vitals reviewed. Constitutional: She is well-developed and well-nourished Abdomen: Normal appearance. Soft. There is no tenderness. Assessment: ICD-10-CM SNOMED CT(R) 1. Colitis with rectal bleeding K52.9 COLITIS K62.5 A total of 31 minutes was spent with the patient today with more than 50% of the time on counseling / education and coordination of care. Plan: Should have upper endoscopy and colonoscopy as has had repeated bouts of inflammation at the splenicflexure and now had one bout of vomiting that was coffee grounds also explains that she has a history of an ulcer when she was 17. Has not had a repeat upper endoscopy. Recommended aggressive hydration for now 64 ounces water per day. Will give GoLYTELY prep. The patient would like to pursue a colonoscopy/in agreement. I did discuss what a colonoscopy itself [...] propofol that will be given by a SUPERVISOR REMELT or anesthesiologist bedside at all times. Described [...] Primary documented in this encounter Care Teams Model Builder Display Relationship Specialty Start Date End Date Donaldo Steward DO PCP - General Family Medicine 05/17/[address] [place] [address] documented as of this encounter
--- OUTSIDE RECORDS SUMMARY | 2020-08-01 12:17 | XMS_ITS | Encounter Summary ---
:1940 Author Organization [employer] [facility] Address [address] [place] [address] Care Team Providers Name Role Phone Unavailable Primary Care Provider Unavailable Reason for Visit Reason Comments Gynecologic Exam Pt here for routine annual g yn exam, no complaints. Medicare pt, ABN signed. Encounter Details Date Type Department Care Team Description 11/06/2015 Office Visit OBJOSE DANIELN - Holly Purvis Encounter for routine [address], CNM gynecological [address] [facility] examination ([place] [address] [address] Dx) [phone] [place] [address] Social History Tobacco Use Types Packs/Day Years [...] Sign Reading Time Taken Comments Blood Pressure 130/78 11/06/2015 10:50 AM EDT Pulse - - Temperature - - Respiratory Rate - - Oxygen Saturation - - Inhaled Oxygen Concentration - - Weight 77.6 kg (171 lb) 11/06/2015 10:50 AM EDT Height 154.9 cm (5' 1) 11/06/2015 10:50 AM EDT Body Mass Index 32.31 11/06/2015 10:50 AM EDT documented in this encounter Patient Instructions Patient InstructionsHolly Sahni CNM - 11/06/2015 11:34 AM EDT Images from the original note were not included. Breast Self-Exam (BSE) Your breasts change throughout your life. Monthly breast self-exams can help you learn what is normal for you. That way, you are more likely to notice any unusual changes. Try to check your breasts after your menstrual period each month when your breasts are less tender and swollen. If you don???t have periods, aim for the first of each month. Look for Changes Look in the mirror with your hands at your sides. Then raise your arms. Do you see any flattening, bulging, or puckering on your breasts? Next, raise your arms, then put your hands on your hips. Look for changes in your breast movement or shape as you move your arms. Feel for Changes Lie on your side with a pillow under your right shoulder. Put your right arm above your head. (You can also do this exam in the shower with soapy hands.) ?? Feel your right breast with your left hand. ?? Use an up-and-down??pattern. Use the same pattern each month. ?? Use the pads of your three middle fingers (index finger, middle finger, and ring finger). Move over the breast in small circles (the size of a dime). ?? Feel for lumps or thickening. ?? Repeat on your left side. ?? Note any discharge from your nipple. ?? When to Call Your Doctor Call your doctor if you find any of the following: ?? New lumps or thickening ?? Puckering of the skin or other changes ?? Spontaneous or bloody discharge from the nipple ?? [phone] [facility]. [address] [place] [address], [place] [address]. All rights reserved. This information is not intended as a substitute for professional medical care. Always follow your healthcare professional's instructions. documented in this encounter Progress Notes Holly Sahni CNM - 11/06/2015 10:51 AM EDT Esther Morales is a 75 y.o.female. Chief Complaint Patient presents with ??? 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 Medicare pt, ABN signed. Filed Vitals: 11/06/15 1050 BP: 130/78 Height: 5' 1 (1.549 m) Weight: 77.565 kg (171 lb) HYST 1979 due to HMB No hx of abnormal paps No hx of STDs No hx of HRT use Last Pap Smear: 09/26/11 - WNL Last Mammogram: 05/13/15 - <25% birads 1 negative Last Colonoscopy: 04/09/14 ??? diverticulosis, internal hemorrhoids, benign polyps. RTN 3 years. Last Dexa: 2007 - normal per pt HPI HEre for AOV. Denies s/s of depression. Declines sti testing. Allergies: Allergies Allergen Reactions ??? Acetazolamide Other (See Comments) Dry mouth ??? Codeine Nausea And Vomiting ??? Morphine ??? Morphine And Related Nausea And Vomiting ??? Sulphadimidine [Sulfamethazine] Hives ??? Tramadol Nausea And Vomiting ??? Latex Rash Current Meds: Current outpatient prescriptions: ??? aspirin EC 81 MG tablet, Take [...] 500 mg, , Disp: , Rfl: ??? nystatin-triamcinolone (MYCOLOG II) cream, Apply topically 2 (two) times a day. Nystatin-Triamcinolone 559394-3.1 UNIT/GM-% External Cream APPLY SPARINGLY TO AFFECTED AREA(S) TWICE DAILY, Disp: 30g, Rfl: 0 ??? [place]-3 Fatty Acids (OMEGA 3 PO), Take by mouth., Disp: , Rfl: ??? omeprazole (PRILOSEC) 40 MG capsule, , Disp: , Rfl: ??? pravastatin (PRAVACHOL) tablet 20 mg, , Disp: , Rfl: ??? VITAMIN A PO, Take by mouth., Disp: , Rfl: ??? [employer] CONTOUR NEXT TEST test strip, , Disp: , Rfl: 3 ??? clobetasol (TEMOVATE) 0.05 % cream, Apply to affected area daily x 7 days then every other day for 7 days then once a week., Disp: 60 g, Rfl: 1 Active Problems: Patient Active Problem List Diagnosis SNOMED CT(R) ??? Vaginal itching PRURITUS OF VAGINA ??? 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 Encounter for routine gynecological examination PATIENT ENCOUNTER STATUS History: OB History Para Term AB TAB SAB Ectopic Multiple Living 2 2 2 0 0 0 0 0 0 2 Past Medical History Diagnosis Date ??? Arthritis ??? Diabetes mellitus (HCC) ??? Hypertension ??? Hypercholesteremia ??? Adenomatous polyp of colon ??? Spinal stenosis ??? Acute myocardial infarction (HCC) ??? Acid reflux Past Surgical History Procedure Laterality Date ??? Coronary angioplasty with stent placement 2003 ??? Back surgery 2012 ??? Cataract extraction, bilateral 2003 ??? Hysterectomy 1980s Heavy periods. ??? [place] tooth extraction 2016 x1 Family History Problem Relation Age [...] Social History Social History ??? Marital Status: Unknown Spouse Name: N/A ??? Number of Children: [...] ??? Not on file Social History Narrative Results for orders placed or performed during the hospital encounter of 06/24/15 Vaginitis DNA Probe Result Value Ref Range Trichomonas Vaginalis DNA NEGATIVE NEG Gardnerella Vaginalis DNA NEGATIVE NEG Odilia Species DNA NEGATIVE NEG Review of Systems Constitutional: Negative for fever, appetite change, fatigue, unexpected weight change and night sweats. HENT: Negative for nosebleeds. Eyes: Negative for visual disturbance. Respiratory: Negative for cough, choking, chest tightness, shortness of breath, wheezing and stridor. Cardiovascular: Negative for chest pain, palpitations and leg swelling. Gastrointestinal: Negative for nausea, vomiting, abdominal pain, diarrhea, constipation, blood in stool, abdominal distention and anal bleeding. Endocrine: Negative for cold intolerance, heat intolerance, hot flashes and night sweats. Breast: Negative for breast mass, breast pain and breast discharge. Genitourinary: Negative for bladder incontinence, dysuria, urgency, frequency, flank pain, vaginal discharge, difficulty urinating, genital sores, vaginal pain, vaginal itching and vaginal dryness. Skin: Negative for color change, rash and wound. Neurological: Negative for dizziness, seizures, syncope and facial asymmetry. Hematological: Does not bruise/bleed easily. Psychiatric/Behavioral: Negative for suicidal ideas, behavioral problems, sleep disturbance, self-injury and dysphoric mood. The patient is not nervous/anxious. Physical Exam Constitutional: She is oriented to person, place, and time. Vital signs are normal. She appears well-developed and well-nourished. She is cooperative. HENT: Head: Normocephalic and atraumatic. Eyes: EOM are normal. Neck: Normal range of motion. Neck supple. No thyroid mass and no thyromegaly present. Cardiovascular: Normal rate, regular rhythm and normal heart sounds. No murmur heard. Pulmonary/Chest: Effort normal and breath sounds normal. No respiratory distress. She has no wheezes. She has no rhonchi. She has no rales. Right breast exhibits no inverted nipple, no mass, no nipple discharge, no skin change and no tenderness. Left breast exhibits no inverted nipple, no mass, no nipple discharge, no skin change and no tenderness. Breasts are symmetrical. Abdominal: Soft. Normal appearance and bowel sounds are normal. She exhibits no distension and no mass. There is no tenderness. There is no rebound, no guarding and no CVA tenderness. Genitourinary: Exam is limited by (habitus). Vagina normal. No labial fusion. There is no rash, tenderness, lesion or injury on the right labia. There is no rash, tenderness, lesion or injury on the left labia. Uterus Absent. Cervix is absent. Right adnexum displays no mass, no tenderness and no fullness. Left adnexum displays no mass, no tenderness and no fullness. Vagina exhibits normal mucosa, no congenital or acquired vaginal enterocele, no rectocele and no other prolapse of vaginal bowser w/o mention of uterine prolaps e. No erythema, tenderness or bleeding in the vagina. No foreign body around the vagina. No signs ofinjury around the vagina. No vaginal discharge found. Musculoskeletal: Normal range of motion. She exhibits no edema. Neurological: She is alert and oriented to person, place, and time. Skin: Skin is warm, dry and intact. Psychiatric: She has a normal mood and affect. Her speech is normal and behavior is normal. Judgmentand thought content normal. Cognition and memory are normal. She does not exhibit a depressed mood. Nursing note and vitals reviewed. Assessment/Plan: Esther was seen today for gynecologic exam. Diagnoses and all orders for this visit: Encounter for routine gynecological examination Mammogram done in 04/2015 PCP ordered other testing and monitors bp, diabetes, and medications Orders: No orders of the defined types were placed in this encounter. Return in about 1 year (around 11/05/2016) for Annual physical- 2yrs d/t insurance. Italia Greeneectronically signed by Holly Sahni CNM at 11/06/2015 11:35 AM EDTdocumented in this encounter Plan of Treatment Not on filedocumented as of this encounter Visit Diagnoses Diagnosis Encounter for routine gynecological exam ination - Primary documented in this encounter
--- OUTSIDE RECORDS SUMMARY | 2020-08-01 12:17 | XMS_ITS | Encounter Summary ---
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 Subjective: Patient ID: Esther Morales is a 74 y.o. female. Chief Complaint Patient presents with ??? Gynecologic Exam Pt here for prob visit itching only HPI Pt here for annual exam but it has not yet been 2 year. Pt declined annual today and will comeback in September when due. Pt c/o itching mostly on her right labia for the last 4-5 days. Pt deniesa discharge or odor. Pt with hx of LSA and has not been using the clobetasol for some time now. Patient Active Problem List Diagnosis SNOMED CT(R) ??? Vaginal itching PRURITUS OF VAGINA ??? 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 Arthritis ??? Diabetes mellitus (HCC) ??? Hypertension ??? Hypercholesteremia ??? Adenomatous polyp of colon ??? Spinal stenosis ??? Acute myocardial infarction (HCC) OB History Para Term AB TAB SAB Ectopic Multiple Living 2 2 Past Surgical History Procedure Laterality Date ??? Coronary angioplasty with stent placement ??? Back surgery ??? Cataract extraction, bilateral ??? Hysterectomy 1980s Heavy periods. Family History Problem Relation Age of Onset ??? Heart disease Mother ??? Cancer Mother ??? Diabetes Father ??? Colon cancer Brother ??? Breast cancer Neg Hx ??? Ovarian cancer Neg Hx ??? Uterine cancer Neg Hx History Social History ??? Marital Status: Unknown Spouse Name: N/A ??? Number of Children: N/A ??? Years of Education: N/A Occupational History ??? Not on file. Social History Main Topics ??? Smoking status: Never Smoker ??? Smokeless tobacco: Not on file ??? Alcohol Use: Yes ??? Drug Use: No ??? Sexual Activity: No Comment: passed 2 years ago. Other Topics Concern ??? Not on file Social History Narrative Allergies: Allergies Allergen Reactions ??? Acetazolamide ??? Codeine ??? Morphine ??? Morphine And Related Nausea And Vomiting ??? Sulphadimidine [Sulfamethazine] Hives ??? Tramadol Nausea And Vomiting ??? Latex Rash Current Meds: Current Outpatient Prescriptions Medication Sig Dispense Refill ??? ANA CONTOUR NEXT TEST test strip 3 ??? Cholecalciferol (VITAMIN D-3 PO) Vitamin D3 TABS Refills: 0 Active ??? HUMALOG KWIKPEN 100 UNIT/ML injection ??? LANTUS 100 UNIT/ML injection 6 ??? lisinopril (PRINIVIL,ZESTRIL) tablet 20 mg ??? metFORMIN (GLUCOPHAGE-XR) ER 24 hr tablet 500 mg ??? omeprazole (PRILOSEC) 40 MG capsule ??? pravastatin (PRAVACHOL) tablet 20 mg ??? clobetasol (TEMOVATE) 0.05 % cream Apply to affected area daily x 7 days then every other day for 7 days then once a week. 60 g 1 ??? colchicine 0.6 MG tablet ??? hydrochlorothiazide (HYDRODIURIL) tablet 25 mg ??? nystatin-triamcinolone (MYCOLOG II) cream Apply topically 2 (two) times a day. Nystatin-Triamcinolone [id number] UNIT/GM-% External Cream APPLY SPARINGLY TO AFFECTED AREA(S) TWICE DAILY 30 g 0 ??? topiramate (TOPAMAX) 25 MG tablet No current facility-administered medications for this visit. Objective: Review of Systems Filed Vitals: 06/24/15 1007 BP: 130/72 Height: 5' 1 (1.549 m) Weight: 76.658 kg (169 lb) Body mass index is 31.95 kg/(m^2). Wt Readings from Last 1 Encounters: 06/24/15 76.658 kg (169 lb) No LMP recorded. Patient has had a hysterectomy. Contraception: status post hysterectomy Physical Exam Constitutional: She is oriented to person, place, and time. She appears well- developed and well-nourished. Genitourinary: There is labial fusion (minimal). There is no rash, tenderness, lesion or injury on the right labia.There is no rash, tenderness, lesion or injury on the left labia. No erythema, tenderness or bleeding in the vagina. No foreign body around the vagina. No signs of injury around the vagina. No vaginal discharge found. Uterus and cervix surgically absent. Ovaries non-palp, ?surgically absent? Neurological: She is alert and oriented to person, place, and time. Skin: Skin is warm and dry. Psychiatric: She has a normal mood and affect. Her behavior is normal. Judgment and thought content normal. Nursing note and vitals reviewed. Assessment: Esther was seen today for gynecologic exam. 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 SNOMED CT(R) 1. Vaginal itching PRURITUS OF VAGINA Vaginitis DNA Probe 2. 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 Pt to call if no improvement -Affirm sent out, call with positives. -RTO in September for annual exam. Plan: Encounter Orders: Orders Placed This Encounter Procedures ??? Vaginitis DNA Probe Encounter Images: No images are attached to the encounter or orders placed in the encounter. Return in about 4 months (around 10/24/2015) for Annual physical. Uma Romero CNM documented in this encounter Plan of Treatment Not on filedocumented as of this encounter Results Vaginitis DNA Probe (06/24/2015 6:30 PM EDT) Pathologist Sig nature Trichomonas Vaginalis NEGATIVE NEG [facility] Gardnerella Vaginalis NEGATIVE NEG [facility] Odilia Species DNA NEGATIVE NEG [facility] Specimen Performing Organization Address City/State/ZIP Code Phon e Number [facility] [address] [place] [address] SERVICES (CLIA #[id number]) ([id number]) documented in this encounter Visit Diagnoses Diagnosis Vaginal itching - Primary Pruritus of genital organs 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
--- OUTSIDE RECORDS SUMMARY | 2020-08-01 12:17 | XMS_ITS | Encounter Summary ---
:1940 Author Organization [employer] [facility] Address [address] [place] [address] Care Team Providers Name Role Phone Unavailable Primary Care Provider Unavailable Encounter Details Date Type Department Care Team Description 05/19/2003 - Hospital Encounter [facility] Mark Duran, 05/21/2003 Aleah GARRIDO [address] [place] [address] Mark Willis. MD Roger, [place] [address] (Wo rk) Social History Tobacco Use Types Packs/Day Years Used Date Never Assessed Alcohol Habits Answer Date Recorded How often [...]
--- OUTSIDE RECORDS SUMMARY | 2020-08-01 12:17 | XMS_ITS | Encounter Summary ---
:1940 Author Organization [employer] [facility] Address [address] [place] [address] Care Team Providers Name Role Phone Benjamin Steward Primary Care Provider Reason for Visit Reason Comments Osteoporosis Gout Encounter Details Date Type Department Care Team Description 10/19/2018 Follow-Up RHEUMATOLOGY Suman Huggins MD Acute pain of right shoulder (Primary Dx ); [facility] [address] Other osteoporosis without current patho logical fracture; [facility] Rheumatology Iliotibial band syndrome of right side [place], [place] [facility] [id number] [place] [id number] (Wo rk) Social History Tobacco Use Types [...] - Inhaled Oxygen Concentration - - Weight 68.9 kg (151 lb 14.4 oz) 10/19/2018 11:24 AM EDT Height 156.2 cm (5' 1.5) 10/19/2018 11:24 AM EDT Body Mass Index 28.24 10/19/2018 11:24 AM EDT documented in this encounter Progress Notes Suman Huggins MD - 10/19/2018 11:00 AM EDT Images from the original note were not included. [address] [place] [address] Esther Morales 1940 Chief Complaint Follow up for Gout, Osteoporosis Currently taking 5mg Reclast IV, Colchicine PRN, HCQ 200 mg 1 PO QD PCP: Bin Subjective: History of Present Illness Esther Morales is a 78 y.o. yr old female who returns for follow up of Gout, Osteoporosis. Patient reports she has not had any Gout flares since the last visit but her right index finger was very painfula nd swollen for 1 week. She gets an intense pain in hip down to her knee and her shoulder. She cannot sleep on her right side due to shoulder pain. She can only abduct to 90 degrees. She has difficulty doing house hold chores but has not tried therapy. She says that medicine she was given for her cramps in her legs helps but only until about 5 am thenthe cramps wake her up. Patient denies bone breaks. She was last treated in June with Reclast. Review of Symptoms (negative except as noted; [...] bleeding tendencies, anemia, blood transfusions. Objective: Vitals: There were no vitals filed for this visit. There is no height or weight on file to calculate BMI. BMI Screening: patient's BMI was abnormal. Follow [...] Other osteoporosis without current pathological fracture OSTEOPOROSIS Medications: Current Outpatient Prescriptions: ??? aspirin EC [...] a day. Use only for 1 week max, Disp: 15 g, Rfl: 0 ??? [place]-3 Fatty Acids (OMEGA 3 PO), Take by [...] (80 mg total) vaginally every night at bedtime., Disp: 3 suppository, Rfl: 0 ??? triamcinolone (KENALOG) 0.1 % cream, Apply topically 2 (two) times a day., Disp: 30 g, Rfl: 0 ??? triamcinolone (KENALOG) 0.1 % cream, Apply topically 2 (two) times a day. Use only for 1 week max, Disp: 30 g, Rfl: 0 ??? VITAMIN A PO, Take by mouth., [...] strength, no tenderness, no swelling, no synovitis. Assessment 78 y.o. woman with history of diabetes with leg cramping and hand OA improved on HCQ and leg lengthdiscrepancy improved with lift, and spinal stenosis. She had a red hot swollen right index finger lasting about a week in August 2018, gout flare in January 2018 resolved with colchicine. Presents today for follow up of right shoulder and right hip pain with significant limitations to range of motion of the right shoulder, and tenderness of the right IT band without trochanteric tenderness or signs of acetabular impingement. Osteoporosis status post starting Reclast after recent DEXA done on 04/16/18 showed T Score -2.6 at the Left Hip, and on review appears her diabetes on insulin for the last 20+ years is risk factor, though she also denies a calcium rich diet. Plan: There are no diagnoses linked to this encounter. RIGHT SHOULDER PAIN: Appears to be a component of rotator cuff tendiopathy as well as osteoarthritis. Incomplete response to subacromial steroid injection today. Plan for X-rays of the right shoulder to further characterize, she will begin physical therapy for rotator cuff tendinopathy and impingement. OSTEOPOROSIS: Patient instructed to continue vitamin D and [...] work three months prior and following treatment. GOUT: Had flare in January 2018 with potential [...] not limited to, diarrhea,marrow suppression, or rash. LEG CRAMPS: Much improved on HCQ. Patient will continue 200mg HCQ PO QHS. Would appreciate Dr. Sales input on HCQ use. We discussed risks and benefits of hydroxychloroquine which include, but are not limited to, photosensitivity, tinnitus, nausea, leukopenia or retinal deposition. Patient was instructed to notify theireye child care provider of hydroxychloroquine use and obtain yearly eye checks. F/U: 1 month PCP: Dr. Donaldo Steward OPHTHALMOLOGY: Henrry Lanier Please note a scribe has recorded this visit. Physician has reviewed for medical accuracy documented in this encounter Plan of Treatment Not on filedocumented as of this encounter Visit Diagnoses Diagnosis Acute pain of right shoulder - Primary Other osteoporosis without current patho logical fracture Iliotibial band syndrome of right side documented in this encounter Care Teams Short Piece Handler Relationship Specialty Start Date End Date Donaldo Steward DO PCP - General Family Medicine 05/17/[address] [place] [address] [address] [place] [address] documented as of this encounter
--- OUTSIDE RECORDS SUMMARY | 2020-08-01 12:17 | XMS_ITS | Encounter Summary ---
:1940 Author Organization [email or web address] [facility] Address [address] [place] [id number] Care Team Providers Name Role Phone Unavailable Primary Care Provider Unavailable Encounter Details Date Type Department Care Team Description 03/10/2015 Initial consult [place] Lito Britton MD [facility] [address] [place] [address] lumbar intervertebral 893 [facility] disc (Primary Dx) [address] [facility] [place], [place] [id number] [phone] Social History Tobacco Use Types Packs/Day Years Used Date Never Assessed Alcohol Use Standard Drinks/Week Comments No 0 [...] on file documented as of this encounter Consult Notes Lito Ruano MD - 03/10/2015 3:20 PM EST [place] [address] [address] Initial Consult Patient: Esther Morales 74 y.o. female Consultation Date: 03/10/2015 Referring Provider:barbara Chief Complaint: leg pain with low back pain Proposed Procedure: Lumbar epidural steroid injection History of Present Illness This 74-year-old female was sent by her primary care doctor with complaints of low back pain but actually more pain in her legs. Her history dates back a few years when she saw Dr. Diaz and had lumbar disc surgery For back pain. The patient states that the back pain was somewhat relieved but she was left with leg pain that was new since the surgery she went back to Dr. Daiz to complain about the leg pain with paresthesias and numbness and it was Dr. Bell's assessment that she suffered diabetic neuropathy. Nerve conduction studies were done that did not show diabetic neuropathy and she is thus fairly displeased with Dr. Diaz's care. She saw her primary care doctor who recommended physical therapy and this did help as regards her low back pain but the leg pain has not been helped. The legs bother her when she stands or walks for long periods of time all recreational and household activities are curtailed because of these pains. The patient is intolerant of medications such as Lyrica andnarcotics. The patient has gone through physical therapy as mentioned but has not had injection therapy. She would prefer not to have to work with Dr. Diaz again and is not looking forward to any further surgery. An MRI done just last month was pertinent for an L3 4 disc protrusion with some mass effect on the neural foramen at these levels. Postsurgical changes are noted at L4 5. L5-S1 shows some disc degeneration. Patient Information Esther Morales has a past medical history of Arthritis; Diabetes mellitus ([facility]); and Hypertension. She also has no past medical history of Asthma, Bleeding disorder ([facility]), Coronary artery disease, Cancer ([facility]), CHF (congestive heart failure) ([facility]), COPD (chronic obstructive pulmonary disease) ([facility]), History of transfusion, MS (multiple sclerosis) ([facility]), Stroke ([facility]), or Disease of thyroid gland. Esther Morales has no past surgical history on file. Esther Morales reports that she does not drink alcohol or use illicit drugs. Esther Morales family history includes Cancer in her mother; Diabetes in her father; Heart diseasein her mother. There is no problem list on file for this patient. Allergies Allergen Reactions ??? Morphine And Related Nausea And Vomiting ??? Sulphadimidine [Sulfamethazine] Hives ??? Tramadol Nausea And Vomiting ??? Latex Rash Home Medications Start Date End Date Provider clobetasol (TEMOVATE) 0.05 % cream 11/11/14 -- Uma Romero CNM Apply topically daily. Clobetasol Propionate 0.05 % External Cream Apply sparingly daily x 7 days then PRN nystatin-triamcinolone (MYCOLOG II) cream 11/05/14 -- Uma Romero CNM Apply topically 2 (two) times a day. Nystatin-Triamcinolone 722413-0.1 UNIT/GM-% External Cream APPLY SPARINGLY TO AFFECTED AREA(S) TWICE DAILY Patient Pain History Questionaire When did the pain begin?: 03/09/13 How did it start?: pinched nerve related to back surgery 2 years ago, via MRI results Where do you feel the pain?: legs Has this pain changed since it began (i.e. better or worse)?: Yes If yes, how?: worse with time, reports that its nueropathy due to DM Pain Descriptors: Radiating;Sharp;Shooting;Tingling What makes the pain worse?: extended walking What treatment have you tried thus far (PT, surgery, injections)?: PT Is the pain?: Frequently present On a scale of 0-10 rate your pain: At its worst: 9 On a scale of 0-10 rate your pain: Usually: 5 On a scale of 0-10 rate your pain: At its least: 2 Review of Systems Non-Contributory. Review of Pain Systems Frequent or Severe Headaches: No Blackouts/Fainting: No Loss of Balance: Yes Dizzy Spells: No Trembling: No Rapid or Skipped Heartbeats: No Chest Pain: No Shortness of Breath w/Normal Activity: No Pain in Abdomen: No Bloated Abdomen: No Lumps or Swelling: No Neck Pain: No Back or Shoulders Pain: Yes Weakness in Arms or Legs: No Swollen Feet or Ankles: No Aching Muscles or Joints: Yes Swollen Joints: No Painful Feet: No Leg Cramps: Yes Numbness: Yes Frequent Urination: No Burning on Urination: No Are you having any surgery or procedure in the next few weeks: No Have you had an MRI?: Yes Date Of Last MRI: 02/06/15 Where was your last MRI done?: [facility] Body Part: back Have you had a CT Scan?: No Physical Exam There were no vitals filed for this visit. Well-healed low lumbar scar. She has tenderness in the SI joints. Sensory and motor function are intact in the lower extremities. I was unable to get reflexes in the knees or the ankles. There was no antalgic gait. Circulation was intact. Straight leg raising was negative. Diagnostic Data As mentioned there is degeneration most notable at L3 4 with postoperative changes at L4 5 Impression DIAGNOSIS: ICD-10-CM SNOMED CT(R) 1. Degeneration of lumbar intervertebral disc M51.36 DEGENERATION OF LUMBAR INTERVERTEBRAL DISC llumbar degeneration causing radiculopathy. The patient may benefit from a trial of injection therapy. Epidural injections or caudal injections can be considered. We will schedule the patient for this at her earliest convenience. Thank you for allowing us to participate in your patient's care. Please do not hesitate to contact me if you have any questions or concerns regarding her treatment. Lito Ruano MD 03/10/2015 3:20 PM documented in this encounter Plan of Treatment Not on filedocumented as of this encounter Visit Diagnoses Diagnosis Degeneration of lumbar intervertebral di sc - Primary Degeneration of lumbar or lumbosacral in tervertebral disc documented in this encounter
== END 2020-08-01 12:30 | disposition home or self-care (01) ==
PROVIDERS: Emergency Provider Physician Assistant
DX: M25.462 Effusion, left knee (principal); M17.12 Unilateral primary osteoarthritis, left knee
CPT/HCPCS: 99282; 99283

== ENCOUNTER 2023-08-10 10:18 | Emergency (ER) | payer MEDICARE, BC, SELFPAY ==
[2023-08-10 10:22] VITALS: BP 131/81; PULSE 85; RESP 14; TEMP 36.4; O2SAT 96
--- NOTE | 2023-08-10 11:16 | W.ED.GENAD ---
Discharge Plan Disposition Patient Disposition: Home Condition: Stable Discharge Details Clinical Impression: Insect bite Primary Care Provider: None,None ED Provider: Joanne Uribe Home Meds and New Rx's Prescriptions: Continued insulin glargine [Lantus U-100 Insulin] 100 unit/mL Solution 25 unit SUBCUT BID lisinopril 20 mg Tablet 20 mg PO DAILY pantoprazole 40 mg Tablet,Delayed Release (Dr/Ec) 40 mg PO DAILY aspirin 81 mg Tablet 81 mg PO DAILY pravastatin 20 mg Tablet 20 mg PO QHS hydrochlorothiazide 25 mg Tablet 25 mg PO DAILY insulin lispro [Humalog U-100 Insulin] 100 unit/mL Solution 15 unit SUBCUT TID hydroxychloroquine 200 mg Tablet 200 mg PO DAILY coenzyme Q10 [CoQ-10] 100 mg Capsule 100 mg PO BID omega-3 fatty acids Capsule 1,000 mg PO DAILY Calcium 600 + D(3) 600 mg calcium- 200 unit Capsule 1 cap PO DAILY vitamin A-vitamin D3 5,000-400 unit Capsule 1 cap PO DAILY Rx Instructions: unsure of dose cholecalciferol (vitamin D3) [Vitamin D3] 50 mcg (2,000 unit) Tablet 50 mcg PO DAILY Probiotic 3 billion cell Capsule 3,000 mmu cells PO DAILY Trulicity 0.75 mg/0.5 mL Pen Injector 0.75 mg SUBCUT QWEEK Histablock 1,080 mg PO BID Intestinal Sooth & Build 1 tab .Route PRN Discharge Instructions Instructions: Diphenhydramine (Topical), Insect Bites and Stings ED Additional Instructions: You were given doxycycline 200mg here in the department today. Please apply the Benadryl cream twice daily as needed for itching or burning. Do not apply any other creams at this time. Follow up with primary care provider in 3-5 days. Return to ED sooner if any worsening or concerns. Discharge Data Discharge Date/Time-TO BE ENTERED AT DEPARTURE: 08/10/23 12:07 HPI General Mode of arrival: ambulatory. Date/Time Provider Initiated Documentation: 08/10/23 11:12. Limitations to Documentation: no limitations. Information obtained by: patient, RN notes reviewed and old records reviewed. HPI Narrative: 83-year-old female presents to the ER with a chief complaint of right neck insect bite. She reports that she was outside yesterday and was bit by an unseen unknown insect. She was not sure if it was a tick or mosquito or spider. She reports that she smashed it with her fingers. She does have a small 1 cm x 1 cm raised area with a central ulceration noted on the right side of her neck. No other rashes, associated symptoms or complaints denies any body aches fever. She is alert and oriented x 4. She has been putting Neosporin on it at home. She does have a past medical history of hypertension, insulin-dependent diabetes, Related Data Home Medications Medication Instructions Recorded Confirmed Histablock 1,080 mg PO BID 08/01/20 08/10/23 Intestinal Sooth & Build 1 tab .Route PRN 08/01/20 08/10/23 aspirin 81 mg tablet 81 mg PO DAILY 08/01/20 08/10/23 calcium carbonate 600 mg-vitamin 1 cap PO DAILY 08/01/20 08/10/23 D3 5 mcg (200 unit) capsule (Calcium 600 + D(3)) cholecalciferol (vitamin D3) 50 50 mcg PO DAILY 08/01/20 08/10/23 mcg (2,000 unit) tablet (Vitamin D3) coenzyme Q10 100 mg capsule 100 mg PO BID 08/01/20 08/10/23 (CoQ-10) dulaglutide 0.75 mg/0.5 mL 0.75 mg subcut QWEEK 08/01/20 08/10/23 subcutaneous pen injector (Trulicity) hydrochlorothiazide 25 mg tablet 25 mg PO DAILY 08/01/20 08/10/23 hydroxychloroquine 200 mg tablet 200 mg PO DAILY 08/01/20 08/10/23 insulin glargine 100 unit/mL 25 unit subcut BID 08/01/20 08/10/23 subcutaneous solution (Lantus U-100 Insulin) insulin lispro 100 unit/mL 15 unit subcut TID 08/01/20 08/10/23 subcutaneous solution (Humalog U-100 Insulin) lactobacillus combination no.4 3 3,000 mmu cells PO DAILY 08/01/20 08/10/23 billion cell capsule (Probiotic) lisinopril 20 mg tablet 20 mg PO DAILY 08/01/20 08/10/23 omega-3 fatty acids 1,000 mg PO DAILY 08/01/20 08/10/23 pantoprazole 40 mg tablet,delayed 40 mg PO DAILY 08/01/20 08/10/23 release pravastatin 20 mg tablet 20 mg PO QHS 08/01/20 08/10/23 vitamin A-vitamin D3 5,000 1 cap PO DAILY 08/01/20 08/10/23 unit-400 unit capsule Allergies Allergy/AdvReac Type Severity Reaction Status Date / Time latex Allergy blisters Unverified 08/10/23 11:18 Sulfa (Sulfonamide Allergy Hives Unverified 08/10/23 10:28 Antibiotics) clarithromycin [From Biaxin] AdvReac Nausea Unverified 08/10/23 10:28 codeine AdvReac Nausea Unverified 08/10/23 10:28 morphine AdvReac Nausea Unverified 08/10/23 11:18 tramadol AdvReac Nausea Unverified 08/10/23 11:18 General Stated Complaint: InsectBite MERRITT: 3 Review of Systems Integumentary/Breasts Skin/Breast: Reports as per HPI, Reports pruritus, Reports skin pain, Reports skin swelling and Reports wounds (Insect bite right neck) Exam [facility] Head images: 1. Approximately 1 cm raised area, insect bite with no drainage, no surrounding induration. No other rash noted. Course Vital Signs Vital signs: Vital Signs Temperature 36.4 C 08/10/23 10:22 Pulse 85 08/10/23 10:22 Respiratory Rate 14 08/10/23 10:22 Blood Pressure 131/81 08/10/23 10:22 Pulse Oximetry 96 08/10/23 10:22 Temperature 36.4 C 08/10/23 10:22 Temperature Source Oral 08/10/23 10:22 Pulse 85 08/10/23 10:22 Respiratory Rate 14 08/10/23 10:22 Respiratory Effort Normal, Non-Labored 08/10/23 10:30 Blood Pressure 131/81 08/10/23 10:22 Blood Pressure Position Sitting 08/10/23 10:22 Pulse Oximetry 96 08/10/23 10:22 Oxygen Delivery Method Room Air 08/10/23 10:22 Oxygen Flow Rate 0 08/10/23 10:22 Pain Level 5 08/10/23 10:22 Comment Pain to the touch 08/10/23 10:22 Medical Decision Making 83-year-old female presents to the ER with a chief complaint of right neck insect bite. She reports that she was outside yesterday and was bit by an unseen unknown insect. She was not sure if it was a tick or mosquito or spider. She reports that she smashed it with her fingers. She does have a small 1 cm x 1 cm raised area with a central ulceration noted on the right side of her neck. No other rashes, associated symptoms or complaints denies any body aches fever. She is alert and oriented x 4. She has been putting Neosporin on it at home. She does have a past medical history of hypertension, insulin-dependent diabetes, At this time we will give her doxycycline 200 mg p.o. x 1 due to concern for tick bite, did discuss Benadryl topical cream with her for antihistamine she verbalizes understanding. No evidence of cellulitis or systemic infection. This text was generated using [employer] system, please disregard any oddities of phrase or misspellings. Quality:SDOH Health Related Social Needs: No Data to Display PFSH All Active Problems (Updated 08/10/23 @ 11:54 by Joanne Uribe NP) Insect bite (Acute) Effusion into joint (Acute) Arthritis of knee (Acute) Social History Smoking/Tobacco Use Status: Never Smoking risk assessment performed?: Yes Alcohol Intake: never Drug use: Never Substance use type: does not use Do you feel safe at home: Yes Do you feel safe in your relationship?: Yes
[2023-08-10] MEDS: Doxycycline Hyclate 100 MG CAP 200 MG PO (11:21)
[2023-08-10] MEDS: diphenhydrAMINE /ZINC ACET CR 30 GM TUBE TP (11:23)
[2023-08-10 11:30] VITALS: BP 121/78; PULSE 96; RESP 18; O2SAT 97
== END 2023-08-10 12:07 | disposition home or self-care (01) ==
PROVIDERS: Emergency Provider Registered Nurse Emergency
DX: S10.86XA Insect bite of other specified part of neck, initial encounter (principal); I10 Essential (primary) hypertension; E11.9 Type 2 diabetes mellitus without complications; Z79.4 Long term (current) use of insulin; Z79.82 Long term (current) use of aspirin; X58.XXXA Exposure to other specified factors, initial encounter; Y93.89 Activity, other specified; Y92.89 Other specified places as the place of occurrence of the external cause
CPT/HCPCS: 99283